=== PATIENT | male | born 1960 | race African-American/Black ===

== ENCOUNTER 2020-11-12 09:13 | Inpatient (IN) | payer OTHER ==
[~2020-11-12] VITALS: Ht 170.2 cm; Wt 93.4 kg
--- NOTE | 2020-11-12 09:20 | NUR ---
ASSUME PATIENT CARE. HERE FOR WORSENING SOB. PT WAS SENT FROM [facility]. ALREADY MISSED 2 DIALYSIS. GOWNED AND PLACED ON MONITOR. PLACED ON SIMPLE MASK W SATURATION LOW 90'S. VERBALLY RESPONSIVE. AWAITING MD WILKS.
--- NOTE | 2020-11-12 09:21 | NUR ---
DR ALEXIS AT BEDSIDE FOR EVAL.
--- NOTE | 2020-11-12 09:37 | NUR ---
IV LINE STARTED BLOOD DRAWN AND SENT TO LAB.
--- NOTE | 2020-11-12 09:40 | NUR ---
RADIO,LOGY AT BEDSIDE FOR CHEST XRAY.
[2020-11-12 10:33] LABS: BASOPHILS % (AUTO) 0.3 % (0.0-2.0); CALCIUM, SERUM 8.5 mg/dL (8.5-10.1); HEMATOCRIT 32 % (39-51); HEMOGLOBIN 10.2 g/dL (13.5-17.5); LYMPHOCYTES % (AUTO) 21.6 % (20.0-44.0); MEAN CORPUSCULAR HGB CONC 33 g/dl (31.0-36.0); MEAN CORPUSCULAR VOLUME 82 fL (80-96); MONOCYTES # (AUTO) 0.3 /CMM (0.1-1.30); MONOCYTES % (AUTO) 6.2 % (2.0-12.0); NEUTROPHILS # (AUTO) 3.3 /CMM (1.8-8.9); NEUTROPHILS % (AUTO) 71.9 % (43.0-81.0); PLATELET COUNT (AUTO) 158 /CMM (150-450); POTASSIUM 4.8 mmol/L (3.5-5.1); RED BLOOD CELL COUNT(AUTO) 3.84 MIL/uL (4.5-6.0); WHITE BLOOD COUNT (AUTO) 4.7 K/uL (4.3-11.0)
[2020-11-12 10:44] LABS: ALBUMIN 3.5 g/dL (3.4-5.0); BILIRUBIN,DIRECT 0.2 mg/dL (0.0-0.2); TOTAL PROTEIN, SERUM 7.5 g/dL (6.4-8.2)
[2020-11-12 10:58] LABS: BILIRUBIN,TOTAL 0.5 mg/dL (0.2-1.0)
[2020-11-12] MEDS ORDERED: DEXAMETHASONE SOD PHOSPHATE 10 MG/ML VIAL IV ONE (11:00)
[2020-11-12] MEDS ORDERED: AZITHROMYCIN 500 MG in IV D5W 250 ML IV SCH (11:00)
[2020-11-12] MEDS ORDERED: CEFTRIAXONE 1 G in IV D5W 50 ML IV SCH (11:00)
[2020-11-12] MEDS ORDERED: DEXAMETHASONE SOD PHOSPHATE 10 MG/ML VIAL ONE (11:06)
[2020-11-12] MEDS ORDERED: CEFTRIAXONE 1GM BAG (ER ONLY) 50 ML IV ONE (11:06)
--- NOTE | 2020-11-12 12:31 | NUR ---
PATIENT PLACED ON O2@6L/MIN VIA NASAL CANULA. TOLERATING WELL. VITALS UPDATED.
--- NOTE | 2020-11-12 15:55 | NUR ---
PT RESTING IN BED. ON MONITOR. DENIES ANY COMPLAIN AT THIS TIME. STILL TOLERATING O2@6L/MIN. VITALAS UPDATED. WILL CONTINUE TO MONITOR.
--- NOTE | 2020-11-12 17:40 | NUR ---
PT REQUESTING TO GO NUMBER 2. WAS PROVIDED W/ BEDSIDE COMMODE FOR SAFETY.
--- NOTE | 2020-11-12 20:05 | NUR ---
ASSUMED CARE. PT AAOX4, NO ACUTE DISTRESS NOTED, RESP EVEN AND UNLABORED. NO PAIN OR DISCOMFORT NOTED AT THIS TIME. PT REMAINS ON CARDIAC MONITORING, CONTINUOUS POX. CALL LIGHT WITHIN REACH. WILL CONTINUE TO MONITOR PT CLOSELY.
[2020-11-12] MEDS ORDERED: ATORVASTATIN 40 MG TABLET ONE (22:39)
[2020-11-12] MEDS: ATORVASTATIN 10 MG TABLET PO SCH (22:43)
--- NOTE | 2020-11-12 23:07 | NUR ---
PT AMBULATORY TO THE BATHROOM WITH SOME ASSISTANCE.
--- NOTE | 2020-11-13 00:27 | NUR ---
PT ASLEEP, NO ACUTE DISTRESS NOTED, RESP EVEN AND UNLABORED. NO PAIN OR DISCOMFORT NOTED AT THIS TIME. CALL LIGHT WITHIN REACH. WILL CONTINUE TO MONITOR PT.
--- NOTE | 2020-11-13 03:50 | NUR ---
PT AMBULATORY TO THE RESTROOM WITH MINIMAL ASSISTANCE.
[2020-11-13 06:40] LABS: BASOPHILS % (AUTO) 0.1 % (0.0-2.0); HEMATOCRIT 28 % (39-51); HEMOGLOBIN 9.3 g/dL (13.5-17.5); LYMPHOCYTES # (AUTO) 0.5 /CMM (0.8-4.8); LYMPHOCYTES % (AUTO) 19.3 % (20.0-44.0); MEAN CORPUSCULAR HGB CONC 33 g/dl (31.0-36.0); MEAN CORPUSCULAR VOLUME 82 fL (80-96); MONOCYTES # (AUTO) 0.2 /CMM (0.1-1.30); MONOCYTES % (AUTO) 9.4 % (2.0-12.0); NEUTROPHILS # (AUTO) 1.7 /CMM (1.8-8.9); NEUTROPHILS % (AUTO) 71.2 % (43.0-81.0); PLATELET COUNT (AUTO) 157 /CMM (150-450); RED BLOOD CELL COUNT(AUTO) 3.45 MIL/uL (4.5-6.0); WHITE BLOOD COUNT (AUTO) 2.3 K/uL (4.3-11.0)
[2020-11-13 06:59] LABS: POTASSIUM 5.8 mmol/L (3.5-5.1)
[2020-11-13 07:16] LABS: CREATININE 15.3 mg/dL (0.6-1.3)
--- NOTE | 2020-11-13 07:16 | NUR ---
LAB CALLED REGARDING CREATININE-15.3, BUN-98. GLUCOSE-483. WILL ENDORSE TO AM SHIFT.
[2020-11-13] MEDS ORDERED: AMLODIPINE BESYLATE 5 MG TABLET ONE (09:45)
[2020-11-13] MEDS ORDERED: ASPIRIN 81 MG TAB.CHEW ONE (09:45)
[2020-11-13] MEDS: AMLODIPINE BESYLATE 2.5 MG TABLET PO SCH (09:50)
[2020-11-13] MEDS: ASPIRIN EC 81 MG TABLET.DR PO SCH (09:50)
--- NOTE | 2020-11-13 09:59 | NUR ---
PT ASSIGNED TO TELE 111-1
--- NOTE | 2020-11-13 10:07 | NUR ---
REPORT GIVEN TO ELISE RN FOR CONTINUITY OF CARE ON TELE FLOOR
--- NOTE | 2020-11-13 10:15 | NUR ---
received a call from the lab regarding covid 19 result "positive".
--- NOTE | 2020-11-13 10:20 | NUR ---
wheeled patient via gurney accompanied by EMT and rn in no distress. RN at bedside to assume care.
--- NOTE | 2020-11-13 10:30 | NUR ---
TELE/RN OPENING NOTE THE PATIENT IS RECEIVED ON A GURNEY FROM ER. THE PATIENT IS TRANSFERRED TO BED. PATIENT IS ALERT AND ORIENTED X3. IS ON OXYGEN AT 5L/MIN VIA SIMPLE MASK. RESPIRATION REGULAR AND UNLABORED. NOTED SOB WITH EXERTION. DENIES PAIN. RAC G20 PATENT AND SALINE LOCKED. LEFT UPPER ARM HD CATH PRESENT AND POSITIVE FOR BRUT AND THRILL. BED LOW AND LOCKED. SIDE RAILS UP X3. CALL LIGHT WITHIN REACH. WILL CONTINUE TO MONITOR.
[2020-11-13] MEDS ORDERED: AZITHROMYCIN 500 MG in IV D5W 250 ML IV SCH (11:00)
[2020-11-13] MEDS ORDERED: CEFTRIAXONE 1 G in IV D5W 50 ML IV SCH (11:00)
--- NOTE | 2020-11-13 13:51 | NUR ---
TELE/RN NOTE STILL WAITING FOR THE PHARMACY TO DELIVER ROCEPHIN 1G IV THAT WAS DUE AT 1100. FOLLOW UP CALLS TO PHARMACY WERE DONE. WILL CONTINUE TO FOLLOW UP UNTIL THE MEDICATION IS DELIVERED.
--- NOTE | 2020-11-13 18:37 | NUR ---
RN NOTE THE PATIENT GETTING DIALYSIS AND TOLERATING IT WELL.
--- NOTE | 2020-11-13 18:38 | NUR ---
TELE/RN CLOSING NOTE THE PATIENT IS ALERT AND ORIENTED X3, GETTING DIALYSIS AT THIS TIME. DENIES PAIN. RECEIVING OXYGEN AT 5L/MIN VIA NASAL CANNULA AND SATURATION IS AT 94%. DENIES SOB. RESPIRATION REGULAR AND UNLABORED. RAC G 18 PATENT AND SALINE LOCKED. LEFT UPPER ARM HS CATH PRESENT. TELE BOX READING IS SINUS RHYTHM 74. BED LOW AND LOCKED. SIDE RAILS UP X3. CALL LIGHT WITHIN REACH. WILL ENDORSE TO WELDER FABRICATOR.
--- NOTE | 2020-11-13 19:20 | NUR ---
TELE/RN OPENING NOTE RECEIVED PATIENT RESTING IN BED, ALERT AND ORIENTED X3 WITH FORGETFULNESS, GETTING DIALYSIS AT THIS TIME. DENIES PAIN. RECEIVING OXYGEN AT 5L/MIN VIA MASK AND SATURATION IS AT 95%. DENIES SOB. RESPIRATION REGULAR AND UNLABORED. RAC G 18 PATENT AND SALINE LOCKED. LEFT UPPER ARM HD CATH PRESENT. ON TELE MONITORING WITH SINUS RHYTHM 76. BED LOW AND LOCKED. SIDE RAILS UP X3. CALL LIGHT WITHIN REACH. WILL CONTINUE TO MONITOR FOR ANY CHANGES.
--- NOTE | 2020-11-13 19:30 | NUR ---
SHADE MAKER NOTE PATIENT IS RESTING IN BED. HEMODIALYSIS IS GOING ON, TOLERATING WELL AT THIS TIME. WILL CONTINUE TO MONITOR FOR ANY CHANGES.
[2020-11-13 20:00] VITALS: BP 134/82
--- NOTE | 2020-11-13 20:25 | NUR ---
INTRAMURAL DIRECTOR NOTE PATIENT IS DONE WITH HEMODIALYSIS, TOLERATED WELL, 3 LITER OUTPUT. STABLE AT THIS TIME. CONTINUING TO MONITOR FOR ANY CHANGES.
[2020-11-13] MEDS: ATORVASTATIN 10 MG TABLET PO SCH (21:28)
--- NOTE | 2020-11-13 22:30 | NUR ---
REHABILITATION ENGINEER NOTE PATIENT STATED THAT HE HAS HIS WALLET WITH HIM, HAS MONEY IN IT & WOULD LIKE TO PUT HIS WALLET IN SAFE. COUNTED PATIENT'S MONEY WITH ANOTHER WITNESS NURSE, PATIENT'S DL, CREDIT CARD & SOCIAL SECURITY CARD PRESENT IN HIS WALLET. ALL BELONGINGS INCLUDING PATIENT'S WALLET SENT TO THE NURSING AUDIO PRODUCTION MANAGER SAFE.
[2020-11-14] VITALS (7 sets, daily range): BP systolic 90–155; BP diastolic 57–91
--- NOTE | 2020-11-14 04:20 | NUR ---
SOCIAL WORK SPECIALIST NOTE PATIENT IS RESTING IN BED WITH MASK ON. NOTED WITH O2 SAT AT 77%, INCREASED O2 TO 10LPM PER CHARGE NURSE INSTRUCTIONS. O2 SAT NOTED TO BE AT 80-82%. CHANGED TO NON REBREATHER MASK AT 15 LPM, O2 SAT IS 88-90%. PATIENT IN HIGH SEMI WEST POSITION. INTERMITTENTLY SLEEPING. VITALS ARE 90/57, 86, 24, 98.8, 90%. NO C/O PAIN VERBALIZED BY THE PATIENT. CONTINUING TO MONITOR.
--- NOTE | 2020-11-14 05:03 | NUR ---
GROUNDING ENGINEER NOTE PATIENT'S VITALS ARE 101/66, 88, 22, 98.7, 91% WITH NON REBREATHER MASK @ 15LPM. NO ACUTE DISTRESS NOTED AT THIS TIME. CONTINUING TO MONITOR.
--- NOTE | 2020-11-14 05:45 | NUR ---
SALES AND LEASING AGENT NOTE PATIENT'S O2 SAT IS 96%. ON NON REBREATHER MASK AT 15 LMP. SLEEPING COMFORTABLY.
[2020-11-14 06:32] LABS: BASOPHILS % (AUTO) 0.1 % (0.0-2.0); HEMATOCRIT 31 % (39-51); HEMOGLOBIN 10.1 g/dL (13.5-17.5); LYMPHOCYTES # (AUTO) 0.6 /CMM (0.8-4.8); LYMPHOCYTES % (AUTO) 9.5 % (20.0-44.0); MEAN CORPUSCULAR HGB CONC 33 g/dl (31.0-36.0); MEAN CORPUSCULAR VOLUME 82 fL (80-96); MONOCYTES # (AUTO) 0.2 /CMM (0.1-1.30); MONOCYTES % (AUTO) 2.8 % (2.0-12.0); NEUTROPHILS # (AUTO) 5.5 /CMM (1.8-8.9); NEUTROPHILS % (AUTO) 87.6 % (43.0-81.0); PLATELET COUNT (AUTO) 205 /CMM (150-450); RED BLOOD CELL COUNT(AUTO) 3.79 MIL/uL (4.5-6.0); WHITE BLOOD COUNT (AUTO) 6.3 K/uL (4.3-11.0)
[2020-11-14 06:43] LABS: CALCIUM, SERUM 7.9 mg/dL (8.5-10.1); POTASSIUM 4.4 mmol/L (3.5-5.1)
[2020-11-14 06:50] LABS: CREATININE 11.7 mg/dL (0.6-1.3)
--- NOTE | 2020-11-14 07:23 | NUR ---
TELE/RN CLOSING NOTE PATIENT IS ALERT AND ORIENTED X3 WITH FORGETFULNESS, DENIES PAIN. RECEIVING OXYGEN AT 15L/MIN VIA NON REBREATHER MASK AND SATURATION IS AT 89-91%. REPORT GIVEN TO AM RN & RT WILL BE NOTIFIED TO ASSESS THE PATIENT. DENIES SOB. RESPIRATION REGULAR AND UNLABORED. RAC G 18 PATENT AND SALINE LOCKED. LEFT UPPER ARM HS CATH PRESENT. TELE BOX READING IS SINUS RHYTHM 77. BED LOW AND LOCKED. SIDE RAILS UP X3. CALL LIGHT WITHIN REACH. ENDORSED TO AM RN FOR CONTINUITY OF CARE.
--- NOTE | 2020-11-14 07:30 | NUR ---
RN OPENING NOTE PATIENT IS ALERT AND ORIENTED X3 WITH FORGETFULNESS, DENIES PAIN. RECEIVING OXYGEN AT 15L/MIN VIA NON REBREATHER MASK AND SATURATION IS AT 89-91%. RESPIRATION REGULAR AND UNLABORED. RAC G 18 PATENT AND SALINE LOCKED. LEFT UPPER ARM HS CATH PRESENT. TELE BOX READING IS SINUS RHYTHM. BED LOW AND LOCKED. SIDE RAILS UP X3. CALL LIGHT WITHIN REACH. WILL CONT TO MONITOR AND PROVIDE TREATMENT
--- NOTE | 2020-11-14 08:40 | NUR ---
PATIENT WAS DESATURATING DOWN TO 85% ON NONREBREATHER. RT CALLED. HIGH FLOW O2 STARTED, TOLERATING WELL.
--- NOTE | 2020-11-14 08:55 | NUR ---
WOUND CARE CONSULT: REVIEWED CHART, NURSING DOCUMENTATION AND PHOTOS WHICH INDICATE THICKENED DISCOLORED TOENAILS AND SKIN TO TOES, PRESENT ON ADMISSION. RECOMMENDATIONS MADE FOR SKIN PROTECTION. DISCUSSED WITH NURSING STAFF. TO DECIDE IF PODIATRY NEEDED AT THIS TIME. WILL SEE PRN. IN AGREEMENT WITH PLAN OF CARE.
[2020-11-14] MEDS: AMLODIPINE BESYLATE 2.5 MG TABLET PO SCH (08:59)
[2020-11-14] MEDS: DEXAMETHASONE SOD PHOSPHATE 10 MG/ML VIAL IV SCH (08:59)
[2020-11-14] MEDS: ASPIRIN EC 81 MG TABLET.DR PO SCH (08:59)
[2020-11-14] MEDS ORDERED: DEXAMETHASONE SOD PHOSPHATE 4 MG/ML VIAL IV SCH (09:00)
[2020-11-14] MEDS ORDERED: Z GUARD REMEDY 2 OZ OINT TP PRN (09:00)
[2020-11-14] MEDS: HEPARIN SODIUM, PORCINE 5000 UNITS/1 ML VIAL SQ SCH ×2 (09:01→21:45)
[2020-11-14] MEDS ORDERED: VALS160T2 PO (10:17)
[2020-11-14] MEDS ORDERED: LINA5TAB PO (10:17)
[2020-11-14] MEDS ORDERED: AMLO-212 PO (10:17)
[2020-11-14] MEDS ORDERED: HYDR100T27 PO (10:17)
[2020-11-14] MEDS ORDERED: LOVA40TA2 PO (10:17)
[2020-11-14] MEDS ORDERED: CALC667C6 PO (10:17)
[2020-11-14] MEDS ORDERED: PROM25TA15 PO (10:17)
[2020-11-14] MEDS ORDERED: CARV25TA PO (10:17)
[2020-11-14] MEDS: ACETAMINOPHEN 325 MG TABLET PO PRN (11:10)
[2020-11-14] MEDS: INSULIN REGULAR, HUMAN 100 UNIT/ML 3 ML VIAL SQ PRN ×3 (12:02→21:45)
[2020-11-14] MEDS: BLOOD SUGAR DIAGNOSTIC 1 EACH STRIP VI SCH ×3 (12:03→21:43)
--- NOTE | 2020-11-14 18:58 | NUR ---
RN CLOSING NOTE PATIENT IS ALERT AND ORIENTED X3 WITH FORGETFULNESS, ABLE TO MAKE NEEDS KNOWN. PATIENT ON HIGH FLOW O2 AT THIS TIME AT 60LPM, FIO2 100% WITH NONREBREATHER MASK 15LPM. OXYGEN SATURATION 98%, TOLERATING O2 SETTINGS WELL. RESPIRATION REGULAR AND UNLABORED. RAC G 18 PATENT AND SALINE LOCKED. LEFT UPPER ARM HS CATH PRESENT. TELE BOX READING IS SINUS RHYTHM. BED LOW AND LOCKED. SIDE RAILS UP X2. CALL LIGHT WITHIN REACH. WILL ENDORSE TO PRINCIPAL ANDROID DEVELOPER NURSE FOR LUNA.
--- NOTE | 2020-11-14 19:56 | NUR ---
RN NOTE PATIENT IS ALERT AND ORIENTED X3 WITH FORGETFULNESS. PATIENT ON HIGH FLOW O2 AT THIS TIME AT 60LPM, FIO2 100% WITH NONREBREATHER MASK 15LPM. O2 SAT WNL. RAC #18 PATENT AND SALINE LOCKED. LEFT UPPER ARM HD SITE PRESENT. TELE BOX READING IS SINUS RHYTHM. NO S/S OF ANY PAIN OR DISCOMFORT. BED LOCKED AND IN LOWEST POSITION. SIDE RAILS UP X2. SAFETY MEASURES IMPLEMENTED. CALL LIGHT WITHIN REACH. WILL CONTINUE TO MONITOR.
--- NOTE | 2020-11-14 22:00 | NUR ---
BLOOD SUGAR 307, 8 UNITS INSULIN GIVEN ORDERED AT THIS TIME.
[2020-11-14] MEDS: ATORVASTATIN 10 MG TABLET PO SCH (22:04)
[2020-11-15] VITALS: BP 118/86
[2020-11-15] MEDS: *INSULIN REGULAR(HUMULIN R)HUM 100 UNIT/ML VIAL SQ PRN (02:01)
[2020-11-15 04:00] VITALS: BP 150/82
[2020-11-15 06:28] LABS: CALCIUM, SERUM 7.4 mg/dL (8.5-10.1); POTASSIUM 4.5 mmol/L (3.5-5.1)
[2020-11-15 06:33] LABS: BASOPHILS % (AUTO) 0.1 % (0.0-2.0); HEMATOCRIT 28 % (39-51); HEMOGLOBIN 9.4 g/dL (13.5-17.5); LYMPHOCYTES # (AUTO) 0.5 /CMM (0.8-4.8); LYMPHOCYTES % (AUTO) 10.9 % (20.0-44.0); MEAN CORPUSCULAR HGB CONC 33 g/dl (31.0-36.0); MEAN CORPUSCULAR VOLUME 81 fL (80-96); MONOCYTES # (AUTO) 0.2 /CMM (0.1-1.30); MONOCYTES % (AUTO) 4.7 % (2.0-12.0); NEUTROPHILS % (AUTO) 84.3 % (43.0-81.0); PLATELET COUNT (AUTO) 186 /CMM (150-450); RED BLOOD CELL COUNT(AUTO) 3.48 MIL/uL (4.5-6.0); WHITE BLOOD COUNT (AUTO) 4.7 K/uL (4.3-11.0)
[2020-11-15 06:37] LABS: CREATININE 13.3 mg/dL (0.6-1.3)
--- NOTE | 2020-11-15 06:50 | NUR ---
RN NOTE PATIENT IS ALERT AND ORIENTED X3 WITH FORGETFULNESS. PATIENT ON HIGH FLOW O2 AT THIS TIME AT 50LPM, FIO2 100%. O2 SAT 100%. RAC #18 PATENT AND SALINE LOCKED. WITH LEFT UPPER ARM AV FISTULA. TELE MONITOR ON, SINUS RHYTHM. NO S/S OF ANY PAIN OR DISCOMFORT. BED LOCKED AND IN LOWEST POSITION. SIDE RAILS UP X2. SAFETY MEASURES IMPLEMENTED. CALL LIGHT WITHIN REACH. WILL ENDORSE TO ONCOMING SHIFT.
[2020-11-15] MEDS: BLOOD SUGAR DIAGNOSTIC 1 EACH STRIP VI SCH ×4 (07:30→21:08)
--- NOTE | 2020-11-15 07:56 | NUR ---
SUPERVISOR PACKING 1 OPENING NOTES Patient is alert and oriented with forgetfulness. Patient is on high flow 15 liters.No s/s of respiratory distress. Patient is breathing even and unlabored. No c/o sob. Patient noted with RAC 18 gauze, no s/s of infection. Bed in lowest and locked position. Will continue to monitor.Call light with in reach.
[2020-11-15 08:00] VITALS: BP 155/85
[2020-11-15] MEDS: ASPIRIN EC 81 MG TABLET.DR PO SCH (08:12)
[2020-11-15] MEDS: AMLODIPINE BESYLATE 2.5 MG TABLET PO SCH (08:14)
[2020-11-15] MEDS: HEPARIN SODIUM, PORCINE 5000 UNITS/1 ML VIAL SQ SCH ×2 (08:15→21:02)
[2020-11-15] MEDS: DEXAMETHASONE SOD PHOSPHATE 10 MG/ML VIAL IV SCH (08:15)
[2020-11-15] MEDS: INSULIN REGULAR, HUMAN 100 UNIT/ML 3 ML VIAL SQ PRN ×4 (10:00→21:27)
[2020-11-15 12:00] VITALS: BP 140/83
[2020-11-15 16:00] VITALS: BP 164/78
--- NOTE | 2020-11-15 19:39 | NUR ---
AVIATION BOATSWAIN'S MATE CLOSING NOTE Patient is alert and oriented. He is breathing even and unlabored. On high flow 50 lpm with fi02 of 100 %. No respiratory distress noted. Patient teaching done regarding use of call light. Bed is in lowest and locked position. Endorsed to next shift for LUNA.
[2020-11-15 20:00] VITALS: BP 97/64
[2020-11-15 20:03] LABS: BILIRUBIN,URINE NEGATIVE (NEGATIVE); COLOR,URINE YELLOW (YELLOW); LEUKOCYTE ESTERASE ,URINE NEGATIVE (NEGATIVE); NITRITE, URINE NEGATIVE (NEGATIVE); PROTEIN,URINE 100 mg/dl (NEGATIVE); UGLUCOSE 500 MG/DL mg/dL (NEGATIVE); UROBILINOGEN,URINE 0.2 EU/dL (0.2)
[2020-11-15 20:18] LABS: BACTERIA,URINE None seen /HPF (None Seen); RBC,URINE 0-2 /HPF (0-2); SQUAMOUS EPITHELIAL CELL,UR Few /HPF (None Seen); WBC,URINE 0-2 /HPF (0-3)
[2020-11-15] MEDS: ATORVASTATIN 10 MG TABLET PO SCH (21:02)
[2020-11-15] MEDS ORDERED: INSULIN GLARGINE, 100 UNIT/ML CARTRIDGE SQ SCH (22:00)
[2020-11-16] VITALS: BP 138/90
[2020-11-16 04:00] VITALS: BP 161/98
[2020-11-16] MEDS: ACETAMINOPHEN 325 MG TABLET PO PRN (05:31)
[2020-11-16 06:35] LABS: CALCIUM, SERUM 7.5 mg/dL (8.5-10.1); POTASSIUM 4.5 mmol/L (3.5-5.1)
[2020-11-16 06:54] LABS: CREATININE 10.5 mg/dL (0.6-1.3)
[2020-11-16 07:17] LABS: C-REACTIVE PROTEIN 5.1 mg/dL (0.0-0.9)
--- NOTE | 2020-11-16 07:30 | NUR ---
RN OPENING NOTE PATIENT RECEIVED IN BED A&OX3 WITH FORGETFULNESS, ABLE TO MAKE NEEDS KNOWN, BREATHING EVENLY, TOLERATING HIGH FLOW O2 (AIRVO2) AT 40 L/MIN WELL, SATTING 99%. DENIES PAIN. TELE MONITOR READS NSR 70S. R AC #18 G INTACT AND PATENT. JAYLYN HD FISTULA INTACT. ISOLATION PRECAUTIONS MAINTAINED. CALL LIGHT WITHIN REACH, BED LOW, SIDE RAILS UP APPROPRIATE, NO S/S OF DISTRESS NOTED, AND NEEDS ATTENDED. CLIENT WILL BE CONTINUED TO BE MONITORED AND CARE PROVIDED THROUGHOUT SHIFT.
[2020-11-16 08:00] VITALS: BP 150/81
[2020-11-16] MEDS: BLOOD SUGAR DIAGNOSTIC 1 EACH STRIP VI SCH ×4 (08:13→22:02)
[2020-11-16] MEDS ORDERED: AMLODIPINE BESYLATE 2.5 MG TABLET PO SCH (09:00)
[2020-11-16] MEDS: DEXAMETHASONE SOD PHOSPHATE 10 MG/ML VIAL IV SCH (09:46)
[2020-11-16] MEDS: ASPIRIN EC 81 MG TABLET.DR PO SCH (09:46)
[2020-11-16] MEDS: HEPARIN SODIUM, PORCINE 5000 UNITS/1 ML VIAL SQ SCH ×2 (09:49→21:26)
[2020-11-16] MEDS: INSULIN REGULAR, HUMAN 100 UNIT/ML 3 ML VIAL SQ PRN ×4 (10:10→21:24)
[2020-11-16 12:00] VITALS: BP 104/56
[2020-11-16 16:00] VITALS: BP 157/79
--- NOTE | 2020-11-16 19:10 | NUR ---
RN CLOSING NOTE PATIENT IN BED A&OX3 WITH FORGETFULNESS, ABLE TO MAKE NEEDS KNOWN, BREATHING EVENLY, TOLERATING HIGH FLOW O2 (AIRVO2) AT 40 L/MIN WELL, SATTING 99%. DENIES PAIN. TELE MONITOR READS NSR 70S. R AC #18 G INTACT AND PATENT. JAYLYN HD FISTULA INTACT. CLIENT HAD ONE EPISODE OF EMESIS AT 1910. NOTIFIED THERAFTER AND OBTAINED ORDERS FOR ZOFRAN. ORDERS CARRIED OUT AND IMPLEMENTED. ISOLATION PRECAUTIONS MAINTAINED. CALL LIGHT WITHIN REACH, BED LOW, SIDE RAILS UP APPROPRIATE, NO S/S OF DISTRESS NOTED, AND NEEDS ATTENDED. CLIENT WILL BE CONTINUED TO BE MONITORED AND CARE PROVIDED THROUGHOUT SHIFT.
[2020-11-16 20:00] VITALS: BP 170/69
[2020-11-16] MEDS: ZOLPIDEM TARTRATE 5 MG TABLET PO PRN (21:09)
[2020-11-16] MEDS: ATORVASTATIN 10 MG TABLET PO SCH (21:09)
[2020-11-16] MEDS: ONDANSETRON HCL/PF 4 MG/2 ML VIAL IV PRN (21:24)
[2020-11-16] MEDS: INSULIN GLARGINE, 100 UNIT/ML CARTRIDGE SQ SCH (21:38)
[2020-11-17] VITALS: BP 160/67
[2020-11-17 04:00] VITALS: BP 160/76
--- NOTE | 2020-11-17 05:15 | NUR ---
RN notes There was a sound heard from the patient's room. Staff went in, saw patient kneeling on the floor at the side of the bed. Apparently, patient just woke up and tried to stand up. Unable to bear his weight, he fell to his knees. Patient is disoriented, but at baseline patient is forgetful. Able to do range of motion. No skin issues. No complaint of pain or discomfort. Vital signs within normal limits. O2sat 99%, on high flow at 60lpm, tolerating well. Breathing even and unlabored. Called MD with order to monitor patient. Kept clean and dry. Continuous monitoring, will endorse to next shift for continuity of care.
--- NOTE | 2020-11-17 07:34 | NUR ---
RN OPENING NOTE PATIENT RECEIVED IN BED A&OX3 WITH FORGETFULNESS, ABLE TO MAKE NEEDS KNOWN, BREATHING EVENLY, TOLERATING HIGH FLOW O2 (AIRVO2) AT 40 L/MIN WELL, SATTING 99%. DENIES PAIN. TELE MONITOR READS NSR 70S. R AC #18 G INTACT AND PATENT. JAYLYN HD FISTULA INTACT. ISOLATION PRECAUTIONS MAINTAINED. CALL LIGHT WITHIN REACH, BED LOW, SIDE RAILS UP APPROPRIATE, NO S/S OF DISTRESS NOTED, AND NEEDS ATTENDED. WILL CONTINUE TO MONITOR AND PROVIDE CARE.
[2020-11-17] MEDS: BLOOD SUGAR DIAGNOSTIC 1 EACH STRIP VI SCH ×4 (07:44→21:30)
[2020-11-17 08:00] VITALS: BP 157/88
[2020-11-17] MEDS: HEPARIN SODIUM, PORCINE 5000 UNITS/1 ML VIAL SQ SCH ×2 (08:44→21:19)
[2020-11-17] MEDS: DEXAMETHASONE SOD PHOSPHATE 10 MG/ML VIAL IV SCH (08:44)
[2020-11-17] MEDS: ONDANSETRON HCL/PF 4 MG/2 ML VIAL IV PRN ×2 (08:44→08:58)
[2020-11-17] MEDS: ASPIRIN EC 81 MG TABLET.DR PO SCH (08:44)
[2020-11-17] MEDS: AMLODIPINE BESYLATE 2.5 MG TABLET PO SCH (08:48)
[2020-11-17 12:00] VITALS: BP 142/90
[2020-11-17] MEDS: ACETAMINOPHEN 325 MG TABLET PO PRN (12:55)
[2020-11-17 16:00] VITALS: BP 156/86
[2020-11-17] MEDS: INSULIN REGULAR, HUMAN 100 UNIT/ML 3 ML VIAL SQ PRN (17:21)
--- NOTE | 2020-11-17 18:50 | NUR ---
RN CLOSING NOTE PATIENT RECEIVED IN BED A&OX3 WITH FORGETFULNESS, ABLE TO MAKE NEEDS KNOWN, BREATHING EVENLY, TOLERATING HIGH FLOW O2 (AIRVO2) AT 40 L/MIN WELL, SATTING 99%. DENIES PAIN. TELE MONITOR READS NSR 70S. R AC #18 G INTACT AND PATENT. JAYLYN HD FISTULA INTACT. PATIENT RECEIVED HEMODIALYSIS TODAY. 2L REMOVED. ISOLATION PRECAUTIONS MAINTAINED. CALL LIGHT WITHIN REACH, BED LOW, SIDE RAILS UP APPROPRIATE, NO S/S OF DISTRESS NOTED, AND NEEDS ATTENDED. WILL ENDORSE TO KITCHEN STEWARD/STEWARDESS NURSE FOR LUNA.
--- NOTE | 2020-11-17 19:30 | NUR ---
TELE/RN OPENING NOTES RECEIVED PATIENT IN BED RESTING. PATIENT IS ALERT AND ORIENTED X 3, FORGETFUL. PATIENT BREATHING IS EVEN AND UNLABORED. NO SIGNS OF SOB OR RESPIRATORY DISTRESS NOTED. PATIENT STATES NO PAIN AT THIS TIME. PATIENT HAS IV ACCESS ON RIGHT AC #18G SL AND JAYLYN FISTULA INTACT. SAFETY MEASURES ARE IN PLACE, BED IS LOCKED AND PLACED IN THE LOWEST POSITION, SIDE RAILS UP X 3, CALL LIGHT IS WITHIN REACH. WILL CONTINUE TO MONITOR THROUGH OUT SHIFT.
[2020-11-17 20:00] VITALS: BP 147/78
[2020-11-17] MEDS: ZOLPIDEM TARTRATE 5 MG TABLET PO PRN (21:18)
[2020-11-17] MEDS: ATORVASTATIN 10 MG TABLET PO SCH (21:18)
--- NOTE | 2020-11-17 21:20 | NUR ---
TELE/RN NOTES PATIENT REQUESTING FOR SLEEPING AID. PATIENT GIVEN AMBIEN 5 MG PO. PATIENT VITAL SIGNS ARE STABLE, PATIENT TOLERATING HIGH FLOW SETTING WELL. WILL CONTINUE TO MONITOR.
[2020-11-17] MEDS: INSULIN GLARGINE, 100 UNIT/ML CARTRIDGE SQ SCH (21:30)
[2020-11-17] MEDS: *INSULIN REGULAR(HUMULIN R)HUM 100 UNIT/ML VIAL SQ PRN (21:31)
[2020-11-17] MEDS ORDERED: ATORVASTATIN 10 MG TABLET PO SCH (22:00)
[2020-11-18] VITALS: BP 151/78
[2020-11-18 04:00] VITALS: BP 171/84
[2020-11-18 06:11] LABS: BASOPHILS % (AUTO) 0.4 % (0.0-2.0); HEMATOCRIT 29 % (39-51); HEMOGLOBIN 9.5 g/dL (13.5-17.5); LYMPHOCYTES # (AUTO) 0.3 /CMM (0.8-4.8); LYMPHOCYTES % (AUTO) 6.4 % (20.0-44.0); MEAN CORPUSCULAR HGB CONC 33 g/dl (31.0-36.0); MEAN CORPUSCULAR VOLUME 81 fL (80-96); MONOCYTES # (AUTO) 0.2 /CMM (0.1-1.30); NEUTROPHILS # (AUTO) 4.1 /CMM (1.8-8.9); NEUTROPHILS % (AUTO) 89.2 % (43.0-81.0); PLATELET COUNT (AUTO) 217 /CMM (150-450); RED BLOOD CELL COUNT(AUTO) 3.59 MIL/uL (4.5-6.0); WHITE BLOOD COUNT (AUTO) 4.6 K/uL (4.3-11.0)
[2020-11-18 06:31] LABS: CALCIUM, SERUM 7.1 mg/dL (8.5-10.1); POTASSIUM 4.8 mmol/L (3.5-5.1)
[2020-11-18 06:43] LABS: CREATININE 10.2 mg/dL (0.6-1.3)
--- NOTE | 2020-11-18 06:45 | NUR ---
TELE/RN CLOSING NOTES PATIENT IN BED RESTING. PATIENT IS ALERT AND ORIENTED X 3, FORGETFUL. PATIENT BREATHING IS EVEN AND UNLABORED. NO SIGNS OF SOB OR RESPIRATORY DISTRESS NOTED. PATIENT STATES NO PAIN AT THIS TIME. PATIENT HAS IV ACCESS ON RIGHT AC #18G SL AND JAYLYN FISTULA INTACT. REORIENTED PATIENT NOT TO REMOVED HIGH FLOW OXYGEN DURING SHIFT. ALL PATIENT NEEDS HAVE BEEN MET. SAFETY MEASURES ARE IN PLACE, BED IS LOCKED AND PLACED IN THE LOWEST POSITION, SIDE RAILS UP X 3, CALL LIGHT IS WITHIN REACH. WILL ENDORSE CARE THE DAY SHIFT NURSE.
[2020-11-18] MEDS: BLOOD SUGAR DIAGNOSTIC 1 EACH STRIP VI SCH ×4 (06:56→21:02)
[2020-11-18] MEDS: INSULIN REGULAR, HUMAN 100 UNIT/ML 3 ML VIAL SQ PRN ×3 (06:57→18:26)
[2020-11-18 08:00] VITALS: BP 154/77
--- NOTE | 2020-11-18 08:00 | NUR ---
TELE/RN OPENING NOTES RECEIVED PATIENT IN BED RESTING. PATIENT IS ALERT AND ORIENTED X 3, FORGETFUL. PATIENT BREATHING IS EVEN AND UNLABORED.ON HIGH FLOW 20 LITERS .O2 SAT 94%NO SIGNS OF SOB OR RESPIRATORY DISTRESS NOTED. PATIENT DENIES PAIN AT THIS TIME. PATIENT HAS IV ACCESS ON RIGHT AC #18G SL AND JAYLYN FISTULA INTACT. SAFETY MEASURES ARE IN PLACE, BED IS LOCKED AND PLACED IN THE LOWEST POSITION, SIDE RAILS UP X 3, CALL LIGHT IS WITHIN REACH. WILL CONTINUE TO MONITOR
[2020-11-18] MEDS: HEPARIN SODIUM, PORCINE 5000 UNITS/1 ML VIAL SQ SCH ×2 (09:04→20:31)
[2020-11-18] MEDS: LINAGLIPTIN 5 MG TABLET PO SCH (09:05)
[2020-11-18] MEDS: ASPIRIN EC 81 MG TABLET.DR PO SCH (09:05)
[2020-11-18] MEDS: CARVEDILOL 12.5 MG TABLET PO SCH ×2 (09:05→18:54)
[2020-11-18] MEDS: ONDANSETRON HCL/PF 4 MG/2 ML VIAL IV PRN (09:05)
[2020-11-18] MEDS: CALCIUM ACETATE 667 MG TABLET PO SCH ×3 (09:05→18:53)
[2020-11-18] MEDS: DEXAMETHASONE SOD PHOSPHATE 10 MG/ML VIAL IV SCH (09:06)
[2020-11-18] MEDS: AMLODIPINE BESYLATE 2.5 MG TABLET PO SCH (09:06)
[2020-11-18 12:00] VITALS: BP 151/81
[2020-11-18] MEDS: CLONIDINE HCL 0.1 MG TABLET PO SCH ×2 (12:44→20:30)
[2020-11-18 16:00] VITALS: BP 152/85
[2020-11-18 20:00] VITALS: BP 152/75
[2020-11-18] MEDS: ATORVASTATIN 10 MG TABLET PO SCH (20:30)
[2020-11-18] MEDS: ZOLPIDEM TARTRATE 5 MG TABLET PO PRN (20:30)
--- NOTE | 2020-11-18 20:59 | NUR ---
PT WANTS ALL HIS MEDS AT BEDTIME TO BE GIVEN EARLY INCLUDING HIS SLEEPING PILL SO HE CAN SLEEP EARLY AND DOESN'T WANT TO BE BOTHERED.
[2020-11-18] MEDS: INSULIN GLARGINE, 100 UNIT/ML CARTRIDGE SQ SCH (21:02)
[2020-11-19] VITALS: BP 150/80
--- NOTE | 2020-11-19 | NUR ---
PT'S HIGH FLOW ADJUSTMENTS DONE WITH O2 40 TO 30 LITER WITH FI02 OF 75 TO 50%.PT DESATURATES TO 84% WHEN ASLEEP AT TIMES BUT DENIES DISTRESS.WILL MONITOR.CALL LIGHT PLACED WITHIN REACH.ENDORSED TO NIGHT NURSE CARE.
--- NOTE | 2020-11-19 00:05 | NUR ---
RN NOTE ASSUMED CARE OF PATIENT FROM KIRT DIMAS. PT ON HI FLOW 30 L FIO2 50%. O2 SATURATION VIA CONTINUOUS PULSE OX 92%, NO SIGNS OF DISTRESS, WILL MONITOR PATIENT.
--- NOTE | 2020-11-19 03:00 | NUR ---
RN NOTE PT SLEEPING IN BED COMFORTABLY WITHOUT SIGNS OF DISTRESS, PAIN OR DISCOMFORT. SAFETY MEASURES IN PLACE, TOLERATING HI FLOW SETTINGS WELL, O2 SATURATION WITHIN NORMAL LIMITS VIA CONTINUOUS PULSE OX MONITORING, WILL CONTINUE TO MONITOR.
[2020-11-19 04:00] VITALS: BP 153/83
[2020-11-19] MEDS: CLONIDINE HCL 0.1 MG TABLET PO SCH ×3 (04:07→20:37)
--- NOTE | 2020-11-19 06:59 | NUR ---
RN NOTE PATIENT RESTING IN BED. ALERT AND ORIENTED X 3 WITH PERIODS OF FORGETFULNESS. PATIENT BREATHING IS EVEN AND UNLABORED. NO SIGNS OF SOB OR RESPIRATORY DISTRESS NOTED. WITH HI FLOW 30L AND 100% FIO2. PATIENT STATES NO PAIN AT THIS TIME. PATIENT HAS IV ACCESS ON RIGHT AC #18G SL AND JAYLYN FISTULA INTACT WITH THRILL AND BRUIT PRESENT. ALL PATIENT NEEDS HAVE BEEN MET. SAFETY MEASURES ARE IN PLACE, BED IS LOCKED AND PLACED IN THE LOWEST POSITION, SIDE RAILS UP X 2, CALL LIGHT IS WITHIN REACH. WILL ENDORSE CARE TO MORNING RN
[2020-11-19 08:00] VITALS: BP 110/58
[2020-11-19] MEDS: ONDANSETRON HCL/PF 4 MG/2 ML VIAL IV PRN (08:00)
[2020-11-19] MEDS: NIFEdipine XL (30MG) 30 MG TAB PO SCH (08:29)
[2020-11-19] MEDS: CALCIUM ACETATE 667 MG TABLET PO SCH ×3 (08:30→16:17)
[2020-11-19] MEDS: HEPARIN SODIUM, PORCINE 5000 UNITS/1 ML VIAL SQ SCH ×2 (08:31→20:38)
[2020-11-19] MEDS: DEXAMETHASONE SOD PHOSPHATE 10 MG/ML VIAL IV SCH (08:31)
[2020-11-19] MEDS: ASPIRIN EC 81 MG TABLET.DR PO SCH (08:32)
[2020-11-19] MEDS: LINAGLIPTIN 5 MG TABLET PO SCH (08:32)
[2020-11-19] MEDS: CARVEDILOL 12.5 MG TABLET PO SCH ×2 (08:32→16:17)
[2020-11-19] MEDS: *INSULIN REGULAR(HUMULIN R)HUM 100 UNIT/ML VIAL SQ PRN ×4 (08:53→21:26)
--- NOTE | 2020-11-19 09:00 | NUR ---
WHEEL PRESS CLERK OTE C\O NAUSEA AND VOMITING ZOFRAN 4 MG IVP GIVEN ORDERED ,WILL MONITOR
[2020-11-19] MEDS: BLOOD SUGAR DIAGNOSTIC 1 EACH STRIP VI SCH ×4 (09:28→21:25)
--- NOTE | 2020-11-19 09:32 | NUR ---
RN OPENING NOTE RECEIVED PATIENT IN BED WHILE ON HIGH FLOW 30L @50% O2. PATIENT IS AOX3 WITH PERIODS OF FORGETFULNESS. JAYLYN AVF HAS THRILL AND BRUIT. RAC #18 IS PATENT AND INTACT WITH NO SIGNS OF INFILTRATION. SKIN IS INTACT. URINAL IS AT BEDSIDE. HOB IS RAISED TO SEMI FOWLERS, 3 SIDE RAILS RAISED, BED IS IN LOWEST POSITION, CALL FITZPATRICK WITHIN REACH, AND ALL HOSPITAL SAFETY PRECAUTIONS ARE BEING FOLLOWED. WILL CONTINUE TO MONITOR THROUGHOUT SHIFT.
--- NOTE | 2020-11-19 10:25 | NUR ---
AERONAUTICS TEACHER NOTE ON HD AT THIS TIME
[2020-11-19] MEDS: ACETAMINOPHEN 325 MG TABLET PO PRN ×2 (10:58→17:27)
[2020-11-19 12:00] VITALS: BP 144/105
--- NOTE | 2020-11-19 12:30 | NUR ---
AUTOMATIC SCREWMAKER NOTE HD COMPLETED 2L IS OUT BP177/81
--- NOTE | 2020-11-19 13:00 | NUR ---
supervisor telephone answering service ote during hd saturation 85%, rt at bedside change [place] to 40l ,85% ,will monitor
--- NOTE | 2020-11-19 15:30 | NUR ---
radiotelegrapher note saturation 92% at this time , keep clean dry , all needs attended ,will cont to monitor
[2020-11-19 16:00] VITALS: BP 144/105
--- NOTE | 2020-11-19 18:22 | NUR ---
RN CLOSING NOTES PATIENT IS IN BED WITH HOB RAISED TO SEMI FOWLERS POSITION. PATIENT IS AOX3. SKIN IS INTACT. JAYLYN FISTULA HAS A BRUIT AND THRILL PRESENT. PATIENT IS ON HIGH FLOW 30L AT 50% FIO2. RAC #18 IS INTACT, PATENT, AND HAS NO SIGNS OF INFILTRATION. BED IS LOCKED IN THE LOWEST POSITION, CALL FITZPATRICK WITHIN REACH, 3 SIDE RAILS RAISED, AND ALL HOSPITAL SAFETY PRECAUTIONS ARE BEING FOLLOWED. WILL ENDORSE TO TIME BROKER NURSE.
--- NOTE | 2020-11-19 19:30 | NUR ---
RN OPENING NOTE RECEIVED PATIENT IN BED RESTING ALERT ORIENTED X3 FORGETFUL ON HIGH FLOW OXYGEN 40L FIO2 85% O2:92% ON HEMODIALYSIS AV SHUNT ON LEFT UPPER ARM WITH THRILL AND BRUIT PRESENT.IV SITE IS ON RIGHT AC INTACT PATIENT,IMPLEMENT SAFETY MEASURE, BED IN LOW POSITION AND LOCKED,CALL LIGHT WITHIN REACH,CONTINUE TO MONITOR.
[2020-11-19 20:00] VITALS: BP 140/74
[2020-11-19] MEDS: ZOLPIDEM TARTRATE 5 MG TABLET PO PRN (21:10)
[2020-11-19] MEDS: ATORVASTATIN 10 MG TABLET PO SCH (21:10)
[2020-11-19] MEDS: INSULIN GLARGINE, 100 UNIT/ML CARTRIDGE SQ SCH (21:23)
[2020-11-20] VITALS: BP 139/73
[2020-11-20] MEDS: ACETAMINOPHEN 325 MG TABLET PO PRN ×2 (01:10→14:45)
--- NOTE | 2020-11-20 01:14 | NUR ---
RN NOTE ACETAMINOPHEN 650MG PO GIVEN FOR TEMP 100.0 CONTINUE TO MONITOR
--- NOTE | 2020-11-20 03:00 | NUR ---
RN NOTE PATIENT TEMPERATURE IS 98.9,CONTINUE TO MONITOR.
[2020-11-20 04:00] VITALS: BP 145/74
[2020-11-20] MEDS: CLONIDINE HCL 0.1 MG TABLET PO SCH ×3 (05:34→22:04)
[2020-11-20 06:33] LABS: EOSINOPHILS % (AUTO) 1.2 % (0.0-6.0); HEMATOCRIT 27 % (39-51); HEMOGLOBIN 8.8 g/dL (13.5-17.5); LYMPHOCYTES # (AUTO) 0.3 /CMM (0.8-4.8); LYMPHOCYTES % (AUTO) 5.8 % (20.0-44.0); MEAN CORPUSCULAR HGB CONC 33 g/dl (31.0-36.0); MEAN CORPUSCULAR VOLUME 82 fL (80-96); MONOCYTES # (AUTO) 0.1 /CMM (0.1-1.30); MONOCYTES % (AUTO) 2.6 % (2.0-12.0); NEUTROPHILS # (AUTO) 4.8 /CMM (1.8-8.9); NEUTROPHILS % (AUTO) 90.4 % (43.0-81.0); PLATELET COUNT (AUTO) 190 /CMM (150-450); RED BLOOD CELL COUNT(AUTO) 3.28 MIL/uL (4.5-6.0); WHITE BLOOD COUNT (AUTO) 5.4 K/uL (4.3-11.0)
--- NOTE | 2020-11-20 07:06 | NUR ---
RN CLOSING NOTE PATIENT REMAINS ON ALERT ORIENTED X3 FORGETFUL ON HIGH FLOW OXYGEN 40L FIO2:85% O2:92% ON HEMADIALYSIS AV SHUNT ON LEFT UPPER ARM WITH THRILL AND BRUIT PRESENT.IV SITE IS ON RIGHT AC INTACT PATIENT,IMPLEMENT SAFETY MEASURE, BED IN LOW POSITION AND LOCKED,KEPT CALL LIGHT WITHIN REACH,ALL DUE MEDS GIVEN MD ORDERED,KEPT CLEAN AND DRY ALL THE TIME,ALL NEEDS MET,ENDORSE NEXT COMING SHIFT FOR CONTINUATION OF CARE.
[2020-11-20 07:16] LABS: CALCIUM, SERUM 6.7 mg/dL (8.5-10.1); POTASSIUM 4.8 mmol/L (3.5-5.1)
[2020-11-20] MEDS: BLOOD SUGAR DIAGNOSTIC 1 EACH STRIP VI SCH ×4 (07:30→22:43)
--- NOTE | 2020-11-20 07:30 | NUR ---
RN TELE1 PATIENT IN BED, NO S/S OF DISTRESS, HIGH FLOW 40L 85% FIO2, O2 SAT 92%. A/O X3, TELE MONITOR IN PLACE SINUS RHYTHM, USES URINAL, FALL RISK BED ALARM ON, RENAL DIETM, JAYLYN AV SHUNT, RAC 18G, BED IN LOWEST LOCKED POSITION, CALL LIGHT WITHIN REACH, WILL CONTINUE TO MONITOR.
[2020-11-20 08:00] VITALS: BP 148/73
[2020-11-20] MEDS: ASPIRIN EC 81 MG TABLET.DR PO SCH (08:15)
[2020-11-20] MEDS: CARVEDILOL 12.5 MG TABLET PO SCH ×2 (08:15→17:16)
[2020-11-20] MEDS: LINAGLIPTIN 5 MG TABLET PO SCH (08:15)
[2020-11-20] MEDS: CALCIUM ACETATE 667 MG TABLET PO SCH ×3 (08:15→17:16)
[2020-11-20] MEDS: NIFEdipine XL (30MG) 30 MG TAB PO SCH (08:15)
[2020-11-20 08:16] LABS: C-REACTIVE PROTEIN 4.6 mg/dL (0.0-0.9)
[2020-11-20] MEDS: DEXAMETHASONE SOD PHOSPHATE 10 MG/ML VIAL IV SCH (08:16)
[2020-11-20] MEDS: HEPARIN SODIUM, PORCINE 5000 UNITS/1 ML VIAL SQ SCH ×2 (08:16→22:29)
[2020-11-20 08:41] LABS: CREATININE 9.7 mg/dL (0.6-1.3)
--- NOTE | 2020-11-20 09:30 | NUR ---
RN TELE1 PATIENT HAD 1 EPISODE OF EMESIS AFTER HOLDING FOOD IN HIS MOUTH, NO NAUSEA PRESENT, NOTIFIED THE MD, SAID IT WAS NORMAL FOR HIM. NO NEW ORDERS
[2020-11-20 12:00] VITALS: BP 141/69
--- NOTE | 2020-11-20 12:00 | NUR ---
RN TELE1 REPLACED THE SPO2 MONITOR AND ENCOURAGED WALKING 3X, PATIENT REFUSED.
--- NOTE | 2020-11-20 15:00 | NUR ---
RN TELE1 PATIENT COMPLAINED OF PAIN, PROVIDED TYLENOL TO HELP, TOLERATED WELL, NO MORE PAIN NOTED.
[2020-11-20 16:00] VITALS: BP 134/68
[2020-11-20] MEDS: *INSULIN REGULAR(HUMULIN R)HUM 100 UNIT/ML VIAL SQ PRN ×2 (17:21→22:47)
--- NOTE | 2020-11-20 19:30 | NUR ---
RN TELE1 PATIENT IN BED, NO S/S OF DISTRESS, HIGH FLOW 40L 85% FIO2, O2 SAT >90%. A/O X3, TELE MONITOR IN PLACE SINUS RHYTHM, USES URINAL, FALL RISK BED ALARM ON, RENAL DIETM, JAYLYN AV SHUNT, RAC 18G, BED IN LOWEST LOCKED POSITION, CALL LIGHT WITHIN REACH, SAFETY MEASURES IN PLACE.
[2020-11-20 20:00] VITALS: BP 132/64
--- NOTE | 2020-11-20 20:00 | NUR ---
RN OPENING NOTES RECEIVED PT IN BED, ALERT AND ORIENTED. PT ON HIGH FLOW 40 L 70 %. SATING AT 95 %. NO RESP DISTRESS NOTED, DENIES ANY SOB. TELE MONITOR SHOWS SR HR 67. PT WITH R AC IV G 18. DRY AND INTACT. PT REFUSED TO HAVE IT FLUSHED EXPLAINED RISKS AND BENEFITS 3X , STILL REFUSED. WITH JAYLYN AV SHUNT. BRUIT AND THRILL PRESENT. ALL SAFETY MEASURES IMPLEMENTED PER PROTOCOL. CALL LIGHT WITHIN REACH. BED LOCKED IN LOWEST POSITION. SIDE RAILS UP X 2.
[2020-11-20] MEDS: ZOLPIDEM TARTRATE 5 MG TABLET PO PRN (20:20)
[2020-11-20] MEDS: ATORVASTATIN 10 MG TABLET PO SCH (22:03)
[2020-11-20] MEDS: INSULIN GLARGINE, 100 UNIT/ML CARTRIDGE SQ SCH (22:44)
[2020-11-21] VITALS: BP 104/53
[2020-11-21 04:00] VITALS: BP 140/74
[2020-11-21] MEDS: CLONIDINE HCL 0.1 MG TABLET PO SCH ×3 (05:01→21:00)
--- NOTE | 2020-11-21 07:30 | NUR ---
RN NOTES PT IN REMAINS IN BED.CONTINUE ON HIGH FLOW 40 L 70 %. SATING AT 97 %. NO RESP DISTRESS NOTED, DENIES ANY SOB. DENIES PAIN. TELE MONITOR SHOWS SR HR 67. WITH JAYLYN AV SHUNT, NO BLEEDING NOTED. ALL SAFETY MEASURES IMPLEMENTED PER PROTOCOL. CALL LIGHT WITHIN REACH. BED LOCKED IN LOWEST POSITION. SIDE RAILS UP X 2. WILL ENDORSE TO NEXT SHIFT NURSE. PT REFUSED TO HAVE IV FLUSHED. ISOLATION PRECAUTION MAINTAINED.
[2020-11-21 08:00] VITALS: BP 152/83
--- NOTE | 2020-11-21 08:00 | NUR ---
RN NOTES PATIENT IN BED ALERT, WITH CONFUSION.CONTINUE ON HIGH FLOW 40 L 70 %. SATING AT 96 %. NO RESP DISTRESS NOTED, DENIES ANY SOB. DENIES PAIN. TELE MONITOR SHOWS SR HR 67. WITH JAYLYN AV SHUNT, NO BLEEDING NOTED. ALL SAFETY MEASURES IMPLEMENT CALL LIGHT WITHIN REACH. BED LOCKED IN LOWEST POSITION. SIDE RAILS UP X 2. WILL ENDORSE TO NEXT SHIFT NURSE. TO HAVE IV IS NOT WORKING ISOLATION PRECAUTION MAINTAINED. WILL MONITOR CLOSELY
[2020-11-21] MEDS: ASPIRIN EC 81 MG TABLET.DR PO SCH (08:43)
[2020-11-21] MEDS: CALCIUM ACETATE 667 MG TABLET PO SCH ×3 (08:43→16:48)
[2020-11-21] MEDS: DEXAMETHASONE SOD PHOSPHATE 10 MG/ML VIAL IV SCH (08:43)
[2020-11-21] MEDS: LINAGLIPTIN 5 MG TABLET PO SCH (08:43)
[2020-11-21] MEDS: CARVEDILOL 12.5 MG TABLET PO SCH ×2 (08:44→16:48)
[2020-11-21] MEDS: NIFEdipine XL (30MG) 30 MG TAB PO SCH (08:44)
[2020-11-21] MEDS: HEPARIN SODIUM, PORCINE 5000 UNITS/1 ML VIAL SQ SCH (08:45)
[2020-11-21] MEDS: INSULIN REGULAR, HUMAN 100 UNIT/ML 3 ML VIAL SQ PRN ×3 (08:50→17:27)
[2020-11-21] MEDS: BLOOD SUGAR DIAGNOSTIC 1 EACH STRIP VI SCH ×4 (09:01→21:13)
--- NOTE | 2020-11-21 11:20 | NUR ---
TELE MARILIN NOTE REPORT GIVEN TO MARCIE MORALEZ
--- NOTE | 2020-11-21 11:22 | NUR ---
RESPIRATORY SCIENTIST NOTES RECEIVED REPORT FROM KEAGAN MORALEZ FOR CONTINUITY OF CARE, PT IS AWAKE, ALERT AND ORIENTED, NOT IN PAIN OR DISTRESS, CALL LIGHT WITHIN REACH, ISOLATION PRECAUTIONS OBSERVED.
[2020-11-21 12:00] VITALS: BP 147/72
[2020-11-21 16:00] VITALS: BP 167/71
[2020-11-21] MEDS: ACETAMINOPHEN 325 MG TABLET PO PRN (16:54)
--- NOTE | 2020-11-21 18:13 | NUR ---
RN CLOSING NOTE PATIENT IS A&O X 3. CURRENTLY AWAKE, ALERT AND WATCHING TV. ABLE TO MAKE NEEDS KNOWN. C/O GENERALIZED PAIN WITH POSITIVE EFFECT FROM TYLENOL. PATIENT IS ON HFNC AT 40L WITH O2 SATS 97%. NO S/S OF SOB OR RESPIRATORY DISTRESS. PATIENT HAD HEMODIALYSIS TODAY WITH 2L TAKEN OFF. PATIENT TOLERATED HD WELL. IV #22G TO RFA PATENT WITH NO S/S OF REDNESS, INFILTRATION OR PHLEBITIS NOTED. JAYLYN AV SHUNT WITH POSITIVE BRUIT AND THRILL. ASPIRATION, FALL AND SAFETY PRECAUTIONS MAINTAINED. CALL LIGHT WITHIN REACH.
--- NOTE | 2020-11-21 19:35 | NUR ---
RN OPENING NOTE RECEIVED PATIENT IN BED RESTING ALERT ORIENTED X3 WITH CONFUSION, ON 40L HIGH FLOW OXYGEN FIO2:70%O2:97% DIALYSIS SHUNT ON LEFT UPPER ARM BRUIT AND THRILL PRESENT IV SITE IS ON RIGHT FOREARM INTACT PATENT CONTINENT TO BOWEL/BLADDER,KEEP CALL LIGHT WITHIN REACH,SAFETY MEASURE IMPALEMENT BED IN LOW POSITON AND LOCKED CONTINUE TO MONITOR
[2020-11-21 20:00] VITALS: BP 151/74
[2020-11-21] MEDS: ZOLPIDEM TARTRATE 5 MG TABLET PO PRN (21:01)
[2020-11-21] MEDS: ATORVASTATIN 10 MG TABLET PO SCH (21:01)
[2020-11-21] MEDS: INSULIN GLARGINE, 100 UNIT/ML CARTRIDGE SQ SCH (21:08)
[2020-11-21] MEDS: *INSULIN REGULAR(HUMULIN R)HUM 100 UNIT/ML VIAL SQ PRN (21:16)
[2020-11-22] VITALS: BP 140/74
[2020-11-22 04:00] VITALS: BP 144/73
[2020-11-22] MEDS: CLONIDINE HCL 0.1 MG TABLET PO SCH ×4 (05:12→21:09)
--- NOTE | 2020-11-22 06:43 | NUR ---
RN CLOSING NOTE PATIENT REMANS ALERT ORIENTED X3 ON HIGH FLOW OXYGEN 40L FIO2:70% O2:96% NO SOB NOT ACUTE DISTRESS NOTED,ALL DUE MEDS GIVEN MD ORDERED,KEPT CALL LIGHT WITHIN REACH,KEPT COMFORTABLE,ALL NEEDS MET,ENDORSE NEXT COMING SHIFT FOR CONTINUATION OF CARE
--- NOTE | 2020-11-22 07:59 | NUR ---
RN Opening note Received patient in bed, AO x 3 able to responds all stimuli, Pt does no appears pain or distress. Skin is warm to touch keep clean/dry intact IV site on right FA and AV shunt on JAYLYN, respiratory even and unlabored with hi flow at 40L and FiO2 70% O2sat 96%. Kept locked bed with elevated HOB for aspiration precaution and ensure airway and lowest bed foe safety. Call light within reach, will continue to monitor.
[2020-11-22 08:00] VITALS: BP 158/80
[2020-11-22] MEDS: CALCIUM ACETATE 667 MG TABLET PO SCH ×3 (09:12→17:22)
[2020-11-22] MEDS: NIFEdipine XL (30MG) 30 MG TAB PO SCH (09:13)
[2020-11-22] MEDS: CARVEDILOL 12.5 MG TABLET PO SCH ×2 (09:13→17:23)
[2020-11-22] MEDS: BLOOD SUGAR DIAGNOSTIC 1 EACH STRIP VI SCH ×4 (09:13→21:18)
[2020-11-22] MEDS: DEXAMETHASONE SOD PHOSPHATE 10 MG/ML VIAL IV SCH (09:13)
[2020-11-22] MEDS: LINAGLIPTIN 5 MG TABLET PO SCH (09:13)
[2020-11-22] MEDS: ASPIRIN EC 81 MG TABLET.DR PO SCH (09:13)
[2020-11-22 12:00] VITALS: BP 112/73
[2020-11-22] MEDS: *INSULIN REGULAR(HUMULIN R)HUM 100 UNIT/ML VIAL SQ PRN ×3 (12:37→21:16)
[2020-11-22] MEDS: ACETAMINOPHEN 325 MG TABLET PO PRN (14:40)
--- NOTE | 2020-11-22 18:46 | NUR ---
RN closing Patient in bed resting, patient denies pain distress. Skin is warm to touch no fever keep clean/dry, intact IV site. Respiratory even and unlabored with high flow oxygen at 40L Fio2 70% O2sat 100%. Kept elevated HOB for ensure air way and aspiration precaution and lowest bed for safety. Call light within reach, will endorse evening or night nurse supervisor
[2020-11-22 20:00] VITALS: BP 120/60
--- NOTE | 2020-11-22 20:16 | NUR ---
PHARMACEUTICAL LABORATORY TECHNICIAN OPENING NOTE Patient awake in bed, A/O x3, on bed rest. Breathing even, diminished, unlabored on high flow O2 at 40 LPM FiO2 70%. Skin is warm, pink, dry, appropriate for ethnicity. Toe scab noted on foot. IV site RFA 20g saline locked, patent and intact. No signs of redness or infiltration. JAYLYN AV shunt noted, no redness. Patient on renal diet, appetite good. Right sided weakness noted. Patient void via BRP. Bed in low position, wheels locked, side rails up x2, call light within reach.
[2020-11-22] MEDS: ATORVASTATIN 10 MG TABLET PO SCH (21:10)
[2020-11-22] MEDS: ZOLPIDEM TARTRATE 5 MG TABLET PO PRN (21:10)
[2020-11-22] MEDS: INSULIN GLARGINE, 100 UNIT/ML CARTRIDGE SQ SCH (21:18)
[2020-11-22 21:55] VITALS: BP 120/60
[2020-11-23] VITALS (8 sets, daily range): BP systolic 109–145; BP diastolic 67–74
[2020-11-23] MEDS: CLONIDINE HCL 0.1 MG TABLET PO SCH ×3 (04:03→21:18)
--- NOTE | 2020-11-23 06:21 | NUR ---
SUPERVISOR HOME ECONOMICS CLOSING NOTE Patient asleep in bed, A/O x3, on bed rest. Afebrile. Patient denies pain. Breathing even, diminished, unlabored on high flow O2 at 35 LPM FiO2 60%. IV site RFA 20g saline locked, patent and intact. No signs of redness or infiltration. JAYLYN AV shunt noted, no redness. Patient on renal diet, appetite good. Right sided weakness noted. Patient void via bedpan. ALl needs met. Scheduled medication administered as ordered. Bed in low position, wheels locked, side rails up x2, call light within reach. Will endorse to oncoming nurse.
[2020-11-23] MEDS: INSULIN REGULAR, HUMAN 100 UNIT/ML 3 ML VIAL SQ PRN ×3 (06:37→16:55)
[2020-11-23] MEDS: BLOOD SUGAR DIAGNOSTIC 1 EACH STRIP VI SCH ×4 (06:38→21:20)
--- NOTE | 2020-11-23 07:30 | NUR ---
SILK SCREEN PRINTER MACHINE OPENING NOTES Patient is alert and oriented X 3. Patient is breathing even and unlabored. No s/s of respiratory distress noted. No c/o pain and discomfort. Iv site to right forearm patent and intact with no s/s of infiltration. On high flow 02 with saturation of 95%. Patient's AV shunt to JAYLYN free of any s/s of complications. Will continue to monitor. Call light with in reach.
[2020-11-23] MEDS: CALCIUM ACETATE 667 MG TABLET PO SCH ×3 (09:00→17:11)
[2020-11-23] MEDS: DEXAMETHASONE SOD PHOSPHATE 10 MG/ML VIAL IV SCH (09:00)
[2020-11-23] MEDS: NIFEdipine XL (30MG) 30 MG TAB PO SCH (09:01)
[2020-11-23] MEDS: CARVEDILOL 12.5 MG TABLET PO SCH ×2 (09:02→17:12)
[2020-11-23] MEDS: LINAGLIPTIN 5 MG TABLET PO SCH (09:02)
[2020-11-23] MEDS: ASPIRIN EC 81 MG TABLET.DR PO SCH (09:02)
[2020-11-23] MEDS: ACETAMINOPHEN 325 MG TABLET PO PRN (12:19)
[2020-11-23 12:54] LABS: BASOPHILS % (AUTO) 0.2 % (0.0-2.0); EOSINOPHILS % (AUTO) 0.2 % (0.0-6.0); HEMATOCRIT 25 % (39-51); HEMOGLOBIN 8.2 g/dL (13.5-17.5); LYMPHOCYTES # (AUTO) 0.3 /CMM (0.8-4.8); LYMPHOCYTES % (AUTO) 4.2 % (20.0-44.0); MEAN CORPUSCULAR HGB CONC 33 g/dl (31.0-36.0); MEAN CORPUSCULAR VOLUME 83 fL (80-96); MONOCYTES # (AUTO) 0.3 /CMM (0.1-1.30); MONOCYTES % (AUTO) 4.7 % (2.0-12.0); NEUTROPHILS # (AUTO) 5.4 /CMM (1.8-8.9); NEUTROPHILS % (AUTO) 90.7 % (43.0-81.0); PLATELET COUNT (AUTO) 191 /CMM (150-450); RED BLOOD CELL COUNT(AUTO) 3.05 MIL/uL (4.5-6.0)
[2020-11-23 14:26] LABS: ALBUMIN 2.1 g/dL (3.4-5.0); BILIRUBIN,TOTAL 0.7 mg/dL (0.2-1.0); CALCIUM, SERUM 7.2 mg/dL (8.5-10.1); CREATININE 7.4 mg/dL (0.6-1.3); PHOSPHORUS 4.5 mg/dL (2.5-4.9); POTASSIUM 4.5 mmol/L (3.5-5.1); TOTAL PROTEIN, SERUM 5.8 g/dL (6.4-8.2)
--- NOTE | 2020-11-23 18:47 | NUR ---
GARMENT TURNER CLOSING NOTES Patient is alert and oriented . No s/s of respiratory distress noted. No c/o pain and discomfort. Iv site to right forearm patent and intact with no s/s of infiltration. On high flow 02 45 liters at 100% fi02 with saturation of 92%. Patient's AV shunt to JAYLYN free of any s/s of complications. No s/s of bleeding noted. Patient had hemodialysis with removal of 2 liters and 100 cc in urinal. Will endorse to next shift for LUNA. Call light with in reach.Bed is in lowest and locked position
--- NOTE | 2020-11-23 20:21 | NUR ---
COOLER SUPERVISOR: CONTINUITY OF CARE Patient in bed, awake. On High flow oxygen 50LPM, tolerating well, denies SOB. Sinus Rhythm in the Tele monitor. Contact/Droplet isolation maintained.
[2020-11-23] MEDS: *INSULIN REGULAR(HUMULIN R)HUM 100 UNIT/ML VIAL SQ PRN (21:15)
[2020-11-23] MEDS: INSULIN GLARGINE, 100 UNIT/ML CARTRIDGE SQ SCH (21:16)
[2020-11-23] MEDS: ATORVASTATIN 10 MG TABLET PO SCH (21:17)
[2020-11-23] MEDS: ZOLPIDEM TARTRATE 5 MG TABLET PO PRN (21:22)
[2020-11-24 00:56] VITALS: BP 153/80
[2020-11-24 04:31] VITALS: BP 157/80
[2020-11-24] MEDS: CLONIDINE HCL 0.1 MG TABLET PO SCH (05:26)
--- NOTE | 2020-11-24 06:16 | NUR ---
DATA ANALYSIS MANAGER: END OF SHIFT Sinus Rhythm in the Tele monitor. On Oxygen support with High flow Oxygen 60LPM, no c/o SOB with exertion. Afebrile, denies pain. Contact/Droplet isolation maintained.
--- NOTE | 2020-11-24 07:08 | NUR ---
SLOT SUPERVISOR OPENING NOTE RECEIVED PT IN BED AWAKE AT THIS TIME. AOX2-3. NO SOB NOTED, NO S/S OF ANY ACUTE DISTRESS NOTED, NO C/O PAIN AT THIS TIME. PT NOTED ON HF OXYGEN @ 60LPM SATURATING @96%. EXTERNAL TELE MONITOR READS SR IN THE 80S.IV ACCESS NOTED IN RFA G#22 INTACT, PATENT AND FLUSHING WELL. JAYLYN AV SHUNT NOTED. ASPIRATIONS AND SAFETY PRECAUTIONS IN PLACE AND MAINTAINED AT ALL TIMES. BED IN LOWEST LOCKED POSITION, SIDE RAILS UP, HOB ELEVATED, TABLE AND CALL LIGHT WITHIN REACH. WILL CONTINUE TO MONITOR.
[2020-11-24 08:00] VITALS: BP 148/80
--- NOTE | 2020-11-24 08:15 | NUR ---
RECEIVED ORDERS FROM DR DALY TO ORDER A 12 LEAD EKG. ORDERS READ BACK AND CARRIED OUT. WILL CONTINUE TO MONITOR
[2020-11-24] MEDS: BLOOD SUGAR DIAGNOSTIC 1 EACH STRIP VI SCH ×4 (08:42→23:40)
[2020-11-24] MEDS: INSULIN REGULAR, HUMAN 100 UNIT/ML 3 ML VIAL SQ PRN ×3 (08:44→17:21)
[2020-11-24] MEDS: ASPIRIN EC 81 MG TABLET.DR PO SCH (08:45)
[2020-11-24] MEDS: LINAGLIPTIN 5 MG TABLET PO SCH (08:45)
[2020-11-24] MEDS: CARVEDILOL 12.5 MG TABLET PO SCH ×2 (08:46→17:07)
[2020-11-24] MEDS: CALCIUM ACETATE 667 MG TABLET PO SCH ×3 (08:46→17:07)
[2020-11-24] MEDS: NIFEdipine XL (30MG) 30 MG TAB PO SCH ×2 (08:46→09:56)
[2020-11-24] MEDS: ACETAMINOPHEN 325 MG TABLET PO PRN ×2 (10:26→22:01)
--- NOTE | 2020-11-24 10:27 | NUR ---
PT C/O OF ACHING BACK PAIN OF 01/17. VS WNL. PER PT REQUEST TYLENOL 650MG PO Q6HR PRN ADMINISTERED AT THIS TIME PER ORDER. WILL CONTINUE TO MONITOR
[2020-11-24 12:00] VITALS: BP 134/67
[2020-11-24 16:00] VITALS: BP 129/63
--- NOTE | 2020-11-24 19:08 | NUR ---
RN CLOSING NOTES PT AWAKE IN BED AT THIS TIME. PT REMAINED STABLE THROUGHOUT SHIFT. ALL CARE, NEED, MEDICATIONS AND TREATMENT ADMINISTERED ANTICIPATED PER ORDER. PT KEPT CLEAN AND DRY. ASPIRATION, RESPIRATORY AND SAFETY PRECAUTION IN PLACE AND MAINTAINED AT ALL TIMES. BED IN LOWEST LOCKED POSITION, HOB ELEVATED, SIDE RAILS UP X 2, CALL LIGHT AND TABLE WITHIN REACH. ENDORSED TO WASH OIL PUMP OPERATOR HELPER NURSE FOR LUNA
--- NOTE | 2020-11-24 19:30 | NUR ---
RN NOTE RECEIVED PATIENT IN BED, AO X 1-2. PATIENT IN NO S/SX OF ACUTE DISTRESS AT THIS TIME. PATIENT'S BREATHING IS EVEN AND UNLABORED, ON HIGH FLOW OXYGEN AT 60LPM. PATIENT IS SR ON THE MONITOR, HR IS 70. NOTED JAYLYN AV SHUNT, AND IV SITE AT RFA 22G, PATENT AND FLUSHING WELL, NO S/S OF INFECTION OR INFILTRATION. R SIDED PARALYSIS NOTED. SAFETY MEASURES IMPLEMENTED PER PROTOCOL. PATIENT BED ALARM IS ON. HEAD OF BED ELEVATED. BED IS LOCKED, IN LOWEST POSITION AND SIDE RAILS UP. CALL LIGHT WITHIN REACH OF THE PATIENT. WILL CONTINUE TO MONITOR AND REASSESS FOR ANY CHANGES.
[2020-11-24 20:00] VITALS: BP 124/61
[2020-11-24] MEDS: INSULIN GLARGINE, 100 UNIT/ML CARTRIDGE SQ SCH (22:00)
[2020-11-24] MEDS: ATORVASTATIN 10 MG TABLET PO SCH (22:01)
[2020-11-24] MEDS: ZOLPIDEM TARTRATE 5 MG TABLET PO PRN (22:21)
[2020-11-24] MEDS: *INSULIN REGULAR(HUMULIN R)HUM 100 UNIT/ML VIAL SQ PRN (23:42)
[2020-11-25] VITALS: BP 118/67
[2020-11-25 04:00] VITALS: BP 125/65
[2020-11-25 07:20] LABS: CALCIUM, SERUM 6.8 mg/dL (8.5-10.1); POTASSIUM 4.9 mmol/L (3.5-5.1)
--- NOTE | 2020-11-25 07:30 | NUR ---
RN OPENING NOTE RECEIVED PATIENT IN BED, AO X 1-2. PATIENT IN NO S/SX OF ACUTE DISTRESS AT THIS TIME. PATIENT'S BREATHING IS EVEN AND UNLABORED, ON HIGH FLOW OXYGEN AT 60LPM. PATIENT IS SR ON THE MONITOR, HR IS 70. NOTED JAYLYN AV SHUNT, AND IV SITE AT RFA 22G, PATENT AND FLUSHING WELL, NO S/S OF INFECTION OR INFILTRATION. R SIDED PARALYSIS NOTED. SAFETY MEASURES IMPLEMENTED PER PROTOCOL. PATIENT BED ALARM IS ON. HEAD OF BED ELEVATED. BED IS LOCKED, IN LOWEST POSITION AND SIDE RAILS UP. CALL LIGHT WITHIN REACH OF THE PATIENT. WILL CONTINUE TO MONITOR AND PROVIDE CARE.
[2020-11-25 07:31] LABS: CREATININE 10.8 mg/dL (0.6-1.3)
[2020-11-25 08:00] VITALS: BP 118/62
[2020-11-25] MEDS: ONDANSETRON HCL/PF 4 MG/2 ML VIAL IV PRN (08:32)
[2020-11-25] MEDS: BLOOD SUGAR DIAGNOSTIC 1 EACH STRIP VI SCH ×3 (08:32→17:17)
[2020-11-25] MEDS: CALCIUM ACETATE 667 MG TABLET PO SCH ×3 (08:33→17:09)
[2020-11-25] MEDS: CARVEDILOL 12.5 MG TABLET PO SCH ×2 (08:33→17:09)
[2020-11-25] MEDS: ASPIRIN EC 81 MG TABLET.DR PO SCH (08:33)
[2020-11-25] MEDS: LINAGLIPTIN 5 MG TABLET PO SCH (08:34)
[2020-11-25] MEDS: NIFEdipine XL (30MG) 30 MG TAB PO SCH (09:00)
[2020-11-25 12:00] VITALS: BP 123/75
[2020-11-25] MEDS: DEXAMETHASONE SOD PHOSPHATE 10 MG/ML VIAL IV SCH (13:27)
[2020-11-25] MEDS: APIXABAN 2.5 MG TABLET PO SCH ×2 (13:28→17:16)
[2020-11-25] MEDS: ACETAMINOPHEN 325 MG TABLET PO PRN ×2 (13:30→21:13)
[2020-11-25 16:00] VITALS: BP 121/81
--- NOTE | 2020-11-25 18:31 | NUR ---
RN CLOSING NOTE PATIENT IN BED, AO X 1-2. PATIENT IN NO S/SX OF ACUTE DISTRESS AT THIS TIME. PATIENT'S BREATHING IS EVEN AND UNLABORED, ON HIGH FLOW OXYGEN AT 60LPM. PATIENT IS SR ON THE MONITOR. NOTED JAYLYN AV SHUNT, AND IV SITE AT RFA 22G, PATENT AND FLUSHING WELL, NO S/S OF INFECTION OR INFILTRATION. R SIDED PARALYSIS NOTED. SAFETY MEASURES IMPLEMENTED PER PROTOCOL. PATIENT BED ALARM IS ON. HEAD OF BED ELEVATED. BED IS LOCKED, IN LOWEST POSITION AND SIDE RAILS UP. CALL LIGHT WITHIN REACH OF THE PATIENT. WILL ENDORSE TO BARMAN NURSE.
[2020-11-25 20:00] VITALS: BP_SYST 112; BP_SYST 75; BP_DIAS 48; BP_DIAS 50
[2020-11-25] MEDS: ATORVASTATIN 10 MG TABLET PO SCH (21:13)
[2020-11-25] MEDS: INSULIN GLARGINE, 100 UNIT/ML CARTRIDGE SQ SCH (22:00)
--- NOTE | 2020-11-25 22:30 | NUR ---
RN NOTE PATIENT IS RESTLESS AND SHOUTING, KEPT ASKING FOR SLEEP MEDICATION AMBIEN, THE RED PILL HE STATED. ASSISTANT RESTAURANT GENERAL MANAGER FOR DR MONTANO, DR CHAKRABORTY WAS NOTIFIED, RECEIVED ORDERS FOR AMBIEN 5 MG PRN QHS. CLINIC ASSISTANT MADE AWARE.
[2020-11-25] MEDS: ZOLPIDEM TARTRATE 5 MG TABLET PO PRN (22:48)
[2020-11-26] VITALS (10 sets, daily range): BP systolic 105–135; BP diastolic 53–75
[2020-11-26] MEDS: *INSULIN REGULAR(HUMULIN R)HUM 100 UNIT/ML VIAL SQ PRN ×2 (00:03→21:46)
[2020-11-26] MEDS: BLOOD SUGAR DIAGNOSTIC 1 EACH STRIP VI SCH ×5 (00:04→21:28)
[2020-11-26 06:31] LABS: ABG BASE EXCESS -4.8 mmol/L; ABG OXYGEN SATURATION 99.5 % (92.0-98.5); ABG PCO2 34.4 mmHg (35.0-45.0); ABG PO2 173.1 mmHg (75.0-100.0); AaDO2 505.5 mmHg; COHb 2.2 % (0.5-1.5); O2Hb 97.3 % (94.0-97.0); SITE, ABG Right Radial
--- NOTE | 2020-11-26 07:30 | NUR ---
CINDER PITMAN OPENING NOTES PATIENT IS ALERT AND ORIENTED X 3. PATIENT IS IN NO S/SX OF RESPIRATORY DISTRESS. PATIENT IS ON HIGH FLOW O2 WITH 02 SATURATION OF 96%. NOTED WITH JAYLYN AV SHUNT, AND IV SITE AT RFA 22G, PATENT AND FLUSHING WELL, NO S/S OF INFECTION OR INFILTRATION.PATIENT EDUCATED TO USE CALL LIGHT FOR ASSISTANCE. NO C/O PAIN OR DISCOMFORT AT THIS TIME. WILL CONTINUE TO MONITOR. CALL LIGHT WITH IN REACH. BED IS IN LOWEST AND LOCKED POSITION.
[2020-11-26 07:33] LABS: CALCIUM, SERUM 6.7 mg/dL (8.5-10.1); MAGNESIUM 2.5 mg/dL (1.8-2.4); PHOSPHORUS 7.8 mg/dL (2.5-4.9)
[2020-11-26 07:46] LABS: LYMPHOCYTES # (AUTO) 0.4 /CMM (0.8-4.8); MONOCYTES # (AUTO) 0.3 /CMM (0.1-1.30); WHITE BLOOD COUNT (AUTO) 6.3 K/uL (4.3-11.0)
[2020-11-26 08:02] LABS: CREATININE 12.4 mg/dL (0.6-1.3)
[2020-11-26] MEDS: INSULIN REGULAR, HUMAN 100 UNIT/ML 3 ML VIAL SQ PRN ×3 (08:04→17:33)
[2020-11-26 08:16] LABS: BASOPHILS % (AUTO) 0.3 % (0.0-2.0); HEMATOCRIT 21 % (39-51); LYMPHOCYTES % (AUTO) 6.9 % (20.0-44.0); MEAN CORPUSCULAR HGB CONC 32 g/dl (31.0-36.0); MEAN CORPUSCULAR VOLUME 84 fL (80-96); NEUTROPHILS # (AUTO) 5.6 /CMM (1.8-8.9); NEUTROPHILS % (AUTO) 88.8 % (43.0-81.0); PLATELET COUNT (AUTO) 191 /CMM (150-450); RED BLOOD CELL COUNT(AUTO) 2.45 MIL/uL (4.5-6.0)
[2020-11-26] MEDS: ASPIRIN EC 81 MG TABLET.DR PO SCH (08:21)
[2020-11-26] MEDS: DEXAMETHASONE SOD PHOSPHATE 10 MG/ML VIAL IV SCH (08:21)
[2020-11-26] MEDS: CARVEDILOL 12.5 MG TABLET PO SCH ×2 (08:21→17:37)
[2020-11-26] MEDS: CALCIUM ACETATE 667 MG TABLET PO SCH ×3 (08:23→17:36)
[2020-11-26] MEDS: APIXABAN 2.5 MG TABLET PO SCH ×2 (08:23→17:00)
[2020-11-26] MEDS: NIFEdipine XL (30MG) 30 MG TAB PO SCH (08:24)
[2020-11-26] MEDS: LINAGLIPTIN 5 MG TABLET PO SCH (08:25)
[2020-11-26] MEDS: ONDANSETRON HCL/PF 4 MG/2 ML VIAL IV PRN (08:28)
[2020-11-26 08:29] LABS: HEMOGLOBIN 6.7 g/dL (13.5-17.5)
--- NOTE | 2020-11-26 08:56 | NUR ---
hgb 6.7/h[facility] [phone] answering service notified waiting for returning call back
--- NOTE | 2020-11-26 09:22 | NUR ---
MD called back and orders obtained will give 1 units of PRBC with HD
[2020-11-26] MEDS: ACETAMINOPHEN 325 MG TABLET PO PRN (12:29)
[2020-11-26 13:54] LABS: LYMPHOCYTES % (MANUAL) 6 % (16-48); MONOCYTES % (MANUAL) 11 % (0-11.0); NEUTROPHILS % (MANUAL) 83 (42-76)
--- NOTE | 2020-11-26 18:50 | NUR ---
INLETTER CLOSING NOTES PATIENT IS ALERT AND ORIENTED X 3. PATIENT IS IN NO S/SX OF RESPIRATORY DISTRESS. PATIENT IS ON O2 VIA NASAL CANULA WITH 02 SATURATION OF 91%. NOTED WITH JAYLYN AV SHUNT, AND IV SITE AT RFA 22G, PATENT AND FLUSHING WELL, NO S/S OF INFECTION OR INFILTRATION.PATIENT HAD 1 LITER OF FLUID DRAINED VIA HEMODIALYSIS. NOTED WITH 100 % MEAL INTAKE FOR BREAKFAST AND LUNCH.PATIENT CURRENTLY WAITING FOR HIS 1 UNIT OF PRBC. WILL ENDORSE TO NEXT SHIFT. BED IS IN LOWEST AND LOCKED POSITION. CALL LIGHT WITH IN REACH.
[2020-11-26] MEDS: ZOLPIDEM TARTRATE 5 MG TABLET PO PRN (21:17)
[2020-11-26] MEDS: ATORVASTATIN 10 MG TABLET PO SCH (21:17)
[2020-11-26] MEDS: INSULIN GLARGINE, 100 UNIT/ML CARTRIDGE SQ SCH (21:42)
[2020-11-27] VITALS (8 sets, daily range): BP systolic 129–155; BP diastolic 62–75
[2020-11-27 06:21] LABS: BASOPHILS % (AUTO) 0.2 % (0.0-2.0); EOSINOPHILS % (AUTO) 0.2 % (0.0-6.0); HEMATOCRIT 22 % (39-51); HEMOGLOBIN 7.2 g/dL (13.5-17.5); LYMPHOCYTES # (AUTO) 0.3 /CMM (0.8-4.8); LYMPHOCYTES % (AUTO) 3.9 % (20.0-44.0); MEAN CORPUSCULAR HGB CONC 33 g/dl (31.0-36.0); MEAN CORPUSCULAR VOLUME 84 fL (80-96); MONOCYTES # (AUTO) 0.7 /CMM (0.1-1.30); MONOCYTES % (AUTO) 7.8 % (2.0-12.0); NEUTROPHILS # (AUTO) 7.6 /CMM (1.8-8.9); NEUTROPHILS % (AUTO) 87.9 % (43.0-81.0); PLATELET COUNT (AUTO) 202 /CMM (150-450); RED BLOOD CELL COUNT(AUTO) 2.58 MIL/uL (4.5-6.0); WHITE BLOOD COUNT (AUTO) 8.7 K/uL (4.3-11.0)
--- NOTE | 2020-11-27 07:20 | NUR ---
GLASS FORMING ENGINEER CLOSING NOTES, PATIENT ORIENTED X 3, WITH EPISODES OF DESATURATION DURING AT THE BEGINNING OF THE SHIFT AND PLACED BACK IN HF BY RT, AFTER THAT NO CHANGE IN CONDITION DURING THE NIGHT, S/P ONE UNIT OF PRBC LAST NIGHT, WILL ENDORSE CONTINUITY OF CARE TO ONCOMING NURSE.
[2020-11-27 07:34] LABS: CALCIUM, SERUM 7.1 mg/dL (8.5-10.1); POTASSIUM 5.7 mmol/L (3.5-5.1)
[2020-11-27 07:41] LABS: CREATININE 11.1 mg/dL (0.6-1.3)
--- NOTE | 2020-11-27 08:07 | NUR ---
TOOL DRESSER NOTE PATIENT IN BED RESTING COMFORTABLY. PATIENT IN NO ACUTE DISTRESS. NO SOB NOTED. PATIENT BREATHING IS EVEN AND UNLABORED. PATIENT ON HIGH FLOW 60L SATURATING >94% SPO2. PATIENT STATES NO PAIN AT THIS TIME. PATIENT BED IS LOCKED AND IN LOWEST POSITION. CALL LIGHT WITHIN REACH. WILL CONTINUE TO MONITOR.
[2020-11-27] MEDS: BLOOD SUGAR DIAGNOSTIC 1 EACH STRIP VI SCH ×4 (08:13→22:15)
[2020-11-27] MEDS: APIXABAN 2.5 MG TABLET PO SCH ×2 (08:24→17:00)
--- NOTE | 2020-11-27 08:24 | NUR ---
RN NOTE HELD ELIQUIS THIS AM DUE TO LOW HGB 7.2.
[2020-11-27] MEDS: ASPIRIN EC 81 MG TABLET.DR PO SCH (08:29)
[2020-11-27] MEDS: CARVEDILOL 12.5 MG TABLET PO SCH ×2 (08:29→17:50)
[2020-11-27] MEDS: LINAGLIPTIN 5 MG TABLET PO SCH (08:30)
[2020-11-27] MEDS: CALCIUM ACETATE 667 MG TABLET PO SCH ×3 (08:30→17:49)
[2020-11-27] MEDS: NIFEdipine XL (30MG) 30 MG TAB PO SCH (08:30)
[2020-11-27] MEDS: DEXAMETHASONE SOD PHOSPHATE 10 MG/ML VIAL IV SCH (08:30)
[2020-11-27] MEDS: INSULIN REGULAR, HUMAN 100 UNIT/ML 3 ML VIAL SQ PRN ×3 (08:35→17:48)
[2020-11-27] MEDS: ONDANSETRON HCL/PF 4 MG/2 ML VIAL IV PRN (09:23)
--- NOTE | 2020-11-27 11:16 | NUR ---
PER RN SOON, PATIENT IS NOT STABLE TO CT, HIGH FLOW OXYGEN, COVID + @1108 11/27/2020. TO ATTEMPT TOMORROW.
--- NOTE | 2020-11-27 12:41 | NUR ---
MATERIAL CREW SUPERVISOR NOTE PER SOON CHARGE NURSE PATIENT WILL HAVE DIALYSIS TOMORROW. INFORMED DR. MONTANO AND CLARIFIED ORDERS WITH 1 UNIT PRBC TO BE GIVEN. PER DR. DUSTY BRYANT ORDER FOR PATIENT TO HAVE 1 UNIT PRBC WITH DIALYSIS TOMORROW. Addendum: 11/27/20 at 1257 by VAZQUEZ MESA RN MATERIAL CREW SUPERVISOR NOTE PER SOON CHARGE NURSE PATIENT WILL HAVE DIALYSIS TOMORROW. INFORMED DR. MONTANO AND CLARIFIED ORDERS WITH 1 UNIT PRBC TO BE GIVEN. PER DR. DUSTY BRYANT ORDER FOR PATIENT TO HAVE 1 UNIT PRBC WITH DIALYSIS TOMORROW. CHARGE NURSE SOON MADE AWARE.
--- NOTE | 2020-11-27 17:14 | NUR ---
ELECTRICAL APPLIANCE PREPARER NOTE SPOKE WITH DR. MONTANO AND INFORMED HIM PATIENT HAD A SMALL BOWEL MOVEMENT WITH DARK TARRY STOOL. PER DR. MONTANO ORDER FOR PHYSICIAN CONSULT WITH GI AND FECAL OCCULT STOOL SAMPLE ORDER. CALLED AND SPOKE TO DR. KAMARA AND INFORMED HIM OF PATIENT FOR CONSULT. PER DR. KAMARA HOLD ALL ANTICOAGULANTS INCLUDING PATIENT SCHEDULED ELIQUIS AND ASPIRIN. MD ORDER FOR PROTONIX 80 MG IV FIRST DOSE AND THEN PROTONIX 40 MG IV BID. CHECK HGB IN 6 HOURS AND THEN Q6H IF UNSTABLE. IF STABLE NO NEED TO CHECK HGB Q6H. PER MD IF PATIENT HGB BELOW 7 TRANSFUSE BLOOD TO KEEP ABOVE 7.0. DR. KAMARA AWARE OF CURRENT HGB 7.2 AND BLOOD TO BE TRANSFUSED WITH DIALYSIS TOMORROW. PER DR. KAMARA THAT IS OKAY. AND MD ORDER TO KEEP PATIENT NPO PAST MIDNIGHT.
[2020-11-27] MEDS ORDERED: PANTOPRAZOLE 40 MG VIAL IV ONE (18:00)
--- NOTE | 2020-11-27 18:45 | NUR ---
BRICKLAYER CLOSING NOTE PATIENT IN BED RESTING COMFORTABLY. PATIENT IN NO ACUTE DISTRESS. NO SOB NOTED. PATIENT BREATHING IS EVEN AND UNLABORED. PATIENT KEPT CLEAN, DRY, AND COMFORTABLE THROUGHOUT SHIFT. NEEDS AND CONCERNS ADDRESSED. PATIENT COMPLAINS OF NO PAIN. PATIENT SAFETY PRECAUTIONS IN PLACE. PATIENT BED IS LOCKED AND IN LOWEST POSITION. CALL LIGHT WITHIN REACH. WILL ENDORSE CARE TO PM SHIFT FOR LUNA.
--- NOTE | 2020-11-27 19:45 | NUR ---
RN OPENING NOTES RECEIVED PT IN BED, RESTING. A/O X 3, PT NEEDS OCCASIONAL REORIENTATION. RESPONSIVE, COOPERATIVE. PT IS ON HIGH FLOW OF 20L FIO2 40% SATURATING AT 92% NO SOB OR RESP DISTRESS NOTED. PT IS ON CARDIAC MONITORING NSR WITH HR OF 86. PT DENIES PAIN AT THIS TIME. IV SITES FLUSHED. RFA INTACT, RIGHT HAND IV SITE OCCLUDED AND REMOVED, CATHETER INTACT, APPLIED PRESSURE WITH 2X2 GAUZE FOR 1 MIN NO S/S OF BLEEDING. SAFETY MEASURES IN PLACE. HOB ELEVATED SIDE RAILS UP X 3, BED IS LOCKED IN LOWEST POSITION WITH BED ALARM ON. CALL LIGHT WITHIN REACH.
[2020-11-27 20:46] LABS: OCCULT BLOOD STOOL NEGATIVE (NEGATIVE)
[2020-11-27] MEDS: INSULIN GLARGINE, 100 UNIT/ML CARTRIDGE SQ SCH (22:00)
[2020-11-27] MEDS: ATORVASTATIN 10 MG TABLET PO SCH (22:26)
[2020-11-27] MEDS: *INSULIN REGULAR(HUMULIN R)HUM 100 UNIT/ML VIAL SQ PRN (22:46)
[2020-11-27 23:33] LABS: HEMOGLOBIN 4.6 g/dL (13.5-17.5)
[2020-11-28] VITALS (19 sets, daily range): BP systolic 133–161; BP diastolic 63–87
--- NOTE | 2020-11-28 03:35 | NUR ---
PT RECEIVED 1UNIT PRBCS, TRANSFUSED WITHIN 4 HOURS SINCE HAND OFF FROM BLOOD BANK. PT VITAL SIGNS S/P BLOOD TRANSFUSION ARE T 98.8 P 77 RR 17 BP 141/66 O2 SAT 96 NO REACTION NOTED. PT TOLERATED TRANSFUSION. WILL FOLLOW UP REGARDING NEW H&H DRAW WITH AM LABS
[2020-11-28 06:09] LABS: BASOPHILS % (AUTO) 0.1 % (0.0-2.0); LYMPHOCYTES # (AUTO) 0.7 /CMM (0.8-4.8); LYMPHOCYTES % (AUTO) 6.8 % (20.0-44.0); MEAN CORPUSCULAR HGB CONC 34 g/dl (31.0-36.0); MEAN CORPUSCULAR VOLUME 86 fL (80-96); MONOCYTES # (AUTO) 0.8 /CMM (0.1-1.30); MONOCYTES % (AUTO) 8.7 % (2.0-12.0); NEUTROPHILS # (AUTO) 8.1 /CMM (1.8-8.9); NEUTROPHILS % (AUTO) 84.4 % (43.0-81.0); PLATELET COUNT (AUTO) 177 /CMM (150-450); WHITE BLOOD COUNT (AUTO) 9.7 K/uL (4.3-11.0)
[2020-11-28 06:15] LABS: RED BLOOD CELL COUNT(AUTO) 1.93 MIL/uL (4.5-6.0)
[2020-11-28 06:17] LABS: HEMATOCRIT 17 % (39-51); HEMOGLOBIN 5.6 g/dL (13.5-17.5)
--- NOTE | 2020-11-28 06:41 | NUR ---
UNABLE TO GET AHOLD OF DR DR KAMARA, NOTIFIED SMOKEHOUSE OPERATOR DR CASANOVA REGARDING PT LOW H&H, ORDER PUT IN TO TRANSFUSE 2 UNITS PRBCS.
--- NOTE | 2020-11-28 06:43 | NUR ---
RN CLOSING NOTES PT IS S/P BLOOD TRANSFUSION FOR LOW H&H. PT RESTED WELL, NO CHANGES TO OXYGEN SETTINGS, PT STILL ON HIGH FLOW 20L OF OXYGEN FIO2 OF 40%. PT TOLERATING WELL NO SOB OR RES DISTRESS NOTED AT THIS TIME. SATURATION IS 94-97%. PT DENIES PAIN AT THIS TIME. NEEDS ATTENDED. SAFETY MEASURES IN PLACE. HEAD OF BED ELEVATED. BED LOCKED IN LOWEST POSITION WITH BED ALARM ON. SIDE RAILS UP X2. CALL LIGHT WITHIN REACH. WILL ENDORSE TO AM NURSE FOR CONTINUATION OF CARE.
[2020-11-28 07:01] LABS: C-REACTIVE PROTEIN 1.7 mg/dL (0.0-0.9)
[2020-11-28 07:39] LABS: CALCIUM, SERUM 6.3 mg/dL (8.5-10.1)
[2020-11-28 08:32] LABS: CREATININE 12.9 mg/dL (0.6-1.3)
[2020-11-28] MEDS: CALCIUM ACETATE 667 MG TABLET PO SCH ×3 (09:20→18:21)
[2020-11-28] MEDS: PANTOPRAZOLE 40 MG VIAL IV SCH ×2 (09:20→18:21)
[2020-11-28] MEDS: NIFEdipine XL (30MG) 30 MG TAB PO SCH (09:21)
[2020-11-28] MEDS: DEXAMETHASONE SOD PHOSPHATE 10 MG/ML VIAL IV SCH (09:22)
[2020-11-28] MEDS: CARVEDILOL 12.5 MG TABLET PO SCH ×2 (09:22→18:22)
[2020-11-28] MEDS: BLOOD SUGAR DIAGNOSTIC 1 EACH STRIP VI SCH ×4 (09:22→21:59)
[2020-11-28] MEDS: LINAGLIPTIN 5 MG TABLET PO SCH (09:23)
[2020-11-28] MEDS: *INSULIN REGULAR(HUMULIN R)HUM 100 UNIT/ML VIAL SQ PRN ×2 (09:24→22:03)
[2020-11-28 10:28] LABS: HEMOGLOBIN 5.5 g/dL (13.5-17.5)
[2020-11-28 10:58] LABS: BAND % (MANUAL) 1 % (0.0-5.0); LYMPHOCYTES % (MANUAL) 12 % (16-48); MONOCYTES % (MANUAL) 2 % (0-11.0); NEUTROPHILS % (MANUAL) 85 (42-76)
[2020-11-28] MEDS: ACETAMINOPHEN 325 MG TABLET PO PRN (11:47)
--- NOTE | 2020-11-28 14:57 | NUR ---
HD RN REPORTS 3L OUTPUT, 2 UNITS PRBC GIVEN VIA HD, MISTAKE ON CHARTING, INFUSION ENDED AT 1400, NOT 1452
[2020-11-28] MEDS: INSULIN REGULAR, HUMAN 100 UNIT/ML 3 ML VIAL SQ PRN (18:19)
--- NOTE | 2020-11-28 19:30 | NUR ---
PT REMAINS IN BED ALERT AND ORIENTED X2/3 WITH SOME CONFUSION. PT NOW ON 7L NASAL CANNULA , NO SOB. PT ON MONITOR SHOWING SR 80s. PT HAD NO BM AND 375 ML URINE THIS SHIFT. PT TO BE NPO AT MIDNIGHT FOR EGD TOMORROW PER MD KAMARA, ENDORSED TO MELINDA. PT STATES HE HAS NO FAMILY FOR CONTACT, PT STATES THAT HE WILL DO PROCEDURE. ENDORSED TO MELINDA TO OBTAIN WRITTEN CONSENT. PT THIS SHIFT HAD 2 U PRBC GIVEN THROUGH DIALYSIS; DIALYSIS TOTAL 3L OUTPUT. ALL SAFETY MEASURES IN PLACE. REPORT GIVEN TO MELINDA FOR LUNA
--- NOTE | 2020-11-28 19:45 | NUR ---
RN OPENING NOTES RECEIVED PT IN BED, RESTING. A/O X 3. PT IS ON 6L OF O2 VIA NASAL CANNULA, SATURATING AT 95% NO SOB OR RESP DISTRESS NOTED. PT IS ON CARDIAC MONITORING NSR WITH HR OF 80. PT DENIES PAIN AT THIS TIME. IV SITES FLUSHED. NPO NOTED FOR PROCEDURE TOMORROW. SAFETY MEASURES IN PLACE. HOB ELEVATED SIDE RAILS UP X3, BED IS LOCKED IN LOWEST POSITION WITH BED ALARM ON. CALL LIGHT WITHIN REACH.
--- NOTE | 2020-11-28 20:00 | NUR ---
CONSENT SIGNED AND PLACED IN CHART.
[2020-11-28] MEDS: MORPHINE SULFATE INJ 2 MG/ML DISP.SYRIN IV PRN (20:45)
[2020-11-28] MEDS: ATORVASTATIN 10 MG TABLET PO SCH (21:00)
--- NOTE | 2020-11-28 21:00 | NUR ---
PT REQUESTED PAIN MEDICATION C/O 10/10 ACHING GENERALIZED LEFT SIDE AND CHEST PAIN. GAVE MORPHINE PRN ORDERED. AT THIS TIME VITAL SIGNS STABLE: P 78 BP 143/67 RR 19 O2 SAT 95%. WILL CONTINUE TO MONITOR.
[2020-11-28] MEDS: INSULIN GLARGINE, 100 UNIT/ML CARTRIDGE SQ SCH (22:00)
[2020-11-28 22:21] LABS: HEMOGLOBIN 7.7 g/dL (13.5-17.5)
[2020-11-28] MEDS: ZOLPIDEM TARTRATE 5 MG TABLET PO PRN (23:14)
--- NOTE | 2020-11-28 23:15 | NUR ---
PT IS AWAKE, ALERT. MORPHINE HELPED WITH PAIN. BUT PT STILL INSISTS AND REQUEST AMBIEN PRN TO HELP SLEEP. RR IS 18 AND O2 SATURATION IS 94% AT THIS TIME, WILL CONT TO MONITOR CLOSELY.
[2020-11-28 23:16] LABS: HEMOGLOBIN 7.6 g/dL (13.5-17.5)
[2020-11-29] VITALS (11 sets, daily range): BP systolic 101–150; BP diastolic 60–79
[2020-11-29] MEDS: MORPHINE SULFATE INJ 2 MG/ML DISP.SYRIN IV PRN (05:50)
--- NOTE | 2020-11-29 05:55 | NUR ---
PER PT, REQUEST MORPHINE PRN C/O OF 10/10 ACHING GENERALIZED LEFT SIDE CHEST PAIN. PT VERBALIZED PREVIOUS ADMINISTRATION OF MORPHINE WAS EFFECTIVE. WILL CONT TO MONITOR. VITAL SIGNS STABLE AT THIS TIME. PULSE 79 BP 121/60 RR 19 O2 SAT OF 97%. WILL CONT TO MONITOR
--- NOTE | 2020-11-29 06:11 | NUR ---
RN CLOSING NOTES NO SIGNIFICANT CHANGES. H/H WNL OF DOCTOR ORDER TO KEEP HGB ABOVE 7.0. NPO FOR POSSIBLE PROCEDURE PER ANH. PT IS STILL ON 6L OF O2 VIA NASAL CANNULA, SATURATING AT 96% NO SOB OR RESP DISTRESS NOTED. STILL PRESENTS WITH NSR HR OF 79. NEEDS ATEESAFETY MEASURES IN PLACE. [facility] ELEVATED SIDE RAILS UP X3, BED IS LOCKED IN LOWEST POSITION WITH BED ALARM ON. CALL LIGHT WITHIN REACH. Addendum: 11/29/20 at 0625 by MELINDA HAWTHORNE RN NEEDS ATTENDED. SAFETY MEASURES IN PLACE. [facility] ELEVATED SIDE RAILS UP X3, BED IS LOCKED IN LOWEST POSITION WITH BED ALARM ON. CALL LIGHT WITHIN REACH. WILL ENDORSE TO AM NURSE FOR CONTINUATION OF CARE.
[2020-11-29 06:12] LABS: BASOPHILS % (AUTO) 0.3 % (0.0-2.0); HEMATOCRIT 22 % (39-51); HEMOGLOBIN 7.4 g/dL (13.5-17.5); LYMPHOCYTES # (AUTO) 0.6 /CMM (0.8-4.8); LYMPHOCYTES % (AUTO) 7.8 % (20.0-44.0); MEAN CORPUSCULAR HGB CONC 34 g/dl (31.0-36.0); MEAN CORPUSCULAR VOLUME 87 fL (80-96); MONOCYTES # (AUTO) 0.9 /CMM (0.1-1.30); MONOCYTES % (AUTO) 10.5 % (2.0-12.0); NEUTROPHILS # (AUTO) 6.4 /CMM (1.8-8.9); NEUTROPHILS % (AUTO) 79.4 % (43.0-81.0); PLATELET COUNT (AUTO) 176 /CMM (150-450); RED BLOOD CELL COUNT(AUTO) 2.51 MIL/uL (4.5-6.0); WHITE BLOOD COUNT (AUTO) 8.1 K/uL (4.3-11.0)
--- NOTE | 2020-11-29 07:20 | NUR ---
RN OPENING NOTE PATIENT RECIEVED LAYING SEMI-FOWLERS POSITION, A&0X2-3, OCCASIONALLY CONFUSED AND COOPERATIVE. PATIENT IS ON O2 THERAPY VIA NC AT 6 LPM. TOLERATING WELL. TELE READING NSR 80'S. PATIENT HAS RIGHT FOREARM IV #22 G INTACT AND PATENT. LEFT UPPER ARM AV SHUNT NOTED. ISOLATIONS PRECAUTIONS MAINTAINED. SAFETY PRECAUTIONS IMPLEMENTED WITH BED LOCKED IN LOWEST POSITION, SIDE RAILS UP X2, AND CALL LIGHT WITHIN REACH. WILL CONTINUE TO MONITOR THROUGHOUT SHIFT AND PROVIDE CARE.
[2020-11-29] MEDS: BLOOD SUGAR DIAGNOSTIC 1 EACH STRIP VI SCH ×4 (07:30→23:00)
[2020-11-29 07:34] LABS: POTASSIUM 5.5 mmol/L (3.5-5.1)
[2020-11-29 07:36] LABS: CREATININE 10.3 mg/dL (0.6-1.3)
[2020-11-29] MEDS: DEXAMETHASONE SOD PHOSPHATE 10 MG/ML VIAL IV SCH (08:48)
[2020-11-29] MEDS: PANTOPRAZOLE 40 MG VIAL IV SCH ×2 (08:49→17:00)
[2020-11-29] MEDS: CALCIUM ACETATE 667 MG TABLET PO SCH ×3 (08:49→17:00)
[2020-11-29] MEDS: CARVEDILOL 12.5 MG TABLET PO SCH ×2 (08:51→17:01)
[2020-11-29] MEDS: NIFEdipine XL (30MG) 30 MG TAB PO SCH (08:51)
[2020-11-29] MEDS: LINAGLIPTIN 5 MG TABLET PO SCH (08:58)
[2020-11-29] MEDS: INSULIN REGULAR, HUMAN 100 UNIT/ML 3 ML VIAL SQ PRN ×2 (12:04→17:17)
[2020-11-29] MEDS: HYDROCODONE/APAP 5/325MG TABLET PO PRN (18:24)
[2020-11-29] MEDS: ONDANSETRON HCL/PF 4 MG/2 ML VIAL IV PRN (18:28)
--- NOTE | 2020-11-29 18:49 | NUR ---
RN OPENING NOTE PATIENT LAYING SEMI-FOWLERS POSITION, A&0X2-3, OCCASIONALLY CONFUSED AND COOPERATIVE. PATIENT IS ON O2 THERAPY VIA NC AT 6 LPM. TOLERATING WELL. TELE READING NSR 70'S. PATIENT HAS RIGHT FOREARM IV #22 G INTACT AND PATENT. LEFT UPPER ARM AV SHUNT NOTED. PATIENT WAS GIVEN 1 PACK OF RBC. TOLERATED WELL. 1 EPISODE OF EMESIS NOTED WITH BROWN / GREEN COLOR. ZOFRAN WAS GIVEN. PATIENT COMPLAINED OF LEFT FLANK PAIN. NORCO ADMINISTERED TO ALLEVIATE PAIN. ISOLATIONS PRECAUTIONS MAINTAINED. SAFETY PRECAUTIONS IMPLEMENTED WITH BED LOCKED IN LOWEST POSITION, SIDE RAILS UP X2, AND CALL LIGHT WITHIN REACH. WILL ENDORSE CARE TO UPCOMING SHIFT. Addendum: 11/29/20 at 1856 by MEHDI GIVENS RN CLARIFICATION OF DOCUMENTATION-CLOSING NOTES
--- NOTE | 2020-11-29 19:35 | NUR ---
RN OPENING NOTES RECEIVED PT IN BED. ON O2 VIA NASAL CANNULA AT 6LPM, SATURATING AT 98% DENIES SOB NO RESP DISTRESS NOTED. PT IS ON TELE MONITORING NSR WITH HR OF 73. PT DENIES PAIN AT THIS TIME. IV ON RFA FLUSHED, PATENT AND INTACT. +BRUIT AND THRILL ON LEFT AV SHUNT, NO BLEEDING NOTED. ALL SAFETY MEASURES IN PLACE. HOB ELEVATED SIDE RAILS UP X3, BED LOCKED IN LOWEST POSITION WITH BED ALARM ON. CALL LIGHT WITHIN REACH. ISOLATION PRECAUTION FOR COVID OBSERVED.
--- NOTE | 2020-11-29 21:00 | NUR ---
RN NOTE PT REQUESTED SLEEPING PILL. PT ON NPO. PER DR. GABRIELA MONTGOMERY TO GIVE AMBIEN WELL LIPITOR WITH SIP OF WATER.
[2020-11-29] MEDS: ATORVASTATIN 10 MG TABLET PO SCH (21:03)
[2020-11-29] MEDS: ZOLPIDEM TARTRATE 5 MG TABLET PO PRN (21:04)
[2020-11-29] MEDS: INSULIN GLARGINE, 100 UNIT/ML CARTRIDGE SQ SCH (23:00)
[2020-11-29] MEDS: *INSULIN REGULAR(HUMULIN R)HUM 100 UNIT/ML VIAL SQ PRN (23:27)
--- NOTE | 2020-11-29 23:30 | NUR ---
RN NOTE PT FSBS AT 152. PER DR OCHOA, HOLD LANTUS AND GIVE REGULAR INSULIN. PT STILL ON NPO. 2 UNITS OF REGULAR INSULIN GIVEN.
[2020-11-30] VITALS (7 sets, daily range): BP systolic 135–155; BP diastolic 69–80
[2020-11-30 06:36] LABS: BASOPHILS % (AUTO) 0.2 % (0.0-2.0); HEMATOCRIT 25 % (39-51); HEMOGLOBIN 8.6 g/dL (13.5-17.5); LYMPHOCYTES # (AUTO) 0.6 /CMM (0.8-4.8); LYMPHOCYTES % (AUTO) 7.8 % (20.0-44.0); MEAN CORPUSCULAR HGB CONC 34 g/dl (31.0-36.0); MEAN CORPUSCULAR VOLUME 88 fL (80-96); MONOCYTES # (AUTO) 0.8 /CMM (0.1-1.30); MONOCYTES % (AUTO) 9.7 % (2.0-12.0); NEUTROPHILS # (AUTO) 6.8 /CMM (1.8-8.9); NEUTROPHILS % (AUTO) 82.3 % (43.0-81.0); PLATELET COUNT (AUTO) 205 /CMM (150-450); RED BLOOD CELL COUNT(AUTO) 2.87 MIL/uL (4.5-6.0); WHITE BLOOD COUNT (AUTO) 8.2 K/uL (4.3-11.0)
[2020-11-30 07:12] LABS: POTASSIUM 5.9 mmol/L (3.5-5.1)
[2020-11-30] MEDS: BLOOD SUGAR DIAGNOSTIC 1 EACH STRIP VI SCH ×4 (07:30→22:14)
--- NOTE | 2020-11-30 07:30 | NUR ---
RN OPENING NOTE PATIENT RECEIVED IN BED RESTING COMFORTABLY. PATIENT IN NO ACUTE DISTRESS. NO SOB NOTED. PATIENT BREATHING EVEN AND UNLABORED. PATIENT IS ON O2 THERAPY VIA NC AT 6 L/MIN, TOLERATING WELL. SATTING AT 98%. RIGHT FOREARM #22 SL INTACT AND PATENT. LEFT UPPER ARM AV SHUNT NOTED. ISOLATION PRECUATIONS MAINTAINED. SAFETY PRECUATIONS IMPLEMENTED. BED LOCKED IN LOWEST POSITION, SIDE RAILS UP X2, AND CALL LIGHT WITHIN REACH. WILL CONTINUE TO MONITOR AND PROVIDE CARE THROUGHOUT SHIFT.
--- NOTE | 2020-11-30 07:36 | NUR ---
RN NOTES PT REMAINS IN BED, CONTINUE ON O2 6L VIA NC. SATING AT 97 %. NO DISTRESS NOTED. PT WITH EPISODE OF CONFUSION, PTS BASELINE. REORIENTED TO REALITY AND PLACE. PT ABLE TO MAKE NEEDS KNOWN. REMAIN NPO. NO SIGNS OF HYPOGLYCEMIA NOTED. PT ON TELE MONITOR. SR HR 72. DENIES ANY PAIN. ISOLATION PRECAUTION MAINTAINED. BED LOCKED IN LOWEST POSITION. SIDE RAILS UP. CALL LIGHT WITHIN REACH. ENDORSED TO NEXT SHIFT NURSE FOR LUNA.
--- NOTE | 2020-11-30 09:00 | NUR ---
ASSISTED LIVING MANAGER NOTE SPOKE WITH JUNIOR NOTIFIED THAT HG 8.6 K 5.9 STATED THAT HD WILL BE DONE ALSO OK TO START CLEAR LIQUID DIET
[2020-11-30] MEDS: CALCIUM ACETATE 667 MG TABLET PO SCH ×3 (09:02→16:40)
[2020-11-30] MEDS: DEXAMETHASONE SOD PHOSPHATE 10 MG/ML VIAL IV SCH (09:02)
[2020-11-30] MEDS: LINAGLIPTIN 5 MG TABLET PO SCH (09:02)
[2020-11-30] MEDS: PANTOPRAZOLE 40 MG VIAL IV SCH ×2 (09:02→16:40)
[2020-11-30] MEDS: NIFEdipine XL (30MG) 30 MG TAB PO SCH (09:04)
[2020-11-30] MEDS: CARVEDILOL 12.5 MG TABLET PO SCH ×2 (09:05→16:41)
[2020-11-30 09:07] LABS: C-REACTIVE PROTEIN 1.2 mg/dL (0.0-0.9)
[2020-11-30] MEDS: INSULIN REGULAR, HUMAN 100 UNIT/ML 3 ML VIAL SQ PRN ×3 (09:11→17:13)
--- NOTE | 2020-11-30 10:09 | NUR ---
PATIENT AT HIGH RISK FOR FALLS, BEING NONCOMPLIANT, AND TRYING TO GET OUT OF BED, AND STARTING TO PULL OUT NASAL CANULA AND IV THERAPY. MD NOTIFIED AND OBTAINED ORDERS TO APPLY RESTRAINTS PER PATIENT SAFETY. ORDERS CARRIED OUT AND IMPLEMENTED. WILL CONTINUE TO MONITOR PATIENT BEHAVIOR AND CIRCULATION, SENSATION, MOVEMENT IN BILATERAL UPPER EXTREMITIES.
[2020-11-30] MEDS: HYDROCODONE/APAP 5/325MG TABLET PO PRN ×2 (11:08→18:55)
--- NOTE | 2020-11-30 11:10 | NUR ---
PROVISIONING SPECIALIST NOTE C\O GENERAL PAIN IN BODY 7-8\10 NORCO PO GIVEN ORDERED ,SATURATION 95% AT THIS TIME BP 155/77, WILL MONITOR
--- NOTE | 2020-11-30 11:17 | NUR ---
ASSEMBLY TECHNICIAN NOTE SPOKE WITH MD POTTS. PATIENT VERY AGITATED, TRYING TO GET OUT OF BED, NONCOMPLIANT WITH CARE. ORDERED XANAX 0.5 MG Q8HR PRN. WILL F/U.
[2020-11-30] MEDS ORDERED: ALPRAZOLAM 0.25 MG TABLET PO PRN (11:30)
--- NOTE | 2020-11-30 13:23 | NUR ---
MANAGER READING NOTE CALLED TO HD NURSE OMID STATED THAT HD WILL BE DONE LATE AFTERNOON
--- NOTE | 2020-11-30 17:30 | NUR ---
FIRST AID NURSE OTE HD NURSE CALLED, STATED THAT WILL BE ABOUT 7 PM
--- NOTE | 2020-11-30 18:34 | NUR ---
RN CLOSING NOTE PATIENT LAYING SEMI-FOWLERS POSITION, A&0X2-3, OCCASIONALLY CONFUSED. PATIENT IS ON O2 THERAPY VIA NC AT 4 LPM. TOLERATING WELL. PATIENT WAS TIRTATED DOWN AND HAS TOLERATED WELL SATTING 96-100%. TELE READING NSR 70'S. PATIENT HAS RIGHT FOREARM IV #22 G INTACT AND PATENT. LEFT UPPER ARM AV SHUNT NOTED. RESTRAINTS ON BILATERAL UPPER EXTREMITIES. POSITIVE CSM NOTED IN BOTH UPPER EXTREMITIES. PATIENT STARTED ON CLEAR LIQUID DIET. ISOLATIONS PRECAUTIONS MAINTAINED. SAFETY PRECAUTIONS IMPLEMENTED WITH BED LOCKED IN LOWEST POSITION, SIDE RAILS UP X2, AND CALL LIGHT WITHIN REACH. WILL ENDORSE CARE TO UPCOMING SHIFT.
--- NOTE | 2020-11-30 18:55 | NUR ---
NORCO ADMINISTERED TO PATIENT. O2 SAT AT 100% VIA NC AT 4 LPM. RESPIRATIONS 18 PRIOR TO ADMINISTRATION. WILL ENDORSE TO UPCOMING SHIFT TO MONITOR PAIN LEVEL. Addendum: 11/30/20 at 1858 by KEAGAN RAPP RN tolerated well clear liquid diet will advance to full liquid diet as tolerated
--- NOTE | 2020-11-30 19:39 | NUR ---
CHEF HEAD OPENING NOTE Patient awake in bed A/O x2 with moments of confusion. Tele monitor reading sinus rhyth, in the 80s. No acute distress or SOB noted. Breathing even, diminished, mild labor on NC 4 LPM satting at 99%. No JVD. Brachial and pedal pulses 2+, symmetrical. Skin is warm, pink, dry, intact. Scabs noted on right toes. IV site RFA 22g saline locked, patent and intact. No signs of redness or infiltration. Patient on bilateral soft wrist restraints. Patient attempting to get out of bed. No signs of skin breakdown. JAYLYN AV shunt noted, no redness at site. Patient is incontinent. Patient kept clean and dry. Patient on clear liquid diet, tolerating well. Bed in low position, wheels locked side rails up x2, bed alarm on, call light within reach.
[2020-11-30] MEDS: ATORVASTATIN 10 MG TABLET PO SCH (21:51)
[2020-11-30] MEDS: ZOLPIDEM TARTRATE 5 MG TABLET PO PRN (21:52)
[2020-11-30] MEDS: INSULIN GLARGINE, 100 UNIT/ML CARTRIDGE SQ SCH (22:00)
[2020-11-30] MEDS: *INSULIN REGULAR(HUMULIN R)HUM 100 UNIT/ML VIAL SQ PRN (22:00)
[2020-12-01] VITALS (8 sets, daily range): BP systolic 132–141; BP diastolic 63–79
--- NOTE | 2020-12-01 02:20 | NUR ---
OFFICE RUNNER NOTE Patient dialyzed at 0000. HD completed at 0220. VSS. HD output 2100 ml. Will continue to monitor.
--- NOTE | 2020-12-01 06:22 | NUR ---
INSPECTOR EYEGLASS CLOSING NOTE Patient awake in bed A/O x2 with moments of confusion. Tele monitor reading sinus rhythm, in the 80s. No acute distress or SOB noted. Breathing even, diminished, mild labor on NC 6 LPM satting at 94%. IV site RFA 22g saline locked, patent and intact. No signs of redness or infiltration. Patient on bilateral soft wrist restraints. Patient attempting to get out of bed. No signs of skin breakdown. Radial pulse 2+ symmetrical. JAYLYN AV shunt noted, no redness at site. Patient kept clean and dry. Patient on full liquid diet, tolerating well. Bed in low position, wheels locked side rails up x2, bed alarm on, call light within reach.
[2020-12-01 06:36] LABS: BASOPHILS % (AUTO) 0.2 % (0.0-2.0); EOSINOPHILS % (AUTO) 0.1 % (0.0-6.0); HEMATOCRIT 23 % (39-51); LYMPHOCYTES # (AUTO) 0.6 /CMM (0.8-4.8); MEAN CORPUSCULAR HGB CONC 34 g/dl (31.0-36.0); MEAN CORPUSCULAR VOLUME 87 fL (80-96); MONOCYTES # (AUTO) 0.9 /CMM (0.1-1.30); MONOCYTES % (AUTO) 10.3 % (2.0-12.0); NEUTROPHILS # (AUTO) 7.2 /CMM (1.8-8.9); NEUTROPHILS % (AUTO) 82.4 % (43.0-81.0); PLATELET COUNT (AUTO) 223 /CMM (150-450); RED BLOOD CELL COUNT(AUTO) 2.68 MIL/uL (4.5-6.0); WHITE BLOOD COUNT (AUTO) 8.7 K/uL (4.3-11.0)
[2020-12-01] MEDS: BLOOD SUGAR DIAGNOSTIC 1 EACH STRIP VI SCH ×4 (07:30→21:37)
--- NOTE | 2020-12-01 07:30 | NUR ---
RN TELE1 PATIENT IN BED, NO S/S OF DISTRESS, A/O X3, ON 6L NC, O2 SAT 95%, TELE MONITOR IN PLACE, NORMAL SINUS RHYTHM, USES URINAL, BED REST, BILATERAL SOFT WRIST RESTRAINTS IN PLACE, FULL LIQUID DIET, R FA 22G, L UA AV SHUNT, BRUIT PRESENT, IV CLEAN DRY INTACT FLUSHES WELL, BED IN LOWEST LOCKED POSITION, CALL LIGHT WITHIN REACH, SAFETY MEASURES IN PLACE, WILL CONTINUE TO MONITOR.
--- NOTE | 2020-12-01 08:48 | NUR ---
RN TELE1 SPOKE TO DR MONTANO, SAID TO DECREASE O2 TO 4L NASAL CANULA. ASKED IF WANTED TO RENEW RESTRAINTS AND SAID TO DISCONTINUE THEM AND MONITOR IF NEEDED. PLAN TO MOVE TOWARD DISCHARGE TO SN. WILL CONTINUE TO MONITOR AND FOLLOW UP ACCORDINGLY.
[2020-12-01] MEDS: CALCIUM ACETATE 667 MG TABLET PO SCH ×3 (09:00→17:00)
[2020-12-01] MEDS: NIFEdipine XL (30MG) 30 MG TAB PO SCH (09:00)
[2020-12-01] MEDS ORDERED: DEXAMETHASONE SOD PHOSPHATE 4 MG/ML VIAL IV SCH (09:00)
[2020-12-01] MEDS: LINAGLIPTIN 5 MG TABLET PO SCH (09:01)
[2020-12-01] MEDS: CARVEDILOL 12.5 MG TABLET PO SCH ×2 (09:01→17:00)
[2020-12-01] MEDS: PANTOPRAZOLE 40 MG VIAL IV SCH ×2 (09:02→17:00)
[2020-12-01] MEDS: *INSULIN REGULAR(HUMULIN R)HUM 100 UNIT/ML VIAL SQ PRN ×4 (09:06→21:40)
[2020-12-01] MEDS: ACETAMINOPHEN 325 MG TABLET PO PRN (11:42)
--- NOTE | 2020-12-01 12:00 | NUR ---
RN TELE1 PATIENT IS TOLERATING NOT HAVING RESTRAINTS ON, IS NOT TRYING TO GET OUT OF BED OR PULL LINES OUT LONG HE IS REORIENTED OFTEN AND DISTRACTED.
[2020-12-01] MEDS: SOD FERRIC GLUC 125 MG in IV NS 0.9% 100 ML IV SCH (14:17)
[2020-12-01] MEDS: HYDROCODONE/APAP 5/325MG TABLET PO PRN (15:48)
--- NOTE | 2020-12-01 18:36 | NUR ---
RN TELE1 PATIENT IN BED, NO S/S OF DISTRESS, A/O X3, ON 5L NC, O2 SAT 94%, TELE MONITOR IN PLACE, NORMAL SINUS RHYTHM, USES URINAL, BED REST, FULL LIQUID DIET, R FA 22G, L UA AV SHUNT, BRUIT PRESENT, IV CLEAN DRY INTACT FLUSHES WELL, PATIENT TALKS ABOUT WANTING PROTEIN SO GIVEN SNACKS IN ACCORDANCE WITH DIET TO HELP WITH HUNGER, BED IN LOWEST LOCKED POSITION, CALL LIGHT WITHIN REACH, SAFETY MEASURES IN PLACE.
--- NOTE | 2020-12-01 19:30 | NUR ---
RN OPENING NOTES: RECEIVED PT A/OX 2-3 IN BED SLEEPING COMFORTABLY. PATIENT IN NO S/SX OF ACUTE DISTRESS AT THIS TIME. NO SOB NOTED. PATIENT'S BREATHING IS EVEN AND UNLABORED. PATIENT IS ON 5L OF OXYGEN VIA NC; TOLERATING WELL. PATIENT ON TELE MONITORING READING SINUS RHYTHM HR IS @70s AT THE TIME OF RECEIVED. APTIENT ON FULL LIQUID DIET; PATIENT TOLERATED WELL. NOTED IV SITE ON R HAND # 22 ; PATENT, INTACT AND FLUSHING WELL; NO S/S OF INFECTION OR INFILTRATION. PATIENT ALSO HAS L UA AV SHUNT SECURED AND INTACT. URINAL AT BEDSIDE. SAFETY MEASURES HAVE BEEN PROVIDED AND IMPLEMENTED. PATIENT BED ALARM IS ON. HEAD OF BED ELEVATED. BED IS LOCKED, IN LOWEST POSITION AND SIDE RAILS UP. CALL LIGHT WITHIN REACH OF THE PATIENT. APPLICABLE ISOLATION PRECAUTIONS IN PLACE. WILL CONTINUE TO MONITOR AND REASSESS FOR ANY CHANGES AND WILL CARRY OUT ANY ONGOING AND ACTIVE MD ORDER.
[2020-12-01] MEDS: ATORVASTATIN 10 MG TABLET PO SCH (21:04)
[2020-12-01] MEDS: INSULIN GLARGINE, 100 UNIT/ML CARTRIDGE SQ SCH (21:39)
--- NOTE | 2020-12-01 23:00 | NUR ---
RN NOTES PATIENT REMAINS IN NO ACUTE RESPIRATORY DISTRESS AT THIS TIME, NO CHANGES TO CONDITION/STATUS. TOY DEPARTMENT MANAGER WELL AWARE. WILL CONTINUE TO MONITOR AND REASSESS FOR ANY CHANGES THROUGHOUT THE SHIFT
[2020-12-02] VITALS (20 sets, daily range): BP systolic 80–150; BP diastolic 42–88
--- NOTE | 2020-12-02 03:30 | NUR ---
RN NOTES NO CHANGE IN PATIENT CONDITION AT THIS TIME PATIENT VITALS STABLE, NO SIGNS OF ACUTE RESPIRATORY DISTRESS. CONTINUITY READER MADE AWARE. WILL CONTINUE TO MONITOR AND REASSESS FOR ANY CHANGES THROUGHOUT THE SHIFT.
[2020-12-02] MEDS: HYDROCODONE/APAP 5/325MG TABLET PO PRN (05:51)
[2020-12-02 06:45] LABS: BASOPHILS % (AUTO) 0.2 % (0.0-2.0); EOSINOPHILS % (AUTO) 0.2 % (0.0-6.0); LYMPHOCYTES # (AUTO) 0.6 /CMM (0.8-4.8); LYMPHOCYTES % (AUTO) 7.1 % (20.0-44.0); MEAN CORPUSCULAR HGB CONC 34 g/dl (31.0-36.0); MEAN CORPUSCULAR VOLUME 89 fL (80-96); MONOCYTES # (AUTO) 0.8 /CMM (0.1-1.30); MONOCYTES % (AUTO) 9.2 % (2.0-12.0); NEUTROPHILS # (AUTO) 7.1 /CMM (1.8-8.9); NEUTROPHILS % (AUTO) 83.3 % (43.0-81.0); PLATELET COUNT (AUTO) 217 /CMM (150-450); RED BLOOD CELL COUNT(AUTO) 2.29 MIL/uL (4.5-6.0); WHITE BLOOD COUNT (AUTO) 8.5 K/uL (4.3-11.0)
--- NOTE | 2020-12-02 06:51 | NUR ---
RN CLOSING NOTE: PATIENT REMAINS IN ROOM IN NO SIGNS OF RESPIRATORY DISTRESS. SAFETY MEASURES IMPLEMENTED, BED IN LOWEST POSITION, LOCKED, SIDE RAILS UP, CALL LIGHT WITHIN REACH. ALL NEEDS AND ORDERS ADDRESSED DURING THE SHIFT. IV ACCESS MAINTAINED INTACT, SECURED AND FLUSHING WELL. ALL DUE MEDS GIVEN ORDERED & SCHEDULED ; PATIENT TOLERATED WELL. PATIENT KEPT CLEAN AND COMFORTABLE WITHIN THE SHIFT. PATIENT ENDORSED TO INCOMING SHIFT RN WITH STABLE VITAL SIGN AND FOR CONTINUITY OF CARE.
[2020-12-02 07:10] LABS: CALCIUM, SERUM 6.8 mg/dL (8.5-10.1); POTASSIUM 5.2 mmol/L (3.5-5.1)
[2020-12-02 07:12] LABS: CREATININE 10.6 mg/dL (0.6-1.3)
--- NOTE | 2020-12-02 07:15 | NUR ---
TELE/RN NOTE Lab called to report critical values of BUN 112 and Creatinine 10.6. Notified Dr. Cantu and Dr. Edward, no new orders at this time. Patient is scheduled for HD today.
[2020-12-02 07:19] LABS: HEMATOCRIT 20 % (39-51)
[2020-12-02 07:22] LABS: HEMOGLOBIN 6.9 g/dL (13.5-17.5)
--- NOTE | 2020-12-02 07:22 | NUR ---
TELE/RN NOTE Lab reporting critical lab value of Hgb: 6.9. Notified Dr. Cantu, ordered to transfuse 2 units of PRBC and to notify GI. Notify Dr. Au of patient's dropping Hgb with no active bleeding noted.
--- NOTE | 2020-12-02 07:30 | NUR ---
TELE/RN OPENING NOTE Patient resting in bed, A&O x 2-3, confused but able to make needs known. Denies any pain/discomfort at this time. Breathing even and non-labored on 5L oxygen via NC, no SOB noted. No respiratory or cardiac distress noted. On tele monitor, reading SR 85. IV access noted on R hand #22g, patent and intact, and flushing well. Left FA AV shunt noted. Bed locked to its lowest position, side rails x 2 up, bed alarm on. Will continue with current medical management.
[2020-12-02] MEDS: PANTOPRAZOLE 40 MG VIAL IV SCH ×2 (08:43→16:40)
[2020-12-02] MEDS: CALCIUM ACETATE 667 MG TABLET PO SCH ×3 (08:43→16:40)
[2020-12-02] MEDS: BLOOD SUGAR DIAGNOSTIC 1 EACH STRIP VI SCH ×4 (08:43→21:13)
[2020-12-02] MEDS: LINAGLIPTIN 5 MG TABLET PO SCH (08:44)
--- NOTE | 2020-12-02 09:00 | NUR ---
TELE/RN NOTE Dr. Cantu at bedside, ordered to do repeat H&H stat. Order carried out.
[2020-12-02] MEDS: CARVEDILOL 12.5 MG TABLET PO SCH ×2 (09:17→16:40)
[2020-12-02] MEDS: NIFEdipine XL (30MG) 30 MG TAB PO SCH (09:17)
[2020-12-02] MEDS: DEXAMETHASONE SOD PHOSPHATE 4 MG/ML VIAL IV SCH (09:18)
[2020-12-02 09:34] LABS: HEMOGLOBIN 5.3 g/dL (13.5-17.5)
--- NOTE | 2020-12-02 09:35 | NUR ---
TELE/RN NOTE Lab reported critical result of Hemoglobin 5.3 and Hematocrit 16. No bleeding noted upon assessment. Notified Dr. Cantu, orders to do a repeat H&H after transfusion.
--- NOTE | 2020-12-02 10:00 | NUR ---
TELE/RN NOTE Dr. Au called, states "patient will need to have EGD on Friday, please monitor for any bleeding or black tarry stools." Orders carried out.
--- NOTE | 2020-12-02 11:30 | NUR ---
TELE/RN NOTE CURRENTLY ON HD. Addendum: 12/02/20 at 1152 by CAMILO CHAU RN PATIENT APPEARS WELL AND COMFORTABLE, NO S/S OF ACUTE DISTRESS NOTED.
--- NOTE | 2020-12-02 11:39 | NUR ---
TELE/RN NOTE TRANSFUSING 1 UNIT OF PRBC VIA HD. NO S/S OF ADVERSE REACTION NOTED. PT APPEARS WELL AND STABLE.
[2020-12-02 11:50] LABS: LYMPHOCYTES % (MANUAL) 8 % (16-48); MONOCYTES % (MANUAL) 10 % (0-11.0); NEUTROPHILS % (MANUAL) 82 (42-76)
--- NOTE | 2020-12-02 12:30 | NUR ---
TELE/RN NOTE INFUSING 2ND UNIT OF PRBC VIA HD. PT TOLERATING INFUSION WELL. NO S/S OF ACUTE DISTRESS OR ADVERSE REACTIONS NOTED.
[2020-12-02] MEDS ORDERED: IV NS 0.9% 250 ML IV ONE (14:30)
[2020-12-02] MEDS: SOD FERRIC GLUC 125 MG in IV NS 0.9% 100 ML IV SCH (14:39)
[2020-12-02 14:52] LABS: HEMOGLOBIN 7.6 g/dL (13.5-17.5)
--- NOTE | 2020-12-02 15:13 | NUR ---
RELAYED SBP 90'S POST BOLUS AND RELAYED H/H POST TRANSFUSION,WITH NEW ORDER TO GIVE ANOTHER ONE UNIT PRBC DUE TO HYPOTENSION.
[2020-12-02] MEDS: INSULIN REGULAR, HUMAN 100 UNIT/ML 3 ML VIAL SQ PRN (16:46)
--- NOTE | 2020-12-02 18:00 | NUR ---
TELE/RN NOTE Patient noted to have 2 episodes of black tarry stools today, notified Dr. Au. Per Dr. Au, "keep patient NPO after midnight, EGD will be scheduled tomorrow morning, get consent done." Notified Dr. Cantu regarding Dr. Au's plan, consents signed by patient and placed on chart.
--- NOTE | 2020-12-02 18:00 | NUR ---
TELE/RN NOTE Patient's BP noted at 110s/60s-70s, clarified with Dr. Cantu on whether he still wants to transfuse [address] Cantu, transfuse 1 unit of PRBC tonight and check H&H q6h. Order carried out by discharge coordinator, will endorse to casino shift manager nurse.
--- NOTE | 2020-12-02 19:04 | NUR ---
TELE/RN CLOSING NOTE Patient awake in bed, watching TV, A&O x 2, able to make needs known. All needs met and attended to. Denies any pain/discomfort throughout shift. Breathing even and non-labored on 3L oxygen via NC, no SOB noted, saturating at 95-98%. No respiratory or cardiac distress noted. On tele monitor, reading SR 85. IV access noted on R hand #22g, patent and intact, and flushing well. JAYLYN AV shunt noted. Fall precautions maintained. Will endorse to power and recovery shift engineer nurse.
--- NOTE | 2020-12-02 19:30 | NUR ---
RN OPENING NOTES: RECEIVED PT A/OX 2-3 IN BED SLEEPING COMFORTABLY. PATIENT IN NO S/SX OF ACUTE DISTRESS AT THIS TIME. NO SOB NOTED. PATIENT'S BREATHING IS EVEN AND UNLABORED. PATIENT IS ON 3L OF OXYGEN VIA NC; TOLERATING WELL. PATIENT ON TELE MONITORING READING SINUS RHYTHM HR IS @70s AT THE TIME OF RECEIVED. PATIENT ON NPO EXCEPT MEDS. NOTED IV SITE ON R HAND # 22 ; PATENT, INTACT AND FLUSHING WELL; NO S/S OF INFECTION OR INFILTRATION. PATIENT ALSO HAS L UA AV SHUNT SECURED AND INTACT. URINAL AT BEDSIDE. SAFETY MEASURES HAVE BEEN PROVIDED AND IMPLEMENTED. PATIENT BED ALARM IS ON. HEAD OF BED ELEVATED. BED IS LOCKED, IN LOWEST POSITION AND SIDE RAILS UP. CALL LIGHT WITHIN REACH OF THE PATIENT. APPLICABLE ISOLATION PRECAUTIONS IN PLACE. WILL CONTINUE TO MONITOR AND REASSESS FOR ANY CHANGES AND WILL CARRY OUT ANY ONGOING AND ACTIVE MD ORDER.
--- NOTE | 2020-12-02 20:10 | NUR ---
RN NOTES TRANSFUSED 1 PRBC ORDERED AND ADMINISTERED PER PROTOCOL. INITIAL VITAL SIGNS TAKEN; WNL. WILL CONTINUE TO MONITOR FOR ANY BLOOD TRANSFUSION REACTION AND ADDRESS NEEDED SAND MOLDER MADE AWARE.
[2020-12-02] MEDS: ATORVASTATIN 10 MG TABLET PO SCH (21:05)
[2020-12-02] MEDS: *INSULIN REGULAR(HUMULIN R)HUM 100 UNIT/ML VIAL SQ PRN (21:26)
[2020-12-02] MEDS ORDERED: INSULIN GLARGINE, 100 UNIT/ML CARTRIDGE SQ SCH (22:00)
--- NOTE | 2020-12-02 23:07 | NUR ---
RN NOTES ENDED INFUSION AT 2306, NO TRANSFUSION REACTION NOTED. VITAL SIGNS WNL. LEGAL SUPPORT ANALYST MADE AWARE. WILL CONTINUE TO MONITOR AND REASSESS FOR ANY TRANSFUSION REACTION POST PROCEDURE.
--- NOTE | 2020-12-02 23:30 | NUR ---
RN NOTES PATIENT REMAINS IN NO ACUTE RESPIRATORY DISTRESS AT THIS TIME, NO CHANGES TO CONDITION/STATUS. HEAD PORTER WELL AWARE. WILL CONTINUE TO MONITOR AND REASSESS FOR ANY CHANGES THROUGHOUT THE SHIFT
--- NOTE | 2020-12-02 23:36 | NUR ---
RN NOTES FACILITATED IV ACCESS INSERTION ON THE R AC # 20; PATENT, SECURE & INTACT AND FLUSHING WELL. MINT MACHINE OPERATOR MADE AWARE.
[2020-12-03] VITALS: BP 142/79
[2020-12-03 02:23] LABS: HEMOGLOBIN 8.2 g/dL (13.5-17.5)
[2020-12-03 02:24] LABS: HEMATOCRIT 24 % (39-51); HEMOGLOBIN 8.1 g/dL (13.5-17.5); MEAN CORPUSCULAR HGB CONC 34 g/dl (31.0-36.0); MEAN CORPUSCULAR VOLUME 88 fL (80-96); PLATELET COUNT (AUTO) 154 /CMM (150-450); RED BLOOD CELL COUNT(AUTO) 2.73 MIL/uL (4.5-6.0); WHITE BLOOD COUNT (AUTO) 10.2 K/uL (4.3-11.0)
--- NOTE | 2020-12-03 03:00 | NUR ---
RN NOTES NO CHANGE IN PATIENT CONDITION AT THIS TIME PATIENT VITALS STABLE, NO SIGNS OF ACUTE RESPIRATORY DISTRESS. CONCERT SINGER MADE AWARE. WILL CONTINUE TO MONITOR AND REASSESS FOR ANY CHANGES THROUGHOUT THE SHIFT.
[2020-12-03 04:00] VITALS: BP_SYST 150; BP_SYST 158; BP_DIAS 70
[2020-12-03 07:07] LABS: BASOPHILS % (AUTO) 0.1 % (0.0-2.0); EOSINOPHILS % (AUTO) 0.7 % (0.0-6.0); HEMATOCRIT 23 % (39-51); HEMOGLOBIN 7.9 g/dL (13.5-17.5); LYMPHOCYTES # (AUTO) 1.3 /CMM (0.8-4.8); LYMPHOCYTES % (AUTO) 11.3 % (20.0-44.0); MEAN CORPUSCULAR HGB CONC 35 g/dl (31.0-36.0); MEAN CORPUSCULAR VOLUME 88 fL (80-96); MONOCYTES # (AUTO) 1.4 /CMM (0.1-1.30); MONOCYTES % (AUTO) 12.2 % (2.0-12.0); NEUTROPHILS # (AUTO) 8.8 /CMM (1.8-8.9); NEUTROPHILS % (AUTO) 75.7 % (43.0-81.0); PLATELET COUNT (AUTO) 153 /CMM (150-450); RED BLOOD CELL COUNT(AUTO) 2.59 MIL/uL (4.5-6.0); WHITE BLOOD COUNT (AUTO) 11.7 K/uL (4.3-11.0)
--- NOTE | 2020-12-03 07:15 | NUR ---
OB NURSE OPENING NOTES PATIENT IS IN BED, AWAKE AND VERBALLY RESPONSIVE. A/O X1-2, ABLE TO MAKE SIMPLE NEEDS KNOWN. ALL NEEDS AND ORDERS ADDRESSED DURING THE SHIFT. IV LINE ON RW INTACT AND PATENT. DRESSING ON LFA AV SHUNT C/D/I. CURRENTLY NPO FOR SCHEDULED PROCEDURE TODAY. SAFETY MEASURES IN PLACE: BED LOCKED AND ON LOWEST POSITION, SIDE RAILS UP X2, CALL LIGHT WITHIN REACH. WILL CONTINUE TO MONITOR.
[2020-12-03 07:20] LABS: C-REACTIVE PROTEIN 0.7 mg/dL (0.0-0.9)
[2020-12-03 07:38] LABS: POTASSIUM 4.9 mmol/L (3.5-5.1)
[2020-12-03] MEDS: BLOOD SUGAR DIAGNOSTIC 1 EACH STRIP VI SCH ×4 (07:47→21:39)
[2020-12-03] MEDS: *INSULIN REGULAR(HUMULIN R)HUM 100 UNIT/ML VIAL SQ PRN (07:49)
--- NOTE | 2020-12-03 07:49 | NUR ---
RN NOTES INSULIN PER SLIDING SCALE HELD AT THIS TIME PATIENT IS NPO.
[2020-12-03 08:00] VITALS: BP 146/72
[2020-12-03 08:16] LABS: CALCIUM, SERUM 5.3 mg/dL (8.5-10.1)
[2020-12-03 08:17] LABS: CREATININE 8.2 mg/dL (0.6-1.3)
[2020-12-03 08:42] LABS: HEMOGLOBIN 7.7 g/dL (13.5-17.5)
[2020-12-03] MEDS: PANTOPRAZOLE 40 MG VIAL IV SCH ×2 (08:42→17:06)
[2020-12-03] MEDS: DEXAMETHASONE SOD PHOSPHATE 4 MG/ML VIAL IV SCH (08:44)
[2020-12-03] MEDS: LINAGLIPTIN 5 MG TABLET PO SCH (08:45)
[2020-12-03] MEDS: CALCIUM ACETATE 667 MG TABLET PO SCH ×3 (08:45→17:06)
[2020-12-03] MEDS: NIFEdipine XL (30MG) 30 MG TAB PO SCH (08:46)
[2020-12-03] MEDS: CARVEDILOL 12.5 MG TABLET PO SCH ×2 (08:46→17:07)
--- NOTE | 2020-12-03 09:40 | NUR ---
RN NOTES DR. MONTANO CALLED W/ ORDER TO INCLUDE PARAMETERS FOR PROCARDIA=HOLD FOR SBP <120 AND FOR COREG=HOLD FOR SBP <100
[2020-12-03] MEDS ORDERED: ANESTHESIA TRAY IN PYXIS 1 EA TRAY MC ONE (09:43)
--- NOTE | 2020-12-03 10:07 | NUR ---
RN NOTES PATIENT PICKED UP BY 2 OR NURSES FOR EGD PROCEDURE VIA PATIENT'S BED.
[2020-12-03] MEDS ORDERED: DEXTROSE 50%-WATER 50 ML DISP.SYRIN ONE (10:36)
[2020-12-03] MEDS ORDERED: hydrALAZINE HCL IV 20 MG VIAL ONE (11:00)
--- NOTE | 2020-12-03 11:30 | NUR ---
RN NOTES PATIENT RETURNED FROM OR EGD PROCEDURE ACCOMPANIED BY [address] KAMARA W/ ORDERS TO RESUME PREVIOUS MEDS AND RESUME PREVIOUS DIET. PATIENT ABLE TO DRINK APPLE JUICE AT THIS TIME W/ NO ASPIRATION NOTED. WILL CONTINUE TO MONITOR.
[2020-12-03 12:00] VITALS: BP 158/89
[2020-12-03] MEDS: INSULIN REGULAR, HUMAN 100 UNIT/ML 3 ML VIAL SQ PRN ×2 (12:05→17:30)
--- NOTE | 2020-12-03 14:13 | NUR ---
RN NOTES DR. MONTANO W/ ORDER FOR STAT COVID-19 TEST. SWAB OBTAINED FROM LAB AND SPECIMEN COLLECTED FROM PATIENT.
[2020-12-03] MEDS: SOD FERRIC GLUC 125 MG in IV NS 0.9% 100 ML IV SCH (14:18)
[2020-12-03 15:16] LABS: HEMOGLOBIN 8.5 g/dL (13.5-17.5)
[2020-12-03 16:00] VITALS: BP 156/90
[2020-12-03] MEDS: ACETAMINOPHEN 325 MG TABLET PO PRN ×2 (18:31→22:18)
--- NOTE | 2020-12-03 18:51 | NUR ---
OCEAN IMPORT REPRESENTATIVE CLOSING NOTES PATIENT IS IN BED RESTING, AWAKE AND VERBALLY RESPONSIVE. A/O X1-2, ABLE TO MAKE SIMPLE NEEDS KNOWN. BREATHING EVEN AND UNLABORED, CONTINUES ON O2 AT 3LPM VIA NC, NO SOB NOR RESPIRATORY DISTRESS. IV LINE ON RW INTACT AND PATENT. DRESSING ON LFA AV SHUNT C/D/I. S/P EGD PROCEDURE TODAY. ABLE TO EAT LUNCH AND DINNER. DUE MEDS GIVEN. SAFETY PRECAUTIONS MAINTAINED: BED LOCKED AND ON LOWEST POSITION, CALL LIGHT WITHIN REACH, SIDE RAILS UP X2. WILL ENDORSE TO NICKEL PLATER RN FOR LUNA.
--- NOTE | 2020-12-03 19:53 | NUR ---
GEOLOGICAL SAMPLE TESTER OPENING NOTES PT RECEIVED AT BEDSIDE. SEMI FOWLERS. ALERT AND ORIENTED X1-2. WITH PERIODS OF CONFUSION. CALM, COOPERATIVE. NO COMPLAINTS, SIGNS OF DISTRESS. SINUS RHYTHM. PT ON 3L NC. TOLERATING WELL. SATURATING AT 97%. NO SOB, EVEN AND UNLABORED BREATHING NOTED. RIGHT HAND #22, RAC #20 INTACT, PATENT, FLUSHING WELL. NO OCCLUSIONS, NO INFILTRATION. ISOLATION PRECAUTION IN PLACE. BED LOCK. BED ALARM ON. WILL CONTINUE TO MONITOR. WILL CONTINUE PLAN OF CARE.
[2020-12-03 20:00] VITALS: BP 131/78
[2020-12-03] MEDS: ATORVASTATIN 10 MG TABLET PO SCH (20:55)
[2020-12-04] VITALS: BP 129/69
[2020-12-04 04:00] VITALS: BP 144/73
--- NOTE | 2020-12-04 06:48 | NUR ---
FITNESS INSTRUCTOR CLOSING NOTES PT LAYING IN BED. ALERT AND ORIENTED X2. PT HAD EPISODES OF CONFUSION BUT ABLE TO REORIENT. PT ON 3L NASAL CANNULA. OXYGEN SATURATION >95%. TOLERATING WELL. NO SOB. RIGHT HAND #22, RAC #20. SALINE LOCKED. PATENT, INTACT, FLUSHING WELL. PT COMPLIANT WITH MEDICATIONS. ISOLATION PRECAUTIONS IN PLACE. BED LOCKED. SEMI FOWLERS. BED ALARM ON. CALL LIGHT WITHIN REACH. WILL ENDORSE TO UPCOMING SHIFT. WILL CONTINUE TO MONITOR OXYGEN SATURATION. WILL CONTINUE PLAN OF CARE.
[2020-12-04] MEDS: BLOOD SUGAR DIAGNOSTIC 1 EACH STRIP VI SCH ×4 (06:56→21:55)
[2020-12-04 07:47] LABS: POTASSIUM 5.7 mmol/L (3.5-5.1)
--- NOTE | 2020-12-04 07:48 | NUR ---
HELICOPTER MECHANIC OPENING NOTES RECEIVED PATIENT IN BED, AWAKE, A/O X2 WITH EPISODES OF CONFUSION. PATIENT ON OXYGEN THERAPY AT 3 LPM VIA NASAL CANULA; BREATHING EVEN AND UNLABORED; NO SOB NOTED AT THIS TIME. TELE MONITOR WITH A READING OF SR. NO COMPLAINS OF PAIN AT THIS MOMENT. R HAND IV ACCESS G #22 AND LFA AV SHUNT PRESENT AND INTACT. SAFETY PRECAUTIONS IN PLACE; BED IN LOW POSITION AND LOCKED, RAILS UP X2, CALL LIGHT WITHIN REACH. WILL CONTINUE TO MONITOR PATIENT.
[2020-12-04 08:00] VITALS: BP 134/63
[2020-12-04 08:19] LABS: CREATININE 9.7 mg/dL (0.6-1.3)
[2020-12-04 08:20] LABS: CALCIUM, SERUM 5.7 mg/dL (8.5-10.1)
[2020-12-04] MEDS: PANTOPRAZOLE 40 MG VIAL IV SCH ×2 (08:35→16:15)
[2020-12-04] MEDS: LINAGLIPTIN 5 MG TABLET PO SCH (08:35)
[2020-12-04] MEDS: CALCIUM ACETATE 667 MG TABLET PO SCH ×3 (08:35→16:15)
[2020-12-04] MEDS: NIFEdipine XL (30MG) 30 MG TAB PO SCH (08:50)
[2020-12-04] MEDS: CARVEDILOL 12.5 MG TABLET PO SCH ×2 (08:50→16:15)
--- NOTE | 2020-12-04 09:03 | NUR ---
MACHINE WIPER NOTES BP MEDS HELD; PATIENT STARTED HEMODIALYSIS.
[2020-12-04] MEDS ORDERED: NIFE-35 PO (09:16)
[2020-12-04] MEDS ORDERED: FERR325T23 PO (09:16)
[2020-12-04] MEDS ORDERED: PANT40TA2 PO (09:16)
--- NOTE | 2020-12-04 11:07 | NUR ---
PIG MACHINE OPERATOR NOTES MD ON THE FLOOR. NOTIFIED MD ABOUT CRITICAL LAB VALUES FROM LAB; BUN 132, CR 9.7 CA 5.7 NO NEW ORDERS GIVEN
[2020-12-04] MEDS: HYDROCODONE/APAP 5/325MG TABLET PO PRN (11:58)
[2020-12-04 12:00] VITALS: BP 133/62
--- NOTE | 2020-12-04 12:01 | NUR ---
INSPECTOR PENETRANT NOTES PATIENT COMPLAINING OF BACK PAIN AND REQUESTING PAIN MEDICATION. PRN NORCO ADMINISTERED PER MD ORDER.
--- NOTE | 2020-12-04 13:47 | NUR ---
PARADI OPERATOR NOTES DURING DIALYSIS PATIENT DESATURATED TO 85%. PER PATIENT HE FEEDS OK. RT WAS CALLED AND DECIDED TO PUT PATIENT ON NON-REBREATHER FOR 1 HR FOR MONITORING. AFTER ONE HOUR PATIENT STILL DESATURATED WITHOUT NON-REBREATHER MASK.
[2020-12-04] MEDS: SOD FERRIC GLUC 125 MG in IV NS 0.9% 100 ML IV SCH (14:55)
[2020-12-04 16:07] VITALS: BP 151/80
--- NOTE | 2020-12-04 18:52 | NUR ---
FISHER DIP NET CLOSING NOTES PATIENT REMAINS IN BED, AWAKE, A/O X2 WITH EPISODES OF CONFUSION DURING THE DAY. PATIENT ON NON-REBREATHER 15 L SATURATING AT 93% AT THIS TIME; BREATHING EVEN AND UNLABORED. TELE MONITOR WITH A READING OF SR 88 . PAIN TREATED WITH PRN PAIN MEDICATION. R HAND IV ACCESS G #22 AND LFA AV SHUNT PRESENT AND INTACT. HD DONE TODAY WITH ZERO OUTPUT. ALL NEEDS ATTENDED THROUGHOUT THE DAY. SAFETY PRECAUTIONS IN PLACE; BED IN LOW POSITION AND LOCKED, RAILS UP X2, CALL LIGHT WITHIN REACH. WILL ENDORSE TO PHYSICIAN NURSE.
[2020-12-04 20:00] VITALS: BP 136/86
--- NOTE | 2020-12-04 20:00 | NUR ---
RN NOTE RECEIVED PT IN BED A/A/O X 2, PT IS ON 15 L OXYGEN VIA NON REBREATHER SATING 94%, TELE MONITOR SHOWING SR IN 80s. SAFETY MEASURES IN PLACE.
[2020-12-04] MEDS: ATORVASTATIN 10 MG TABLET PO SCH (22:17)
[2020-12-05] VITALS (7 sets, daily range): BP systolic 113–166; BP diastolic 62–81
[2020-12-05] MEDS: CLONIDINE HCL 0.1 MG TABLET PO PRN (00:39)
--- NOTE | 2020-12-05 07:20 | NUR ---
RN NOTE NO ACUTE CHANGES DURING MY SHIFT, REPORT GIVEN TO INCOMING SHIFT FOR LUNA.
--- NOTE | 2020-12-05 07:30 | NUR ---
REGIONAL PRODUCTION MANAGER OPENING NOTES Patient was received in bed.Patient is alert and oriented, breathing even and unlabored. No c/o sob, no s/sx of respiratory distress. Patient is on 15 liters NRB with 02 of 99%.Patient noted right right hand 22 gauze IV line, site patent and free of s/s of infection and flushes well. Left upper arm AV shunt free of s/s of bleeding. HOB kept elevated. Bed is in lowest and locked position. Call light with in reach. Will continue to monitor.
[2020-12-05] MEDS: BLOOD SUGAR DIAGNOSTIC 1 EACH STRIP VI SCH ×4 (08:04→22:16)
[2020-12-05] MEDS: INSULIN REGULAR, HUMAN 100 UNIT/ML 3 ML VIAL SQ PRN ×3 (08:05→17:03)
--- NOTE | 2020-12-05 09:00 | NUR ---
RN NOTES MD Cantu ordered to change patient's NRB to nasal cannula. Patient's o2 delivery method switched to nasal cannula at 6 lpm with 02 saturation of 96%. No c/o sob, no respiratory distress noted.
[2020-12-05] MEDS: CALCIUM ACETATE 667 MG TABLET PO SCH ×3 (09:43→17:14)
[2020-12-05] MEDS: PANTOPRAZOLE 40 MG VIAL IV SCH ×2 (09:43→17:11)
[2020-12-05] MEDS: LINAGLIPTIN 5 MG TABLET PO SCH (09:43)
[2020-12-05] MEDS: NIFEdipine XL (30MG) 30 MG TAB PO SCH (09:44)
[2020-12-05] MEDS: SOD FERRIC GLUC 125 MG in IV NS 0.9% 100 ML IV SCH (14:49)
[2020-12-05] MEDS: CARVEDILOL 12.5 MG TABLET PO SCH (17:14)
--- NOTE | 2020-12-05 17:37 | NUR ---
RN NOTES Patient tolerating nasal cannula 6lpm with 02 saturations of 96- 100%, no respiratory distress. No c/o sob.
--- NOTE | 2020-12-05 18:45 | NUR ---
FRIT COATER NOTES While patient was receiving dialysis, dialysis nurse observed patient seizing. Patient assessed noted with generalized seizure lasting 10-15 seconds. Seizure precaution observed. Informed MD Cantu and received orders for CT of head without contrast stat and keppra 500 mg IV q12h. Pharmacy made aware and confirmed with Renato. Radiology aware.Patient monitored closely. Vitals 132.70,92,99% 02 at 6lpm via n/c, rr 20. No furthers seizure episode noted. Dialysis stopped.
[2020-12-05] MEDS ORDERED: LORAZEPAM INJ 2 MG/ML VIAL IV PRN (19:00)
--- NOTE | 2020-12-05 19:05 | NUR ---
KNITTER OPERATOR CLOSING NOTES Patient is alert and oriented, breathing even and unlabored. No c/o sob, no s/sx of respiratory distress. Patient is on 6LPM via N/C with 02 saturation is 99%.Patient noted right right hand 22 gauze IV line, site patent and free of s/s of infection and flushes well. HOB kept elevated. Bed is in lowest and locked position. Call light with in reach. Will endorse to next shift to follow up with CT of head and to give first dose of Keppra once available.
--- NOTE | 2020-12-05 19:40 | NUR ---
RN NOTES RECEIVED PT IN BED WITH O2 AT 6L SATING AT 97 %. PT SLEEPING BUT EASILY AROUSABLE BY VERBAL STIMULI, PT ANSWERS YES OR NO ONLY. TELE MONITOR SHOWS SR WITH HR 93. PER PREVIOUS NURSE, PT WAS UNABLE TO FINISH DIALYSIS DUE TO SEIZURE. AV SHUNT COVERED WITH DRESSING, DRY AND INTACT. NO SEIZURE NOTED AT THIS TIME. WILL CONTINUE TO MONITOR. WAITING FOR CT OF THE HEAD. ALL SAFETY MEASURES IMPLEMENTED PER PROTOCOL, CALL LIGHT WITHIN REACH. BED LOCKED IN LOWEST POSITION. SIDE RAILS UP X 2.
--- NOTE | 2020-12-05 20:20 | NUR ---
RN NOTE ACCOMPANIED PT TO RADIOLOGY FOR CT SCAN. VS STABLE. NO SEIZURE NOTED.
--- NOTE | 2020-12-05 20:35 | NUR ---
RN NOTES NOTED PT W/ SEIZURE WHILE CLEANING PT, LASTING 10-15 SECONDS. NO INJURY NOTED. NO DISTRESS NOTED. WILL CONTINUE TO MONITOR.
[2020-12-05] MEDS: LEVETIRACETAM (500MG) 500 MG in IV NS 0.9% 100 ML IV SCH (20:39)
[2020-12-05] MEDS: ATORVASTATIN 10 MG TABLET PO SCH ×2 (22:00→22:17)
[2020-12-05] MEDS: *INSULIN REGULAR(HUMULIN R)HUM 100 UNIT/ML VIAL SQ PRN (22:21)
--- NOTE | 2020-12-05 22:30 | NUR ---
RN NOTE PT REFUSED TO TAKE LIPITOR DESPITE EXPLAINING RISKS AND BENEFITS.
[2020-12-06] VITALS (11 sets, daily range): BP systolic 111–150; BP diastolic 60–83
--- NOTE | 2020-12-06 05:50 | NUR ---
RN NOTES PT NOTED WITH BLACK TARRY STOOL. VS STABLE. PT DENIES ANY PAIN.
[2020-12-06 06:49] LABS: LYMPHOCYTES # (AUTO) 0.8 /CMM (0.8-4.8); MONOCYTES # (AUTO) 1.1 /CMM (0.1-1.30)
--- NOTE | 2020-12-06 07:04 | NUR ---
RN NOTES PT CONTINUE ON O2 THERAPY OF 6LPM VIA NC. NO RESP DISTRESS NOTED. TELE MONITOR SHOW SR WITH HR OF 80. DENIES ANY PAIN DURING SHIFT. ON FREQUENT VISUAL CHECK. SEIZURE PRECAUTION OBSERVED. IV LINE REMAIN PATENT AND INTACT. LEFT AV SHUNT +BRUIT AND THRILL. NO BLEEDING NOTED. WILL ENDORSE TO NEXT SHIFT NURSE FOR LUNA. BED REMAIN LOCKED IN LOWEST POSITION. CALL LIGHT WITHIN REACH AT ALL TIMES.
[2020-12-06 07:10] LABS: C-REACTIVE PROTEIN 4.3 mg/dL (0.0-0.9)
--- NOTE | 2020-12-06 07:30 | NUR ---
DERRICK BUILDER OPENING NOTES Patient was received in bed.Patient is alert and responsive to verbal and physical stimuli, breathing even and unlabored. No c/o sob, no s/sx of respiratory distress. Patient is on 6 liters nasal canula with 02 sat 97%.Patient noted right right hand 22 gauze IV line, site patent and free of s/s of infection and flushes well. Left upper arm AV shunt free of s/s of bleeding. HOB kept elevated. Bed is in lowest and locked position. Call light with in reach. Will continue to monitor. Patient continues to be on monitoring for seizure activity.
[2020-12-06 07:37] LABS: POTASSIUM 5.8 mmol/L (3.5-5.1)
[2020-12-06 07:48] LABS: CREATININE 8.6 mg/dL (0.6-1.3)
[2020-12-06] MEDS: INSULIN REGULAR, HUMAN 100 UNIT/ML 3 ML VIAL SQ PRN ×3 (07:59→16:53)
[2020-12-06] MEDS: BLOOD SUGAR DIAGNOSTIC 1 EACH STRIP VI SCH ×4 (07:59→23:00)
[2020-12-06] MEDS: LEVETIRACETAM (500MG) 500 MG in IV NS 0.9% 100 ML IV SCH ×2 (08:26→20:24)
[2020-12-06] MEDS: CARVEDILOL 12.5 MG TABLET PO SCH ×2 (08:27→17:17)
[2020-12-06] MEDS: PANTOPRAZOLE 40 MG VIAL IV SCH ×2 (08:27→17:07)
[2020-12-06] MEDS: CALCIUM ACETATE 667 MG TABLET PO SCH ×3 (08:27→17:07)
[2020-12-06] MEDS: LINAGLIPTIN 5 MG TABLET PO SCH (08:28)
[2020-12-06] MEDS: NIFEdipine XL (30MG) 30 MG TAB PO SCH (08:28)
--- NOTE | 2020-12-06 08:30 | NUR ---
SENIOR TELECOMMUNICATIONS ENGINEER NOTES Received call from lab that patient's Calcium level on 12/06/[address] Cantu and informed him with no new orders. Patient assessed by MD Cantu in person. Per MD to lower 02 6 liters to 4 liters due to patient saturating 98-100%. 02 lowered to 4 liters and patient saturating in 95%+. Will continue to monitor. Call light with in reach.
[2020-12-06 10:56] LABS: BASOPHILS # (AUTO) 0.1 /CMM (0.0-0.2); BASOPHILS % (AUTO) 0.7 % (0.0-2.0); LYMPHOCYTES % (AUTO) 9.6 % (20.0-44.0); MEAN CORPUSCULAR HGB CONC 34 g/dl (31.0-36.0); MEAN CORPUSCULAR VOLUME 93 fL (80-96); MONOCYTES % (AUTO) 14.2 % (2.0-12.0); NEUTROPHILS # (AUTO) 5.8 /CMM (1.8-8.9); NEUTROPHILS % (AUTO) 74.5 % (43.0-81.0); PLATELET COUNT (AUTO) 114 /CMM (150-450); WHITE BLOOD COUNT (AUTO) 7.8 K/uL (4.3-11.0)
[2020-12-06 11:04] LABS: HEMATOCRIT 9 % (39-51); HEMOGLOBIN 3.1 g/dL (13.5-17.5)
--- NOTE | 2020-12-06 11:14 | NUR ---
OBTAINED ORDERS FOR 4 UNITS PRBC TO BE GIVEN .
--- NOTE | 2020-12-06 12:00 | NUR ---
COMPUTER INFORMATION SYSTEMS INSTRUCTOR NOTES Received call from Lab regard critical lab values of HGB, HCT AND RBC. Orthophoto Tech/Draftsman informed Dr Cantu and received Orders for PRBC 4 units. Midline to right upper arm inserted. Vitals checked prior to administration of blood products and 15 minutes later. Patient Vitals WNL and documented. Will continue to monitor. Call light with in reach.
[2020-12-06 13:27] LABS: LYMPHOCYTES % (MANUAL) 11 % (16-48); MONOCYTES % (MANUAL) 13 % (0-11.0); NEUTROPHILS % (MANUAL) 76 (42-76)
--- NOTE | 2020-12-06 16:17 | NUR ---
addendum second unit prbc accidentally click completed,started and initial bp 150/70,temp 98,hr 92,no acute distress.Temp 98.5. 02 sat 98% on 4 lipm via n/c
--- NOTE | 2020-12-06 16:33 | NUR ---
Patient's vital rechecked and noted with BP of 150/70,SC 51, RR 19, 98% 02 VIA N/C, Temp 98.1 No s/s of respiratory distress. No redness or skin concerns noted.
[2020-12-06] MEDS: CLONIDINE HCL 0.1 MG TABLET PO PRN (17:19)
[2020-12-06 17:44] LABS: HEMATOCRIT 43 % (39-51); HEMOGLOBIN 13.6 g/dL (13.5-17.5); MEAN CORPUSCULAR HGB CONC 32 g/dl (31.0-36.0); MEAN CORPUSCULAR VOLUME 97 fL (80-96); RED BLOOD CELL COUNT(AUTO) 4.39 MIL/uL (4.5-6.0); WHITE BLOOD COUNT (AUTO) 2.4 K/uL (4.3-11.0)
--- NOTE | 2020-12-06 17:50 | NUR ---
TAX MANAGER CPA NOTES PATIENT NOTED WITH BP OF 180/70, PULSE 91,RR20, TEMP 98.7,02 98% ON 4 LPM VIA N/C. Patient given his po coreg and prn clonidine. . Dr Cantu made aware. Patient's transfusion rate decreased. Patient's BP rechecked and noted to be 111/82. Infusion increased back to 100 ml/hour. Patient is being monitored closely throughout his tranfusion.
[2020-12-06 18:06] LABS: PLATELET COUNT (AUTO) 37 /CMM (150-450)
--- NOTE | 2020-12-06 18:37 | NUR ---
PATIENT COMPLETED SECOND UNIT PRBC ,MORE AWAKE AND ALERT ,NO DISTRESS,WILL ENDORSED TO NIGHT RN.FOR REDRAW H/H AT 9PM AND WILL ENDORSED TO HOLD 3RD AND 4TH UNIT PRBC PENDING RESULT OF 9PM.
--- NOTE | 2020-12-06 18:55 | NUR ---
PAINTLESS DENT REPAIR TECHNICIAN CLOSING NOTES Patient is alert and oriented at this time. Patient is breathing even and unlabored. No c/o sob, no s/sx of respiratory distress. Patient is on 4 liters nasal canula with 02 sat 97%.Patient noted right right hand 22 gauze IV line and right AC midline that is flushing well and patent and free of s/s of bleeding.Left upper arm AV shunt free of s/s of bleeding.Patient finished his 2nd bag of PRBC and stefanie well. Vitals assessed 110/70,89,RR 21, temp 98.1,0/10. Patient in good condition and talking to staff. Patient is able to eat independently at the end of the shift. Endorsed to next shift to follow up regarding lab work and PRBC. No BM during shift. HOB kept elevated. Bed is in lowest and locked position. Call light with in reach.
--- NOTE | 2020-12-06 20:00 | NUR ---
RN NOTES RECEIVED PT IN BED, BREATHING EVEN AND UNLABORED. ON O2 AT 4LPM. DENIES SOB. NO DISTRESS NOTED. TELE MONITORING SHOWS SR WITH HR 87. DENIES PAIN AT THIS TIME. WITH REMI MIDLINE AND RH IV. BOTH PATENT AND INTACT, FLUSHED NO SIGNS OF INFILTRATION. WILL CONTINUE TO MONITOR. BED LOCKED IN LOWEST POSITION. SIDE RAILS UP X 2. CALL LIGHT WITHIN REACH.
[2020-12-06] MEDS: ATORVASTATIN 10 MG TABLET PO SCH (22:57)
[2020-12-06 23:26] LABS: MEAN CORPUSCULAR HGB CONC 35 g/dl (31.0-36.0); MEAN CORPUSCULAR VOLUME 88 fL (80-96); PLATELET COUNT (AUTO) 131 /CMM (150-450); WHITE BLOOD COUNT (AUTO) 7.3 K/uL (4.3-11.0)
[2020-12-06 23:32] LABS: RED BLOOD CELL COUNT(AUTO) 1.62 MIL/uL (4.5-6.0)
[2020-12-06 23:35] LABS: HEMATOCRIT 14 % (39-51)
--- NOTE | 2020-12-06 23:50 | NUR ---
RN NOTES PT HGB 5.0 HCT [address] MONTANO[address] PER MD GIVE REMAINING 2 UNITS OF RBC. CHARGE NURSE MADE AWARE.
[2020-12-06] MEDS: *INSULIN REGULAR(HUMULIN R)HUM 100 UNIT/ML VIAL SQ PRN (23:52)
[2020-12-07] VITALS (22 sets, daily range): BP systolic 119–172; BP diastolic 47–88
--- NOTE | 2020-12-07 01:25 | NUR ---
RN NOTES PT CURRENTLY RECEIVING PRBC TRANSFUSION RUNNING AT 80ML/HR. NO REACTION NOTED AT THIS TIME. NO DISTRESS NOTED. BP 136/59 RR 20 P 85 T 98.4. PT DENIES PAIN. WILL CONTINUE TO MONITOR.
[2020-12-07] MEDS: CLONIDINE HCL 0.1 MG TABLET PO PRN (01:58)
--- NOTE | 2020-12-07 02:05 | NUR ---
RN NOTES PT BP AT 172/72. TRANSFUSION STILL ONGOING. CLONIDINE 0.1MG GIVEN ORDERED. WILL CONTINUE TO MONITOR. CHARGE NURSE MADE AWARE.
--- NOTE | 2020-12-07 04:45 | NUR ---
RN NOTES 3RD BAG OF PRBC TRANSFUSION DONE. NO SIGNS OF REACTIONS NOTED. PT DENIES ANY PAIN. NO DISTRESS NOTED. BP 159/83 HR 73 T 97.5 RR 20
--- NOTE | 2020-12-07 04:55 | NUR ---
RN NOTES CHARGE NURSE WENT TO GET BLOOD FROM LAB, PER LAB, BLOOD NOT READY. LAB WILL JUST CALL LATER.
[2020-12-07 06:42] LABS: BASOPHILS % (AUTO) 0.5 % (0.0-2.0); EOSINOPHILS % (AUTO) 1.6 % (0.0-6.0); LYMPHOCYTES # (AUTO) 0.9 /CMM (0.8-4.8); LYMPHOCYTES % (AUTO) 10.2 % (20.0-44.0); MEAN CORPUSCULAR HGB CONC 35 g/dl (31.0-36.0); MEAN CORPUSCULAR VOLUME 89 fL (80-96); MONOCYTES # (AUTO) 1.2 /CMM (0.1-1.30); MONOCYTES % (AUTO) 14.2 % (2.0-12.0); NEUTROPHILS # (AUTO) 6.2 /CMM (1.8-8.9); NEUTROPHILS % (AUTO) 73.5 % (43.0-81.0); PLATELET COUNT (AUTO) 127 /CMM (150-450); WHITE BLOOD COUNT (AUTO) 8.4 K/uL (4.3-11.0)
[2020-12-07 06:46] LABS: RED BLOOD CELL COUNT(AUTO) 1.86 MIL/uL (4.5-6.0)
[2020-12-07 06:55] LABS: HEMATOCRIT 17 % (39-51); HEMOGLOBIN 5.7 g/dL (13.5-17.5)
--- NOTE | 2020-12-07 07:00 | NUR ---
RN CLOSING NOTES PT REMAINS IN BED. ALERT.CONTINUE ON O2 AT 4LPM SATING AT 98%. NO DISTRESS NOTED, DENIES SOB. TELE READING SHOWS SR WITH HR OF 78. NO TRANSFUSION REACTION NOTED. REMI MIDLINE AND RH IV REMAIN PATENT AND INTACT. ON FREQUENT VISUAL CHECK. ATTENDED TO NEEDS. CALL LIGHT WITHIN REACH AT ALL TIMES. BED LOCKED IN LOWEST POSITION. SIDE RAILS UP X 3.
--- NOTE | 2020-12-07 07:10 | NUR ---
RN NOTES RECEIVED CALL FROM LAB. PT HGB 5.7 HCT 17. ENDORSED TO NEXT SHIFT NURSE.
[2020-12-07 07:26] LABS: C-REACTIVE PROTEIN 3.6 mg/dL (0.0-0.9)
[2020-12-07 07:36] LABS: CALCIUM, SERUM 6.3 mg/dL (8.5-10.1)
[2020-12-07 07:43] LABS: CREATININE 10.2 mg/dL (0.6-1.3)
[2020-12-07] MEDS: BLOOD SUGAR DIAGNOSTIC 1 EACH STRIP VI SCH ×4 (07:52→22:39)
[2020-12-07] MEDS: LEVETIRACETAM (500MG) 500 MG in IV NS 0.9% 100 ML IV SCH (07:52)
[2020-12-07] MEDS: INSULIN REGULAR, HUMAN 100 UNIT/ML 3 ML VIAL SQ PRN ×3 (07:55→18:40)
--- NOTE | 2020-12-07 08:00 | NUR ---
RN CLOSING NOTES PT REMAINS IN BED. ALERT.CONTINUE ON O2 AT 4LPM SATING AT 98%. NO DISTRESS NOTED, DENIES SOB. TELE READING SHOWS SR WITH HR OF 81. REMI MIDLINE AND RH IV REMAIN PATENT AND INTACT. ON FREQUENT VISUAL CHECK. ATTENDED TO NEEDS. CALL LIGHT WITHIN REACH AT ALL TIMES. BED LOCKED IN LOWEST POSITION. SIDE RAILS UP X 3. , RT UPPER ARM MID LINE IN PLACE AND FLUSHED WELL RT HAND HL IS DISLODGED WILL REMOVE, LFA AV SHUNT WITH BRUIT SOUND , PER DR DUSTY MONTGOMERY TO TRANSFUSE ONE MORE BLOOD TRANSFUSION
[2020-12-07] MEDS: LINAGLIPTIN 5 MG TABLET PO SCH (08:02)
[2020-12-07] MEDS: CALCIUM ACETATE 667 MG TABLET PO SCH ×3 (08:02→16:30)
[2020-12-07] MEDS: PANTOPRAZOLE 40 MG VIAL IV SCH ×2 (08:02→16:30)
[2020-12-07] MEDS: NIFEdipine XL (30MG) 30 MG TAB PO SCH (08:03)
[2020-12-07] MEDS: CARVEDILOL 12.5 MG TABLET PO SCH ×2 (08:04→16:30)
[2020-12-07 10:43] LABS: D-DIMER 5.64 mg/L(FEU (0.17-0.50)
--- NOTE | 2020-12-07 10:50 | NUR ---
EPIC WILLOW SPECIALIST NOTE ON BLOOD TRANSFUSION ORDERED NO ADVERSE REACTION AT THIS TIME
--- NOTE | 2020-12-07 13:20 | NUR ---
NURSE NOTE BLOOD TRANSFUSION COMPETED, NO ADVERSE REACTION NOTED WILL MONITOR
--- NOTE | 2020-12-07 13:59 | NUR ---
telesales agent note 2 nd unit prbc started as ordered
--- NOTE | 2020-12-07 15:00 | NUR ---
TELERN NOTE ALL NBEEDS ATTENDED WILL MONITOR
--- NOTE | 2020-12-07 16:00 | NUR ---
COUNTER FORMER NOTE ON HD AT THIS TIME
--- NOTE | 2020-12-07 17:30 | NUR ---
CUSTOMS APPRAISER NOTE 2ND UNIT PRBC COMPLETED NO ADVERSE REACTION
--- NOTE | 2020-12-07 18:41 | NUR ---
ENVIRONMENTAL HEALTH SAFETY ENGINEER NOTE HD COMPLETED 1,6 L IS OUT BP 124/69 HR 89
--- NOTE | 2020-12-07 19:25 | NUR ---
RN OPENING NOTES: RECEIVED PT A/OX 1-2 IN BED SLEEPING COMFORTABLY. PATIENT IN NO S/SX OF ACUTE DISTRESS AT THIS TIME. NO SOB NOTED. PATIENT'S BREATHING IS EVEN AND UNLABORED. PATIENT IS ON 4L OF OXYGEN VIA NC; TOLERATING WELL. PATIENT ON TELE MONITORING READING SINUS RHYTHM HR IS @90s AT THE TIME OF RECEIVED. PATIENT ON RENAL SPECIFIC DIET. NOTED IV SITE ON R HAND # 22, R AC MIDLINE ; BOTH PATENT, INTACT AND FLUSHING WELL; NO S/S OF INFECTION OR INFILTRATION. PATIENT ALSO HAS L UA AV SHUNT SECURED AND INTACT. URINAL AT BEDSIDE. SAFETY MEASURES HAVE BEEN PROVIDED AND IMPLEMENTED. PATIENT BED ALARM IS ON. HEAD OF BED ELEVATED. BED IS LOCKED, IN LOWEST POSITION AND SIDE RAILS UP. CALL LIGHT WITHIN REACH OF THE PATIENT. APPLICABLE ISOLATION PRECAUTIONS IN PLACE. WILL CONTINUE TO MONITOR AND REASSESS FOR ANY CHANGES AND WILL CARRY OUT ANY ONGOING AND ACTIVE MD ORDER.
[2020-12-07 19:50] LABS: BASOPHILS # (AUTO) 0.1 /CMM (0.0-0.2); BASOPHILS % (AUTO) 0.6 % (0.0-2.0); EOSINOPHILS % (AUTO) 0.7 % (0.0-6.0); HEMATOCRIT 23 % (39-51); HEMOGLOBIN 7.7 g/dL (13.5-17.5); LYMPHOCYTES # (AUTO) 0.6 /CMM (0.8-4.8); LYMPHOCYTES % (AUTO) 5.6 % (20.0-44.0); MEAN CORPUSCULAR HGB CONC 34 g/dl (31.0-36.0); MEAN CORPUSCULAR VOLUME 89 fL (80-96); MONOCYTES # (AUTO) 1.3 /CMM (0.1-1.30); MONOCYTES % (AUTO) 11.7 % (2.0-12.0); NEUTROPHILS # (AUTO) 9.4 /CMM (1.8-8.9); NEUTROPHILS % (AUTO) 81.4 % (43.0-81.0); PLATELET COUNT (AUTO) 117 /CMM (150-450); RED BLOOD CELL COUNT(AUTO) 2.53 MIL/uL (4.5-6.0); WHITE BLOOD COUNT (AUTO) 11.5 K/uL (4.3-11.0)
[2020-12-07 20:41] LABS: LYMPHOCYTES % (MANUAL) 4 % (16-48); MONOCYTES % (MANUAL) 10 % (0-11.0); NEUTROPHILS % (MANUAL) 86 (42-76)
[2020-12-07] MEDS: ATORVASTATIN 10 MG TABLET PO SCH (21:25)
[2020-12-07] MEDS: LEVETIRACETAM (250 MG) 250 MG TABLET PO SCH (21:25)
--- NOTE | 2020-12-07 22:35 | NUR ---
[id number] DR. MONTANO MADE AWARE OF PATIENT'S AGITATION TRYING TO GET OUT OF BED WITH ORDER FOR ZYPREXA 2.5MG IM EVERY 12 HOURS NEEDED. ORDER NOTED.
[2020-12-07] MEDS: *INSULIN REGULAR(HUMULIN R)HUM 100 UNIT/ML VIAL SQ PRN (22:40)
--- NOTE | 2020-12-07 23:00 | NUR ---
RN NOTES PATIENT REMAINS IN NO ACUTE RESPIRATORY DISTRESS AT THIS TIME, NO CHANGES TO CONDITION/STATUS. SALESPERSON FURS WELL AWARE. WILL CONTINUE TO MONITOR AND REASSESS FOR ANY CHANGES THROUGHOUT THE SHIFT
[2020-12-07] MEDS ORDERED: OLANZAPINE 10 MG VIAL IM ONE (23:43)
[2020-12-07] MEDS: OLANZAPINE 10 MG VIAL IM PRN (23:51)
[2020-12-08] VITALS (10 sets, daily range): BP systolic 104–155; BP diastolic 43–86
--- NOTE | 2020-12-08 03:00 | NUR ---
RN NOTES NO CHANGE IN PATIENT CONDITION AT THIS TIME PATIENT VITALS STABLE, NO SIGNS OF ACUTE RESPIRATORY DISTRESS. DOUGH PUNCHER MADE AWARE. WILL CONTINUE TO MONITOR AND REASSESS FOR ANY CHANGES THROUGHOUT THE SHIFT.
[2020-12-08 07:12] LABS: BASOPHILS # (AUTO) 0.1 /CMM (0.0-0.2); BASOPHILS % (AUTO) 0.9 % (0.0-2.0); EOSINOPHILS % (AUTO) 1.2 % (0.0-6.0); HEMATOCRIT 21 % (39-51); HEMOGLOBIN 7.4 g/dL (13.5-17.5); LYMPHOCYTES # (AUTO) 0.9 /CMM (0.8-4.8); LYMPHOCYTES % (AUTO) 8.7 % (20.0-44.0); MEAN CORPUSCULAR HGB CONC 35 g/dl (31.0-36.0); MEAN CORPUSCULAR VOLUME 90 fL (80-96); MONOCYTES # (AUTO) 1.8 /CMM (0.1-1.30); MONOCYTES % (AUTO) 17.4 % (2.0-12.0); NEUTROPHILS # (AUTO) 7.4 /CMM (1.8-8.9); NEUTROPHILS % (AUTO) 71.8 % (43.0-81.0); PLATELET COUNT (AUTO) 139 /CMM (150-450); RED BLOOD CELL COUNT(AUTO) 2.37 MIL/uL (4.5-6.0); WHITE BLOOD COUNT (AUTO) 10.3 K/uL (4.3-11.0)
--- NOTE | 2020-12-08 07:30 | NUR ---
RN OPENING NOTES: RECEIVED PT A/OX 1-2 IN BED SLEEPING COMFORTABLY. PATIENT IN NO S/SX OF ACUTE DISTRESS AT THIS TIME. NO SOB NOTED. PATIENT'S BREATHING IS EVEN AND UNLABORED. PATIENT IS ON 4L OF OXYGEN VIA NC; TOLERATING WELL. PATIENT ON TELE MONITORING READING SINUS RHYTHM HR IS @90s AT THE TIME OF RECEIVED. PATIENT ON RENAL SPECIFIC DIET. NOTED IV SITE ON R HAND # 22, R AC MIDLINE ; BOTH PATENT, INTACT AND FLUSHING WELL; NO S/S OF INFECTION OR INFILTRATION. PATIENT ALSO HAS L UA AV SHUNT SECURED AND INTACT. URINAL AT BEDSIDE. SAFETY MEASURES HAVE BEEN PROVIDED AND IMPLEMENTED. PATIENT BED ALARM IS ON. HEAD OF BED ELEVATED. BED IS LOCKED, IN LOWEST POSITION AND SIDE RAILS UP. CALL LIGHT WITHIN REACH OF THE PATIENT. APPLICABLE ISOLATION PRECAUTIONS IN PLACE. WILL CONTINUE TO MONITOR AND PROVIDE TREATMENT
[2020-12-08 07:49] LABS: C-REACTIVE PROTEIN 3.1 mg/dL (0.0-0.9)
[2020-12-08 08:16] LABS: CALCIUM, SERUM 6.1 mg/dL (8.5-10.1); POTASSIUM 4.9 mmol/L (3.5-5.1)
[2020-12-08 09:14] LABS: EOSINOPHILS % (MANUAL) 1 % (0-4); LYMPHOCYTES % (MANUAL) 14 % (16-48); MONOCYTES % (MANUAL) 7 % (0-11.0); NEUTROPHILS % (MANUAL) 78 (42-76)
[2020-12-08] MEDS: PANTOPRAZOLE 40 MG VIAL IV SCH ×2 (09:35→17:57)
[2020-12-08] MEDS: BLOOD SUGAR DIAGNOSTIC 1 EACH STRIP VI SCH ×4 (09:35→21:41)
[2020-12-08] MEDS: LINAGLIPTIN 5 MG TABLET PO SCH (09:36)
[2020-12-08] MEDS: LEVETIRACETAM (250 MG) 250 MG TABLET PO SCH ×2 (09:36→21:29)
[2020-12-08] MEDS: NIFEdipine XL (30MG) 30 MG TAB PO SCH (09:36)
[2020-12-08] MEDS: CALCIUM ACETATE 667 MG TABLET PO SCH ×3 (09:36→17:57)
[2020-12-08] MEDS: CARVEDILOL 12.5 MG TABLET PO SCH ×2 (09:36→17:00)
[2020-12-08] MEDS: *INSULIN REGULAR(HUMULIN R)HUM 100 UNIT/ML VIAL SQ PRN ×2 (12:01→21:45)
--- NOTE | 2020-12-08 12:45 | NUR ---
STARTED BLOOD TRANSFUSION; ONE UNIT OF LRBC
[2020-12-08] MEDS: MORPHINE SULFATE INJ 2 MG/ML DISP.SYRIN IV PRN (15:52)
--- NOTE | 2020-12-08 16:00 | NUR ---
TRANSFUSION COMPLETED; NO S/S OF TRANSFUSION REACTION NOTED. PATIENT TOLERATED TRANSFUSION WELL. WILL CONT TO MONITOR
[2020-12-08] MEDS: INSULIN REGULAR, HUMAN 100 UNIT/ML 3 ML VIAL SQ PRN (17:57)
--- NOTE | 2020-12-08 18:44 | NUR ---
RN CLOSING NOTES: PT A/OX 1-2 IN BED SLEEPING COMFORTABLY. PATIENT IN NO S/SX OF ACUTE DISTRESS AT THIS TIME. NO SOB NOTED. PATIENT'S BREATHING IS EVEN AND UNLABORED. PATIENT IS ON 4L OF OXYGEN VIA NC; TOLERATING WELL. PATIENT ON TELE MONITORING READING SINUS RHYTHM HR IS @90s. PATIENT ON RENAL SPECIFIC DIET. NOTED IV SITE ON R HAND # 22, R AC MIDLINE ; BOTH PATENT, INTACT AND FLUSHING WELL; NO S/S OF INFECTION OR INFILTRATION. PATIENT ALSO HAS L UA AV SHUNT SECURED AND INTACT. URINAL AT BEDSIDE. SAFETY MEASURES HAVE BEEN PROVIDED AND IMPLEMENTED. PATIENT BED ALARM IS ON. HEAD OF BED ELEVATED. BED IS LOCKED, IN LOWEST POSITION AND SIDE RAILS UP. CALL LIGHT WITHIN REACH OF THE PATIENT. APPLICABLE ISOLATION PRECAUTIONS IN PLACE. WILL ENDORSE TO CONSTRUCTION CRAFT LABORER NURSE FOR LUNA.
--- NOTE | 2020-12-08 19:35 | NUR ---
RN OPENING NOTES RECEIVED PT IN BED, A0 X 1. VERBALLY RESPONSIVE. ON O2 AT 4LPM. DENIES SOB. NO DISTRESS NOTED. ON TELE MONITORING SHOWS SR WITH HR 77. DENIES PAIN AT THIS TIME. WITH REMI MIDLINE PATENT AND INTACT, FLUSHED NO SIGNS OF INFILTRATION. AV SHUNT ON LA + BRUIT AND THRILL. WILL CONTINUE TO MONITOR. BED LOCKED IN LOWEST POSITION. SIDE RAILS UP X 2. CALL LIGHT WITHIN REACH. BED ALARM ON.
--- NOTE | 2020-12-08 21:00 | NUR ---
RN NOTES PT VERBALIZES HE'S NOT BREATHING FREELY. ON O2 AT 4LPM. O2 SAT AT 88 %. HOB ELEVATED. BREATHING TECHNIQUES GIVEN. PUT O2 ON 6L NC. WILL CONTINUE TO MONITOR.
--- NOTE | 2020-12-08 21:10 | NUR ---
RN NOTES PT O2 WENT UP TO 93% ON 6L. DENIES SOB. NO RESP DISTRESS NOTED. KEPT HOB ELEVATED.
[2020-12-08] MEDS: ATORVASTATIN 10 MG TABLET PO SCH (21:29)
[2020-12-08] MEDS: INSULIN GLARGINE, 100 UNIT/ML CARTRIDGE SQ SCH (21:43)
[2020-12-08] MEDS: ZOLPIDEM TARTRATE 5 MG TABLET PO PRN (21:45)
--- NOTE | 2020-12-08 21:45 | NUR ---
RN NOTES PT ASKING FOR SLEEPING PILL, VERBALIZES HE JUST WANT TO SLEEP. DENIES ANY SOB. O2 SAT AT 94% NOW. NO RESP DISTRESS NOTED. AMBIEM GIVEN ORDERED.
--- NOTE | 2020-12-08 23:31 | NUR ---
RN NOTES PT SLEEPING COMFORTABLY. BREATHING EVEN AND UNLABORED. O2 SAT AT 97 % ON 6L NC.
[2020-12-09] VITALS (11 sets, daily range): BP systolic 107–166; BP diastolic 25–106
[2020-12-09 06:52] LABS: BASOPHILS # (AUTO) 0.1 /CMM (0.0-0.2); BASOPHILS % (AUTO) 0.8 % (0.0-2.0); LYMPHOCYTES # (AUTO) 0.9 /CMM (0.8-4.8); LYMPHOCYTES % (AUTO) 11.1 % (20.0-44.0); MEAN CORPUSCULAR HGB CONC 35 g/dl (31.0-36.0); MEAN CORPUSCULAR VOLUME 91 fL (80-96); MONOCYTES # (AUTO) 1.5 /CMM (0.1-1.30); MONOCYTES % (AUTO) 19.5 % (2.0-12.0); NEUTROPHILS # (AUTO) 5.2 /CMM (1.8-8.9); NEUTROPHILS % (AUTO) 66.6 % (43.0-81.0); PLATELET COUNT (AUTO) 126 /CMM (150-450); RED BLOOD CELL COUNT(AUTO) 2.14 MIL/uL (4.5-6.0); WHITE BLOOD COUNT (AUTO) 7.8 K/uL (4.3-11.0)
[2020-12-09 07:01] LABS: HEMOGLOBIN 6.8 g/dL (13.5-17.5)
[2020-12-09 07:02] LABS: HEMATOCRIT 19 % (39-51)
--- NOTE | 2020-12-09 07:15 | NUR ---
RN NOTES RECEIVED CALL FROM LAB FOR PT HGB 6.[address] MONTANO. ORDERED 1 UNIT OF PRBC AND TO CHECK H&H RETICULYTE COUNT AND LFT AFTER TRANSFUSION AND CONSULT W/DR DIXON. ORDER NOTED AND CARRIED OUT. FOR LABS, WILL ENDORSE TO NEXT SHIFT NURSE IT NEEDS TO BE DONE AFTER TRANSFUSION.
[2020-12-09 07:16] LABS: CALCIUM, SERUM 5.9 mg/dL (8.5-10.1)
--- NOTE | 2020-12-09 07:30 | NUR ---
RN Opening note Received patient in bed, awaken able to responds all stimuli, Pt does no c/o pain or distress. Skin is warm to touch keep clean/dry intact IV site, respiratory even and unlabored with oxygen at 6L via NC O2sat 94%. Kept locked bed with elevated HOB for aspiration precaution and ensure airway and lowest bed foe safety. Call light within reach, will continue to monitor.
--- NOTE | 2020-12-09 07:30 | NUR ---
RN CLOSING NOTES PT REMAINS IN BED. CONTINUE ON 6L NC SATING AT 93-97%. NO RESP DISTRESS NOTED. ON FREQUENT VISUAL CHECK. PT TELE MONITORING SHOWS SR WITH HR OF 81. DENIES ANY PAIN AT THIS TIME. NO S/SX OF GI BLEEDING NOTED. ALL NEEDS ATTENDED. MIDLINE ON REMI REMAIN INTACT AND PATENT. NO BLEEDING NOTED FROM JAYLYN AV SHUNT, NO S/SX OF INFECTION. SIDE RAILS UP. CALL LIGHT WITHIN REACH AT ALL TIMES. WILL ENDORSE TO NEXT SHIFT NURSE FOR LUNA.
[2020-12-09] MEDS: BLOOD SUGAR DIAGNOSTIC 1 EACH STRIP VI SCH ×4 (08:40→21:20)
[2020-12-09] MEDS: LEVETIRACETAM (250 MG) 250 MG TABLET PO SCH ×2 (08:47→21:01)
[2020-12-09] MEDS: PANTOPRAZOLE 40 MG VIAL IV SCH ×2 (08:47→17:39)
[2020-12-09] MEDS: LINAGLIPTIN 5 MG TABLET PO SCH (08:47)
[2020-12-09] MEDS: CALCIUM ACETATE 667 MG TABLET PO SCH ×3 (08:47→17:39)
[2020-12-09] MEDS: CARVEDILOL 12.5 MG TABLET PO SCH ×2 (08:49→17:00)
[2020-12-09] MEDS: NIFEdipine XL (30MG) 30 MG TAB PO SCH (08:50)
[2020-12-09 09:28] LABS: EOSINOPHILS % (MANUAL) 2 % (0-4); LYMPHOCYTES % (MANUAL) 8 % (16-48); MONOCYTES % (MANUAL) 16 % (0-11.0); NEUTROPHILS % (MANUAL) 74 (42-76)
--- NOTE | 2020-12-09 18:49 | NUR ---
RN closing Patient in bed resting, just finished HD, does no appears distress or discomfort. Skin is warm to touch, keep clean/dry, intact IV site. Respiratory even and unlabored with oxygen at 6L via NC O2sat 94%. Kept elevated HOB for ensure air way and aspiration precaution and lowest bed for safety. Call light within reach, will endorse hydraulic hammer operator
--- NOTE | 2020-12-09 19:15 | NUR ---
RN NOTE RECEIVED PATIENT IN BED, AO X 2-3. PATIENT IN NO S/SX OF ACUTE DISTRESS AT THIS TIME. PATIENT'S BREATHING IS EVEN AND UNLABORED, ON 6L OXYGEN VIA NC, SATURATION >95%, SR ON THE MONITOR, HR IS 99. NOTED JAYLYN AV SHUNT, AND REMI MIDLINE, PATENT AND FLUSHING WELL, NO S/S OF INFECTION. R SIDED PARALYSIS NOTED. NO ACTIVE BLEEDING NOTED AT THIS TIME. SAFETY MEASURES IMPLEMENTED PER PROTOCOL. PATIENT BED ALARM IS ON. HEAD OF BED ELEVATED. BED IS LOCKED, IN LOWEST POSITION AND SIDE RAILS UP. CALL LIGHT WITHIN REACH OF THE PATIENT. WILL CONTINUE TO MONITOR AND REASSESS FOR ANY CHANGES.
--- NOTE | 2020-12-09 20:44 | NUR ---
RN NOTE TELEPHONE CALL TO DR MONTANO, ADVISED THAT PATIENT KEPT ASKING FOR AMBIEN 5 MG HE IS PREVIOUSLY TAKING. DR MONTANO STATED OK TO PUT ORDER BACK. SPRING BENDER MADE AWARE.
[2020-12-09] MEDS: ATORVASTATIN 10 MG TABLET PO SCH (21:01)
[2020-12-09] MEDS: ZOLPIDEM TARTRATE 5 MG TABLET PO PRN (21:02)
[2020-12-09 21:31] LABS: BASOPHILS % (AUTO) 0.5 % (0.0-2.0); EOSINOPHILS % (AUTO) 1.7 % (0.0-6.0); LYMPHOCYTES # (AUTO) 0.8 /CMM (0.8-4.8); LYMPHOCYTES % (AUTO) 13.2 % (20.0-44.0); MEAN CORPUSCULAR HGB CONC 34 g/dl (31.0-36.0); MEAN CORPUSCULAR VOLUME 88 fL (80-96); MONOCYTES # (AUTO) 1.3 /CMM (0.1-1.30); NEUTROPHILS # (AUTO) 3.9 /CMM (1.8-8.9); NEUTROPHILS % (AUTO) 63.6 % (43.0-81.0); PLATELET COUNT (AUTO) 123 /CMM (150-450); WHITE BLOOD COUNT (AUTO) 6.1 K/uL (4.3-11.0)
[2020-12-09] MEDS: INSULIN GLARGINE, 100 UNIT/ML CARTRIDGE SQ SCH (21:31)
[2020-12-09 21:35] LABS: HEMATOCRIT 18 % (39-51)
[2020-12-09 21:44] LABS: BAND % (MANUAL) 1 % (0.0-5.0); LYMPHOCYTES % (MANUAL) 14 % (16-48); MONOCYTES % (MANUAL) 24 % (0-11.0); NEUTROPHILS % (MANUAL) 59 (42-76)
[2020-12-09 21:45] LABS: EOSINOPHILS % (MANUAL) 2 % (0-4)
--- NOTE | 2020-12-09 22:30 | NUR ---
RN NOTE NOTED BURGUNDY COLORED TARRY STOOLS. MECHANICAL SHOVEL OPERATOR MADE AWARE. WILL CONTINUE TO MONITOR.
[2020-12-09] MEDS: ACETAMINOPHEN 325 MG TABLET PO PRN (23:55)
[2020-12-10] VITALS (16 sets, daily range): BP systolic 100–164; BP diastolic 41–82
[2020-12-10 07:41] LABS: BASOPHILS % (AUTO) 0.7 % (0.0-2.0); EOSINOPHILS % (AUTO) 1.8 % (0.0-6.0); LYMPHOCYTES # (AUTO) 1.1 /CMM (0.8-4.8); LYMPHOCYTES % (AUTO) 18.9 % (20.0-44.0); MEAN CORPUSCULAR HGB CONC 34 g/dl (31.0-36.0); MEAN CORPUSCULAR VOLUME 90 fL (80-96); MONOCYTES # (AUTO) 1.3 /CMM (0.1-1.30); MONOCYTES % (AUTO) 21.5 % (2.0-12.0); NEUTROPHILS # (AUTO) 3.4 /CMM (1.8-8.9); NEUTROPHILS % (AUTO) 57.1 % (43.0-81.0); PLATELET COUNT (AUTO) 108 /CMM (150-450)
--- NOTE | 2020-12-10 07:47 | NUR ---
RN OPENING NOTE PATIENT IS IN BED WITH HOB AT SEMI FOWLERS POSITION. PATIENT IS AOX2. PATIENT IS ON 6L VIA NC. SKIN IS INTACT. REMI MIDLINE IS PATENT, INTACT, AND HAS NO SIGNS OF INFILTRATION. LFA AV SHUNT HAS BRUIT PRESENT. SEIZURE PRECAUTIONS ARE IN PLACE WITH SUCTION EQUIPMENT AT THE BEDSIDE. BED IS LOCKED IN THE LOWEST POSITION, CALL FITZPATRICK WITHIN REACH, 3 GUARD RAILS RAISED, AND ALL HOSPITAL SAFETY PRECAUTIONS ARE BEING FOLLOWED. WILL CONTINUE TO MONITOR THROUGHOUT SHIFT.
[2020-12-10] MEDS: BLOOD SUGAR DIAGNOSTIC 1 EACH STRIP VI SCH ×4 (07:55→21:24)
[2020-12-10 08:11] LABS: HEMATOCRIT 17 % (39-51); HEMOGLOBIN 5.9 g/dL (13.5-17.5)
--- NOTE | 2020-12-10 08:15 | NUR ---
lab called in and stated that hgb 5.9 and hct 17 notified to and as well waiting for respond
--- NOTE | 2020-12-10 08:19 | NUR ---
2 more units PRBC ordered will call GI
[2020-12-10 08:42] LABS: THYROID STIMULATING HORMONE 2.993 uIU/mL (0.358-3.74)
[2020-12-10 09:00] LABS: BILIRUBIN,DIRECT 0.1 mg/dL (0.0-0.2); BILIRUBIN,TOTAL 0.4 mg/dL (0.2-1.0); TOTAL PROTEIN, SERUM 3.5 g/dL (6.4-8.2)
[2020-12-10] MEDS: CALCIUM ACETATE 667 MG TABLET PO SCH ×3 (09:03→16:40)
[2020-12-10] MEDS: PANTOPRAZOLE 40 MG VIAL IV SCH ×2 (09:04→16:41)
[2020-12-10 09:05] LABS: ALBUMIN 1.4 g/dL (3.4-5.0)
[2020-12-10] MEDS: NIFEdipine XL (30MG) 30 MG TAB PO SCH (09:05)
[2020-12-10] MEDS: LEVETIRACETAM (250 MG) 250 MG TABLET PO SCH ×2 (09:05→20:51)
[2020-12-10] MEDS: CARVEDILOL 12.5 MG TABLET PO SCH ×2 (09:08→16:41)
[2020-12-10] MEDS: LINAGLIPTIN 5 MG TABLET PO SCH (09:15)
[2020-12-10] MEDS: *INSULIN REGULAR(HUMULIN R)HUM 100 UNIT/ML VIAL SQ PRN ×2 (11:34→21:25)
[2020-12-10 12:25] LABS: LYMPHOCYTES % (MANUAL) 14 % (16-48); MONOCYTES % (MANUAL) 19 % (0-11.0); NEUTROPHILS % (MANUAL) 67 (42-76)
--- NOTE | 2020-12-10 13:59 | NUR ---
NM: GI BLEEDING WAS COMPLETED. TECH:RB.
[2020-12-10] MEDS: ACETAMINOPHEN 325 MG TABLET PO PRN (16:40)
--- NOTE | 2020-12-10 19:05 | NUR ---
RN CLOSING NOTE PATIENT IS IN BED WITH HOB AT SEMI FOWLERS POSITION. PATIENT IS AOX2. 6L NC ARE APPLIED. SKIN IS INTACT. REMI MIDLINE IS PATENT, INTACT, AND HAS NO SIGNS OF INFILTRATION. SEIZURE PRECAUTIONS ARE IN PLACE. LVA AV SHUNT HAS AUDIBLE BRUIT. BED IS LOCKED IN THE LOWEST POSITION, 3 GUARD RAILS RAISED, CALL FITZPATRICK WITHIN REACH, AND ALL HOSPITAL SAFETY PRECAUTIONS ARE BEING FOLLOWED. WILL ENDORSE TO CLEANER TOUCH UP WORKER NURSE.
--- NOTE | 2020-12-10 19:40 | NUR ---
RN OPENING NOTE RECEIVED PT IN BED. A/O X 2, PT IS ON 6L OF O2 VIA NC, PT SATURATION IS 96% AT THIS TIME. NO SOB OR RESP DISTRESS AT THIS TIME, ON TELE MONITOR PT PRESENTS WITH NSR HR OF 81 AT THIS TIME. IV SITE PATENT, INTACT AND FLUSHED. LEFT AV SHUNT NOTED, SIGN POSTED NO BP OR BLOOD DRAW ON LEFT ARM. SAFETY MEASURES IN PLACE, ISOLATION PRECAUTIONS IMPLEMENTED, HOB ELEVATED, SIDE RAILS UP X3, BED LOCKED IN LOWEST POSITION WITH BED ALARM ON. CALL LIGHT WITHIN REACH. WILL CONT TO MONITOR.
[2020-12-10] MEDS: ATORVASTATIN 10 MG TABLET PO SCH (20:51)
[2020-12-10] MEDS: INSULIN GLARGINE, 100 UNIT/ML CARTRIDGE SQ SCH (21:26)
[2020-12-10] MEDS: ZOLPIDEM TARTRATE 5 MG TABLET PO PRN (23:26)
[2020-12-11] VITALS (16 sets, daily range): BP systolic 100–158; BP diastolic 39–86
[2020-12-11] MEDS: ACETAMINOPHEN 325 MG TABLET PO PRN ×2 (00:35→14:30)
[2020-12-11] MEDS: OLANZAPINE 10 MG VIAL IM PRN (04:58)
--- NOTE | 2020-12-11 05:00 | NUR ---
PT BECOMING AGGRESSIVE, YELLING, AGITATED. ADMINISTERED PRN ZYPREXA ORDERED. CHARGE NURSE AWARE. WILL CONT TO CLOSELY MONITOR.
--- NOTE | 2020-12-11 06:44 | NUR ---
RN CLOSING NOTES PT RECEIVED 2 UNITS PRBCS ON MY SHIFT, TOLERATED WELL. PT BECAME HOSTILE TOWARDS END OF SHIFT, DID NOT SLEEP. ADMINISTERED PRN MEDICATION ORDERED. AT THIS TIME PT IS ASLEEP/RESTING. STILL ON 6L, NO RESP DISTRESS NO SOB NOTED. BREATHING EVEN AND UNLABORED. SAFETY MEASURES IN PLACE, HOB ELEVATED. SIDE RAILS X2. BED LOCKED IN LOWEST POSITION. CALL LIGHT WITHIN REACH. AFEBRILE, PT DENIES PAIN. ALL NEEDS ATTENDED. WILL ENDORSE TO AM NURSE FOR CONTINUATION OF CARE.
--- NOTE | 2020-12-11 07:47 | NUR ---
RN OPENING NOTE PATIENT IS IN BED WITH HOB AT SEMI FOWLERS POSITION. 6L OF NASAL CANULA ARE APPLIED. BREATHING EVEN UNLABORED. PATIENT IS AOX2. NSR VIA MONITOR. SKIN IS INTACT. SEIZURE PRECAUTIONS IN PLACE WITH SUCTION AT BEDSIDE. REMI MIDLINE IS PATENT, INTACT, AND HAS NO SIGNS OF INFILTRATION. LFA AV SHUNT HAS BRUIT AND THRILL PRESENT. BED IS LOCKED IN THE LOWEST POSITION, 3 GUARD RAILS RAISED, CALL FITZPATRICK WITHIN REACH, AND ALL HOSPITAL SAFETY PRECAUTIONS ARE IN PLACE. WILL CONTINUE TO MONITOR THROUGHOUT SHIFT.
[2020-12-11] MEDS: BLOOD SUGAR DIAGNOSTIC 1 EACH STRIP VI SCH ×4 (07:54→23:46)
[2020-12-11] MEDS: *INSULIN REGULAR(HUMULIN R)HUM 100 UNIT/ML VIAL SQ PRN ×3 (07:55→16:41)
[2020-12-11 08:06] LABS: IMMUNOGLOBULIN A, SERUM 174 mg/dL (90-386); IMMUNOGLOBULIN G, SERUM 391 mg/dL (603-1613); IMMUNOGLOBULIN M, SERUM 34 mg/dL (20-172)
[2020-12-11] MEDS: PANTOPRAZOLE 40 MG VIAL IV SCH ×2 (08:24→16:35)
[2020-12-11] MEDS: CALCIUM ACETATE 667 MG TABLET PO SCH ×3 (08:25→16:36)
[2020-12-11] MEDS: LINAGLIPTIN 5 MG TABLET PO SCH (08:25)
[2020-12-11] MEDS: LEVETIRACETAM (250 MG) 250 MG TABLET PO SCH ×2 (08:25→23:45)
[2020-12-11] MEDS: CARVEDILOL 12.5 MG TABLET PO SCH ×2 (08:25→16:36)
[2020-12-11] MEDS: NIFEdipine XL (30MG) 30 MG TAB PO SCH (08:26)
[2020-12-11 08:42] LABS: BASOPHILS # (AUTO) 0.1 /CMM (0.0-0.2); BASOPHILS % (AUTO) 0.9 % (0.0-2.0); HEMATOCRIT 22 % (39-51); HEMOGLOBIN 7.2 g/dL (13.5-17.5); LYMPHOCYTES # (AUTO) 0.8 /CMM (0.8-4.8); LYMPHOCYTES % (AUTO) 10.3 % (20.0-44.0); MEAN CORPUSCULAR HGB CONC 34 g/dl (31.0-36.0); MEAN CORPUSCULAR VOLUME 90 fL (80-96); MONOCYTES # (AUTO) 1.4 /CMM (0.1-1.30); MONOCYTES % (AUTO) 17.4 % (2.0-12.0); NEUTROPHILS # (AUTO) 5.7 /CMM (1.8-8.9); NEUTROPHILS % (AUTO) 69.4 % (43.0-81.0); PLATELET COUNT (AUTO) 131 /CMM (150-450); RED BLOOD CELL COUNT(AUTO) 2.39 MIL/uL (4.5-6.0); WHITE BLOOD COUNT (AUTO) 8.2 K/uL (4.3-11.0)
[2020-12-11 08:59] LABS: POTASSIUM 5.7 mmol/L (3.5-5.1)
[2020-12-11 09:03] LABS: ALBUMIN 1.6 g/dL (3.4-5.0); BILIRUBIN,DIRECT 0.1 mg/dL (0.0-0.2); BILIRUBIN,TOTAL 0.3 mg/dL (0.2-1.0); TOTAL PROTEIN, SERUM 4.2 g/dL (6.4-8.2)
[2020-12-11 09:37] LABS: CREATININE 9.2 mg/dL (0.6-1.3)
[2020-12-11 13:02] LABS: BAND % (MANUAL) 2 % (0.0-5.0); LYMPHOCYTES % (MANUAL) 17 % (16-48); MONOCYTES % (MANUAL) 12 % (0-11.0); NEUTROPHILS % (MANUAL) 69 (42-76)
[2020-12-11 13:07] LABS: *SPE A/G RATIO 1.1 (0.7-1.7); *SPE ALBUMIN 1.7 g/dL (2.9-4.4); *SPE ALPHA-1-GLOBULIN 0.2 g/dL (0.0-0.4); *SPE ALPHA-2-GLOBULIN 0.3 g/dL (0.4-1.0); *SPE BETA GLOBULIN 0.5 g/dL (0.7-1.3); *SPE GLOBULIN, TOTAL 1.5 g/dL (2.2-3.9); *SPE M-SPIKE Not Observed g/dL (Not Observed); *SPEGAMMA GLOBULIN 0.4 g/dL (0.4-1.8)
--- NOTE | 2020-12-11 18:32 | NUR ---
RN CLOSING NOTE PATIENT IS IN BED WITH HOB AT SEMI FOWLERS POSITION. PATIENT IS AOX1 AND AGITATED/RESTLESS. 4L NC APPLIED. NSR NOTED ON MONITOR. SKIN IN INTACT. SEIZURE PRECAUTIONS IN PLACE WITH PADDED SIDE RAILS AND SUCTION EQUIPMENT AT BEDSIDE. REMI MIDLINE IS PATENT, INTACT, AND HAS NO SIGNS OF INFILTRATION. LFA AV SHUNT HAS BRUIT AND THRILL PRESENT. BED IS LOCKED IN THE LOWEST POSITION, GUARD RAILS ARE PADDED, CALL FITZPATRICK WITHIN REACH, AND ALL HOSPITAL SAFETY PRECAUTIONS ARE BEING FOLLOWED. WILL ENDORSE TO SUPERVISOR URANIUM PROCESSING NURSE.
--- NOTE | 2020-12-11 19:30 | NUR ---
RN NOTE PATIENT TRANSFERRED TO ROOM 323 BED 1 GAVE TO TUAN RN REPORT FOR CONTINUATION OF CARE
--- NOTE | 2020-12-11 20:08 | NUR ---
MS/TELE/RN RECEIVED PATIENT FROM [facility] BY BED AT AROUND 1940, PATIENT WAS AWAKE, ALERT, COMFORTABLE, NO C/O PAIN, NO DISTRESS NOTED, MADE COMFORTABLE IN BED, TELE BOX APPLIED, O2 AT 2LPM WAS APPLIED, FALL PRECAUTIONS PER PROTOCOL IMPLEMENTED, BED ALARM TURNED ON, WILL MONITOR.
--- NOTE | 2020-12-11 21:19 | NUR ---
MS/TELE HD IN PROGRESS AT THIS TIME.
[2020-12-11] MEDS: ATORVASTATIN 10 MG TABLET PO SCH (23:46)
[2020-12-11] MEDS: INSULIN GLARGINE, 100 UNIT/ML CARTRIDGE SQ SCH (23:47)
[2020-12-12] VITALS: BP 115/97
--- NOTE | 2020-12-12 01:16 | NUR ---
MS/TELE/RN HD WAS FINISHED AT 23:26 WITH 2.1L OUTPUT, VITAL SIGNS STABLE, ACCU CHECK WAS DONE, SNACK WAS GIVEN AFTER THE LANTUS INSULIN, DUE MEDS WERE GIVEN. PRESENTLY, PATIENT IS SLEEPING, APPEAR COMFORTABLE, NO SIGNS OF DISTRESS NOTED, CALL LIGHT IN REACH. WILL CONTINUE TO MONITOR.
[2020-12-12] MEDS: BLOOD SUGAR DIAGNOSTIC 1 EACH STRIP VI SCH ×4 (07:36→21:15)
[2020-12-12 08:00] VITALS: BP 132/90
[2020-12-12] MEDS: PANTOPRAZOLE 40 MG VIAL IV SCH ×2 (09:13→17:35)
[2020-12-12] MEDS: NIFEdipine XL (30MG) 30 MG TAB PO SCH (09:13)
[2020-12-12] MEDS: CARVEDILOL 12.5 MG TABLET PO SCH ×2 (09:14→17:35)
[2020-12-12] MEDS: LEVETIRACETAM (250 MG) 250 MG TABLET PO SCH ×2 (09:14→21:15)
[2020-12-12] MEDS: CALCIUM ACETATE 667 MG TABLET PO SCH ×3 (09:14→17:35)
[2020-12-12] MEDS: LINAGLIPTIN 5 MG TABLET PO SCH (09:15)
[2020-12-12 09:56] LABS: *ANA ANTI-CENTROMERE B AB <0.2 AI (0.0-0.9); *ANA ANTI-DNA(DS) AB, QN <1 IU/mL (0-9); *ANA ANTI-JO-1 <0.2 AI (0.0-0.9); *ANA ANTICHROMATIN ANTIBODY <0.2 AI (0.0-0.9); *ANA RNP ANTIBODIES <0.2 AI (0.0-0.9); *ANA SJOGREN'S ANTI-SS-A <0.2 AI (0.0-0.9); *ANA SJOGREN'S ANTI-SS-B <0.2 AI (0.0-0.9); *ANAANTI-SCLERODERMA-70 AB <0.2 AI (0.0-0.9); *ANASMITH AB <0.2 AI (0.0-0.9)
[2020-12-12] MEDS: INSULIN REGULAR, HUMAN 100 UNIT/ML 3 ML VIAL SQ PRN ×2 (12:17→18:33)
[2020-12-12 16:00] VITALS: BP 135/100
--- NOTE | 2020-12-12 19:00 | NUR ---
RN MS NOTES PT IN BED, RESTING, DENIES PAIN, NOT IN DISTRESS, TOLERATES ROOM AIR, PT ABLE TO AMBULATE EARLIER WITH A WALKER WITH STANDBY ASSISTANCE, NOTED WITH GOOD APPETITE, PM CARE PROVIDED, PM MEDS GIVEN, NEEDS ATTENDED.
[2020-12-12] MEDS: INSULIN GLARGINE, 100 UNIT/ML CARTRIDGE SQ SCH (21:13)
[2020-12-12] MEDS: *INSULIN REGULAR(HUMULIN R)HUM 100 UNIT/ML VIAL SQ PRN (21:14)
[2020-12-12] MEDS: ATORVASTATIN 10 MG TABLET PO SCH (21:15)
[2020-12-13] MEDS: INSULIN REGULAR, HUMAN 100 UNIT/ML 3 ML VIAL SQ PRN ×2 (06:33→17:49)
[2020-12-13] MEDS: BLOOD SUGAR DIAGNOSTIC 1 EACH STRIP VI SCH ×4 (06:35→22:04)
--- NOTE | 2020-12-13 07:30 | NUR ---
RN MS NOTES PT IN BED, ASLEEP, EASY TO AROUSE, ALERT AND ABLE TO MAKE NEEDS KNOWN, NO COMPLAINT OF PAIN, NOT IN DISTRESS, CALL LIGHT WITHIN REACH, BED ALARM ON, KEPT WARM AND COMFORTABLE IN BED, NEEDS ATTENDED.
[2020-12-13 08:00] VITALS: BP 134/60
[2020-12-13 08:05] LABS: BASOPHILS % (AUTO) 0.5 % (0.0-2.0); EOSINOPHILS % (AUTO) 1.9 % (0.0-6.0); HEMATOCRIT 22 % (39-51); HEMOGLOBIN 7.4 g/dL (13.5-17.5); LYMPHOCYTES # (AUTO) 0.9 /CMM (0.8-4.8); LYMPHOCYTES % (AUTO) 13.9 % (20.0-44.0); MEAN CORPUSCULAR HGB CONC 34 g/dl (31.0-36.0); MEAN CORPUSCULAR VOLUME 89 fL (80-96); MONOCYTES # (AUTO) 1.2 /CMM (0.1-1.30); MONOCYTES % (AUTO) 18.8 % (2.0-12.0); NEUTROPHILS # (AUTO) 4.1 /CMM (1.8-8.9); NEUTROPHILS % (AUTO) 64.9 % (43.0-81.0); PLATELET COUNT (AUTO) 150 /CMM (150-450); RED BLOOD CELL COUNT(AUTO) 2.47 MIL/uL (4.5-6.0); WHITE BLOOD COUNT (AUTO) 6.4 K/uL (4.3-11.0)
[2020-12-13 08:28] LABS: CALCIUM, SERUM 6.6 mg/dL (8.5-10.1); POTASSIUM 4.5 mmol/L (3.5-5.1)
[2020-12-13 08:56] LABS: PROSTATE SPECIFIC ANTIGEN SCR 0.76 ng/mL (0.00-4.00)
[2020-12-13] MEDS: CALCIUM ACETATE 667 MG TABLET PO SCH ×3 (09:34→17:44)
[2020-12-13] MEDS: LEVETIRACETAM (250 MG) 250 MG TABLET PO SCH ×2 (09:34→22:04)
[2020-12-13] MEDS: NIFEdipine XL (30MG) 30 MG TAB PO SCH (09:35)
[2020-12-13] MEDS: CARVEDILOL 12.5 MG TABLET PO SCH ×2 (09:35→17:45)
[2020-12-13] MEDS: LINAGLIPTIN 5 MG TABLET PO SCH (09:35)
[2020-12-13] MEDS: PANTOPRAZOLE 40 MG VIAL IV SCH ×2 (09:41→17:44)
[2020-12-13 11:16] LABS: EOSINOPHILS % (MANUAL) 1 % (0-4); LYMPHOCYTES % (MANUAL) 8 % (16-48); MONOCYTES % (MANUAL) 11 % (0-11.0); MYELOCYTES % 1 % (0-0); NEUTROPHILS % (MANUAL) 79 (42-76)
[2020-12-13 12:28] LABS: HEMOGLOBIN 7.1 g/dL (13.5-17.5)
[2020-12-13] MEDS: SOD FERRIC GLUC 125 MG in IV NS 0.9% 100 ML IV SCH (15:33)
[2020-12-13 16:00] VITALS: BP 138/68
--- NOTE | 2020-12-13 19:00 | NUR ---
RN MS NOTES PT IN BED, RESTING, ALERT AND ABLE TO MAKE NEEDS KNOWN, NO COMPLAINT AT THIS TIME, NO SOB NOTED, NOTED WITH GOOD APPETITE, PT HAD DIALYSIS TODAY, 2000ML OUTPUT, PT SEEN BY DR. MONTANO TODAY, PT FOR EGD TOMORROW BY DR. LANGLEY, PT INFORMED AND SIGNED CONSENTS, PM MEDS GIVEN, ALL NEEDS ATTENDED.
--- NOTE | 2020-12-13 19:30 | NUR ---
ms koko initial notes received report and checked the patient in his room,awake and alert ,he's on bed lying on his side with O2 at 2 liters via Nasal canula sometimes on room air. no signs of any acute distress noted. noticed swollen /edema on both lower legs and skin warm and dry to touch. kept him warm and comfortable at all times. place call light at reach. will continue monitoring.
[2020-12-13 20:00] VITALS: BP 144/66
[2020-12-13] MEDS: ATORVASTATIN 10 MG TABLET PO SCH (22:04)
[2020-12-13] MEDS: ZOLPIDEM TARTRATE 5 MG TABLET PO PRN (22:11)
[2020-12-13] MEDS: INSULIN GLARGINE, 100 UNIT/ML CARTRIDGE SQ SCH (22:12)
[2020-12-13] MEDS: *INSULIN REGULAR(HUMULIN R)HUM 100 UNIT/ML VIAL SQ PRN (22:15)
[2020-12-14] VITALS (8 sets, daily range): BP systolic 92–167; BP diastolic 56–90
--- NOTE | 2020-12-14 | NUR ---
ms surgical scheduler notes pt resting sleeping at this time , breathing even and unlabored not in any acute distress noted. kept him warm and comfortable at all times. will continue monitoring. place call light at reach.
[2020-12-14] MEDS: BLOOD SUGAR DIAGNOSTIC 1 EACH STRIP VI SCH ×4 (06:44→22:03)
[2020-12-14] MEDS: DEXTROSE 50%-WATER 50 ML DISP.SYRIN IV PRN ×3 (06:54→17:21)
--- NOTE | 2020-12-14 07:05 | NUR ---
ms label stamper closing notes patient resting comfortably in bed without any distress noted, denies any pain or any discomfort. blood sugar 32, no signs of hypo glycemia noted, D50 IVP administered by another nurse as ordered. all due meds given and all needs met. noticed only throughout the night patient have some confusion and forgetful that he's in the hospital. kept him warm and comfortable at all times. will endorse to am nurse for continuity of care. place call light at reach.
[2020-12-14 07:17] LABS: MEAN CORPUSCULAR VOLUME 89 fL (80-96)
[2020-12-14 08:02] LABS: CREATININE 7.2 mg/dL (0.6-1.3); POTASSIUM 4.4 mmol/L (3.5-5.1)
--- NOTE | 2020-12-14 08:30 | NUR ---
RN NOTE Notified Dr. Cantu that patient's Hgb this AM is 6.6. Hct 19, and platelet 30. Per laborer pole crew, blood clotted and they will do a repeat CBC. Per MD to transfuse 2 units PRBC when second draw Hgb comes back below 7. Orders repeated back and will carry out.
[2020-12-14] MEDS: LEVETIRACETAM (250 MG) 250 MG TABLET PO SCH ×2 (09:00→21:33)
[2020-12-14] MEDS: CARVEDILOL 12.5 MG TABLET PO SCH ×2 (09:00→17:00)
[2020-12-14] MEDS: CALCIUM ACETATE 667 MG TABLET PO SCH ×3 (09:00→17:00)
[2020-12-14] MEDS: LINAGLIPTIN 5 MG TABLET PO SCH (09:00)
[2020-12-14] MEDS: NIFEdipine XL (30MG) 30 MG TAB PO SCH (09:00)
[2020-12-14] MEDS ORDERED: ANESTHESIA TRAY IN PYXIS 1 EA TRAY MC ONE ×2 (09:35→19:27)
[2020-12-14] MEDS: PANTOPRAZOLE 40 MG VIAL IV SCH ×2 (09:37→17:21)
[2020-12-14 10:28] LABS: RED BLOOD CELL COUNT(AUTO) 2.45 MIL/uL (4.5-6.0)
[2020-12-14 10:29] LABS: HEMOGLOBIN 7.3 g/dL (13.5-17.5)
[2020-12-14 10:34] LABS: HEMATOCRIT 22 % (39-51); MEAN CORPUSCULAR HGB CONC 33 g/dl (31.0-36.0)
[2020-12-14 10:36] LABS: PLATELET COUNT (AUTO) 146 /CMM (150-450)
[2020-12-14 10:38] LABS: NEUTROPHILS % (AUTO) 65.4 % (43.0-81.0)
[2020-12-14 10:40] LABS: EOSINOPHILS % (AUTO) 1.4 % (0.0-6.0); LYMPHOCYTES % (AUTO) 13.1 % (20.0-44.0); MONOCYTES % (AUTO) 19.5 % (2.0-12.0)
[2020-12-14 10:41] LABS: BASOPHILS % (AUTO) 0.6 % (0.0-2.0)
[2020-12-14 10:42] LABS: LYMPHOCYTES # (AUTO) 0.9 /CMM (0.8-4.8); NEUTROPHILS # (AUTO) 4.6 /CMM (1.8-8.9)
[2020-12-14 10:43] LABS: MONOCYTES # (AUTO) 1.4 /CMM (0.1-1.30)
--- NOTE | 2020-12-14 11:27 | NUR ---
RN NOTE Notified MD that the CBC redraw came out to Hgb 7.3, Hct 22, Plt 146. Per Dr. Cantu to still infuse 1 unit PRBC. Orders repeated back and will carry out.
--- NOTE | 2020-12-14 11:50 | NUR ---
RN NOTE Patient BS 47. IV Dextrose given as ordered. aware.
[2020-12-14] MEDS: SOD FERRIC GLUC 125 MG in IV NS 0.9% 100 ML IV SCH (14:15)
--- NOTE | 2020-12-14 14:58 | NUR ---
RN NOTE Ok per MD to start patient on D5 1/2 NS @50mls/hr IV. Orders repeated back and will carry out.
[2020-12-14] MEDS ORDERED: IV D5/0.45 NACL 1,000 ML IV PRN (15:00)
[2020-12-14] MEDS: OLANZAPINE 10 MG VIAL IM PRN (15:46)
--- NOTE | 2020-12-14 18:45 | NUR ---
RN TRANSFUSION NOTE Started blood transfusion, vital signs stable, no signs and symptoms of transfusion reaction. Patient remains a/ox2, showing no signs of acute distress. Will continue to monitor.
--- NOTE | 2020-12-14 19:15 | NUR ---
PATIENT LEFT FOR EGD
--- NOTE | 2020-12-14 19:30 | NUR ---
RN CLOSING NOTE All patient needs met, all due medications given, patient is currently in EGD procedure with Dr. Barriga. OR nurse will complete blood transfusion. Will endorse to shift commander for LUNA.
--- NOTE | 2020-12-14 19:31 | NUR ---
ms molecular biologist initial notes seen OR nurses flower picker the patient for EGD as ordered.Pt still on blood transfusion infusing at this time. no signs of any distress noted. Got report from am nurse for continuation of care.
[2020-12-14] MEDS: ATORVASTATIN 10 MG TABLET PO SCH (21:33)
[2020-12-14] MEDS: INSULIN GLARGINE, 100 UNIT/ML CARTRIDGE SQ SCH (22:00)
--- NOTE | 2020-12-14 22:02 | NUR ---
research and development director notes blood transfusion done no adverse reaction noted. pt denies any pain or any discomfort. will continue monitoring.
[2020-12-14] MEDS: *INSULIN REGULAR(HUMULIN R)HUM 100 UNIT/ML VIAL SQ PRN (22:06)
[2020-12-15] VITALS (7 sets, daily range): BP systolic 140–177; BP diastolic 71–85
[2020-12-15] MEDS: ZOLPIDEM TARTRATE 5 MG TABLET PO PRN (00:10)
--- NOTE | 2020-12-15 00:19 | NUR ---
ms koko notes Ambien given per pt requested. educate the side effect and bed alarm set for pt safety. will continue monitoring.
[2020-12-15] MEDS: BLOOD SUGAR DIAGNOSTIC 1 EACH STRIP VI SCH ×3 (06:18→17:05)
[2020-12-15] MEDS: INSULIN REGULAR, HUMAN 100 UNIT/ML 3 ML VIAL SQ PRN ×3 (06:29→17:24)
--- NOTE | 2020-12-15 07:21 | NUR ---
ms manager chinese closing notes pt just woke up and sitting in his bed. blood sugar 188, 3 units of insulin given karley SQ as ordered. Stable throughout the night. no signs of any discomfort noted. slept well after taking ambien last night. kept him warm and comfortable at all times. will endorse to am nurse for continuity of care. place call light at reach.
--- NOTE | 2020-12-15 07:30 | NUR ---
RN NOTES PATIENT IS IN BED, AWAKE AND VERBALLY RESPONSIVE. A/O X2, ABLE TO MAKE NEEDS KNOWN. BREATHING EVEN AND UNLABORED, ON O2 AT 3LPM, NO SOB. REMI MIDLINE INTACT AND PATENT. PATIENT CURRENTLY EATING BREAKFAST. JAYLYN AV SHUNT INTACT. SAFETY PRECS IN PLACE: BED LOCKED AND ON LOWEST POSITION, SR UP X2, CALL LIGHT W/IN REACH. WILL CONTINUE TO MONITOR.
[2020-12-15 07:59] LABS: BASOPHILS % (AUTO) 0.6 % (0.0-2.0); EOSINOPHILS % (AUTO) 1.5 % (0.0-6.0); HEMATOCRIT 26 % (39-51); HEMOGLOBIN 8.8 g/dL (13.5-17.5); LYMPHOCYTES # (AUTO) 0.9 /CMM (0.8-4.8); LYMPHOCYTES % (AUTO) 15.5 % (20.0-44.0); MEAN CORPUSCULAR HGB CONC 34 g/dl (31.0-36.0); MEAN CORPUSCULAR VOLUME 88 fL (80-96); MONOCYTES # (AUTO) 1.1 /CMM (0.1-1.30); MONOCYTES % (AUTO) 18.3 % (2.0-12.0); NEUTROPHILS # (AUTO) 3.9 /CMM (1.8-8.9); NEUTROPHILS % (AUTO) 64.1 % (43.0-81.0); PLATELET COUNT (AUTO) 153 /CMM (150-450); RED BLOOD CELL COUNT(AUTO) 2.96 MIL/uL (4.5-6.0); WHITE BLOOD COUNT (AUTO) 6.1 K/uL (4.3-11.0)
[2020-12-15] MEDS: PANTOPRAZOLE 40 MG VIAL IV SCH ×2 (08:16→16:55)
[2020-12-15] MEDS: LINAGLIPTIN 5 MG TABLET PO SCH (08:18)
[2020-12-15] MEDS: CARVEDILOL 12.5 MG TABLET PO SCH ×2 (08:18→16:56)
[2020-12-15] MEDS: CALCIUM ACETATE 667 MG TABLET PO SCH ×3 (08:18→16:56)
[2020-12-15] MEDS: LEVETIRACETAM (250 MG) 250 MG TABLET PO SCH (08:18)
[2020-12-15] MEDS: NIFEdipine XL (30MG) 30 MG TAB PO SCH (08:19)
[2020-12-15 08:47] LABS: CALCIUM, SERUM 7.5 mg/dL (8.5-10.1); CREATININE 8.2 mg/dL (0.6-1.3); POTASSIUM 4.8 mmol/L (3.5-5.1)
[2020-12-15] MEDS ORDERED: LEVE500T9 PO (09:05)
--- NOTE | 2020-12-15 12:21 | NUR ---
RN NOTES DIALYSIS NURSE INFORMED RN THAT PATIENT'S BP IS 180/85; PATIENT W/ STANDING ORDER OF CLONIDINE PRN.
[2020-12-15] MEDS: CLONIDINE HCL 0.1 MG TABLET PO PRN (12:24)
[2020-12-15 12:51] LABS: HEMOGLOBIN 8.2 g/dL (13.5-17.5)
--- NOTE | 2020-12-15 13:27 | NUR ---
RN NOTES SPOKE W/ DR. MONTANO AND INFORMED OF PATIENT'S HGB/HCT W/ ORDER TO GIVE 1 UNIT PRBC AND THEN DISCHARGE PATIENT. CHARGE NURSE AND SHAREPOINT SOLUTIONS DEVELOPER AWARE.
[2020-12-15 14:21] LABS: EOSINOPHILS % (MANUAL) 1 % (0-4); LYMPHOCYTES % (MANUAL) 23 % (16-48); MONOCYTES % (MANUAL) 21 % (0-11.0); NEUTROPHILS % (MANUAL) 55 (42-76)
--- NOTE | 2020-12-15 15:03 | NUR ---
RN NOTES 1 UNIT PRBC PICKED UP FROM LAB; PRE-TRANSFUSION VS TAKEN AND DOCUMENTED. BLOOD PRODUCT VERIFIED BY ANOTHER RN EDUARDO. BT INITIATED.
--- NOTE | 2020-12-15 15:20 | NUR ---
RN NOTES NO TRANSFUSION REACTION NOTED. PATIENT CURRENTLY RESTING IN BED. NO COMPLAINT OF PAIN. WILL CONTINUE TO MONITOR.
--- NOTE | 2020-12-15 17:13 | NUR ---
RN NOTES GARY FROM [facility] CALLED AND CONFIRMED SCREW DOWN TIME FOR PATIENT AT 1999, WILL GO TO [facility]. PER GARY, TRANSPORTATION HAS BEEN SET UP FOR FACILITY X1 WEEK.
--- NOTE | 2020-12-15 19:20 | NUR ---
RN NOTES PATIENT SEEN BY DR. DUSTY Newton/ ORDER FOR DISCHARGE TO SNF AFTER TRANSFUSION OF 1 UNIT PRBC TODAY. TRANSFUSION DONE. EXITCARE INSTRUCTIONS AND EDUCATION DONE, ENDORSED TO VEGETABLE TRIMMER RN TO INFORM RECEIVING FACILITY FOR REPORT. IV LINE REMOVED, NO BLEEDING NOTED. PATIENT CURRENTLY IN BED RESTING, NOT IN ACUTE DISTRESS.
--- NOTE | 2020-12-15 19:35 | NUR ---
RN OPENING NOTES RECEIVED PT IN BED, A/O X 2-3. FULL CODE NOTED. PT IS ON ROOM AIR, DOES NOT APPEAR TO BE IN RESP DISTRESS NO SOB NOTED AT THIS TIME. PT IS ON M/S MONITORING. PT HAD REMI IV SITE REMOVED PREVIOUSLY, NO S/S OF BLEEDING NOTED. GAUZE INTACT W/TAPE. PT HAS ALL BELONGINGS AT BED SIDE. OR ON HIM. LEFT AV SHUNT NOTED. SAFETY MEASURES IN PLACE HOB ELEVATED, BED IS LOCKED IN LOWEST POSITION WITH BED ALARM ON. SIDE RAILS UP X2. CALL LIGHT WITHIN REACH. WILL CONT TO MONITOR.
--- NOTE | 2020-12-15 20:05 | NUR ---
PT PLACED BACK ON NASAL CANNULA, DUE TO O2 SAT OF 86% PT HAS HX OF TAKING OFF NC. UNDERSTANDS NEED FOR IT. AT THIS TIME O2 SATURATION 93% NO S/S OF RESP DISTRESS OR SOB. WILL CONT TO MONITOR.
--- NOTE | 2020-12-15 20:10 | NUR ---
LAST VITAL SIGNS T 97.7 P 79 BP 147/71 RR 22 O2 SAT 93% ON 3L OF O2 VIA NC
--- NOTE | 2020-12-15 20:32 | NUR ---
GAVE REPORT TO CRYSTAL FROM [facility] WHERE PT IS TO BE DISCHARGED.
--- NOTE | 2020-12-15 20:33 | NUR ---
PT PICKED UP BY Malaika BROWN FROM [facility], TO BE TRANSFERRED TO [facility] PREVIOUSLY ARRANGED. PT IN STABLE CONDITION. ALL BELONGINGS WITH PT. CHARGE NURSE AWARE OF DISCHARGE. Addendum: 12/15/20 at 2037 by MELINDA HAWTHORNE RN DISCHARGE EDUCATION PROVIDED. MED RECON DONE PLACED IN DC PAPERWORK SENT WITH ALL [facility] AND PT.
== END 2020-12-15 20:25 | DRG 177 ==
LOC: ER 09:18 → TRANSITION 11:54 → TELE1 11-13 10:15 → TELE 12-11 19:27 → MED 12-12 11:06
PROVIDERS: ADMIT Internal Medicine; ATTEND Internal Medicine
PROC: 5A1D70Z Performance of Urinary Filtration, Intermittent, Less than 6 Hours Per Day (ICD-10-PCS; 2020-11-13)
PROC: 30233N1 Transfusion of Nonautologous Red Blood Cells into Peripheral Vein, Percutaneous Approach (ICD-10-PCS; principal; 2020-11-26)
PROC: 0DJ08ZZ Inspection of Upper Intestinal Tract, Via Natural or Artificial Opening Endoscopic (ICD-10-PCS; 2020-12-03)
PROC: 0DJ08ZZ Inspection of Upper Intestinal Tract, Via Natural or Artificial Opening Endoscopic (ICD-10-PCS; 2020-12-14)
DX: U07.1 COVID-19 (principal); J96.01 Acute respiratory failure with hypoxia; N18.6 End stage renal disease; J12.82 Pneumonia due to coronavirus disease 2019; K29.71 Gastritis, unspecified, with bleeding; I12.0 Hypertensive chronic kidney disease with stage 5 chronic kidney disease or end stage renal disease; I69.351 Hemiplegia and hemiparesis following cerebral infarction affecting right dominant side; D61.818 Other pancytopenia; D62 Acute posthemorrhagic anemia; Z99.2 Dependence on renal dialysis; E11.22 Type 2 diabetes mellitus with diabetic chronic kidney disease; E87.5 Hyperkalemia; E88.09 Other disorders of plasma-protein metabolism, not elsewhere classified; E87.70 Fluid overload, unspecified; D63.1 Anemia in chronic kidney disease; N25.0 Renal osteodystrophy; K52.9 Noninfective gastroenteritis and colitis, unspecified; R56.9 Unspecified convulsions; K25.9 Gastric ulcer, unspecified as acute or chronic, without hemorrhage or perforation; Z79.4 Long term (current) use of insulin
CPT/HCPCS: 36415; 36600; 70450-TC; 71045-TC; 80048-TC; 80053-TC; 80061-TC; 80076-TC; 81001; 82272-TC; 82728-TC; 82784; 82803-TC; 82962-TC; 83010; 83540-TC; 83605-TC; 83735-TC; 83880; 84100-TC; 84153-TC; 84154-TC; 84155; 84165; 84443-TC; 84484-TC; 85025-TC; 85027-TC; 85045-TC; 85378-TC; 85396; 85730-TC; 86140-TC; 86225; 86235; 86334; 86431-TC; 86706; 86803; 86850-TC; 87040-TC; 87081-TC; 87340; 87806; 90935-TC; 94760-TC; 94761-TC; 94762-TC; 94799-TC; 97110-TC; 97112-TC; 97116-TC; 97530-TC; A4217; A6403; A9512; A9560; C9113; G0378; J0360; J0456; J0696; J1100; J1644; J1815; J1953; J2270; J2405; J2704; J2916; J3490; J7030; J7040; J7050; J7060; P9016-BL; U0003

== ENCOUNTER 2021-02-04 22:20 | Emergency (ER) | payer OTHER ==
[~2021-02-04] VITALS: Ht 170.2 cm; Wt 93.4 kg
[2021-02-04 22:20] VITALS: BP 172/85
[~2021-02-04 22:20] MED LIST: CALC667C6 PO; CARV25TA PO; FERR325T23 PO; LEVE500T9 PO; LINA5TAB PO; LOVA40TA2 PO; NIFE-35 PO; PANT40TA2 PO; PROM25TA15 PO
--- NOTE | 2021-02-04 22:31 | NUR ---
SPOKE WITH OUTER DIAMETER GRINDER TOOL TUCKER FROM [facility]. PER TUCKER, PT LEFT FACILITY APPROX 1.5 HR AGO
--- NOTE | 2021-02-04 22:54 | NUR ---
XRAY AT BEDSIDE
--- NOTE | 2021-02-05 00:08 | NUR ---
CALLED [facility] ETA 1-2HOURS
--- NOTE | 2021-02-05 00:09 | NUR ---
SPOKE WITH DALTON FROM [facility] AND INFORMED PT WILL BE TRANSFERRED BACK TO FACILITY. DALTON VERBALIZED UNDERSTANDING. PT'S ROOM ASSIGNMENT: 310
--- NOTE | 2021-02-05 00:11 | NUR ---
[facility] ETA 0100
--- NOTE | 2021-02-05 01:27 | NUR ---
Patient discharged to home in stable condition. Written and verbal after care instructions given. Patient verbalizes understanding of instruction.
== END 2021-02-05 01:28 | disposition home or self-care (01) ==
LOC: ER 22:21
DX: R06.00 Dyspnea, unspecified (principal); I12.0 Hypertensive chronic kidney disease with stage 5 chronic kidney disease or end stage renal disease; E11.22 Type 2 diabetes mellitus with diabetic chronic kidney disease; N18.6 End stage renal disease; Z99.2 Dependence on renal dialysis; Z60.2 Problems related to living alone; Z79.899 Other long term (current) drug therapy
CPT/HCPCS: 71045-TC

== ENCOUNTER 2021-08-21 15:39 | Inpatient (IN) | payer MEDICARE, OTHER ==
[~2021-08-21] VITALS: Ht 182.9 cm; Wt 70.1 kg
--- NOTE | 2021-08-21 15:45 | NUR ---
cheryl, from [facility], possible allergic reaction from vancomycin,noticed blister all over his body. On 2lpm via NC. Connected to the monitor and pulse ox. Kept comfortable, will continue to monitor accordingly. Addendum: 08/21/21 at 1920 by JESSICA ROOM [facility]-
[2021-08-21 16:44] LABS: BASOPHILS % (AUTO) 0.2 % (0.0-2.0); EOSINOPHILS % (AUTO) 3.4 % (0.0-6.0); HEMATOCRIT 25 % (39-51); LYMPHOCYTES # (AUTO) 0.5 K/uL (0.8-4.8); LYMPHOCYTES % (AUTO) 7.7 % (20.0-44.0); MEAN CORPUSCULAR HGB CONC 32 g/dl (31.0-36.0); MEAN CORPUSCULAR VOLUME 82 fL (80-96); MONOCYTES # (AUTO) 0.8 K/uL (0.1-1.30); MONOCYTES % (AUTO) 12.1 % (2.0-12.0); NEUTROPHILS # (AUTO) 5.1 K/uL (1.8-8.9); NEUTROPHILS % (AUTO) 76.6 % (43.0-81.0); PLATELET COUNT (AUTO) 180 K/uL (150-450); RED BLOOD CELL COUNT(AUTO) 3.06 MIL/uL (4.5-6.0); WHITE BLOOD COUNT (AUTO) 6.6 K/uL (4.3-11.0)
[2021-08-21] MEDS ORDERED: methylPREDNISolone SOD SUCC 125 MG/2ML VIAL ONE (16:56)
[2021-08-21 16:57] LABS: CALCIUM, SERUM 8.6 mg/dL (8.5-10.1); CREATININE 4.3 mg/dL (0.6-1.3); POTASSIUM 3.8 mmol/L (3.5-5.1)
[2021-08-21] MEDS ORDERED: methylPREDNISolone SOD SUCC 125 MG/2ML VIAL IV ONE (17:00)
[2021-08-21] MEDS ORDERED: IV NS 0.9% 1,000 ML BAG IV ONE (17:00)
[2021-08-21 17:04] LABS: BILIRUBIN,DIRECT 0.2 mg/dL (0.0-0.2); BILIRUBIN,TOTAL 0.5 mg/dL (0.2-1.0)
[2021-08-21 17:05] LABS: ALBUMIN 2.7 g/dL (3.4-5.0); TOTAL PROTEIN, SERUM 7.8 g/dL (6.4-8.2)
[2021-08-21] MEDS ORDERED: hydrALAZINE HCL IV 20 MG VIAL ONE ×2 (17:24→19:47)
[2021-08-21] MEDS ORDERED: MAGNESIUM HYDROXIDE 30 ML UDC PO PRN (17:30)
[2021-08-21] MEDS ORDERED: Z GUARD REMEDY 2 OZ OINT TP PRN (17:30)
[2021-08-21] MEDS ORDERED: FAMOTIDINE/PF INJ 20 MG/2 ML VIAL IV SCH (17:30)
[2021-08-21] MEDS ORDERED: ACETAMINOPHEN 325 MG TABLET PO PRN (17:30)
[2021-08-21] MEDS ORDERED: MORPHINE SULFATE INJ 2 MG/ML DISP.SYRIN IV PRN (17:30)
[2021-08-21] MEDS ORDERED: ONDANSETRON HCL/PF 4 MG/2 ML VIAL IVP PRN (17:30)
[2021-08-21] MEDS ORDERED: hydrALAZINE HCL IV 20 MG VIAL IV ONE ×2 (17:30)
[2021-08-21] MEDS ORDERED: DEXTROSE 50%-WATER 50 ML DISP.SYRIN IV PRN (18:00)
--- NOTE | 2021-08-21 19:00 | NUR ---
received patient in bed alertand orientated X3 IV infusing w/o problems rt AC no c/o bed alarm activated urinal emptied 300ml
--- NOTE | 2021-08-21 19:37 | NUR ---
RECIEVED BED 102
[2021-08-21] MEDS: hydrALAZINE HCL IV 20 MG VIAL IV PRN (19:50)
--- NOTE | 2021-08-21 21:01 | NUR ---
REPORT GIVEN TO SHER
--- NOTE | 2021-08-21 21:30 | NUR ---
received from the ER alert and orientated X3 answering questions noted blisters of different sizes on his fingers ans ankle left and marcus groin and the penis and the scotum he is able to ralk clealry and swallow w/o problems ASP precaution iniated bed alarm on
--- NOTE | 2021-08-21 21:32 | NUR ---
PT TRANSPORTED TO [facility] ON MONITOR PER ACLS PROTOCOL WITHOUT INCIDENT
[2021-08-21] MEDS: BLOOD SUGAR DIAGNOSTIC 1 EACH STRIP IN SCH (22:37)
[2021-08-21] MEDS: INSULIN REGULAR, HUMAN 100 UNIT/ML 3 ML VIAL SQ PRN (22:42)
[2021-08-21] MEDS: TEMAZEPAM 15 MG CAPSULE PO PRN (23:22)
[2021-08-22] VITALS: BP 181/107
[2021-08-22] MEDS ORDERED: FUROSEMIDE 40 MG/4 ML VIAL IV ONE (01:00)
[2021-08-22] MEDS: hydrALAZINE HCL IV 20 MG VIAL IV PRN ×2 (01:29→05:16)
[2021-08-22 04:00] VITALS: BP 172/86
--- NOTE | 2021-08-22 05:29 | NUR ---
ENDING NOTES: ADMITTED L;AST NIGHT @ 2130 FROM THE ER ALERT AND ORIENTATED X3 FROM [facility] WHERE HE IS BEING TREATED FOR OSTEOMYLITIS RIGHT FOOT RIGHT GREAT TOE AND 2ND TOE WITH VANCO. THE NURSE NOTED BLISTERS ON HIS PENIS/SCROTUM/HANDS/LEFT ANKLE AND SENT HIM TO ER ALSO RASH ON THE LEFT SIDE OF ABD. 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 HE IS A DIAB AND ADMITTING BLOOD SUGR 207 COVERED WITH 4 UNITS INSULIN ORDERED. bLOOD PRESSURE WHEN HE WAS ADMITTED TO ROOM 102 WAS 202/98 THEN AT MIDNIGHT HIS B/p WAS 181/107 CALLED THE MD ALCAZAR AND SHE ORDERED APRESOLINE IV FOR B/P > 160 Q4HRS. LAST DOSE GIVEN 0530 FOR B/P172/86 HR 79
[2021-08-22 06:21] LABS: BASOPHILS % (AUTO) 0.1 % (0.0-2.0); HEMATOCRIT 24 % (39-51); HEMOGLOBIN 7.8 g/dL (13.5-17.5); LYMPHOCYTES # (AUTO) 0.6 K/uL (0.8-4.8); LYMPHOCYTES % (AUTO) 13.7 % (20.0-44.0); MEAN CORPUSCULAR HGB CONC 33 g/dl (31.0-36.0); MEAN CORPUSCULAR VOLUME 81 fL (80-96); MONOCYTES # (AUTO) 0.2 K/uL (0.1-1.30); MONOCYTES % (AUTO) 3.4 % (2.0-12.0); NEUTROPHILS # (AUTO) 3.9 K/uL (1.8-8.9); NEUTROPHILS % (AUTO) 82.8 % (43.0-81.0); PLATELET COUNT (AUTO) 167 K/uL (150-450); RED BLOOD CELL COUNT(AUTO) 2.94 MIL/uL (4.5-6.0); WHITE BLOOD COUNT (AUTO) 4.7 K/uL (4.3-11.0)
[2021-08-22 07:01] LABS: CALCIUM, SERUM 8.6 mg/dL (8.5-10.1); MAGNESIUM 2.2 mg/dL (1.8-2.4); POTASSIUM 4.3 mmol/L (3.5-5.1)
[2021-08-22 07:16] LABS: THYROID STIMULATING HORMONE 1.943 uIU/mL (0.358-3.74)
[2021-08-22] MEDS: PANTOPRAZOLE 40 MG TABLET.DR PO SCH (07:31)
[2021-08-22] MEDS: BLOOD SUGAR DIAGNOSTIC 1 EACH STRIP IN SCH ×4 (07:31→21:56)
--- NOTE | 2021-08-22 07:34 | NUR ---
WOUND CARE CONSULT: REVIEWED CHART, NURSING DOCUMENTATION AND PHOTOS WHICH INDICATE PROBLEM WITH RT FOOT/TOES, MULTIPLE AREAS OF BLISTERS ON UPPER EXTREMITIES, SCROTUM AND PENIS, PRESENT ON ADMISSION. RECOMMEND SURGICAL AND DPM CONSULTS. DR PLATA AND DR FRANCOIS TO BE CONSULTED THIS AM. PT IS UNCOOPERATIVE AT TIMES. MD IN AGREEMENT WITH PLAN OF CARE.
[2021-08-22] MEDS: HYDROCODONE/APAP 5/325MG TABLET PO PRN (07:41)
[2021-08-22] MEDS: INSULIN REGULAR, HUMAN 100 UNIT/ML 3 ML VIAL SQ PRN ×3 (07:51→22:29)
[2021-08-22 08:00] VITALS: BP_SYST 154; BP_SYST 164; BP_DIAS 68; BP_DIAS 80
[2021-08-22] MEDS: FLUOCINONIDE 0.05% CREAM 60 GM TUBE TP SCH ×3 (09:00→17:04)
--- NOTE | 2021-08-22 09:00 | NUR ---
RN NOTES MORPHINE 4MG PULLED FROM PYXIS. NOT GIVEN DUE TO IV ACCESS BEING DISLODGED. WASTED AND WITNESSED BY CHARGE NURSE.
[2021-08-22] MEDS ORDERED: ASCO-352 PO ×2 (09:14→09:15)
[2021-08-22] MEDS ORDERED: CRAN425C6 PO (09:14)
[2021-08-22] MEDS ORDERED: CLON0.1T PO (09:14)
[2021-08-22] MEDS ORDERED: LEVE500T9 PO (09:14)
[2021-08-22] MEDS ORDERED: LORA-259 PO (09:14)
[2021-08-22] MEDS ORDERED: LEVO250T59 PO (09:14)
[2021-08-22] MEDS ORDERED: LACT1CAP7 PO (09:14)
[2021-08-22] MEDS ORDERED: HYDR-4303 PO (09:14)
[2021-08-22] MEDS ORDERED: ASPI-1169 PO (09:14)
[2021-08-22] MEDS ORDERED: DEXT38GE12 PO (09:14)
[2021-08-22] MEDS ORDERED: MAGN400O6 PO (09:14)
[2021-08-22] MEDS ORDERED: QUET25TA PO (09:15)
[2021-08-22] MEDS ORDERED: SENN-261 PO (09:15)
[2021-08-22] MEDS ORDERED: CRAN3875 PO (09:15)
[2021-08-22] MEDS ORDERED: INSU100V11 SQ (09:15)
[2021-08-22] MEDS ORDERED: VANC1VIA4 IV (09:15)
[2021-08-22] MEDS ORDERED: ACET-2605 PO (09:15)
[2021-08-22] MEDS ORDERED: ACET-868 PO (09:15)
[2021-08-22] MEDS ORDERED: PANT40TA2 PO (09:15)
[2021-08-22] MEDS ORDERED: HALOPERIDOL LACTATE INJ 5 MG/ML VIAL IM ONE ×2 (10:00→23:00)
[2021-08-22] MEDS ORDERED: QUETIAPINE FUMARATE 25 MG TABLET PO SCH (10:00)
--- NOTE | 2021-08-22 10:00 | NUR ---
patient combative hitting the staff and using F WORDS,trying to get out of his wheelchair unsteady gait.Philippe Sylvester seen and examined pt. and im haldol shot given per md.awaits psyche consult
[2021-08-22] MEDS: FAMOTIDINE (20 MG) 20 MG TABLET PO SCH (10:09)
--- NOTE | 2021-08-22 10:12 | NUR ---
PATIENT IV OUT ,UNABLE TO RESTART IV PT. HARD STICK ,AWAITS MIDLINE PER MD.
[2021-08-22] MEDS: LEVETIRACETAM (250 MG) 250 MG TABLET PO SCH ×2 (10:16→21:56)
[2021-08-22] MEDS: ASPIRIN 81 MG TAB.CHEW PO SCH (10:16)
[2021-08-22] MEDS: ASCORBIC ACID 500 MG TABLET PO SCH (10:16)
[2021-08-22] MEDS: QUETIAPINE FUMARATE 25 MG TABLET PO SCH ×3 (12:28→21:56)
[2021-08-22 16:00] VITALS: BP 175/72
[2021-08-22] MEDS: LORAZEPAM 1 MG TABLET PO SCH (16:23)
[2021-08-22] MEDS: CARVEDILOL 12.5 MG TABLET PO SCH (16:29)
[2021-08-22] MEDS: methylPREDNISolone SOD SUCC 1,000 MG in IV NS 0.9% 250 ML IV SCH (16:35)
--- NOTE | 2021-08-22 17:48 | NUR ---
RN NOTES REMOVED SOFT WRIST RESTRAINTS BILATERALLY. PT IS CALM AND COOPERATIVE. SITTER IS ASSISTING WITH MEALS. SAFETY MEASURES IN PLACE WITH BED IN LOWEST, LOCKED POSITION AND BED ALARM ON.
--- NOTE | 2021-08-22 19:30 | NUR ---
RN NOTE RECEIVED PATIENT IN BED, AWAKE, ALERT AND RESPONSIVE. AOX2, ABLE TO MAKE NEEDS KNOWN. BREATHING EVEN AND UNLABORED. NO SOB NOTED. CURRENTLY ON ROOM AIR, WITH SATURATION OF 96 PERCENT. SKIN WARM AND DRY TO TOUCH. NOTED WITH BLISTERS ON BILATERAL UPPER EXTREMITIES. DENIES PAIN AT THIS TIME. ADBOMEN SOFT AND NON-TENDER. DENIES CONSTIPATION AT THIS TIME. PATIENT NOTED WITH SITTER AT BEDSIDE. NOTED WITH RIGHT UPPER ARM MIDLINE, PATENT, NO BLEEDING NOTED. ALL NEEDS ATTENDED. KEPT CLEAN AND DRY. PROVIDED FLUIDS. CALL LIGHT WITHIN REACH.
[2021-08-22 20:00] VITALS: BP 158/59
--- NOTE | 2021-08-22 21:51 | NUR ---
RN NOTE PATIENT PURPOSELY TEARING OPEN BLISTERS ON ARMS AND WRIST. PATIENT ATTEMPTING TO GET OUT OF BED, AND IS VERY STRONG. UNCOOPERATIVE TO PARTICIPATE IN NURSING CARE AT THIS TIME. PATIENT CURRENTLY HAS A SITTER WITH HIM AT BEDSIDE. CONTACTED AND DISCUSSED WITH OTTONIEL HARMON NP, NEW ORDER OF BILATERAL SOFT WRIST RESTRAINTS. NEW ORDER NOTED AND CARRIED OUT. WILL CONTINUE TO MONITOR PATIENT. KEPT CLEAN AND DRY AT ALL TIMES.
[2021-08-22 21:52] LABS: IRON, SERUM 29 ug/dl (50-175); TOTAL IRON BINDING CAPACITY 198 ug/dl (250-450)
[2021-08-22] MEDS: SENNOSIDES 8.6 MG TABLET PO SCH (21:56)
--- NOTE | 2021-08-22 22:45 | NUR ---
RN NOTE PATIENT VERY RESTLESS AT THIS TIME. SPITTING OUT MEDICATIONS. NON-COOPERATIVE. RELAYED TO DR. OTTONIEL HARMON. PATIENT TO RECEIVE HALDOL 5MG IM AND KEPPRA 250 MG IV NOW. NEW ORDERS NOTED AND CARRIED OUT.
[2021-08-22] MEDS ORDERED: LEVETIRACETAM (500MG) 500 MG/5 ML VIAL IV ONE (23:11)
[2021-08-22] MEDS: LEVETIRACETAM (500MG) 250 MG in IV NS 0.9% 100 ML IV SCH (23:16)
--- NOTE | 2021-08-23 | NUR ---
RN NOTE PATIENT APPEARS CALM AT THIS TIME. WATCHING TELEVISION. SITTER AT BED SIDE. PATIENT STILL ON IV LEVETIRACETAM, NO INFILTRATION NOTED. DENIES PAIN AT THIS TIME. NO ADVERSE REACTION NOTED. ON BILATERAL SOFT WRIST RESTRAINT. RADIAL PULSE PRESENT ON BILATERAL UPPER EXTREMITY. NO REDNESS NOTED ON WRIST. OFFERED FLUIDS FOR ADEQUATE HYDRATION. KEPT CLEAN AND DRY. ALL NEEDS ATTENDED. CALL LIGHT WITHIN REACH OF HAND. Addendum: 08/23/21 at 0107 by RITO WILLIAM RN HELD HALDOL AT THIS TIME. PATIENT APPEARS CALM. WILL CONTINUE TO MONITOR.
[2021-08-23 04:00] VITALS: BP 170/65
[2021-08-23] MEDS: hydrALAZINE HCL IV 20 MG VIAL IV PRN ×2 (04:53→18:41)
--- NOTE | 2021-08-23 06:27 | NUR ---
RN NOTE HALDOL IM NOT ADMINISTERED. PATIENT NOTED TO CALM DOWN.
--- NOTE | 2021-08-23 06:44 | NUR ---
RN NOTE NO SIGNIFICANT CHANGES DURING SHIFT. PATIENT AOX2. BREATHING EVEN AND UNLABORED. ON LOW FLOW OXYGEN. PATIENT CURRENTLY ON BILATERAL SOFT WRIST RESTRAINTS WITH SITTER AT BED SIDE. BILATERAL RADIAL PULSE PALPABLE. NO COMPLAINTS OF NUMBNESS IN THE BILATERAL UPPER EXTREMITY. SKIN WARM AND DRY TO TOUCH. KEPT CLEAN AND DRY AT ALL TIMES. OFFERED FLUIDS FOR ADEQUATE HYDRATION. CALL LIGHT WITHIN HANDS REACH.
[2021-08-23 06:59] LABS: CALCIUM, SERUM 7.8 mg/dL (8.5-10.1); CREATININE 5.8 mg/dL (0.6-1.3); POTASSIUM 4.3 mmol/L (3.5-5.1)
[2021-08-23] MEDS: BLOOD SUGAR DIAGNOSTIC 1 EACH STRIP IN SCH ×4 (07:33→21:25)
--- NOTE | 2021-08-23 07:35 | NUR ---
RN NOTE PATIENT IS IN BED WITH HOB AT SEMI FOWLERS POSITION. PATIENT IS ON 2L NC WITH NO SIGNS OF LABORED BREATHING. PATIENT IS AOX2 AND RESTLESS. REMI MIDLINE IS PATENT AND INTACT. BED IS LOCKED IN THE LOWEST POSITION, 3 GUARD RAILS RAISED, CALL FITZPATRICK WITHIN REACH, AND ALL HOSPITAL SAFETY PRECAUTIONS ARE BEING FOLLOWED. WILL CONTINUE TO MONITOR THROUGHOUT SHIFT.
[2021-08-23] MEDS: CARVEDILOL 12.5 MG TABLET PO SCH ×2 (08:03→16:35)
[2021-08-23] MEDS: ATORVASTATIN 10 MG TABLET PO SCH (08:03)
[2021-08-23] MEDS: PANTOPRAZOLE 40 MG TABLET.DR PO SCH (08:04)
[2021-08-23] MEDS: LORAZEPAM 1 MG TABLET PO SCH ×2 (08:04→16:34)
[2021-08-23] MEDS: QUETIAPINE FUMARATE 25 MG TABLET PO SCH ×4 (08:04→20:39)
[2021-08-23] MEDS: ASPIRIN 81 MG TAB.CHEW PO SCH (08:04)
[2021-08-23] MEDS: ASCORBIC ACID 500 MG TABLET PO SCH (08:04)
[2021-08-23] MEDS: FAMOTIDINE (20 MG) 20 MG TABLET PO SCH (08:04)
[2021-08-23] MEDS: FLUOCINONIDE 0.05% CREAM 60 GM TUBE TP SCH ×3 (08:13→16:35)
[2021-08-23] MEDS: INSULIN REGULAR, HUMAN 100 UNIT/ML 3 ML VIAL SQ PRN ×4 (09:04→21:24)
[2021-08-23] MEDS: LEVETIRACETAM (500MG) 250 MG in IV NS 0.9% 100 ML IV SCH ×2 (09:05→21:03)
[2021-08-23] MEDS: methylPREDNISolone SOD SUCC 1,000 MG in IV NS 0.9% 250 ML IV SCH (09:05)
[2021-08-23] MEDS ORDERED: EPOETIN ALFA (10,000 UNIT) 10,000 UNIT/ML VIAL IV ONE (11:00)
[2021-08-23] MEDS: SILVER SULFADIAZINE CREAM 25 GM TUBE TP SCH (12:26)
[2021-08-23] MEDS ORDERED: EPOETIN ALFA-EPBX 10,000 UNIT/ML VIAL IV ONE (15:00)
[2021-08-23 16:00] VITALS: BP 190/75
[2021-08-23] MEDS: DAPTOMYCIN 500 MG in IV NS 0.9% 50 ML IV SCH (18:16)
--- NOTE | 2021-08-23 18:45 | NUR ---
RN NOTE PATIENT IS IN BED WITH HOB AT SEMI FOWLERS POSITION. PATIENT IS ON 2L NC WITH NO SIGNS OF LABORED BREATHING. PATIENT IS AOX2 AND RESTLESS. REMI MIDLINE IS PATENT AND INTACT. BED IS LOCKED IN THE LOWEST POSITION, 3 GUARD RAILS RAISED, CALL FITZPATRICK WITHIN REACH, AND ALL HOSPITAL SAFETY PRECAUTIONS ARE BEING FOLLOWED. ALL DUE MEDICATIONS GIVEN. WILL ENDORSE TO BRANCH OFFICE MANAGER RN.
[2021-08-23 20:00] VITALS: BP 180/91
--- NOTE | 2021-08-23 20:00 | NUR ---
MS RN NOTE RECEIVED PATIENT IN BED, AWAKE, ALERT AND RESPONSIVE. AOX2, ABLE TO MAKE NEEDS KNOWN. NO SOB NO DISTRESS BREATHING EVEN AND UNLABORED.ON 2 LITERS VIA NC WITH SATURATION OF 97 %. SKIN WARM AND DRY TO TOUCH. NOTED WITH BLISTERS ON BILATERAL UPPER EXTREMITIES. DENIES PAIN AT THIS TIME. ABDOMEN SOFT AND NON-TENDER. WITH SITTER AT BEDSIDE. NOTED WITH RIGHT UPPER ARM MIDLINE, PATENT, NO BLEEDING NOTED. DUE MEDS GIVEN ORDERED . ALL NEEDS ATTENDED.TOO. KEPT CLEAN AND DRY. PROVIDED FLUIDS. CALL LIGHT WITHIN REACH. WILL CONTINUE TO MONITOR.
[2021-08-23] MEDS: CLONIDINE HCL 0.1 MG TABLET PO PRN (20:39)
[2021-08-23] MEDS: SENNOSIDES 8.6 MG TABLET PO SCH (21:03)
[2021-08-23] MEDS: TEMAZEPAM 15 MG CAPSULE PO PRN (21:13)
--- NOTE | 2021-08-23 21:27 | NUR ---
MS RN NOTES Blood sugar for 10pm is 171 mg/di 3 units of regular insulin given per sliding scale
[2021-08-24 04:00] VITALS: BP 188/83
[2021-08-24] MEDS: hydrALAZINE HCL IV 20 MG VIAL IV PRN ×3 (04:39→21:54)
--- NOTE | 2021-08-24 06:27 | NUR ---
MS RN NOTE REMAINS IN BED AWAKE, ALERT AND RESPONSIVE. AOX2, NO SOB NO DISTRESS BREATHING EVEN AND UNLABORED.ON 2 LITERS VIA NC WITH SATURATION OF 96 %. DENIES PAIN AT THIS TIME. WITH SITTER AT BEDSIDE. ALL NEEDS ATTENDED.TOO. KEPT CLEAN AND DRY. CALL LIGHT WITHIN REACH. WILL ENDORSE TO RN DAY SHIFT FOR CONTINUITY OF CARE.
[2021-08-24] MEDS: BLOOD SUGAR DIAGNOSTIC 1 EACH STRIP IN SCH ×4 (07:24→21:21)
[2021-08-24] MEDS: PANTOPRAZOLE 40 MG TABLET.DR PO SCH (07:30)
[2021-08-24] MEDS: INSULIN REGULAR, HUMAN 100 UNIT/ML 3 ML VIAL SQ PRN ×4 (07:34→21:40)
[2021-08-24 07:57] VITALS: BP 158/65
[2021-08-24] MEDS: FAMOTIDINE (20 MG) 20 MG TABLET PO SCH (08:11)
[2021-08-24] MEDS: ATORVASTATIN 10 MG TABLET PO SCH (08:11)
[2021-08-24] MEDS: CARVEDILOL 12.5 MG TABLET PO SCH ×2 (08:11→16:33)
[2021-08-24] MEDS: LORAZEPAM 1 MG TABLET PO SCH ×2 (08:12→16:33)
[2021-08-24] MEDS: QUETIAPINE FUMARATE 25 MG TABLET PO SCH ×4 (08:12→20:07)
[2021-08-24] MEDS: ASPIRIN 81 MG TAB.CHEW PO SCH (08:12)
[2021-08-24] MEDS: ASCORBIC ACID 500 MG TABLET PO SCH (08:12)
[2021-08-24 08:26] LABS: HEMOGLOBIN 7.6 g/dL (13.5-17.5)
[2021-08-24] MEDS ORDERED: EPOETIN ALFA (10,000 UNIT) 10,000 UNIT/ML VIAL IV ONE (09:00)
[2021-08-24] MEDS: LEVETIRACETAM (500MG) 250 MG in IV NS 0.9% 100 ML IV SCH (09:22)
[2021-08-24] MEDS: VITAMINS A AND D 56.7 GM TUBE TP SCH (09:23)
[2021-08-24] MEDS: FLUOCINONIDE 0.05% CREAM 60 GM TUBE TP SCH ×3 (09:23→16:38)
[2021-08-24] MEDS: SILVER SULFADIAZINE CREAM 25 GM TUBE TP SCH (09:24)
[2021-08-24] MEDS: methylPREDNISolone SOD SUCC 1,000 MG in IV NS 0.9% 250 ML IV SCH (09:56)
[2021-08-24 12:00] VITALS: BP 165/82
[2021-08-24] MEDS: CLONIDINE HCL 0.1 MG TABLET PO PRN ×2 (13:30→20:09)
[2021-08-24] MEDS: SOD FERRIC GLUC 125 MG in IV NS 0.9% 100 ML IV SCH (14:22)
[2021-08-24 16:00] VITALS: BP 192/95
--- NOTE | 2021-08-24 19:34 | NUR ---
GENERATING PLANT SUPERINTENDENT NOTE PATIENT IN BED, CALM AND ASLEEP. EASILY AWAKENED. PATIENT IS CONFUSED AT THIS TIME. WILL HAVE 1:1 SITTER UPON TRANSFER, S/P ENDY SOFT WRIST RESTRAINTS. NO COMPLAINS OF PAIN AT THIS TIME. PATIENT HAS A REMI MIDLINE PATENT AND INTACT. SAFETY MEASURES IMPLEMENTED. PATIENT TO BE TRANSFERRED TO MED SURG RM 313. ENDORSED TO KIRT WILDE.
[2021-08-24 20:00] VITALS: BP 180/85
[2021-08-24] MEDS: LEVETIRACETAM (250 MG) 250 MG TABLET PO SCH (20:07)
[2021-08-24] MEDS: HYDROCODONE/APAP 5/325MG TABLET PO PRN (20:09)
--- NOTE | 2021-08-24 20:17 | NUR ---
Patient arrived to unit at 2039, A&Ox1, no signs of distress. B/P 180/85, HR 68, temp 98.1, RR 17, O2 sat 99% on 2L NC. PRN clonidine given for elevated BP. Patient has clinical indicators of pain- facial grimacing, withdrawal from touch, moaning, when repositioned/when arms touched d/t blisters. Medicated with PRN [place]. Noted to have blisters to marcus. hands, marcus. wrists, groin, dry skin to legs, L heel DTI -currently treating all skin issues. No s/s of infection at this time. REMI midline flushed and patent. R chest permacath present and intact. No s/s og hypo or hyperglycemic reactions. Sitter at bedside. Oriented patient to new room, call light, staff, and unit protocols. Safety measures in place. Addendum: 08/24/21 at 2026 by ANDRY WALDEN RN Patient arrived at 1939 not 2039
[2021-08-24] MEDS: SENNOSIDES 8.6 MG TABLET PO SCH (21:21)
[2021-08-24] MEDS: TEMAZEPAM 15 MG CAPSULE PO PRN (21:25)
--- NOTE | 2021-08-24 21:52 | NUR ---
rechecked BP still 171/98, 73 HR
--- NOTE | 2021-08-24 21:55 | NUR ---
prn hydralazine given
[2021-08-25] VITALS: BP 150/64
--- NOTE | 2021-08-25 02:58 | NUR ---
Patient is anxious, agitated, confused. trying to get oob, yelling to open door even though it is already open, breathing faster despite O2 sat being at 100%. Notified LAUNDROMAT WORKER educational psychology professor new order to change ativan 0.5mg PO from BID to TID making doses 8 hours apart. and to notify psych in AM to adjust meds.
[2021-08-25] MEDS: LORAZEPAM 1 MG TABLET PO SCH ×3 (03:08→18:59)
--- NOTE | 2021-08-25 06:18 | NUR ---
Patient has been A&Ox1, confused, able to speak slowly with garbled speech. Slept intermittently throughout night had one episode where anxiety/agitation was not able to be redirected by staff -ativan given per order and effective. 1:1 Sitter at bedside to prevent patient injury. multiple times patient attempted to get out of bed -not oriented to own ability. All safety measures in place. Wound care done -patient tolerated well. No s/s of hypo or hyperglycemic reactions noted. Currently resting in bed though easy to wake.
[2021-08-25] MEDS: INSULIN REGULAR, HUMAN 100 UNIT/ML 3 ML VIAL SQ PRN ×4 (06:59→23:11)
[2021-08-25] MEDS: BLOOD SUGAR DIAGNOSTIC 1 EACH STRIP IN SCH ×4 (07:03→22:00)
--- NOTE | 2021-08-25 07:30 | NUR ---
MS RN OPENING NOTE RECEIVED PATIENT, AWAKE ON BED AND A/OX1 WITH SITTER. ON O2 AT 2LPM VIA NASAL CANNULA TOLERATING WELL. NO SOB NOTED. NOT IN DISTRESS. WITH IV ACCESS AT RIGHT UPPER ARM MIDLINE, SALINE LOCKED, PATENT AND INTACT. WITH RIGHT CHEST PERMACATH FOR HD. SAFETY MEASURES IN PLACE: BED IN LOWEST LOCKED POSITION; SIDE RAILS UPX2, CALL LIGHT WITHIN EASY REACH. WILL CONTINUE TO MONITOR.
[2021-08-25 08:00] VITALS: BP 185/97
[2021-08-25] MEDS: ASPIRIN 81 MG TAB.CHEW PO SCH (08:38)
[2021-08-25] MEDS: PANTOPRAZOLE 40 MG TABLET.DR PO SCH (08:43)
[2021-08-25] MEDS: ATORVASTATIN 10 MG TABLET PO SCH (08:43)
[2021-08-25] MEDS: QUETIAPINE FUMARATE 25 MG TABLET PO SCH ×4 (08:43→22:20)
[2021-08-25] MEDS: ASCORBIC ACID 500 MG TABLET PO SCH (08:44)
[2021-08-25] MEDS: LEVETIRACETAM (250 MG) 250 MG TABLET PO SCH ×2 (08:44→22:20)
[2021-08-25] MEDS: FAMOTIDINE (20 MG) 20 MG TABLET PO SCH (08:44)
[2021-08-25] MEDS: FLUOCINONIDE 0.05% CREAM 60 GM TUBE TP SCH ×3 (08:45→17:05)
[2021-08-25] MEDS: VITAMINS A AND D 56.7 GM TUBE TP SCH (08:46)
[2021-08-25] MEDS: SILVER SULFADIAZINE CREAM 25 GM TUBE TP SCH (08:46)
[2021-08-25] MEDS: CARVEDILOL 12.5 MG TABLET PO SCH ×2 (08:47→17:00)
[2021-08-25] MEDS ORDERED: predniSONE 20 MG TABLET PO ONE (09:30)
[2021-08-25] MEDS ORDERED: methylPREDNISolone (4MG) 4 MG TABLET (DAY #1 ) PO ONE (10:00)
[2021-08-25] MEDS ORDERED: methylPREDNISolone (4MG) 4 MG TABLET (DAY #1, PC LUNCH) PO ONE (12:30)
[2021-08-25] MEDS: SOD FERRIC GLUC 125 MG in IV NS 0.9% 100 ML IV SCH (14:47)
[2021-08-25] MEDS ORDERED: methylPREDNISolone (4MG) 4 MG TABLET (DAY #1 PC DINNER) PO ONE (17:30)
--- NOTE | 2021-08-25 18:00 | NUR ---
MS RN NOTES BP MEDICATION HELD FOR PATIENT IS ON ONGOING HEMODIALYSIS.
--- NOTE | 2021-08-25 18:45 | NUR ---
MS NOTES HEMODIALYSIS DONE. HEMODIALYSIS NURSE REPORTED TO HAVE HEMODIALYSIS OUTPUT OF 2L.
--- NOTE | 2021-08-25 19:46 | NUR ---
MS RN NOTES: RECEIVED PATIENT AWAKE IN BED, BED IN LOW POSITION, CALL LIGHTS WITHIN REACH, NO COMPLAIN OF PAIN AND DISCOMFORT AT THIS TIME, WITH 1:1 SITTER, ON NC AT 2LPM NO SOB OR ANY RESPIRATORY DISTRESS OBSERVED, WITH IV LINE AT REMI MIDLINE SL AND RCHEST WALL PERMACATH HD DONE TODAY WITH 2L OF FLUID TAKEN OUT,, PATIENT ON BED REST, INCONTINENT, PATIENT KEPT CLEAN AND DRY, ALL NEEDS MET, WILL CONTINUE TO MONITOR.
--- NOTE | 2021-08-25 19:48 | NUR ---
MS RN CLOSING NOTE PATIENT, AWAKE ON BED AND A/OX1 WITH SITTER. ON O2 AT 2LPM VIA NASAL CANNULA TOLERATING WELL. NO SOB NOTED. NOT IN DISTRESS. WITH IV ACCESS AT RIGHT UPPER ARM MIDLINE, SALINE LOCKED, PATENT AND INTACT. WITH RIGHT CHEST PERMACATH FOR HD. SAFETY MEASURES IN PLACE: BED IN LOWEST LOCKED POSITION; SIDE RAILS UPX2, CALL LIGHT WITHIN EASY REACH. WILL ENDORSE TO NEXT SHIFT FOR LUNA.
[2021-08-25 20:00] VITALS: BP 185/97
[2021-08-25] MEDS ORDERED: methylPREDNISolone (4MG) 4 MG TABLET (DAY1,HS) PO ONE (22:00)
[2021-08-25] MEDS: DAPTOMYCIN 500 MG in IV NS 0.9% 50 ML IV SCH (22:20)
[2021-08-25] MEDS: SENNOSIDES 8.6 MG TABLET PO SCH (22:21)
[2021-08-25] MEDS: CLONIDINE HCL 0.1 MG TABLET PO PRN (23:55)
[2021-08-26 00:52] VITALS: BP 191/86
[2021-08-26] MEDS: LORAZEPAM 1 MG TABLET PO SCH ×2 (03:22→10:55)
[2021-08-26] MEDS: INSULIN REGULAR, HUMAN 100 UNIT/ML 3 ML VIAL SQ PRN ×2 (06:30→12:24)
--- NOTE | 2021-08-26 07:21 | NUR ---
RN CLOSING NOTES: PATIENT WAS PLACED IN BED COMFORTABLY, NO COMPLAIN OF PAIN AND DISCOMFORT AT THIS TIME, BED IN LOW POSITION, CALL LIGHTS WITHIN REACH, WITH 1:1 SITTER WITH REMI MIDLINE AND RT CHEST WALL PERMACATH , PATIENT IS A/OX1 ABLE TO CONVERSE ON BLOOD SUGAR MONITORING, PATIENT KEPT CLEAN AND DRY, WOUND DRESSING REMAIN INTACT AND CLEAN, ALL NEEDS MET, ENDORSE TO INCOMING SHIFT.
[2021-08-26] MEDS ORDERED: methylPREDNISolone (4MG) 4 MG TABLET (DAY#2 ACB) PO ONE (07:30)
--- NOTE | 2021-08-26 07:30 | NUR ---
MS RN OPENING NOTE RECEIVED PATIENT, AWAKE ON BED AND A/OX2 WITH SITTER. ON O2 AT 2LPM VIA NASAL CANNULA TOLERATING WELL. NO SOB NOTED. NOT IN DISTRESS. WITH IV ACCESS AT RIGHT UPPER ARM MIDLINE, SALINE LOCKED, PATENT AND INTACT. WITH RIGHT CHEST PERMACATH FOR HD. SAFETY MEASURES IN PLACE: BED IN LOWEST LOCKED POSITION; SIDE RAILS UPX2, CALL LIGHT WITHIN EASY REACH. WILL CONTINUE TO MONITOR.
[2021-08-26 08:00] VITALS: BP 174/73
[2021-08-26] MEDS: ASCORBIC ACID 500 MG TABLET PO SCH (08:23)
[2021-08-26] MEDS: ASPIRIN 81 MG TAB.CHEW PO SCH (08:23)
[2021-08-26] MEDS: QUETIAPINE FUMARATE 25 MG TABLET PO SCH ×2 (08:23→12:25)
[2021-08-26] MEDS: PANTOPRAZOLE 40 MG TABLET.DR PO SCH (08:24)
[2021-08-26] MEDS: LEVETIRACETAM (250 MG) 250 MG TABLET PO SCH (08:24)
[2021-08-26] MEDS: FAMOTIDINE (20 MG) 20 MG TABLET PO SCH (08:24)
[2021-08-26] MEDS: ATORVASTATIN 10 MG TABLET PO SCH (08:24)
[2021-08-26] MEDS: BLOOD SUGAR DIAGNOSTIC 1 EACH STRIP IN SCH ×2 (08:24→12:02)
[2021-08-26] MEDS: CARVEDILOL 12.5 MG TABLET PO SCH (08:26)
[2021-08-26] MEDS: FLUOCINONIDE 0.05% CREAM 60 GM TUBE TP SCH ×2 (09:20→12:25)
[2021-08-26] MEDS: VITAMINS A AND D 56.7 GM TUBE TP SCH (09:20)
[2021-08-26] MEDS: SILVER SULFADIAZINE CREAM 25 GM TUBE TP SCH (09:20)
[2021-08-26 11:20] VITALS: BP 175/78
[2021-08-26] MEDS: hydrALAZINE HCL IV 20 MG VIAL IV PRN (11:28)
--- NOTE | 2021-08-26 11:48 | NUR ---
[facility] TO GIVE A REPORT FOR PATIENT'S DISCHARGE TO FACILITY BUT NO ANSWER. WILL CALL AGAIN.
--- NOTE | 2021-08-26 12:22 | NUR ---
RN NOTES CALLED AGAIN [facility] BUT STILL NO ANSWER.
[2021-08-26] MEDS ORDERED: methylPREDNISolone (4MG) 4 MG TABLET (DAY#2,PC LUNCH) PO ONE (12:30)
--- NOTE | 2021-08-26 12:37 | NUR ---
RN NOTES CALL[facility] AT [phone] BUT STILL NO ANSWER.
--- NOTE | 2021-08-26 13:40 | NUR ---
RN NOTES SPOKE TO SHELBY AT [facility] VIA PHONE AND BEEN ABLE TO GIVE REPORT REGARDING THE PATIENT FOR DISCHARGE GOING TO THEIR FACILITY.
[2021-08-26 13:52] VITALS: BP 192/108
[2021-08-26] MEDS: CLONIDINE HCL 0.1 MG TABLET PO PRN (13:52)
--- NOTE | 2021-08-26 14:18 | NUR ---
MS BIKE DESIGNER NOTES FOR DISCHARGE PER DOCTOR VERONICA ORDER. FOR DISCHARGE TO SNF AT [facility]. PATIENT IS AWAKE AND A/O X1. PRESCRIPTION AND DISCHARGE INSTRUCTION ENDORSED TO NURSE RYAN AND COPIES GIVEN TO AMBULANCE PERSONNEL. ALL BELONGINGS CHECKED. THE SNF IS INFORMED THAT PATIENT IS COMING BACK. PATIENT WAS PICKED UP BY AMBULANCE PERSONNEL AND LEFT VIA GURNEY IN STABLE CONDITION. INSTRUCTED TO FOLLOW-UP PCP 1 WEEK AFTER DISCHARGE. CHARGE NURSE AND MD ARE AWARE OF THE DISCHARGE.
--- NOTE | 2021-08-26 14:18 | NUR ---
RN NOTES IV LINE AND NAME WRIST BAND ARE REMOVED.
[2021-08-26] MEDS ORDERED: methylPREDNISolone (4MG) 4 MG TABLET (DAY#2, PC DINNER) PO ONE (17:30)
[2021-08-26] MEDS ORDERED: methylPREDNISolone (4MG) 4 MG TABLET (DAY#2, HS) PO ONE (21:00)
[2021-08-27] MEDS ORDERED: methylPREDNISolone (4MG) 4 MG TABLET (DAY#3,ACB) PO ONE (07:30)
[2021-08-27] MEDS ORDERED: methylPREDNISolone (4MG) 4 MG TABLET (DAY#3,PC LUNCH) PO ONE (12:30)
[2021-08-27] MEDS ORDERED: methylPREDNISolone (4MG) 4 MG TABLET (DAY#3,PC DINNER) PO ONE (17:30)
[2021-08-27] MEDS ORDERED: methylPREDNISolone (4MG) 4 MG TABLET (DAY#3, HS) PO ONE (22:00)
[2021-08-28] MEDS ORDERED: methylPREDNISolone (4MG) 4 MG TABLET (DAY #4, ACB) PO ONE (07:30)
[2021-08-28] MEDS ORDERED: methylPREDNISolone (4MG) 4 MG TABLET (DAY #4, PC LUNCH) PO ONE (12:30)
[2021-08-28] MEDS ORDERED: methylPREDNISolone (4MG) 4 MG TABLET (DAY#4 HS) PO ONE (22:00)
[2021-08-29] MEDS ORDERED: methylPREDNISolone (4MG) 4 MG TABLET (DAY#5, ACB) PO ONE (07:30)
[2021-08-29] MEDS ORDERED: methylPREDNISolone (4MG) 4 MG TABLET (DAY#5,HS) PO ONE (22:00)
[2021-08-30] MEDS ORDERED: methylPREDNISolone (4MG) 4 MG TABLET (DAY#6,ACB) PO ONE (07:30)
== END 2021-08-26 15:00 | DRG 595 ==
LOC: ER 15:45 → TELE 19:21 → TELE1 19:42 → MEDSG1 20:02 → MED 08-24 19:51
PROVIDERS: ADMIT Nurse Practitioner Acute Care; ATTEND Nurse Practitioner Acute Care
PROC: 05H933Z Insertion of Infusion Device into Right Brachial Vein, Percutaneous Approach (ICD-10-PCS; 2021-08-22)
PROC: 5A1D70Z Performance of Urinary Filtration, Intermittent, Less than 6 Hours Per Day (ICD-10-PCS; principal; 2021-08-23)
DX: L51.1 Stevens-Johnson syndrome (principal); N18.6 End stage renal disease; I13.2 Hypertensive heart and chronic kidney disease with heart failure and with stage 5 chronic kidney disease, or end stage renal disease; E44.0 Moderate protein-calorie malnutrition; M86.171 Other acute osteomyelitis, right ankle and foot; I69.351 Hemiplegia and hemiparesis following cerebral infarction affecting right dominant side; E11.22 Type 2 diabetes mellitus with diabetic chronic kidney disease; E11.69 Type 2 diabetes mellitus with other specified complication; Z86.16 Personal history of COVID-19; G40.909 Epilepsy, unspecified, not intractable, without status epilepticus; Z99.2 Dependence on renal dialysis; Z87.01 Personal history of pneumonia (recurrent); Z20.822 Contact with and (suspected) exposure to COVID-19; I50.9 Heart failure, unspecified; Z79.899 Other long term (current) drug therapy; Z79.84 Long term (current) use of oral hypoglycemic drugs; L89.626 Pressure-induced deep tissue damage of left heel; L85.3 Xerosis cutis; Z87.19 Personal history of other diseases of the digestive system; E78.5 Hyperlipidemia, unspecified; F32.9 Major depressive disorder, single episode, unspecified; D63.8 Anemia in other chronic diseases classified elsewhere; S60.529A Blister (nonthermal) of unspecified hand, initial encounter; S00.82XA Blister (nonthermal) of other part of head, initial encounter; S30.822A Blister (nonthermal) of penis, initial encounter; X58.XXXA Exposure to other specified factors, initial encounter; Y92.9 Unspecified place or not applicable; Z82.49 Family history of ischemic heart disease and other diseases of the circulatory system; Z83.3 Family history of diabetes mellitus; T36.8X5A Adverse effect of other systemic antibiotics, initial encounter; Z79.4 Long term (current) use of insulin; Z79.82 Long term (current) use of aspirin; F29 Unspecified psychosis not due to a substance or known physiological condition; F25.0 Schizoaffective disorder, bipolar type; F06.8 Other specified mental disorders due to known physiological condition
CPT/HCPCS: 36415; 71045-TC; 73630-TC; 80048-TC; 80061-TC; 80076-TC; 82962-TC; 83540-TC; 83605-TC; 83735-TC; 84100-TC; 84443-TC; 84484-TC; 85025-TC; 85027-TC; 85652-TC; 85730-TC; 86140-TC; 86706; 87040-TC; 87340; 90935-TC; G0378; J0360; J0878; J0885; J1630; J1815; J1940; J1953; J2270; J2916; J2930; J3490; J7030; J7040; J7050; J7509; U0003

== ENCOUNTER 2021-10-03 00:13 | Inpatient (IN) | payer MEDICARE, OTHER ==
[~2021-10-03] VITALS: Ht 167.6 cm; Wt 64.9 kg
[~2021-10-03 00:13] MED LIST changes: +ACET-2605 PO; +ACET-868 PO; +ASCO-352 PO; +ASPI-1169 PO; -CALC667C6 PO; +CLON0.1T PO; +CRAN3875 PO; +CRAN425C6 PO; +DEXT38GE12 PO; -FERR325T23 PO; +HYDR-4303 PO; +INSU100V11 SQ; +LACT1CAP7 PO; -LINA5TAB PO; +MAGN400O6 PO; -NIFE-35 PO; -PROM25TA15 PO; +QUET25TA PO; +SENN-261 PO
--- NOTE | 2021-10-03 00:20 | NUR ---
BIBRA 40 FROM SNF FOR C/O LATERED MENTAL STATUS S/P COFFE GROUND EMESIS. PATIENT ALERT AND ORIENTED X0. NON AMBULATORY ON 4L NON REBREATHER SATTING AT 100%.
--- NOTE | 2021-10-03 00:25 | NUR ---
BLOOD COLLECTED AND SENT TO LAB
[2021-10-03] MEDS ORDERED: ONDANSETRON HCL/PF 4 MG/2 ML VIAL IVP ONE (00:30)
--- NOTE | 2021-10-03 00:30 | NUR ---
URINE COLLECTED AND SENT TO LAB
--- NOTE | 2021-10-03 00:35 | NUR ---
EMT @ BEDSIDE FOR EKG
[2021-10-03] MEDS ORDERED: ONDANSETRON HCL/PF 4 MG/2 ML VIAL ONE (00:38)
[2021-10-03 01:18] LABS: BASOPHILS # (AUTO) 0.1 K/uL (0.0-0.2); BASOPHILS % (AUTO) 0.5 % (0.0-2.0); HEMATOCRIT 45 % (39-51); HEMOGLOBIN 13.7 g/dL (13.5-17.5); LYMPHOCYTES # (AUTO) 1.3 K/uL (0.8-4.8); LYMPHOCYTES % (AUTO) 11.4 % (20.0-44.0); MEAN CORPUSCULAR HGB CONC 31 g/dl (31.0-36.0); MEAN CORPUSCULAR VOLUME 81 fL (80-96); MONOCYTES # (AUTO) 1.6 K/uL (0.1-1.30); MONOCYTES % (AUTO) 14.1 % (2.0-12.0); NEUTROPHILS # (AUTO) 8.5 K/uL (1.8-8.9); PLATELET COUNT (AUTO) 296 K/uL (150-450); RED BLOOD CELL COUNT(AUTO) 5.46 MIL/uL (4.5-6.0); WHITE BLOOD COUNT (AUTO) 11.5 K/uL (4.3-11.0)
[2021-10-03 01:19] LABS: BILIRUBIN,URINE NEGATIVE (NEGATIVE); COLOR,URINE DARK YELLOW (YELLOW); LEUKOCYTE ESTERASE ,URINE NEGATIVE (NEGATIVE); NITRITE, URINE NEGATIVE (NEGATIVE); PROTEIN,URINE 100 mg/dl (NEGATIVE); UGLUCOSE 250 MG/DL mg/dL (NEGATIVE); UROBILINOGEN,URINE 0.2 EU/dL (0.2)
[2021-10-03 01:20] LABS: CALCIUM, SERUM 9.5 mg/dL (8.5-10.1); POTASSIUM 5.1 mmol/L (3.5-5.1)
--- NOTE | 2021-10-03 01:20 | NUR ---
CALLED CODE STROKE PER 'S ORDER
[2021-10-03 01:22] LABS: CREATININE 8.7 mg/dL (0.6-1.3)
[2021-10-03 01:26] LABS: ALBUMIN 2.5 g/dL (3.4-5.0); BILIRUBIN,DIRECT 0.1 mg/dL (0.0-0.2); BILIRUBIN,TOTAL 0.4 mg/dL (0.2-1.0); TOTAL PROTEIN, SERUM 8.6 g/dL (6.4-8.2)
--- NOTE | 2021-10-03 01:27 | NUR ---
TELE ASSESSMENT BY NEUROLOGIST IN PROCESS
--- NOTE | 2021-10-03 01:33 | NUR ---
DR MORTON ON THE PHONE WITH THE NEUROLOGIST
[2021-10-03] MEDS ORDERED: IOHEXOL-350 100 ML VIAL IV ONE (01:49)
[2021-10-03] MEDS ORDERED: IV NS 0.9% 250 ML IV ONE (01:49)
[2021-10-03 01:51] LABS: BACTERIA,URINE Few /HPF (None Seen); RBC,URINE 0-2 /HPF (0-2); SQUAMOUS EPITHELIAL CELL,UR None Seen /HPF (None Seen); WBC,URINE 51-80 /HPF (0-3)
[2021-10-03 01:55] LABS: ALCOHOL, BLOOD < 3 mg/dL (0-0)
[2021-10-03 02:03] LABS: ACETAMINOPHEN 0 ug/ml (10-30)
[2021-10-03 02:04] LABS: SERUM AMMONIA < 10 umol/L (11-32)
[2021-10-03] MEDS ORDERED: CEFTRIAXONE 1 G in IV D5W 50 ML IV ONE (03:00)
[2021-10-03] MEDS ORDERED: CEFTRIAXONE 1GM BAG (ER ONLY) 50 ML IV ONE (03:13)
[2021-10-03 03:25] LABS: OCCULT BLOOD STOOL NEGATIVE (NEGATIVE)
[2021-10-03] MEDS ORDERED: DEXTROSE 50%-WATER 50 ML DISP.SYRIN IV PRN (04:30)
[2021-10-03] MEDS ORDERED: ONDANSETRON HCL/PF 4 MG/2 ML VIAL IVP PRN (04:30)
[2021-10-03] MEDS ORDERED: ACETAMINOPHEN 650 MG/SUPP.RECT RC PRN (04:30)
[2021-10-03] MEDS ORDERED: IV NS 0.9% 1,000 ML IV PRN (04:30)
[2021-10-03] MEDS ORDERED: Z GUARD REMEDY 2 OZ OINT TP PRN (04:30)
--- NOTE | 2021-10-03 05:14 | NUR ---
PATIENT BEING TRANSFERRED TO [facility] VIA ACLS
--- NOTE | 2021-10-03 05:14 | NUR ---
REPORT GIVEN TO KIRT LEDESMA
[2021-10-03 05:40] VITALS: BP 112/74
--- NOTE | 2021-10-03 05:40 | NUR ---
CHICKEN STUFFER NOTES, 61 YEAR OLD MALE ADMITTED FROM ER DEPARTMENT VIA STRETCHER ACCOMPANIED BY 2 NURSES, UNDER MEDICAL SERVICES OF DR GEE WITH ADMITTING DX AMS WITH POSSIBLE ASPIRATION, CODE STROKE IN ER, CT OF HEAD NEGATIVE FOR INTRACRANIAL HEMORRHAGE OR EXTRA FLUID COLLECTION, PATIENT WITH HX OF ESRD ON HD, CVA/TIA WITH RIGHT WEAKNESS, IV SITES IN RIGHT HAND, RIGHT FA, AND REMI ALL PATENT AND INTACT, UPON ADMISSION PATIENT HD SMALL COFFEE GROUND EMESIS ABOUT 30ML, ON STRICT ASPIRATION/SEIZURE PRECAUTIONS, BILATERAL S/R OF BED PADDED FOR SEIZURE PRECAUTIONS, WILL CONTINUE TO MONITOR CLOSELY, AND ENDORSE TO ONCOMING NURSE FOR CONTINUATION OF CARE.
[2021-10-03] MEDS ORDERED: METRONIDAZOLE 500MG/ NS 100ML 500 MG in PREMIX 1 EA IV SCH ×2 (06:00→08:00)
[2021-10-03] MEDS ORDERED: METRONIDAZOLE 500MG/ NS 100ML 100 ML IV ONE (06:12)
[2021-10-03] MEDS: BLOOD SUGAR DIAGNOSTIC 1 EACH STRIP IN SCH ×3 (06:17→17:53)
[2021-10-03] MEDS: INSULIN REGULAR, HUMAN 100 UNIT/ML 3 ML VIAL SQ PRN ×3 (06:21→17:15)
[2021-10-03] MEDS ORDERED: FOLI0.8T23 PO (07:31)
[2021-10-03] MEDS ORDERED: ONDA4TAB5 PO (07:31)
[2021-10-03] MEDS ORDERED: HYDR100T27 PO (07:31)
[2021-10-03] MEDS ORDERED: INSU100V7 SQ (07:31)
[2021-10-03] MEDS ORDERED: MIRT-90 PO (07:31)
[2021-10-03] MEDS ORDERED: TEMA15CA PO (07:31)
[2021-10-03] MEDS ORDERED: NUT.237L67 PO (07:31)
[2021-10-03] MEDS ORDERED: FAMO20TA8 PO (07:31)
[2021-10-03] MEDS ORDERED: ATOR10TA PO (07:31)
[2021-10-03] MEDS ORDERED: DOCU-141 PO (07:31)
[2021-10-03] MEDS ORDERED: ACET-2605 PO (07:31)
[2021-10-03] MEDS ORDERED: ZINC50TA69 PO (07:31)
[2021-10-03] MEDS ORDERED: LORA-258 PO (07:31)
[2021-10-03] MEDS ORDERED: AMIN30LI2 PO (07:31)
[2021-10-03] MEDS ORDERED: AMLO-213 PO (07:31)
--- NOTE | 2021-10-03 08:18 | NUR ---
WOUND CARE CONSULT: PT PRESENTS WITH SACRAL DEEP TISSUE INJURY WITH SCARRING AND DRY WOUNDS/DISCOLORATIONS TO BILATERAL FEET, PRESENT ON ADMISSION. SURGICAL AND DPM CONSULTS CALLED TO DR PLATA AND DR FRANCOIS. RECOMMENDATIONS MADE FOR SKIN PROTECTION. DISCUSSED WITH NURSING STAFF. [place] ISOFLEX LOW AIRLOSS BED TO BE PLACED. IN AGREEMENT WITH PLAN OF CARE. Addendum: 10/03/21 at 0819 by CHRISTIAN AMAYA WNDNU Amended: Links added.
[2021-10-03] MEDS: PANTOPRAZOLE 40 MG VIAL IV SCH (08:45)
[2021-10-03] MEDS: PIPERACILLIN /TAZOBACTAM 2.25 G in IV D5W 50 ML IV SCH ×2 (11:44→20:44)
--- NOTE | 2021-10-03 13:00 | NUR ---
PER LAB @1300 LACTIC ACID 2.4. COLLEGE OF EDUCATION DEAN GUADALUPE AWARE.
[2021-10-03 16:00] VITALS: BP 123/77
[2021-10-03] MEDS ORDERED: CLONIDINE HCL 0.1 MG TABLET PO PRN (17:30)
[2021-10-03] MEDS ORDERED: LORAZEPAM 0.5 MG TABLET PO PRN (17:30)
[2021-10-03] MEDS ORDERED: ONDANSETRON 4 MG TAB.RAPDIS SL PRN (17:30)
[2021-10-03] MEDS: MIRTAZAPINE 15 MG TABLET PO SCH (17:57)
--- NOTE | 2021-10-03 18:11 | NUR ---
RN CLOSING NOTE PT A/O X0 NONVERBAL HX OF STROKE. PT ON 4L NS SAT >95%. ON TELE NSR. PT NPO WILL AWAIT SWALLOW EVAL WILL ENDORE FOR POSSIBLE NGT FOR NUTRITIONAL SUPPLEMENTATION. SKIN INTACT AND BEDBOUND WITH HELLS FLOATING. PT WILL GET HD 10/04 @0700 Addendum: 10/03/21 at 1814 by LOGAN CARSON RN IV GAUGE 20 R HAND. NO IV FLUIDS. PER LAB @1300 LACTIC ACID 2.4. PHARMACOGNOSY TEACHER GUADALUPE VILA.
--- NOTE | 2021-10-03 19:00 | NUR ---
RN NOTE RECEIVED PATIENT IN BED, NON VERBAL BUT OPENS EYES, IN NO S/SX OF ACUTE DISTRESS AT THIS TIME. SATURATION AT 99% ON 4LPM VIA NC, SR ON THE MONITOR, HR IS 89. NOTED IV SITE AT R HAND 20G, RFA 18G, AND REMI 20G, HUBS ARE PATENT AND FLUSHING WELL, NO S/S OF INFECTION OR INFILTRATION, HD CATH IN PLACE AT R CHEST WALL NO SIGN OF INFECTION NOTED. HEAD OF BED ELEVATED. BED IS LOCKED, IN LOWEST POSITION AND SIDE RAILS UP. CALL LIGHT WITHIN REACH OF THE PATIENT. WILL CONTINUE TO MONITOR AND REASSESS FOR ANY CHANGES.
[2021-10-03 20:00] VITALS: BP 138/77
[2021-10-03] MEDS: hydrALAZINE HCL 50 MG TABLET PO SCH (20:44)
[2021-10-03] MEDS: QUETIAPINE FUMARATE 25 MG TABLET PO SCH (20:45)
[2021-10-03] MEDS: LEVETIRACETAM (250 MG) 250 MG TABLET PO SCH (20:45)
[2021-10-03] MEDS: ATORVASTATIN 10 MG TABLET PO SCH (21:08)
[2021-10-04] VITALS: BP 112/72
[2021-10-04] MEDS: BLOOD SUGAR DIAGNOSTIC 1 EACH STRIP IN SCH ×4 (00:25→17:21)
[2021-10-04 04:00] VITALS: BP 124/80
[2021-10-04] MEDS: hydrALAZINE HCL 50 MG TABLET PO SCH ×3 (05:55→21:42)
[2021-10-04] MEDS: PIPERACILLIN /TAZOBACTAM 2.25 G in IV D5W 50 ML IV SCH ×3 (05:55→21:41)
[2021-10-04] MEDS ORDERED: CEFTRIAXONE 1 G in IV D5W 50 ML IV SCH (06:00)
[2021-10-04] MEDS: INSULIN REGULAR, HUMAN 100 UNIT/ML 3 ML VIAL SQ PRN ×2 (06:09→12:11)
--- NOTE | 2021-10-04 07:30 | NUR ---
GLASS BLOWER HELPER AM NOTE RECEIVED PATIENT IN BED, NON VERBAL BUT OPENS EYES, LETHARGIC, ON 4L O2 NASAL CANULA, NOT DISTRESS, RESPIRATION UNLABORED. SR ON MONITOR HR 60STO 70s. NO SIGNS OF PAIN, NO GRIMACINGS. IV SITE AT R HAND 20G, RFA 18G, AND REMI 20G, HUBS ARE PATENT AND FLUSHING WELL, NO S/S OF INFECTION OR INFILTRATION, HD CATH TO RT CHEST WALL, CDI DRESSINGS. HEAD OF BED ELEVATED. BED IS LOCKED, IN LOWEST POSITION AND SIDE RAILS UP. CALL LIGHT WITHIN REACH OF THE PATIENT. WILL CONTINUE TO MONITOR AND REASSESS FOR ANY CHANGES.
[2021-10-04 08:00] VITALS: BP 165/85
[2021-10-04 08:11] LABS: CALCIUM, SERUM 9.1 mg/dL (8.5-10.1); MAGNESIUM 2.7 mg/dL (1.8-2.4); POTASSIUM 5.9 mmol/L (3.5-5.1)
[2021-10-04 08:16] LABS: BASOPHILS % (AUTO) 0.2 % (0.0-2.0); EOSINOPHILS % (AUTO) 0.9 % (0.0-6.0); HEMATOCRIT 40 % (39-51); HEMOGLOBIN 12.2 g/dL (13.5-17.5); LYMPHOCYTES # (AUTO) 1.6 K/uL (0.8-4.8); MEAN CORPUSCULAR HGB CONC 30 g/dl (31.0-36.0); MEAN CORPUSCULAR VOLUME 82 fL (80-96); MONOCYTES # (AUTO) 1.3 K/uL (0.1-1.30); MONOCYTES % (AUTO) 6.7 % (2.0-12.0); NEUTROPHILS # (AUTO) 16.5 K/uL (1.8-8.9); NEUTROPHILS % (AUTO) 84.2 % (43.0-81.0); PLATELET COUNT (AUTO) 299 K/uL (150-450); WHITE BLOOD COUNT (AUTO) 19.6 K/uL (4.3-11.0)
[2021-10-04 08:17] LABS: CREATININE 10.5 mg/dL (0.6-1.3); PHOSPHORUS 11.7 mg/dL (2.5-4.9)
[2021-10-04] MEDS: PANTOPRAZOLE 40 MG VIAL IV SCH (08:48)
[2021-10-04] MEDS: CARVEDILOL 12.5 MG TABLET PO SCH ×2 (08:49→17:21)
[2021-10-04] MEDS: LEVETIRACETAM (250 MG) 250 MG TABLET PO SCH ×2 (08:49→21:43)
[2021-10-04] MEDS: AMLODIPINE BESYLATE 10 MG TABLET PO SCH (08:49)
[2021-10-04] MEDS: FAMOTIDINE (20 MG) 20 MG TABLET PO SCH (08:50)
[2021-10-04] MEDS: PROSOURCE / PROSTAT (PYXIS) 30 ML UDC PO SCH (08:50)
[2021-10-04] MEDS: QUETIAPINE FUMARATE 25 MG TABLET PO SCH ×4 (08:50→21:43)
[2021-10-04] MEDS: NEPRO VAN 237 ML CAN PO SCH (08:53)
--- NOTE | 2021-10-04 09:30 | NUR ---
RN NOTES DUE MEDS GIVEN
[2021-10-04 12:00] VITALS: BP 99/67
[2021-10-04] MEDS ORDERED: ALBUMIN 25% 25 GM in PREMIX 1 EA IV ONE (13:30)
--- NOTE | 2021-10-04 13:36 | NUR ---
RN NOTES PT'S BP 95/56, ONGOING HD. ALBUMIN GIVEN, PER DR. JENNIFER BUTCHER, OK TO HOLD SEROQUEL X 1 DOSE
--- NOTE | 2021-10-04 13:37 | NUR ---
was notified of patient's chest x ray results, stated that i will take a look
--- NOTE | 2021-10-04 15:00 | NUR ---
RN NOTES HD COMPLETED. 220 ML OUT PUT
[2021-10-04 16:00] VITALS: BP 117/71
[2021-10-04] MEDS: MIRTAZAPINE 15 MG TABLET PO SCH (17:21)
--- NOTE | 2021-10-04 18:41 | NUR ---
BROOM STITCHER CLOSING NOTES PATIENT IN BED, NON VERBAL BUT OPENS EYES, LETHARGIC, ON 4L O2 NASAL CANULA, NOT DISTRESS, RESPIRATION UNLABORED. SR ON MONITOR HR 60s TO 70s. NO SIGNS OF PAIN, NO GRIMACINGS. IV SITE AT R HAND 20G, RFA 18G, AND REMI 20G, HUBS ARE PATENT AND FLUSHING WELL, NO S/S OF INFECTION OR INFILTRATION, HD CATH TO RT CHEST WALL, CDI DRESSINGS. REMAINS NPO PER SPEECH THERAPIST, EXCEPT MEDS. HEAD OF BED ELEVATED. BED IS LOCKED, IN LOWEST POSITION AND SIDE RAILS UP. CALL LIGHT WITHIN REACH OF THE PATIENT. PM CARE AND PRESCRIBED WOUND TREATMENT PERFORMED. TURNED AND REPOSITION Q 2 HOURS. ALL NEEDS MET AT THIS TIME. NO OTHER SIGNIFICANT CHANGE IN CONDITION. WILL ENDORSE TO NEXT SHIFT FOR LUNA.
--- NOTE | 2021-10-04 19:00 | NUR ---
RN NOTE RECEIVED PATIENT IN BED, NON VERBAL BUT OPENS EYES, IN NO S/SX OF ACUTE DISTRESS AT THIS TIME. SATURATION AT 96% ON 4LPM VIA NC, SR ON THE MONITOR, HR IS 98. NOTED IV SITE AT R HAND 20G, RFA 18G, AND REMI 20G, HUBS ARE PATENT AND FLUSHING WELL, NO S/S OF INFECTION OR INFILTRATION, HD CATH IN PLACE AT R CHEST WALL NO SIGN OF INFECTION NOTED. HEAD OF BED ELEVATED. BED IS LOCKED, IN LOWEST POSITION AND SIDE RAILS UP. CALL LIGHT WITHIN REACH OF THE PATIENT. WILL CONTINUE TO MONITOR AND REASSESS FOR ANY CHANGES.
[2021-10-04 20:00] VITALS: BP 112/71
[2021-10-04] MEDS: ATORVASTATIN 10 MG TABLET PO SCH (21:43)
[2021-10-05] VITALS: BP 100/83
[2021-10-05] MEDS: BLOOD SUGAR DIAGNOSTIC 1 EACH STRIP IN SCH ×4 (00:07→17:17)
[2021-10-05 04:00] VITALS: BP 111/56
[2021-10-05] MEDS: PIPERACILLIN /TAZOBACTAM 2.25 G in IV D5W 50 ML IV SCH ×3 (05:33→21:10)
[2021-10-05] MEDS: hydrALAZINE HCL 50 MG TABLET PO SCH ×3 (05:34→21:12)
[2021-10-05] MEDS: INSULIN REGULAR, HUMAN 100 UNIT/ML 3 ML VIAL SQ PRN ×3 (05:45→17:30)
--- NOTE | 2021-10-05 07:30 | NUR ---
POCKET SETTER AM NOTE RECEIVED PATIENT IN BED, NON VERBAL BUT OPENS EYES, LETHARGIC, ON 2L O2 NASAL CANULA, NOT DISTRESS, RESPIRATION UNLABORED. SR ON MONITOR HR 60S TO 70s. NO SIGNS OF PAIN, NO GRIMACINGS. IV SITE AT R HAND 20G, RFA 18G, AND REMI 20G, HUBS ARE PATENT AND FLUSHING WELL, NO S/S OF INFECTION OR INFILTRATION, HD CATH TO RT CHEST WALL, CDI DRESSINGS. HEAD OF BED ELEVATED. BED IS LOCKED, IN LOWEST POSITION AND SIDE RAILS UP. CALL LIGHT WITHIN REACH OF THE PATIENT. WILL CONTINUE TO MONITOR AND REASSESS FOR ANY CHANGES.
[2021-10-05 08:00] VITALS: BP 134/77
[2021-10-05] MEDS: SEVELAMER CARBONATE 800 MG POWD.PACK PO SCH ×3 (08:43→17:16)
[2021-10-05] MEDS: FAMOTIDINE (20 MG) 20 MG TABLET PO SCH (08:43)
[2021-10-05] MEDS: PANTOPRAZOLE 40 MG VIAL IV SCH (08:43)
[2021-10-05] MEDS: AMLODIPINE BESYLATE 10 MG TABLET PO SCH (08:44)
[2021-10-05] MEDS: CARVEDILOL 12.5 MG TABLET PO SCH ×2 (08:45→17:15)
[2021-10-05] MEDS: QUETIAPINE FUMARATE 25 MG TABLET PO SCH ×4 (08:45→21:11)
[2021-10-05] MEDS: LEVETIRACETAM (250 MG) 250 MG TABLET PO SCH ×2 (08:45→21:11)
[2021-10-05] MEDS: NEPRO VAN 237 ML CAN PO SCH (08:48)
[2021-10-05] MEDS: PROSOURCE / PROSTAT (PYXIS) 30 ML UDC PO SCH (08:48)
[2021-10-05 12:00] VITALS: BP 134/72
[2021-10-05] MEDS: NEPRO 1,000 ML BOTTLE GT PRN (13:13)
[2021-10-05 16:00] VITALS: BP 142/74
[2021-10-05] MEDS: MIRTAZAPINE 15 MG TABLET PO SCH (17:16)
--- NOTE | 2021-10-05 18:31 | NUR ---
MS RN CLOSING NOTES PATIENT IN BED, NON VERBAL BUT OPENS EYES, ON 4L O2 NASAL CANULA, NOT DISTRESS, RESPIRATION UNLABORED. NO SIGNS OF PAIN, NO GRIMACINGS. IV SITE AT R HAND 20G, RFA 18G, AND REMI 20G, HUBS ARE PATENT AND FLUSHING WELL, NO S/S OF INFECTION OR INFILTRATION, HD CATH TO RT CHEST WALL, CDI DRESSINGS. NGT IN PLACE. CHECKED FOR PLACEMENT. O RESIDUAL, ONGOING NEPRO TUBE FEEDING. REMAINS NPO PER SPEECH THERAPIST, HEAD OF BED ELEVATED. BED IS LOCKED, IN LOWEST POSITION AND SIDE RAILS UP. CALL LIGHT WITHIN REACH OF THE PATIENT. PM CARE AND PRESCRIBED WOUND TREATMENT PERFORMED. TURNED AND REPOSITION Q 2 HOURS. ALL NEEDS MET AT THIS TIME. NO OTHER SIGNIFICANT CHANGE IN CONDITION. WILL ENDORSE TO NEXT SHIFT FOR LUNA.
--- NOTE | 2021-10-05 19:00 | NUR ---
RN NOTES RECEIVED REPORT FROM MORNING NURSE. PATIENT IN BED NON VERBAL BUT OPENS EYES. NO SOB NO DISTRESS. WITH IV ACCESS AT REMI G 20, RFA #18, R CHEST WALL PERMACATH INTACT NO REDNESS.WITH OXYGEN INHALATION AT 2LPM VIA NC TOLERATED WELL SATING 95%.WITYH NG TUBE AT R NARE PATENT NO RESIDUAL NOTED CONNECTED TO CONTINOUS FEEDING AT NEPRO 30CC/HR TOLERATED WELL. WITH R SOFT RESTRAINTS IN PLACE. SAFETY MEASURES IN PLACE AT ALL TIMES, HOB ELEVATED, BED ON LOWEST POSITION AND LOCKED. CALL LIGHT WITHIN REACH. WILL CONTINUE TO MONITOR
[2021-10-05 20:00] VITALS: BP 155/54
[2021-10-05] MEDS: ATORVASTATIN 10 MG TABLET PO SCH (21:11)
[2021-10-06] VITALS: BP 138/55
[2021-10-06] MEDS: BLOOD SUGAR DIAGNOSTIC 1 EACH STRIP IN SCH ×4 (00:37→18:27)
[2021-10-06] MEDS: INSULIN REGULAR, HUMAN 100 UNIT/ML 3 ML VIAL SQ PRN ×3 (00:46→14:08)
[2021-10-06 04:00] VITALS: BP 129/83
[2021-10-06] MEDS ORDERED: DEXTROSE 50%-WATER 50 ML DISP.SYRIN IV PRN (04:00)
[2021-10-06] MEDS: PIPERACILLIN /TAZOBACTAM 2.25 G in IV D5W 50 ML IV SCH ×3 (05:21→21:42)
[2021-10-06] MEDS: hydrALAZINE HCL 50 MG TABLET PO SCH ×3 (05:22→21:41)
--- NOTE | 2021-10-06 06:40 | NUR ---
RN NOTES PATIENT REMAINED STABLE THE WHOLE SHIFT NO SOB NO DISTRESS, FEEDING TOLERATING WELL. ALL DUE MEDS GIVEN ORDERED. KEPT CLEAN AND DRY AT ALL TIMES, REPOSITION PATIENT Q2H. ALL NEEDS ATTENDED. ALL SAFETY MEASURES IN PLACE AT ALL TIMES, HOB ELEVATED, BED ON LOWEST POSITION AND LOCKED. CALL LIGHT WITHIN REACH.ENDORSED.
[2021-10-06 07:08] LABS: BASOPHILS % (AUTO) 0.3 % (0.0-2.0); EOSINOPHILS % (AUTO) 1.6 % (0.0-6.0); HEMATOCRIT 34 % (39-51); HEMOGLOBIN 10.5 g/dL (13.5-17.5); LYMPHOCYTES % (AUTO) 7.4 % (20.0-44.0); MEAN CORPUSCULAR HGB CONC 31 g/dl (31.0-36.0); MEAN CORPUSCULAR VOLUME 82 fL (80-96); MONOCYTES # (AUTO) 1.1 K/uL (0.1-1.30); MONOCYTES % (AUTO) 7.8 % (2.0-12.0); NEUTROPHILS # (AUTO) 11.6 K/uL (1.8-8.9); NEUTROPHILS % (AUTO) 82.9 % (43.0-81.0); PLATELET COUNT (AUTO) 345 K/uL (150-450); RED BLOOD CELL COUNT(AUTO) 4.16 MIL/uL (4.5-6.0)
[2021-10-06 07:36] LABS: CALCIUM, SERUM 8.5 mg/dL (8.5-10.1); MAGNESIUM 2.7 mg/dL (1.8-2.4); POTASSIUM 5.5 mmol/L (3.5-5.1)
--- NOTE | 2021-10-06 07:47 | NUR ---
RN OPENING NOTE RECEIVED PATIENT IN BED, NON VERBAL BUT OPENS EYES, LETHARGIC, ON 2L O2 NASAL CANULA, NO DISTRESS NOTED AT THIS TIME. RESPIRATION UNLABORED. NO SIGNS OF PAIN OR GRIMACING NOTED AT THIS TIME. IV SITE AT R HAND 20G, RFA 18G, AND REMI 20G, HUBS ARE PATENT AND FLUSHING WELL, NO S/S OF INFECTION OR INFILTRATION. NGT PATENT. HEAD OF BED ELEVATED. ALL SAFETY MEASURES IN PLACE WITH BED LOCKED IN LOWEST POSITION AND SIDE RAILS UP. CALL LIGHT WITHIN REACH OF THE PATIENT. WILL CONTINUE TO MONITOR AND REASSESS FOR ANY CHANGES.
[2021-10-06 07:52] LABS: PHOSPHORUS 9.7 mg/dL (2.5-4.9)
[2021-10-06 08:00] VITALS: BP 145/74
[2021-10-06] MEDS: QUETIAPINE FUMARATE 25 MG TABLET PO SCH ×4 (08:54→21:32)
[2021-10-06] MEDS: FAMOTIDINE (20 MG) 20 MG TABLET PO SCH (08:55)
[2021-10-06] MEDS: AMLODIPINE BESYLATE 10 MG TABLET PO SCH (08:55)
[2021-10-06] MEDS: CARVEDILOL 12.5 MG TABLET PO SCH ×2 (08:55→17:12)
[2021-10-06] MEDS: LEVETIRACETAM (250 MG) 250 MG TABLET PO SCH ×2 (08:55→21:32)
[2021-10-06] MEDS: NEPRO VAN 237 ML CAN PO SCH (08:56)
[2021-10-06] MEDS: PROSOURCE / PROSTAT (PYXIS) 30 ML UDC PO SCH (08:56)
--- NOTE | 2021-10-06 09:09 | NUR ---
NOTES DIALYSIS NURSE RECEIVED PT AT 0900. HOLDING MEDS UNTIL AFTER DIALYSIS DUE TO POTENTIAL LOWERING OF BP DURING TREATMENT.
[2021-10-06] MEDS: PANTOPRAZOLE 40 MG TABLET.DR PO SCH (09:17)
[2021-10-06] MEDS: SEVELAMER CARBONATE 800 MG POWD.PACK PO SCH ×3 (09:25→18:17)
--- NOTE | 2021-10-06 11:09 | NUR ---
patient released off restraints ,will contiune to follow up.
[2021-10-06 12:00] VITALS: BP 118/75
--- NOTE | 2021-10-06 13:34 | NUR ---
per [facility] pt covid negative pcr.
--- NOTE | 2021-10-06 15:41 | NUR ---
AT 1335 DISCONTINUED RFA 18 AND R HAND 20 DUE TO LINES NOT BEING PATENT. REMI 20 INTACT AND PATENT.
[2021-10-06 16:00] VITALS: BP 123/73
--- NOTE | 2021-10-06 17:22 | NUR ---
RN NOTES PT HAS NO FAMILY, ORDER FOR MRI ACKNOWLEDGED. DR. JENNIFER BUTCHER MADE AWARE.
[2021-10-06] MEDS: CALCIUM ACETATE 667 MG CAP/TAB PO SCH (18:15)
[2021-10-06] MEDS: MIRTAZAPINE 15 MG TABLET PO SCH (18:15)
--- NOTE | 2021-10-06 18:39 | NUR ---
RN NOTES PT'S GLUCOSE WAS 275. HELD INSULIN DUE TO STAT MRI ORDER. PT SAFELY TAKEN TO GET MRI AT 1835.
--- NOTE | 2021-10-06 18:40 | NUR ---
MS RN CLOSING NOTES PATIENT IN BED, NON VERBAL BUT OPENS EYES, ON 2L O2 NASAL CANULA, NO DISTRESS NOTED, RESPIRATION UNLABORED. NO SIGNS OF PAIN, NO GRIMACING. DISCONTINUED IV SITE AT R HAND 20G AND RFA 18G. REMI 20G INTACT AND PATENT. NGT IN PLACE. CHECKED FOR PLACEMENT. ALL SAFETY MEASURES IN PLACE. BED IN LOWEST LOCKED POSITION AT 35 DEGREES. CALL LIGHT WITHIN REACH.
--- NOTE | 2021-10-06 19:15 | NUR ---
RN NOTES RECEIVED REPORT FROM MORNING NURSE. PATIENT IN BED JUST CAME BACK FROM MRI. PATIENT STABLE VITALS SIGNS TAKEN AND RECORDED. PATIENT OPENS EYES TO NAME. WITH IV ACCESS ON REMI G#20 PATENT FLUSHES WELL. WITH NGT @ R NARE PATENT NO RESIDUAL NOTED CONNECTED TO CONTINUOS FEEDING NEPRO @30CC/HR TOLERATING WELL. WITH OXYGEN INHALATION AY 2LMP VIA NASAL CANULA SATING 96%. ALL SAFETY MEASURES IN PLACE AT ALL TIMES BED ON LOWEST POSITION AND LOCKED, CALL LIGHT WITHIN REACH HOB ELEVATED. WILL CONTINUE TO MONITOR
[2021-10-06 20:00] VITALS: BP 137/71
[2021-10-06] MEDS: ATORVASTATIN 10 MG TABLET PO SCH (21:32)
--- NOTE | 2021-10-06 23:40 | NUR ---
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 RELAYED TO DR MORENO WITH NEW ORDER FOR NEURO CHECK Q2HR.
[2021-10-07] VITALS: BP 129/76
[2021-10-07] MEDS: INSULIN REGULAR, HUMAN 100 UNIT/ML 3 ML VIAL SQ PRN ×5 (00:47→23:52)
[2021-10-07] MEDS: BLOOD SUGAR DIAGNOSTIC 1 EACH STRIP IN SCH ×4 (00:52→17:15)
[2021-10-07 04:00] VITALS: BP 120/69
[2021-10-07] MEDS: PIPERACILLIN /TAZOBACTAM 2.25 G in IV D5W 50 ML IV SCH ×3 (05:16→21:50)
[2021-10-07] MEDS: hydrALAZINE HCL 50 MG TABLET PO SCH ×3 (05:16→21:50)
--- NOTE | 2021-10-07 06:45 | NUR ---
RN NOTES PATIENT REMAINS STABLE THE WHOLE SHIFT NO DISTRESS NO SOB. NO EPISODE OF SEIZURE. ALL DUE MEDS GIVEN ORDERED. STILL ON NEURO CHECK Q2HRS. ALL SAFETY MEASURES IN PLACE.HOB ELEVATED AT ALL TIMES, CALL LIGHT WITHIN REACH. ENDORSED
[2021-10-07 06:52] LABS: BASOPHILS % (AUTO) 0.4 % (0.0-2.0); EOSINOPHILS % (AUTO) 1.8 % (0.0-6.0); HEMATOCRIT 34 % (39-51); HEMOGLOBIN 10.5 g/dL (13.5-17.5); LYMPHOCYTES # (AUTO) 1.3 K/uL (0.8-4.8); LYMPHOCYTES % (AUTO) 11.2 % (20.0-44.0); MEAN CORPUSCULAR HGB CONC 31 g/dl (31.0-36.0); MEAN CORPUSCULAR VOLUME 82 fL (80-96); MONOCYTES # (AUTO) 1.1 K/uL (0.1-1.30); MONOCYTES % (AUTO) 9.9 % (2.0-12.0); NEUTROPHILS # (AUTO) 8.8 K/uL (1.8-8.9); NEUTROPHILS % (AUTO) 76.7 % (43.0-81.0); PLATELET COUNT (AUTO) 304 K/uL (150-450); WHITE BLOOD COUNT (AUTO) 11.4 K/uL (4.3-11.0)
[2021-10-07 07:17] LABS: CALCIUM, SERUM 9.2 mg/dL (8.5-10.1); CREATININE 6.1 mg/dL (0.6-1.3); MAGNESIUM 2.4 mg/dL (1.8-2.4); PHOSPHORUS 5.7 mg/dL (2.5-4.9); POTASSIUM 5.3 mmol/L (3.5-5.1)
--- NOTE | 2021-10-07 07:33 | NUR ---
RN OPENING NOTES RECEIVING PT SLEEPING IN BED IN SEMI-FOWLERS POSITION ON 2L NC WITH NO S/SX OF RESPIRATORY DISTRESS. PT ABLE TO BE AROUSED WITH VERBAL STIMULI AND LIGHT TOUCH. PT HAS AN NGT IN THE RIGHT NARE RUNNING NEPHRO @30ML/HR. PT HAS A REMI IV, FLUSHED PATENT AND INTACT, AND 4 CHESTWALL PERMACATH. SAFETY MEASURES IN PLACE WITH BED IN LOWEST LOCKED POSITION, SIDE RAILS UP X3, BED ALARM ON AND CALL LIGHT WITHIN REACH.
[2021-10-07 08:00] VITALS: BP 142/79
[2021-10-07] MEDS: LEVETIRACETAM (250 MG) 250 MG TABLET PO SCH ×2 (08:55→21:51)
[2021-10-07] MEDS: CALCIUM ACETATE 667 MG CAP/TAB PO SCH ×3 (08:55→17:06)
[2021-10-07] MEDS: AMLODIPINE BESYLATE 10 MG TABLET PO SCH (08:55)
[2021-10-07] MEDS: SEVELAMER CARBONATE 800 MG POWD.PACK PO SCH ×3 (08:55→17:05)
[2021-10-07] MEDS: NEPRO VAN 237 ML CAN PO SCH (08:56)
[2021-10-07] MEDS: QUETIAPINE FUMARATE 25 MG TABLET PO SCH ×4 (08:56→21:51)
[2021-10-07] MEDS: PROSOURCE / PROSTAT (PYXIS) 30 ML UDC PO SCH (08:56)
[2021-10-07] MEDS: CARVEDILOL 12.5 MG TABLET PO SCH ×2 (08:56→17:06)
[2021-10-07] MEDS: FAMOTIDINE (20 MG) 20 MG TABLET PO SCH (08:56)
[2021-10-07] MEDS: PANTOPRAZOLE 40 MG TABLET.DR PO SCH (08:56)
[2021-10-07] MEDS: ASPIRIN EC 81 MG TABLET.DR PO SCH (12:22)
[2021-10-07] MEDS: NEPRO 1,000 ML BOTTLE GT PRN (13:39)
[2021-10-07 16:00] VITALS: BP_SYST 136; BP_SYST 94; BP_DIAS 52; BP_DIAS 76
[2021-10-07] MEDS: MIRTAZAPINE 15 MG TABLET PO SCH (17:05)
--- NOTE | 2021-10-07 18:42 | NUR ---
MS RN CLOSING NOTE PT RESTING WITH HOB ELEVATED ON 2L NC WITH NO S/SX OF ACUTE RESPIRATORY DISTRESS. PT HAS A REMI 20G SL AND R CHESTWALL PERMACATH. NO MEANINGFUL CHANGES THROUGHOUT SHIFT. PT KEPT CLEAN AND DRY, LINEN CHANGED. PT KEPT CLEAN AND DRY THROUGHOUT SHIFT. SAFETY MEASURES IN PLACE WITH BED IN LOW LOCKED POSITION, SIDE RAILS UP X3, BED ALARM ON AND CALL LIGHT WITHIN REACH.
--- NOTE | 2021-10-07 20:16 | NUR ---
RN NOTE PATIENT IN BED WITH HEAD OF BED ELEVATED. LETHARGIC, RESPONDS TO VERBAL AND TACTILE STIMULI. ON O2 2L VIA NASAL CANNULA, NO SIGNS OF RESPIRATORY DISTRESS. NOTED WITH NGT ON RIGHT NARE RUNNING NEPRO @ 30CC/HR. NO RESIDUAL NOTED. IV ACCESS ON REMI #20 PATENT. RIGHT CHEST WALL DRESSING INTACT AND PATENT. BED LOCKED AND IN LOWEST POSITION. CALL LIGHT WITHIN REACH. ALL NEEDS ANTICIPATED.
[2021-10-07] MEDS: ATORVASTATIN 10 MG TABLET PO SCH (21:51)
[2021-10-07] MEDS: HEPARIN SODIUM, PORCINE 5000 UNITS/1 ML VIAL SQ SCH (21:53)
[2021-10-08 04:00] VITALS: BP 144/97
[2021-10-08] MEDS: hydrALAZINE HCL 50 MG TABLET PO SCH ×3 (05:05→21:29)
[2021-10-08] MEDS: BLOOD SUGAR DIAGNOSTIC 1 EACH STRIP IN SCH ×5 (05:05→23:38)
[2021-10-08] MEDS: PIPERACILLIN /TAZOBACTAM 2.25 G in IV D5W 50 ML IV SCH ×3 (05:05→21:28)
[2021-10-08] MEDS: INSULIN REGULAR, HUMAN 100 UNIT/ML 3 ML VIAL SQ PRN ×4 (05:06→23:41)
--- NOTE | 2021-10-08 07:30 | NUR ---
MS RN OPENING NOTES RECEIVED PT IN BED IN SEMI-FOWLERS POSITION ON 2L NC WITH NO S/SX OF RESPIRATORY DISTRESS. EASILY AWAKEN BY WITH VERBAL STIMULI AND LIGHT TOUCH. PT HAS AN NGT IN THE RIGHT NARE RUNNING NEPHRO @30ML/HR, PATENT, NO RESIDUAL NOTED. PT HAS A REMI IV, FLUSHED PATENT AND INTACT, AND 4 CHEST WALL PERMA CATH. SAFETY MEASURES IN PLACE WITH BED IN LOWEST LOCKED POSITION, SIDE RAILS UP X3, BED ALARM ON AND CALL LIGHT WITHIN REACH. WILL CONTINUE TO MONITOR ACCORDINGLY.
--- NOTE | 2021-10-08 07:31 | NUR ---
RN NOTE PATIENT IN BED WITH HEAD OF BED ELEVATED. LETHARGIC, RESPONDS TO VERBAL AND TACTILE STIMULI. ON O2 2L VIA NASAL CANNULA, O2 SAT 98%. NOTED WITH NGT ON RIGHT NARE RUNNING NEPRO @ 30CC/HR. NO RESIDUAL NOTED. IV ACCESS ON REMI #20 PATENT. RIGHT CHEST WALL DRESSING INTACT AND PATENT. ALL DUE MEDS GIVEN ORDERED. TURNED AND REPOSITIONED. BED LOCKED AND IN LOWEST POSITION. CALL LIGHT WITHIN REACH. ENDORSED TO AM SHIFT.
[2021-10-08 07:47] LABS: BASOPHILS # (AUTO) 0.1 K/uL (0.0-0.2); BASOPHILS % (AUTO) 0.5 % (0.0-2.0); EOSINOPHILS % (AUTO) 2.2 % (0.0-6.0); HEMATOCRIT 36 % (39-51); HEMOGLOBIN 11.3 g/dL (13.5-17.5); LYMPHOCYTES # (AUTO) 1.4 K/uL (0.8-4.8); LYMPHOCYTES % (AUTO) 12.4 % (20.0-44.0); MEAN CORPUSCULAR HGB CONC 31 g/dl (31.0-36.0); MEAN CORPUSCULAR VOLUME 82 fL (80-96); MONOCYTES # (AUTO) 1.5 K/uL (0.1-1.30); NEUTROPHILS # (AUTO) 8.2 K/uL (1.8-8.9); NEUTROPHILS % (AUTO) 71.9 % (43.0-81.0); PLATELET COUNT (AUTO) 290 K/uL (150-450); RED BLOOD CELL COUNT(AUTO) 4.43 MIL/uL (4.5-6.0); WHITE BLOOD COUNT (AUTO) 11.4 K/uL (4.3-11.0)
[2021-10-08 08:00] VITALS: BP 131/86
[2021-10-08] MEDS: SEVELAMER CARBONATE 800 MG POWD.PACK PO SCH ×3 (08:02→17:12)
[2021-10-08] MEDS: CALCIUM ACETATE 667 MG CAP/TAB PO SCH ×3 (08:02→17:12)
[2021-10-08] MEDS: PANTOPRAZOLE 40 MG TABLET.DR PO SCH (08:02)
[2021-10-08 08:51] LABS: CALCIUM, SERUM 9.2 mg/dL (8.5-10.1); PHOSPHORUS 6.3 mg/dL (2.5-4.9); POTASSIUM 5.4 mmol/L (3.5-5.1)
[2021-10-08] MEDS: NEPRO VAN 237 ML CAN PO SCH (09:00)
[2021-10-08 09:08] LABS: CREATININE 7.7 mg/dL (0.6-1.3)
[2021-10-08] MEDS: LEVETIRACETAM (250 MG) 250 MG TABLET PO SCH ×2 (09:12→21:29)
[2021-10-08] MEDS: FAMOTIDINE (20 MG) 20 MG TABLET PO SCH (09:12)
[2021-10-08] MEDS: QUETIAPINE FUMARATE 25 MG TABLET PO SCH ×4 (09:12→21:28)
[2021-10-08] MEDS: AMLODIPINE BESYLATE 10 MG TABLET PO SCH (09:12)
[2021-10-08] MEDS: ASPIRIN EC 81 MG TABLET.DR PO SCH (09:12)
[2021-10-08] MEDS: HEPARIN SODIUM, PORCINE 5000 UNITS/1 ML VIAL SQ SCH ×2 (09:13→21:30)
[2021-10-08] MEDS: PROSOURCE / PROSTAT (PYXIS) 30 ML UDC PO SCH (09:14)
[2021-10-08] MEDS: CARVEDILOL 12.5 MG TABLET PO SCH ×2 (09:14→17:13)
[2021-10-08 12:00] VITALS: BP 131/86
--- NOTE | 2021-10-08 12:00 | NUR ---
RN NOTES BLOOD SUAGR CHECKED, 273 MG/DL, INSULIN COVERAGE GIVEN ORDERED.
--- NOTE | 2021-10-08 14:17 | NUR ---
RN NOTES POTASSIUM RESULT OF 5.4, RELAYED TO JENNIFER BUTCHER AND DR. ESCALANTE. NO NW ORDERS MADE.
[2021-10-08 16:00] VITALS: BP 111/76
[2021-10-08] MEDS: MIRTAZAPINE 15 MG TABLET PO SCH (17:12)
--- NOTE | 2021-10-08 17:30 | NUR ---
RN NOTES BLOOD SUGAR CHECKED, 273 MG/DL, INSULIN COVERAGE GIVEN ORDERED.
--- NOTE | 2021-10-08 18:28 | NUR ---
MS RN CLOSING NOTES PATIENT IN BED IN SEMI-FOWLERS POSITION ON 2L NC WITH NO S/SX OF RESPIRATORY DISTRESS. OPENS EYES TO NAME AND LIGHT TOUCH. PT HAS AN NGT IN THE RIGHT NARE RUNNING NEPHRO @30ML/HR, PATENT, NO RESIDUAL NOTED. PT HAS A REMI IV, FLUSHED PATENT AND INTACT, AND CHEST WALL PERMA CATH FOR HD NOTED. SAFETY MEASURES IN PLACE WITH BED IN LOWEST LOCKED POSITION, SIDE RAILS UP X3, BED ALARM ON AND CALL LIGHT WITHIN REACH. ALL NEEDS ATTENDED AND MET, DUE MEDS GIVEN ORDERED. WILL ENDORSE TO ONCOMING SHIFT FOR LUNA.
--- NOTE | 2021-10-08 19:53 | NUR ---
RN NOTE PATIENT IN BED WITH HEAD OF BED ELEVATED. LETHARGIC, RESPONDS TO VERBAL AND TACTILE STIMULI. ON O2 2L VIA NASAL CANNULA, NO SHORTNESS OF BREATH. NOTED WITH NGT ON RIGHT NARE RUNNING NEPRO @ 30CC/HR. NO RESIDUAL NOTED. IV ACCESS ON REMI #20 PATENT. RIGHT CHEST WALL DRESSING INTACT AND PATENT. TURNED AND REPOSITIONED. BED LOCKED AND IN LOWEST POSITION. CALL LIGHT WITHIN REACH. ALL NEEDS ANTICIPATED.
[2021-10-08 20:00] VITALS: BP 160/91
[2021-10-08] MEDS: ATORVASTATIN 10 MG TABLET PO SCH (21:29)
[2021-10-09 04:00] VITALS: BP 107/50
[2021-10-09] MEDS: BLOOD SUGAR DIAGNOSTIC 1 EACH STRIP IN SCH ×4 (05:15→23:55)
[2021-10-09] MEDS: PIPERACILLIN /TAZOBACTAM 2.25 G in IV D5W 50 ML IV SCH ×3 (05:15→22:16)
[2021-10-09] MEDS: hydrALAZINE HCL 50 MG TABLET PO SCH ×3 (05:15→22:17)
[2021-10-09] MEDS: INSULIN REGULAR, HUMAN 100 UNIT/ML 3 ML VIAL SQ PRN ×3 (05:19→23:57)
[2021-10-09] MEDS: NEPRO 1,000 ML BOTTLE GT PRN (05:29)
--- NOTE | 2021-10-09 07:12 | NUR ---
RN NOTE PATIENT IN BED RESTING. LETHARGIC, RESPONDS TO VERBAL AND TACTILE STIMULI. ON O2 2L VIA NASAL CANNULA, O2 SAT 98%. NOTED WITH NGT ON RIGHT NARE RUNNING NEPRO @ 30CC/HR. NO RESIDUAL NOTED. IV ACCESS ON REMI #20 PATENT. RIGHT CHEST WALL DRESSING INTACT AND PATENT. TURNED AND REPOSITIONED. WITH BILATERAL SOFT WRIST RESTRAINTS DUE TO PATIENT ATTEMPTING TO PULL ON NGT X2. BED LOCKED AND IN LOWEST POSITION. CALL LIGHT WITHIN REACH. WILL ENDORSE TO AM SHIFT.
[2021-10-09] MEDS: PANTOPRAZOLE 40 MG TABLET.DR PO SCH (08:02)
[2021-10-09 08:07] LABS: BASOPHILS % (AUTO) 0.4 % (0.0-2.0); EOSINOPHILS % (AUTO) 2.4 % (0.0-6.0); HEMATOCRIT 38 % (39-51); HEMOGLOBIN 11.6 g/dL (13.5-17.5); LYMPHOCYTES # (AUTO) 1.6 K/uL (0.8-4.8); LYMPHOCYTES % (AUTO) 14.3 % (20.0-44.0); MEAN CORPUSCULAR HGB CONC 31 g/dl (31.0-36.0); MEAN CORPUSCULAR VOLUME 82 fL (80-96); MONOCYTES # (AUTO) 1.6 K/uL (0.1-1.30); MONOCYTES % (AUTO) 14.2 % (2.0-12.0); NEUTROPHILS # (AUTO) 7.8 K/uL (1.8-8.9); NEUTROPHILS % (AUTO) 68.7 % (43.0-81.0); PLATELET COUNT (AUTO) 252 K/uL (150-450); RED BLOOD CELL COUNT(AUTO) 4.59 MIL/uL (4.5-6.0); WHITE BLOOD COUNT (AUTO) 11.4 K/uL (4.3-11.0)
[2021-10-09] MEDS: SEVELAMER CARBONATE 800 MG POWD.PACK PO SCH ×3 (08:07→18:11)
[2021-10-09] MEDS: CALCIUM ACETATE 667 MG CAP/TAB PO SCH ×3 (08:07→18:10)
[2021-10-09] MEDS: QUETIAPINE FUMARATE 25 MG TABLET PO SCH ×4 (08:44→22:17)
[2021-10-09] MEDS: FAMOTIDINE (20 MG) 20 MG TABLET PO SCH (08:44)
[2021-10-09] MEDS: ASPIRIN EC 81 MG TABLET.DR PO SCH (08:44)
[2021-10-09] MEDS: AMLODIPINE BESYLATE 10 MG TABLET PO SCH (08:45)
[2021-10-09] MEDS: LEVETIRACETAM (250 MG) 250 MG TABLET PO SCH ×2 (08:46→22:17)
[2021-10-09] MEDS: CARVEDILOL 12.5 MG TABLET PO SCH ×2 (08:46→17:29)
[2021-10-09 08:47] LABS: CALCIUM, SERUM 8.6 mg/dL (8.5-10.1); MAGNESIUM 3.1 mg/dL (1.8-2.4); PHOSPHORUS 6.5 mg/dL (2.5-4.9); POTASSIUM 5.8 mmol/L (3.5-5.1)
[2021-10-09] MEDS: HEPARIN SODIUM, PORCINE 5000 UNITS/1 ML VIAL SQ SCH ×2 (08:47→22:19)
[2021-10-09] MEDS: NEPRO VAN 237 ML CAN PO SCH (09:09)
[2021-10-09] MEDS: PROSOURCE / PROSTAT (PYXIS) 30 ML UDC PO SCH (09:13)
[2021-10-09 09:34] LABS: CREATININE 8.8 mg/dL (0.6-1.3)
--- NOTE | 2021-10-09 10:22 | NUR ---
PT. RELEASED OFF WRIST REASTRAINT WILL CONTINUE TO MONITOR.
--- NOTE | 2021-10-09 10:22 | NUR ---
RN OPENING NOTES RECEIVED PT SLEEPING IN BED IN SEMI-FOWLERS POSITION ON 2L NC WITH NO S/SX OF RESPIRATORY DISTRESS. PT ABLE TO BE AROUSED WITH VERBAL STIMULI AND LIGHT TOUCH. PT HAS AN NGT IN THE RIGHT NARE RUNNING NEPHRO @30ML/HR. PT HAS A REMI IV, FLUSHED PATENT AND INTACT, AND 4 CHESTWALL PERMACATH. SAFETY MEASURES IN PLACE WITH BED IN LOWEST LOCKED POSITION, SIDE RAILS UP X3, BED ALARM ON AND CALL LIGHT WITHIN REACH.
[2021-10-09 14:21] VITALS: BP 114/71
[2021-10-09] MEDS: MIRTAZAPINE 15 MG TABLET PO SCH (18:10)
--- NOTE | 2021-10-09 19:06 | NUR ---
patient tried to pull ngt with right hand,unable to comprehend, soft wrist restraint applied R HAND per md.
--- NOTE | 2021-10-09 19:25 | NUR ---
RN NOTE PATIENT LETHARGIC, RESPONDS TO VERBAL AND TACTILE STIMULI. ON O2 2L VIA NASAL CANNULA, NO SHORTNESS OF BREATH. HEAD OF BED ELEVATED, NOTED WITH NGT ON RIGHT NARE RUNNING NEPRO @ 30CC/HR. NO RESIDUAL NOTED. IV ACCESS ON REMI #20 PATENT. RIGHT CHEST WALL DRESSING INTACT AND PATENT. BED LOCKED AND IN LOWEST POSITION. CALL LIGHT WITHIN REACH. ALL NEEDS ANTICIPATED.
--- NOTE | 2021-10-09 19:35 | NUR ---
MS RN CLOSING NOTES PATIENT IN BED IN SEMI-FOWLERS POSITION ON 2L NC WITH NO S/SX OF RESPIRATORY DISTRESS. OPENS EYES TO NAME AND LIGHT TOUCH. PT HAS AN NGT IN THE RIGHT NARE RUNNING NEPRO @30ML/HR, PATENT, NO RESIDUAL NOTED. PT HAS A REMI IV, FLUSHED PATENT AND INTACT, AND CHEST WALL PERMA CATH FOR HD NOTED. SAFETY MEASURES IN PLACE WITH BED IN LOWEST LOCKED POSITION, SIDE RAILS UP X3, BED ALARM ON AND CALL LIGHT WITHIN REACH. ALL NEEDS ATTENDED AND MET, WILL ENDORSE TO ELECTRONICS MAINTENANCE TECHNICIAN RN.
[2021-10-09 20:00] VITALS: BP 129/80
[2021-10-09] MEDS: ATORVASTATIN 10 MG TABLET PO SCH (22:30)
[2021-10-10 04:00] VITALS: BP 123/72
[2021-10-10] MEDS: hydrALAZINE HCL 50 MG TABLET PO SCH ×3 (05:47→20:24)
[2021-10-10] MEDS: BLOOD SUGAR DIAGNOSTIC 1 EACH STRIP IN SCH ×3 (05:47→18:03)
[2021-10-10] MEDS: PIPERACILLIN /TAZOBACTAM 2.25 G in IV D5W 50 ML IV SCH ×3 (05:47→21:45)
[2021-10-10] MEDS: INSULIN REGULAR, HUMAN 100 UNIT/ML 3 ML VIAL SQ PRN ×2 (05:52→12:56)
--- NOTE | 2021-10-10 06:36 | NUR ---
RN NOTE PATIENT RESTING IN BED. NON VERBAL. ON O2 2L VIA NASAL CANNULA, NO SHORTNESS OF BREATH. HEAD OF BED ELEVATED, NOTED WITH NGT ON RIGHT NARE RUNNING NEPRO @ 30CC/HR. NO RESIDUAL NOTED. IV ACCESS ON REMI #20 PATENT. RIGHT CHEST WALL DRESSING INTACT AND PATENT. TURNED AND REPOSITIONED. KEPT CLEAN AND DRY. ALL DUE MEDS GIVEN ORDERED. BED LOCKED AND IN LOWEST POSITION. CALL LIGHT WITHIN REACH. WILL ENDORSE TO AM SHIFT.
[2021-10-10 08:14] LABS: BASOPHILS % (AUTO) 0.3 % (0.0-2.0); EOSINOPHILS % (AUTO) 1.1 % (0.0-6.0); HEMATOCRIT 33 % (39-51); HEMOGLOBIN 10.1 g/dL (13.5-17.5); LYMPHOCYTES # (AUTO) 1.1 K/uL (0.8-4.8); LYMPHOCYTES % (AUTO) 7.4 % (20.0-44.0); MEAN CORPUSCULAR HGB CONC 31 g/dl (31.0-36.0); MEAN CORPUSCULAR VOLUME 81 fL (80-96); MONOCYTES # (AUTO) 1.7 K/uL (0.1-1.30); MONOCYTES % (AUTO) 11.8 % (2.0-12.0); NEUTROPHILS # (AUTO) 11.4 K/uL (1.8-8.9); NEUTROPHILS % (AUTO) 79.4 % (43.0-81.0); PLATELET COUNT (AUTO) 244 K/uL (150-450); RED BLOOD CELL COUNT(AUTO) 4.01 MIL/uL (4.5-6.0); WHITE BLOOD COUNT (AUTO) 14.4 K/uL (4.3-11.0)
[2021-10-10 08:23] LABS: CALCIUM, SERUM 8.3 mg/dL (8.5-10.1); CREATININE 6.9 mg/dL (0.6-1.3); MAGNESIUM 3.1 mg/dL (1.8-2.4); PHOSPHORUS 4.3 mg/dL (2.5-4.9); POTASSIUM 4.9 mmol/L (3.5-5.1)
[2021-10-10] MEDS: FAMOTIDINE (20 MG) 20 MG TABLET PO SCH (08:36)
[2021-10-10] MEDS: LEVETIRACETAM (250 MG) 250 MG TABLET PO SCH ×2 (08:36→20:24)
[2021-10-10] MEDS: SEVELAMER CARBONATE 800 MG POWD.PACK PO SCH ×3 (08:36→18:00)
[2021-10-10] MEDS: CARVEDILOL 12.5 MG TABLET PO SCH ×2 (08:37→17:00)
[2021-10-10] MEDS: ASPIRIN EC 81 MG TABLET.DR PO SCH (08:38)
[2021-10-10] MEDS: QUETIAPINE FUMARATE 25 MG TABLET PO SCH ×4 (08:38→20:24)
[2021-10-10] MEDS: PANTOPRAZOLE 40 MG TABLET.DR PO SCH (08:38)
[2021-10-10] MEDS: CALCIUM ACETATE 667 MG CAP/TAB PO SCH ×3 (08:38→18:00)
[2021-10-10] MEDS: AMLODIPINE BESYLATE 10 MG TABLET PO SCH (08:38)
[2021-10-10] MEDS: PROSOURCE / PROSTAT (PYXIS) 30 ML UDC PO SCH (08:40)
[2021-10-10] MEDS: HEPARIN SODIUM, PORCINE 5000 UNITS/1 ML VIAL SQ SCH ×2 (08:44→20:26)
[2021-10-10] MEDS: NEPRO VAN 237 ML CAN PO SCH (09:00)
[2021-10-10 12:00] VITALS: BP 114/75
[2021-10-10] MEDS ORDERED: LIDOCAINE 1%-EPI 1:100,000 20 ML VIAL TP ONE (12:00)
[2021-10-10] MEDS: SILVER NITRATE APPLICATOR 1 EA BOX TP SCH (12:00)
[2021-10-10] MEDS: MIRTAZAPINE 15 MG TABLET PO SCH (18:00)
--- NOTE | 2021-10-10 19:27 | NUR ---
RN NOTE PT CAME BACK FROM SURGERY FOR PEG PLACEMENT. PT SLEEPING AROUSES EASILY. RESPONDS TO STIMULI, NON VERBAL. NOT IN ANY DISTRESS, ON O2 VIA NC AT 2L. PEG TUBE IN PLACE, WITH BLACKISH DRAINAGE WITH ORDER TO DRAIN BY GRAVITY, TO START FEEDING IN AM AND NPO EXCEPT MEDS TONIGHT, ALL ORDERS NOTED AND CARRIED OUT. WILL CONTINUE TO MONITOR.
[2021-10-10 20:00] VITALS: BP 154/53
--- NOTE | 2021-10-10 20:09 | NUR ---
RN NOTE RECEIVED PT FROM POST PEG TUBE PLACEMENT, PATIENT RESPONSIVE TO VERBAL AND TACTILE STIMULI, V/S STABLE. NOT IN RESPIRATORY DISTRESS. PEG TUBE IN PLACE. WITH ORDERS TO LEAVE PEG DRAINING VIA GRAVITY UNTIL AM. NPO EXEPT MEDS AND RESUME FEEDING IN AM. ENDORSED TO NIGHT RN.
[2021-10-10] MEDS: ATORVASTATIN 10 MG TABLET PO SCH (21:45)
[2021-10-11] MEDS: BLOOD SUGAR DIAGNOSTIC 1 EACH STRIP IN SCH ×4 (00:24→18:04)
[2021-10-11] MEDS: INSULIN REGULAR, HUMAN 100 UNIT/ML 3 ML VIAL SQ PRN ×4 (00:27→18:06)
[2021-10-11 04:00] VITALS: BP 121/58
[2021-10-11] MEDS: hydrALAZINE HCL 50 MG TABLET PO SCH ×3 (04:55→22:21)
[2021-10-11] MEDS: PIPERACILLIN /TAZOBACTAM 2.25 G in IV D5W 50 ML IV SCH ×3 (04:56→22:18)
--- NOTE | 2021-10-11 06:28 | NUR ---
RN CLOSING NOTES: PATIENT ON BED SLEEPING, BUT EASILY AROUSABLE, ALERT AND RESPONSIVE TO PAINFUL STIMULI. O2 SAT 100% WITH 2L/MIN VIA N/C. NO SOB, NO CHEST CONGESTION, BREATHING EVEN AND UNLABORED. MONITORING FOR S/P GTUBE REPLACEMENT. GTUBE SITE INTACT AND PATENT AND COVERED WITH DRY DRESSING. NOTED MINIMAL AMOUNT OF BLEEDING. FEEDING WILL START IN THE MORNING. CONTINUE ON DRAINING BY GRAVITY. MEDICATION GIVEN VIA GTUBE AND TOLERATED WELL. BLOOD SUGAR IN THE MORNING 219, 4 UNITS OF REGULAR INSULIN GIVEN. NO S/S OF HYPER/HYPOGLYCEMIA NOTED. WILL ENDORSE TO MORNING SHIFT NURSE.
[2021-10-11] MEDS ORDERED: HYDROGEL DRESSING 90 GM TUBE TP PRN (08:00)
[2021-10-11 08:13] LABS: BASOPHILS # (AUTO) 0.1 K/uL (0.0-0.2); BASOPHILS % (AUTO) 0.3 % (0.0-2.0); EOSINOPHILS % (AUTO) 0.1 % (0.0-6.0); HEMATOCRIT 30 % (39-51); HEMOGLOBIN 9.2 g/dL (13.5-17.5); LYMPHOCYTES # (AUTO) 1.2 K/uL (0.8-4.8); LYMPHOCYTES % (AUTO) 4.8 % (20.0-44.0); MEAN CORPUSCULAR HGB CONC 31 g/dl (31.0-36.0); MEAN CORPUSCULAR VOLUME 81 fL (80-96); MONOCYTES # (AUTO) 2.2 K/uL (0.1-1.30); MONOCYTES % (AUTO) 9.1 % (2.0-12.0); NEUTROPHILS # (AUTO) 20.4 K/uL (1.8-8.9); NEUTROPHILS % (AUTO) 85.7 % (43.0-81.0); PLATELET COUNT (AUTO) 249 K/uL (150-450); RED BLOOD CELL COUNT(AUTO) 3.67 MIL/uL (4.5-6.0); WHITE BLOOD COUNT (AUTO) 23.9 K/uL (4.3-11.0)
--- NOTE | 2021-10-11 08:15 | NUR ---
RN OPENING NOTE Patient in bed, asleep. A/O x 1, opens eyes but non-verbal. On O2 at 2LPM, breathing evenly and unlabored. No SOB or s/s of distress noted. IV access on REMI #20, intact and patent. Right chest wall permacath noted. G-tube in place, intact and patent. Safety precautions in place: bed in low, locked position; siderails up x 2; call light within reach. Will continue to monitor.
[2021-10-11 08:17] LABS: CALCIUM, SERUM 8.9 mg/dL (8.5-10.1); MAGNESIUM 3.2 mg/dL (1.8-2.4); PHOSPHORUS 5.2 mg/dL (2.5-4.9); POTASSIUM 5.2 mmol/L (3.5-5.1)
[2021-10-11 08:20] LABS: CREATININE 8.2 mg/dL (0.6-1.3)
[2021-10-11] MEDS: SILVER NITRATE APPLICATOR 1 EA BOX TP SCH (09:00)
[2021-10-11] MEDS: NEPRO VAN 237 ML CAN PO SCH (09:00)
[2021-10-11] MEDS: HYDROGEL DRESSING 90 GM TUBE TP SCH (09:00)
[2021-10-11] MEDS: CALCIUM ACETATE 667 MG CAP/TAB PO SCH ×3 (09:33→17:30)
[2021-10-11] MEDS: AMLODIPINE BESYLATE 10 MG TABLET PO SCH (09:33)
[2021-10-11] MEDS: FAMOTIDINE (20 MG) 20 MG TABLET PO SCH (09:33)
[2021-10-11] MEDS: LEVETIRACETAM (250 MG) 250 MG TABLET PO SCH ×2 (09:33→22:18)
[2021-10-11] MEDS: QUETIAPINE FUMARATE 25 MG TABLET PO SCH ×4 (09:33→22:18)
[2021-10-11] MEDS: ASPIRIN EC 81 MG TABLET.DR PO SCH (09:33)
[2021-10-11] MEDS: CARVEDILOL 12.5 MG TABLET PO SCH ×2 (09:34→17:31)
[2021-10-11] MEDS: SEVELAMER CARBONATE 800 MG POWD.PACK PO SCH ×3 (09:34→17:31)
[2021-10-11] MEDS: HEPARIN SODIUM, PORCINE 5000 UNITS/1 ML VIAL SQ SCH ×2 (09:36→22:23)
[2021-10-11] MEDS: PANTOPRAZOLE 40 MG TABLET.DR PO SCH (09:38)
[2021-10-11] MEDS: PROSOURCE / PROSTAT (PYXIS) 30 ML UDC PO SCH (10:00)
[2021-10-11] MEDS: NEPRO 1,000 ML BOTTLE GT PRN (10:00)
--- NOTE | 2021-10-11 10:00 | NUR ---
RN NOTE Silver Nitrate application for wound WIRE BORDER ASSEMBLER application.
[2021-10-11 12:00] VITALS: BP 108/57
--- NOTE | 2021-10-11 12:30 | NUR ---
RN NOTE Patient was having HD when he passed out and BP dropped to 88/56. Rapid response called. Rechecked BP went up to 108/57, SPO2 100% with O2 t 2L via NC, blood glucose is 157. Dr. Chakraborty notified. HD stopped. Patient is stable.
[2021-10-11 15:25] VITALS: BP 108/57
[2021-10-11] MEDS: MIRTAZAPINE 15 MG TABLET PO SCH (17:30)
--- NOTE | 2021-10-11 18:53 | NUR ---
RN CLOSING NOTE Patient in bed, asleep. A/O x 1, opens eyes but non-verbal. Stable on O2 at 2LPM. No SOB or s/s of distress noted. IV access on REMI #20, intact and patent. Right chest wall permacath noted. G-tube in place, running Nepro @ 30 ml/hr. Due meds given. Safety precautions maintained: bed in low, locked position; siderails up x 2; call light within reach. Will endorse to overnight caregiver nurse for LUNA.
--- NOTE | 2021-10-11 19:38 | NUR ---
RN NOTE RECEIVED PATIENT IN BED, NON-VERBAL, EYES OPEN. BREATHING EVEN AND UNLABORED TOLERATING OXYGEN VIA NASAL CANNULA AT 4L/MIN WITH HUMIDIFIER. NO SOB NOTED. NO COUGH/CONGESTION NOTED. NOTED WITH REMI ARM PERIPHERAL IV 20G, PATEN, ABLE TO FLUSH WELL WITH NO INFILTRATION. NOTED WITH LEFT UPPER AARM AV-FISTULA, NO BLEEDING NOTED. BRUIT AND THRILL PRESENT. NO BP ON LEFT ARM SIGN PLACED. NOTED WITH RIGHT UPPER CHEST PERMACATH, NO BLEEDING NOTED. G-TUBE IN PLACE, RUNNING NEPRO AT 30 CC/HR. ZERO RESIDUAL. NO BLEEDING. HOB ELEVATED 40 DEGREES. NOTED WITH RIGHT WRIST SOFT RESTRAINTS ONLY. CAPILLARY REFILL WNL. BED LOW, IN LOCKED POSITION, CALL LIGHT WITHIN REACH.
[2021-10-11 20:00] VITALS: BP 139/65
[2021-10-11] MEDS: ATORVASTATIN 10 MG TABLET PO SCH (22:18)
[2021-10-12] MEDS: BLOOD SUGAR DIAGNOSTIC 1 EACH STRIP IN SCH ×4 (00:14→17:45)
[2021-10-12] MEDS: INSULIN REGULAR, HUMAN 100 UNIT/ML 3 ML VIAL SQ PRN ×4 (00:16→17:48)
[2021-10-12 04:00] VITALS: BP 141/70
[2021-10-12] MEDS: PIPERACILLIN /TAZOBACTAM 2.25 G in IV D5W 50 ML IV SCH ×3 (05:17→21:39)
[2021-10-12] MEDS: hydrALAZINE HCL 50 MG TABLET PO SCH ×3 (05:18→21:45)
--- NOTE | 2021-10-12 07:44 | NUR ---
RN OPEN NOTE PT RECEIVED IN BED, NON-VERBAL, EYES OPEN. BREATHING EVEN AND UNLABORED TOLERATING OXYGEN VIA NASAL CANNULA AT 4L/MIN WITH HUMIDIFIER. NO SOB NOTED. WITH REMI ARM PERIPHERAL IV 20G, PATEN, ABLE TO FLUSH WELL WITH NO INFILTRATION. PT OBSERVED WITH RIGHT UPPER CHEST PERMACATH, NO BLEEDING NOTED. PT HAS A LEFT UPPER ARM AV-FISTULA, NO BLEEDING NOTED. BRUIT AND THRILL PRESENT. NO BP ON THE LEFT ARM SIGN IN PLACED. G-TUBE IN PLACE, RUNNING NEPRO AT 30 CC/HR. ZERO RESIDUAL. NO BLEEDING. HOB ELEVATED 40 DEGREES. PT OBSERVED WITH RIGHT WRIST SOFT RESTRAINTS ONLY. CAPILLARY REFILL WNL. SAFETY MEASURES IN PLACE, BED IN LOWEST POSITION AND LOCKED CALL LIGHT WITHIN REACH WILL CONTINUE TO MONITOR
[2021-10-12 07:49] LABS: BASOPHILS # (AUTO) 0.1 K/uL (0.0-0.2); BASOPHILS % (AUTO) 0.3 % (0.0-2.0); EOSINOPHILS % (AUTO) 0.2 % (0.0-6.0); HEMATOCRIT 28 % (39-51); HEMOGLOBIN 8.8 g/dL (13.5-17.5); LYMPHOCYTES # (AUTO) 0.8 K/uL (0.8-4.8); LYMPHOCYTES % (AUTO) 4.1 % (20.0-44.0); MEAN CORPUSCULAR HGB CONC 31 g/dl (31.0-36.0); MEAN CORPUSCULAR VOLUME 81 fL (80-96); MONOCYTES # (AUTO) 1.5 K/uL (0.1-1.30); MONOCYTES % (AUTO) 7.5 % (2.0-12.0); NEUTROPHILS % (AUTO) 87.9 % (43.0-81.0); PLATELET COUNT (AUTO) 257 K/uL (150-450); RED BLOOD CELL COUNT(AUTO) 3.45 MIL/uL (4.5-6.0); WHITE BLOOD COUNT (AUTO) 20.5 K/uL (4.3-11.0)
[2021-10-12 08:00] VITALS: BP 121/68
[2021-10-12] MEDS: LEVETIRACETAM (250 MG) 250 MG TABLET PO SCH ×2 (08:33→21:39)
[2021-10-12] MEDS: SEVELAMER CARBONATE 800 MG POWD.PACK PO SCH ×3 (08:33→17:24)
[2021-10-12] MEDS: FAMOTIDINE (20 MG) 20 MG TABLET PO SCH (08:35)
[2021-10-12] MEDS: AMLODIPINE BESYLATE 10 MG TABLET PO SCH (08:35)
[2021-10-12] MEDS: CARVEDILOL 12.5 MG TABLET PO SCH ×2 (08:36→17:24)
[2021-10-12] MEDS: ASPIRIN EC 81 MG TABLET.DR PO SCH (08:36)
[2021-10-12] MEDS: PANTOPRAZOLE 40 MG TABLET.DR PO SCH (08:36)
[2021-10-12] MEDS: CALCIUM ACETATE 667 MG CAP/TAB PO SCH ×3 (08:36→17:24)
[2021-10-12] MEDS: QUETIAPINE FUMARATE 25 MG TABLET PO SCH ×4 (08:36→21:39)
[2021-10-12] MEDS: HEPARIN SODIUM, PORCINE 5000 UNITS/1 ML VIAL SQ SCH ×2 (08:39→21:40)
[2021-10-12] MEDS: HYDROGEL DRESSING 90 GM TUBE TP SCH (08:42)
[2021-10-12] MEDS: SILVER NITRATE APPLICATOR 1 EA BOX TP SCH (08:42)
[2021-10-12] MEDS: PROSOURCE / PROSTAT (PYXIS) 30 ML UDC PO SCH (09:03)
[2021-10-12] MEDS: NEPRO 1,000 ML BOTTLE GT PRN ×2 (09:04→09:05)
[2021-10-12] MEDS: NEPRO VAN 237 ML CAN PO SCH (09:12)
[2021-10-12 09:46] LABS: CALCIUM, SERUM 8.9 mg/dL (8.5-10.1); CREATININE 6.6 mg/dL (0.6-1.3); POTASSIUM 4.3 mmol/L (3.5-5.1)
[2021-10-12 16:00] VITALS: BP 140/67
[2021-10-12] MEDS: MIRTAZAPINE 15 MG TABLET PO SCH (17:24)
--- NOTE | 2021-10-12 18:35 | NUR ---
RN CLOSING NOTE PT REMAINS IN BED, NON-VERBAL, EYES OPEN. BREATHING EVEN AND UNLABORED TOLERATING OXYGEN VIA NASAL CANNULA AT 4L/MIN WITH HUMIDIFIER. NO SOB NOTED. WITH REMI ARM PERIPHERAL IV 20G, PATEN, ABLE TO FLUSH WELL WITH NO INFILTRATION. PT OBSERVED WITH RIGHT UPPER CHEST PERMACATH, NO BLEEDING NOTED. PT HAS A LEFT UPPER ARM AV-FISTULA, NO BLEEDING NOTED. BRUIT AND THRILL PRESENT. NO BP ON THE LEFT ARM SIGN IN PLACED. G-TUBE IN PLACE, RUNNING NEPRO AT 40 CC/HR. ZERO RESIDUAL. NO BLEEDING. ALL NEEDS MET NO SIGNIFICANT CHANGE IN HEALTH CONDITION, PT OBSERVED WITH RIGHT WRIST RESTRAINED, HOB ELEVATED 40 DEGREES., SAFETY MEASURES IN PLACE BED LOCKED AND IN LOWEST POSITION CALL LIGHT WITHIN REACH WILL ENDORSE TO FULL STACK PYTHON DEVELOPERSEISMIC PROSPECTING OBSERVER HELPER
--- NOTE | 2021-10-12 19:38 | NUR ---
RN NOTE RECEIVED PATIENT IN BED, EYES OPEN, ABLE TO NOD. BREATHING EVEN AND UNLABORED. NO SOB, NO COUGH, NO DISTRESS. NOTED TO BE ON OXYGEN VIA NASAL CANNULA AT 4L/MIN, TOLERATING WELL. HOB ELEVATED 35 DEGREES. SKIN WARM AND DRY. NOTED WITH REMI PERIPHERAL IV ACCESS 20G. PATENT, ABLE TO FLUSH WITH NO INFILTRATION. NOTED WITH RIGHT UPPER CHEST PERMACATH. NO BLEEDING NOTED. NOTED WITH G-TUBE, RUNNING NEPRO AT 40 CC/HR. MINIMAL RESIDUAL NOTED. NOTED WITH JAYLYN AV FISTULA, NO BLEEDING NOTED. NOTED WITH RIGHT WRIST SOFT RESTRAINTS. CAPILLARY REFILL WNL. BED LOW, IN LOCKED POSITION. CALL LIGHT WITHIN REACH.
[2021-10-12] MEDS: ATORVASTATIN 10 MG TABLET PO SCH (21:39)
[2021-10-13] MEDS: BLOOD SUGAR DIAGNOSTIC 1 EACH STRIP IN SCH ×4 (00:25→20:11)
[2021-10-13] MEDS: INSULIN REGULAR, HUMAN 100 UNIT/ML 3 ML VIAL SQ PRN ×4 (00:28→20:56)
[2021-10-13 04:00] VITALS: BP 134/68
[2021-10-13] MEDS: PIPERACILLIN /TAZOBACTAM 2.25 G in IV D5W 50 ML IV SCH ×3 (05:02→20:07)
[2021-10-13] MEDS: hydrALAZINE HCL 50 MG TABLET PO SCH ×3 (05:02→22:27)
[2021-10-13 07:16] LABS: BASOPHILS % (AUTO) 0.3 % (0.0-2.0); EOSINOPHILS % (AUTO) 0.5 % (0.0-6.0); HEMATOCRIT 27 % (39-51); HEMOGLOBIN 8.4 g/dL (13.5-17.5); LYMPHOCYTES # (AUTO) 0.9 K/uL (0.8-4.8); LYMPHOCYTES % (AUTO) 5.5 % (20.0-44.0); MEAN CORPUSCULAR HGB CONC 32 g/dl (31.0-36.0); MEAN CORPUSCULAR VOLUME 80 fL (80-96); MONOCYTES # (AUTO) 1.4 K/uL (0.1-1.30); MONOCYTES % (AUTO) 8.3 % (2.0-12.0); NEUTROPHILS # (AUTO) 14.1 K/uL (1.8-8.9); NEUTROPHILS % (AUTO) 85.4 % (43.0-81.0); PLATELET COUNT (AUTO) 273 K/uL (150-450); RED BLOOD CELL COUNT(AUTO) 3.32 MIL/uL (4.5-6.0); WHITE BLOOD COUNT (AUTO) 16.5 K/uL (4.3-11.0)
[2021-10-13 07:22] LABS: CALCIUM, SERUM 9.1 mg/dL (8.5-10.1); POTASSIUM 4.7 mmol/L (3.5-5.1)
[2021-10-13 07:23] LABS: CREATININE 7.7 mg/dL (0.6-1.3)
[2021-10-13 08:00] VITALS: BP 112/44
[2021-10-13] MEDS: PANTOPRAZOLE 40 MG TABLET.DR PO SCH (08:19)
[2021-10-13] MEDS: CALCIUM ACETATE 667 MG CAP/TAB PO SCH ×3 (08:19→20:09)
[2021-10-13] MEDS: ASPIRIN EC 81 MG TABLET.DR PO SCH (08:20)
[2021-10-13] MEDS: LEVETIRACETAM (250 MG) 250 MG TABLET PO SCH ×2 (08:20→20:09)
[2021-10-13] MEDS: QUETIAPINE FUMARATE 25 MG TABLET PO SCH ×4 (08:20→20:09)
[2021-10-13] MEDS: SEVELAMER CARBONATE 800 MG POWD.PACK PO SCH ×3 (08:20→20:09)
[2021-10-13] MEDS: AMLODIPINE BESYLATE 10 MG TABLET PO SCH (08:21)
[2021-10-13] MEDS: CARVEDILOL 12.5 MG TABLET PO SCH ×2 (08:21→16:41)
[2021-10-13] MEDS: FAMOTIDINE (20 MG) 20 MG TABLET PO SCH (08:23)
[2021-10-13] MEDS: HYDROGEL DRESSING 90 GM TUBE TP SCH (08:23)
[2021-10-13] MEDS: SILVER NITRATE APPLICATOR 1 EA BOX TP SCH (08:24)
[2021-10-13] MEDS: HEPARIN SODIUM, PORCINE 5000 UNITS/1 ML VIAL SQ SCH ×2 (08:41→20:13)
[2021-10-13] MEDS: PROSOURCE / PROSTAT (PYXIS) 30 ML UDC PO SCH (08:44)
[2021-10-13 16:00] VITALS: BP 142/77
[2021-10-13] MEDS: NEPRO 1,000 ML BOTTLE GT SCH (19:56)
[2021-10-13] MEDS: MIRTAZAPINE 15 MG TABLET PO SCH (20:10)
[2021-10-13] MEDS: ATORVASTATIN 10 MG TABLET PO SCH (22:27)
[2021-10-14] VITALS: BP 140/71
[2021-10-14] MEDS: BLOOD SUGAR DIAGNOSTIC 1 EACH STRIP IN SCH ×4 (02:08→18:20)
[2021-10-14] MEDS: INSULIN REGULAR, HUMAN 100 UNIT/ML 3 ML VIAL SQ PRN ×4 (02:11→18:31)
[2021-10-14] MEDS: PIPERACILLIN /TAZOBACTAM 2.25 G in IV D5W 50 ML IV SCH ×3 (05:30→22:35)
[2021-10-14] MEDS: hydrALAZINE HCL 50 MG TABLET PO SCH ×3 (05:39→22:36)
--- NOTE | 2021-10-14 07:30 | NUR ---
MS RN AM NOTE RECEIVED PATIENT IN BED, EYES OPEN, ABLE TO NOD. BREATHING EVEN AND UNLABORED. ON 4L O2 NASAL CANULA, NOT DISTRESS, RESPIRATION UNLABORED. HOB ELEVATED 35 DEGREES. SKIN WARM AND DRY. NOTED WITH REMI MIDLINE 20G, FLUSHES WELL SITE CLEAR. RCW HD CATH CDI, JAYLYN AV FISTULA, THIRLL PRESENT. NOTED WITH RIGHT WRIST SOFT RESTRAINTS.RELEASED AND CHECKED FOR CIRCULATION THEN EVERY 2 HOURS. GTF ONGOING NEPRO 40 ML/HR 0 RESIDUAL. HEAD OF BED ELEVATED. BED IS LOCKED, IN LOWEST POSITION AND SIDE RAILS UP. CALL LIGHT WITHIN REACH OF THE PATIENT. WILL CONTINUE TO MONITOR AND REASSESS FOR ANY CHANGES.
[2021-10-14 08:00] VITALS: BP 134/68
[2021-10-14 08:30] LABS: BASOPHILS % (AUTO) 0.2 % (0.0-2.0); EOSINOPHILS % (AUTO) 0.7 % (0.0-6.0); HEMATOCRIT 29 % (39-51); LYMPHOCYTES # (AUTO) 0.9 K/uL (0.8-4.8); MEAN CORPUSCULAR HGB CONC 31 g/dl (31.0-36.0); MEAN CORPUSCULAR VOLUME 81 fL (80-96); MONOCYTES # (AUTO) 2.1 K/uL (0.1-1.30); MONOCYTES % (AUTO) 15.5 % (2.0-12.0); NEUTROPHILS # (AUTO) 10.4 K/uL (1.8-8.9); NEUTROPHILS % (AUTO) 76.6 % (43.0-81.0); PLATELET COUNT (AUTO) 291 K/uL (150-450); RED BLOOD CELL COUNT(AUTO) 3.58 MIL/uL (4.5-6.0); WHITE BLOOD COUNT (AUTO) 13.6 K/uL (4.3-11.0)
[2021-10-14] MEDS: SEVELAMER CARBONATE 800 MG POWD.PACK PO SCH ×3 (08:36→18:28)
[2021-10-14] MEDS: CALCIUM ACETATE 667 MG CAP/TAB PO SCH ×3 (08:36→18:27)
[2021-10-14] MEDS: LEVETIRACETAM (250 MG) 250 MG TABLET PO SCH ×2 (08:36→22:36)
[2021-10-14] MEDS: CARVEDILOL 12.5 MG TABLET PO SCH ×2 (08:37→18:27)
[2021-10-14] MEDS: FAMOTIDINE (20 MG) 20 MG TABLET PO SCH (08:38)
[2021-10-14] MEDS: QUETIAPINE FUMARATE 25 MG TABLET PO SCH ×4 (08:38→22:37)
[2021-10-14] MEDS: AMLODIPINE BESYLATE 10 MG TABLET PO SCH (08:38)
[2021-10-14] MEDS: ASPIRIN EC 81 MG TABLET.DR PO SCH (08:38)
[2021-10-14] MEDS: HEPARIN SODIUM, PORCINE 5000 UNITS/1 ML VIAL SQ SCH (08:40)
[2021-10-14 08:46] LABS: CALCIUM, SERUM 9.2 mg/dL (8.5-10.1); CREATININE 5.8 mg/dL (0.6-1.3); POTASSIUM 4.9 mmol/L (3.5-5.1)
[2021-10-14] MEDS: PANTOPRAZOLE 40 MG TABLET.DR PO SCH (08:51)
[2021-10-14] MEDS: PROSOURCE / PROSTAT (PYXIS) 30 ML UDC PO SCH (09:15)
[2021-10-14] MEDS: SILVER NITRATE APPLICATOR 1 EA BOX TP SCH (09:16)
[2021-10-14] MEDS: HYDROGEL DRESSING 90 GM TUBE TP SCH (09:16)
--- NOTE | 2021-10-14 09:30 | NUR ---
RN NOTES DUE MEDS GIVEN
[2021-10-14 10:51] LABS: EOSINOPHILS % (MANUAL) 1 % (0-4); LYMPHOCYTES % (MANUAL) 9 % (16-48); MONOCYTES % (MANUAL) 15 % (0-11.0); NEUTROPHILS % (MANUAL) 75 (42-76)
[2021-10-14 16:00] VITALS: BP 146/69
[2021-10-14] MEDS: MIRTAZAPINE 15 MG TABLET PO SCH (18:28)
--- NOTE | 2021-10-14 18:54 | NUR ---
MS RN CLOSING NOTES PT REMAINS IN BED, NON-VERBAL, EYES OPEN. BREATHING EVEN AND UNLABORED TOLERATING OXYGEN VIA NASAL CANNULA AT 4L/MIN WITH HUMIDIFIER. NO SOB NOTED. WITH REMI ARM PERIPHERAL IV 20G, PATEN, ABLE TO FLUSH WELL WITH NO INFILTRATION. PT OBSERVED WITH RIGHT UPPER CHEST PERMACATH, NO BLEEDING NOTED. PT HAS A LEFT UPPER ARM AV-FISTULA, NO BLEEDING NOTED. BRUIT AND THRILL PRESENT. NO BP ON THE LEFT ARM SIGN IN PLACED. G-TUBE IN PLACE, RUNNING NEPRO AT 40 CC/HR. ZERO RESIDUAL. NO BLEEDING. ALL SAFETY MEASURES IN PLACE, BED IN LOWEST LOCKED POSITION, CALL LIGHT WITHIN REACH. WILL ENDORSE TO FITNESS TRAINER RN.
--- NOTE | 2021-10-14 19:40 | NUR ---
RN OPENING NOTES: RECEIVED PATIENT IN BED BUT EASILY AROUSABLE, ALERT AND RESPONSIVE TO PAINFUL STIMULI. ON 4L/MIN O2 INHALATION VIA N/C. NO SOB NOTED. BREATHING EVEN AND UNLABORED. HOB INCREASE TO 30 DEGREES TO PREVENT ASPIRATION. IV ACCESS ON REMI MIDLINE W/ 20G. LT UPPER ARM W/ AV FISTULA, BRUITS AND THRILL ARE PRESENT. SOFT RESTRAINT ONLY ON RT WRIST, RELEASED Q 2HOURS TO CHECK THE CIRCULATION. GTUBE FEEDING WELL TOLERATED W/ NEPHRO 40ML/HR AND PATIENT TOLERATED WELL. NO S/S OF HYPER/HYPOGLYCEMIA. SKIN WARM AND DRY TO TOUCH. BED IN LOW POSITION AND LOCKED. SIDE RAILS UP. PLACE CALL LIGHT WITH IN REACH. WILL CONTINUE TO MONITOR Addendum: 10/14/21 at 2047 by EDGARD LEDESMA RN WRONG ENTRY
--- NOTE | 2021-10-14 19:40 | NUR ---
RN OPENING NOTES: RECEIVED PATIENT IN BED BUT EASILY AROUSABLE, ALERT AND RESPONSIVE TO PAINFUL STIMULI. ON 4L/MIN O2 INHALATION VIA N/C. NO SOB NOTED. BREATHING EVEN AND UNLABORED. HOB INCREASE TO 30 DEGREES TO PREVENT ASPIRATION. IV ACCESS ON ERMI MIDLINE W/ 20G. RT CHEST WALL DIALYSIS CATHETER INTACT AND PATENT. NO BLEEDING NOTED. SOFT RESTRAINT ONLY ON RT WRIST, RELEASED Q 2HOURS TO CHECK THE CIRCULATION. GTUBE FEEDING WELL TOLERATED W/ NEPHRO 40ML/HR AND PATIENT TOLERATED WELL. NO S/S OF HYPER/HYPOGLYCEMIA. SKIN WARM AND DRY TO TOUCH. BED IN LOW POSITION AND LOCKED. SIDE RAILS UP. PLACE CALL LIGHT WITH IN REACH. WILL CONTINUE TO MONITOR
[2021-10-14 20:00] VITALS: BP 149/72
[2021-10-14] MEDS: ATORVASTATIN 10 MG TABLET PO SCH (22:37)
[2021-10-15] MEDS: NEPRO 1,000 ML BOTTLE GT SCH (00:07)
[2021-10-15] MEDS: BLOOD SUGAR DIAGNOSTIC 1 EACH STRIP IN SCH ×2 (00:20→06:06)
[2021-10-15] MEDS: INSULIN REGULAR, HUMAN 100 UNIT/ML 3 ML VIAL SQ PRN ×2 (00:24→06:15)
--- NOTE | 2021-10-15 00:30 | NUR ---
RN NOTES: PATIENT'S BLOOD SUGAR 373. 10 UNITS OF REGULAR INSULIN GIVEN PER SLIDING SCALE. NO S/S OF HYPER/HYPOGLYCEMIA
[2021-10-15 04:00] VITALS: BP 138/99
[2021-10-15] MEDS: PIPERACILLIN /TAZOBACTAM 2.25 G in IV D5W 50 ML IV SCH (05:24)
[2021-10-15] MEDS: hydrALAZINE HCL 50 MG TABLET PO SCH (06:02)
--- NOTE | 2021-10-15 06:27 | NUR ---
RN CLOSING NOTES: PATIENT ASLEEP IN BED BUT ALERT AND RESPONSIVE TO PAINFUL STIMULI. NO SOB NOTED. BREATHING EVEN AND UNLABORED. HOB INCREASE TO 30 DEGREES TO PREVENT ASPIRATION. IV ACCESS ON REMI MIDLINE W/ 20G. RT CHEST WALL DIALYSIS CATHETER INTACT AND PATENT. NO BLEEDING NOTED. SOFT RESTRAINT ONLY ON RT WRIST, GTUBE FEEDING WELL TOLERATED W/ NEPHRO 40ML/HR. DUE MEDS GIVEN ORDER. BLOOD SUGAR 327, 8 UNITS GIVEN. NO S/S OF HYPER/HYPOGLYCEMIA. SKIN WARM AND DRY TO TOUCH. BED IN LOW POSITION AND LOCKED. SIDE RAILS UP. PLACE CALL LIGHT WITH IN REACH. WILL ENDORSE TO MORNING SHIFT NURSE.
[2021-10-15 07:38] LABS: BASOPHILS % (AUTO) 0.3 % (0.0-2.0); EOSINOPHILS % (AUTO) 2.4 % (0.0-6.0); HEMATOCRIT 27 % (39-51); HEMOGLOBIN 8.4 g/dL (13.5-17.5); LYMPHOCYTES # (AUTO) 0.9 K/uL (0.8-4.8); LYMPHOCYTES % (AUTO) 7.1 % (20.0-44.0); MEAN CORPUSCULAR HGB CONC 31 g/dl (31.0-36.0); MEAN CORPUSCULAR VOLUME 81 fL (80-96); MONOCYTES # (AUTO) 1.6 K/uL (0.1-1.30); MONOCYTES % (AUTO) 13.2 % (2.0-12.0); NEUTROPHILS # (AUTO) 9.3 K/uL (1.8-8.9); PLATELET COUNT (AUTO) 298 K/uL (150-450); RED BLOOD CELL COUNT(AUTO) 3.35 MIL/uL (4.5-6.0); WHITE BLOOD COUNT (AUTO) 12.1 K/uL (4.3-11.0)
[2021-10-15 08:09] LABS: CALCIUM, SERUM 8.8 mg/dL (8.5-10.1); CREATININE 6.6 mg/dL (0.6-1.3)
[2021-10-15] MEDS ORDERED: Aspirin Ec PO (09:00)
[2021-10-15] MEDS ORDERED: CALC667C6 PO (09:00)
[2021-10-15] MEDS ORDERED: SEVE0.8P PO (09:00)
[2021-10-15] MEDS ORDERED: Nepro GT (09:00)
[2021-10-15] MEDS: CARVEDILOL 12.5 MG TABLET PO SCH (09:50)
[2021-10-15] MEDS: LEVETIRACETAM (250 MG) 250 MG TABLET PO SCH (09:51)
[2021-10-15] MEDS: ASPIRIN EC 81 MG TABLET.DR PO SCH (09:51)
[2021-10-15] MEDS: FAMOTIDINE (20 MG) 20 MG TABLET PO SCH (09:51)
[2021-10-15] MEDS: QUETIAPINE FUMARATE 25 MG TABLET PO SCH (09:51)
[2021-10-15] MEDS: AMLODIPINE BESYLATE 10 MG TABLET PO SCH (09:52)
[2021-10-15 10:00] VITALS: BP 170/79
[2021-10-15] MEDS: PANTOPRAZOLE 40 MG TABLET.DR PO SCH (10:00)
[2021-10-15] MEDS: CALCIUM ACETATE 667 MG CAP/TAB PO SCH (10:00)
[2021-10-15] MEDS: PROSOURCE / PROSTAT (PYXIS) 30 ML UDC PO SCH (10:02)
[2021-10-15] MEDS: SEVELAMER CARBONATE 800 MG POWD.PACK PO SCH (12:09)
--- NOTE | 2021-10-15 17:12 | NUR ---
[facility] , ALL VS WERE STABLE DURING TRANSFER AND D/C OF IV'S THE HR AND B/P RAISED TO 170/82 AND A PULSE OF 84 , G-TUBE INTACT, WOUND AREAS CLEANSED AND TREATED, PATIENT DRY AND CLEAN, SAFE TRANSFER FROM [facility] TO [facility] TO AMBULANCE FOR TRANSFER, 2 CRUSHING FOREMAN LIFT AND TRANSFERRED OUT, SAFE TRANSFER INTO AMBULANCE, FACILITY AWARE OF PATIENT TO TRANSFER, ALL DOCUMENTATION, MED ORDERS, AND INFORMATION SENT IN FILE WITH TWO CRUSHING FOREMAN TO BE GIVEN TO SUPERVISING CHARGE NURSE AT FACILITY. NO SIGNIFICANT CHANGES DURING AM SHIFT, NO SOB , AND NO DISTRESS NOTED.
== END 2021-10-15 14:28 | DRG 871 ==
LOC: ER 00:15 → TELE1 04:49 → MEDSG1 10-05 07:26
PROVIDERS: ADMIT Nurse Practitioner Acute Care; ATTEND Family Medicine
PROC: 5A1D70Z Performance of Urinary Filtration, Intermittent, Less than 6 Hours Per Day (ICD-10-PCS; 2021-10-04)
PROC: 0DH63UZ Insertion of Feeding Device into Stomach, Percutaneous Approach (ICD-10-PCS; principal; 2021-10-10)
PROC: 05H533Z Insertion of Infusion Device into Right Subclavian Vein, Percutaneous Approach (ICD-10-PCS; 2021-10-13)
PROC: B546ZZA Ultrasonography of Right Subclavian Vein, Guidance (ICD-10-PCS; 2021-10-13)
DX: A41.9 Sepsis, unspecified organism (principal); N18.6 End stage renal disease; I63.9 Cerebral infarction, unspecified; G93.41 Metabolic encephalopathy; I21.A1 Myocardial infarction type 2; J69.0 Pneumonitis due to inhalation of food and vomit; E87.2 Acidosis; N39.0 Urinary tract infection, site not specified; E44.0 Moderate protein-calorie malnutrition; I69.351 Hemiplegia and hemiparesis following cerebral infarction affecting right dominant side; I12.0 Hypertensive chronic kidney disease with stage 5 chronic kidney disease or end stage renal disease; M86.9 Osteomyelitis, unspecified; E11.22 Type 2 diabetes mellitus with diabetic chronic kidney disease; G40.909 Epilepsy, unspecified, not intractable, without status epilepticus; Z79.4 Long term (current) use of insulin; Z99.2 Dependence on renal dialysis; E78.5 Hyperlipidemia, unspecified; E83.39 Other disorders of phosphorus metabolism; F20.9 Schizophrenia, unspecified; E87.5 Hyperkalemia; R13.10 Dysphagia, unspecified; Z86.16 Personal history of COVID-19; Z87.01 Personal history of pneumonia (recurrent); K21.9 Gastro-esophageal reflux disease without esophagitis; L89.626 Pressure-induced deep tissue damage of left heel; L89.616 Pressure-induced deep tissue damage of right heel; L89.896 Pressure-induced deep tissue damage of other site; Z20.822 Contact with and (suspected) exposure to COVID-19; Z79.82 Long term (current) use of aspirin; Z68.23 Body mass index [BMI] 23.0-23.9, adult; E88.09 Other disorders of plasma-protein metabolism, not elsewhere classified; M62.50 Muscle wasting and atrophy, not elsewhere classified, unspecified site; L89.156 Pressure-induced deep tissue damage of sacral region; E11.69 Type 2 diabetes mellitus with other specified complication; G47.00 Insomnia, unspecified; K29.70 Gastritis, unspecified, without bleeding
CPT/HCPCS: 36415; 43246; 70450-TC; 70496-TC; 70498-TC; 70551-TC; 71045-TC; 71250-TC; 80048-TC; 80076-TC; 81001; 82140-TC; 82272-TC; 82962-TC; 83605-TC; 83735-TC; 84100-TC; 84484-TC; 85025-TC; 85730-TC; 86706; 86850-TC; 87040-TC; 87081-TC; 87086-TC; 87340; 90935-TC; 92526; 92611-TC; 93307-TC; 95819-TC; A4216; A4217; A6248; A6253; C9113; C9803; G0378; G0480; J0690; J0696; J1644; J1815; J2405; J2543; J2704; J3490; J7030; J7050; J7060; P9047; Q9967; U0003

== ENCOUNTER 2021-10-18 10:45 | Inpatient (IN) | payer MEDICARE, OTHER ==
[2021-10-18] VITALS (32 sets, daily range): BP systolic 47–172; BP diastolic 22–72
[~2021-10-18] VITALS: Ht 167.6 cm; Wt 68.0 kg
[~2021-10-18 10:45] MED LIST changes: +AMIN30LI2 PO; +AMLO-213 PO; -ASPI-1169 PO; +ATOR10TA PO; +Aspirin Ec PO; +CALC667C6 PO; +DOCU-141 PO; +FAMO20TA8 PO; +FOLI0.8T23 PO; +HYDR100T27 PO; +INSU100V7 SQ; -LACT1CAP7 PO; +LORA-258 PO; -LOVA40TA2 PO; -MAGN400O6 PO; +MIRT-90 PO; +NUT.237L67 PO; +Nepro GT; +ONDA4TAB5 PO; -SENN-261 PO; +SEVE0.8P PO; +TEMA15CA PO; +ZINC50TA69 PO
--- NOTE | 2021-10-18 10:56 | NUR ---
PT HELEN TOWNSEND HERE [facility] FOR MISSED DIALYSIS FRIDAY AND TODAY. AWAKE AND ALERT, NOT ORIENTED TO PERSON, PLACE, TIME SITUATION. ON 3L NC. ASSISTED TO ER BED 4. BLANKETS GIVEN. COMFORT MEASURES IN PLACE. CONNECTED TO MONITOR. VS STABLE.
--- NOTE | 2021-10-18 11:07 | NUR ---
LAB AT BEDSIDE
[2021-10-18 11:14] LABS: BASOPHILS # (AUTO) 0.1 K/uL (0.0-0.2); BASOPHILS % (AUTO) 1.1 % (0.0-2.0); EOSINOPHILS % (AUTO) 2.6 % (0.0-6.0); HEMATOCRIT 29 % (39-51); LYMPHOCYTES # (AUTO) 1.2 K/uL (0.8-4.8); LYMPHOCYTES % (AUTO) 11.4 % (20.0-44.0); MEAN CORPUSCULAR HGB CONC 32 g/dl (31.0-36.0); MEAN CORPUSCULAR VOLUME 79 fL (80-96); MONOCYTES # (AUTO) 1.1 K/uL (0.1-1.30); MONOCYTES % (AUTO) 10.2 % (2.0-12.0); NEUTROPHILS # (AUTO) 7.8 K/uL (1.8-8.9); NEUTROPHILS % (AUTO) 74.7 % (43.0-81.0); PLATELET COUNT (AUTO) 343 K/uL (150-450); RED BLOOD CELL COUNT(AUTO) 3.63 MIL/uL (4.5-6.0); WHITE BLOOD COUNT (AUTO) 10.5 K/uL (4.3-11.0)
[2021-10-18 11:21] LABS: CALCIUM, SERUM 9.2 mg/dL (8.5-10.1); POTASSIUM 5.7 mmol/L (3.5-5.1)
[2021-10-18 11:33] LABS: CREATININE 10.2 mg/dL (0.6-1.3)
--- NOTE | 2021-10-18 11:42 | NUR ---
WEBBING SEAMER POUND NET AT PT'S BEDSIDE
--- NOTE | 2021-10-18 12:16 | NUR ---
CALLED NURSING SUP REGARDING PT BED
--- NOTE | 2021-10-18 12:42 | NUR ---
ROOM 111-1
[2021-10-18] MEDS ORDERED: ONDANSETRON HCL/PF 4 MG/2 ML VIAL IVP PRN (13:00)
[2021-10-18] MEDS ORDERED: ACETAMINOPHEN 325 MG TABLET PO PRN (13:00)
[2021-10-18] MEDS ORDERED: TEMAZEPAM 15 MG CAPSULE PO PRN (13:00)
[2021-10-18] MEDS ORDERED: LORAZEPAM 0.5 MG TABLET PO PRN (13:00)
[2021-10-18] MEDS ORDERED: HYDROCODONE/APAP 5/325MG TABLET PO PRN (13:00)
[2021-10-18] MEDS ORDERED: CLONIDINE HCL 0.1 MG TABLET PO PRN (13:00)
[2021-10-18] MEDS ORDERED: Z GUARD REMEDY 2 OZ OINT TP PRN (13:00)
[2021-10-18] MEDS ORDERED: NEPRO 1,000 ML BOTTLE GT PRN (13:00)
--- NOTE | 2021-10-18 13:03 | NUR ---
Britt sharif in [facility] - 10/18/21 at 1305 by GAYLE COVID ANTIGEN SWAB COLLECTED AND SENT TO LAB
--- NOTE | 2021-10-18 13:05 | NUR ---
COVID PCR SWAB COLLECTED AND SENT TO LAB
--- NOTE | 2021-10-18 14:04 | NUR ---
UNABLE TO GIVE REPORT. NURSE UNAVAILABLE. WILL CALL AGAIN
--- NOTE | 2021-10-18 14:29 | NUR ---
REPORT GIVEN TO STAR. PT AWAITING TRANSFER TO FLOOR.
--- NOTE | 2021-10-18 14:40 | NUR ---
[facility]-T VIA ACLS PROTOCOL. VSS
--- NOTE | 2021-10-18 14:44 | NUR ---
RN NOTE PT RECEIVED PT RECEIVED FROM ED. VS: T 96.8 AXILLARY, BP 109/55 R ARM, HR 81, O2 95% 2L O2 VIA NC. PT SCHEDULED FOR HD TODAY DUE TO MISSING HD ON AND FRI. PT IS A/OX1, NON VERBAL. PT PT HAS R UA MIDLINE ACCESS PATENT AND FLUSHING WELL, R CHEST PERM CATH. PT DID NOT RECEIVE MEDS IN ER. PT IS STABLE AT THIS MOMENT. WILL CONTINUE TO MONITOR THIS SHIFT.
[2021-10-18] MEDS: QUETIAPINE FUMARATE 25 MG TABLET PO SCH ×3 (15:48→20:33)
[2021-10-18] MEDS: SEVELAMER CARBONATE 800 MG POWD.PACK PO SCH ×2 (15:48→18:00)
[2021-10-18] MEDS: CALCIUM ACETATE 667 MG CAP/TAB PO SCH ×2 (15:49→18:00)
[2021-10-18] MEDS: LEVETIRACETAM (250 MG) 250 MG TABLET PO SCH ×2 (15:49→21:13)
[2021-10-18] MEDS: CARVEDILOL 6.25 MG TABLET PO SCH ×2 (15:50→17:00)
[2021-10-18] MEDS: hydrALAZINE HCL 25 MG TABLET PO SCH ×2 (15:51→20:32)
--- NOTE | 2021-10-18 17:44 | NUR ---
RN NOTES HEMODIALYSIS BARELY STARTED AND PER HD NURSE, NOTICED THAT PATIENT IS BLEEDING FROM THE MOUTH AND A BIT ON THE NOSE. CODE BLUE ACTIVATED.
[2021-10-18] MEDS: MIRTAZAPINE 15 MG TABLET PO SCH (18:00)
--- NOTE | 2021-10-18 18:00 | NUR ---
RN NOTES PATIENT TRANSFERRED TO ICU RM 259. CODE ENDED
--- NOTE | 2021-10-18 18:05 | NUR ---
TRANSFERRED FROM ROOM 111-S/P CR ARREST/ CODE BLUE TO ICU RM. 259 ON ACLS PROTOCOL. ETT INPLACED -CONNECTED TO VENT BY RT. REMAINS SR 80'S ON MONITOR POST ROSC. SBP 60'S. NOTED LARGE AMOUNT OF COFFEE GROUND EMESIS UPON TRANSFER ON BED SHEET. STAT LABS ORDERED PER MD. LEVOPHED DRIP PER PROTOCOL INITIATED PER MD ORDERS.
--- NOTE | 2021-10-18 18:20 | NUR ---
RN NOTES PATIENT TRANSFERRED FROM [facility] AFTER CODE BLUE OF CARDIAC/ PULMONARY ARREST. PATIENT GET INTUBATED AT [facility] ETT SETTING 7.5, AC-16, FIO2-100%, PEEP-5. PATIENT WAS VOMITED BLOOD, DURING CODE. SUCTION, NEEDS ATTENDED AND ANTICIPATED. KEEP HOB ELEVATED FOR ASPIRATION PRECAUTION, BP WAS 50/30, P-70 GET STAT BLOUSE OF [id number], AND LEVOPHED O.1 MCG/KG/HR. IV ACCESS ON RIGHT UA MIDLINE INTACT. APPLIED SOFT RESTRAIN BILATERAL WRIST, GT INTACT AND CLAMPED. PATIENT HAS SACRAL WOUND, VERY DRY SKIN, WOUND CONSULT TRIGGERED. PATIENT FULL CODE. HD CATH ON RIGHT UPPER CHEST INTACT. ADMISSION PAPERWORK WILL FINISH VIA [facility] NURSE STAR, PICTURE TAKE WELL. STAT PICC LINE ORDERED. ENDORSED ONCOMING NURSE FOLLOW JOI OF CARE.
--- NOTE | 2021-10-18 18:20 | NUR ---
1800 [facility] MED HELD DUE TO PATIENT BEING TRANSFERRED TO UNIT AND INTUBATED
[2021-10-18] MEDS ORDERED: CALCIUM CHLORIDE 1,000 MG/10 ML DISP.SYRIN IV ONE (18:24)
[2021-10-18] MEDS ORDERED: EPINEPHRINE (1:10,000) SYRINGE 1 MG/10 ML DISP.SYRIN IVP ONE (18:24)
[2021-10-18] MEDS ORDERED: SODIUM BICARBONATE SYR 50 MEQ/50 ML DISP.SYRIN IV ONE (18:24)
[2021-10-18 18:25] LABS: ABG BASE EXCESS -11.8 mmol/L; ABG OXYGEN SATURATION 97.8 % (92.0-98.5); ABG PCO2 51.6 mmHg (35.0-45.0); ABG PH 7.123 (7.350-7.450); ABG PO2 145.4 mmHg (75.0-100.0); COHb 0.4 % (0.5-1.5); MetHb 0.1 % (0.0-1.5); O2Hb 97.3 % (94.0-97.0); PEEP,BG 5 cm H2O; SITE, ABG Left Femoral; VT, ABG 500 mL
--- NOTE | 2021-10-18 18:30 | NUR ---
RT NOTE: LATE ENTRY- PATIENT ORALLY INTUBATED BY WITH 7.5 ETT AND SECURED AT 25CM MID LIP LINE WITH POSITIVE COLOR CHANGE ON CAPNOMETER. BILATERAL CHEST RISE AND B/S NOTED. PATIENT MANUALLY VENTILATED DURING CODE BLUE. PATIENT WAS TRANSPORTED TO ICU ONCE STABLE PER PROTOCOL. PATIENT WAS PLACED ON MECHANICAL VENT PER MD ORDERS. ALARMS VERIFIED AND AUDIBLE. SUCTIONED LARGE AMOUNT OF BROWN THIN SECRETION. AMBU BAG AT [facility]. EKG AND ABG RESULTS REPORTED TO CHARGE NURSE (SYLVIA). ENDORSED TO INCOMING NOC RT.
[2021-10-18] MEDS: NOREPINEPHRINE 32 MG in IV NS 0.9% 218 ML IV PRN ×2 (18:40→18:42)
[2021-10-18] MEDS ORDERED: IV NS 0.9% 1,000 ML IV ONE (19:00)
[2021-10-18 19:19] LABS: BILIRUBIN,TOTAL 0.2 mg/dL (0.2-1.0); CALCIUM, SERUM 9.3 mg/dL (8.5-10.1); TOTAL PROTEIN, SERUM 5.2 g/dL (6.4-8.2)
[2021-10-18 19:20] LABS: ALBUMIN 1.4 g/dL (3.4-5.0); CREATININE 9.6 mg/dL (0.6-1.3)
[2021-10-18 19:22] LABS: BASOPHILS # (AUTO) 0.1 K/uL (0.0-0.2); BASOPHILS % (AUTO) 0.5 % (0.0-2.0); LYMPHOCYTES # (AUTO) 4.3 K/uL (0.8-4.8); LYMPHOCYTES % (AUTO) 29.1 % (20.0-44.0); MEAN CORPUSCULAR HGB CONC 30 g/dl (31.0-36.0); MEAN CORPUSCULAR VOLUME 83 fL (80-96); MONOCYTES # (AUTO) 0.9 K/uL (0.1-1.30); NEUTROPHILS # (AUTO) 9.4 K/uL (1.8-8.9); NEUTROPHILS % (AUTO) 63.4 % (43.0-81.0); PLATELET COUNT (AUTO) 362 K/uL (150-450); RED BLOOD CELL COUNT(AUTO) 2.33 MIL/uL (4.5-6.0); WHITE BLOOD COUNT (AUTO) 14.9 K/uL (4.3-11.0)
[2021-10-18 19:23] LABS: POTASSIUM 6.8 mmol/L (3.5-5.1)
[2021-10-18] MEDS ORDERED: PROPOFOL 100 ML IV PRN (19:30)
--- NOTE | 2021-10-18 19:30 | NUR ---
SPOKE TO DR. NELSON BRYANT UPDATED WITH PATIENT CONDITION. K-6.8. CREATININE 9.6. PER MD-REPEAT BMP AT 1999, RELAY RESULTS TO DR. KATHLEEN ESCALANTE. NOC RN AWARE.
[2021-10-18 19:47] LABS: HEMOGLOBIN 5.8 g/dL (13.5-17.5)
[2021-10-18 19:48] LABS: HEMATOCRIT 19 % (39-51)
--- NOTE | 2021-10-18 19:59 | NUR ---
ICU/RN: MP MÁRQUEZ ACNP NOTIFIED OF PT HGB 5.8 AND HCT 19 NEW ORDERS RECEIVED AND CARRIED OUT. WILL CONTINUE TO MONITOR.
--- NOTE | 2021-10-18 20:05 | NUR ---
MED NOTE: 1700 SEROQUEL NON-ADMINISTERED NEXT DOSE IS 2100.
[2021-10-18 20:38] LABS: CALCIUM, SERUM 9.2 mg/dL (8.5-10.1)
[2021-10-18 20:59] LABS: CREATININE 9.7 mg/dL (0.6-1.3)
[2021-10-18 21:01] LABS: ABG BASE EXCESS -6.1 mmol/L; ABG OXYGEN SATURATION 98.5 % (92.0-98.5); ABG PCO2 32.3 mmHg (35.0-45.0); ABG PH 7.376 (7.350-7.450); ABG PO2 145.4 mmHg (75.0-100.0); AaDO2 535.3 mmHg; COHb 0.3 % (0.5-1.5); MetHb 0.3 % (0.0-1.5); O2Hb 97.9 % (94.0-97.0); PEEP,BG 5 cm H2O; SITE, ABG Left Radial; VENT MODE, BG AC 16 500 100% +5; VT, ABG 500 mL
[2021-10-18 21:02] LABS: POTASSIUM 6.7 mmol/L (3.5-5.1)
--- NOTE | 2021-10-18 21:07 | NUR ---
ABG DONE. RN NOTIFIED. FIO2 TITRATED TO 60%
[2021-10-18] MEDS: DOCUSATE SODIUM 100 MG CAPSULE PO SCH (21:10)
[2021-10-18] MEDS: ATORVASTATIN 10 MG TABLET PO SCH (21:13)
[2021-10-18] MEDS: PANTOPRAZOLE 40 MG VIAL IV SCH (21:13)
--- NOTE | 2021-10-18 21:20 | NUR ---
ICU/RN: DR. MORENO AT BEDSIDE TO EFE PT. NEW ORDERS RECEIVED AND CARRIED OUT.
[2021-10-18] MEDS ORDERED: Calcium Gluconate 0.465 MEQ/ML VIAL IV STA (21:28)
[2021-10-18] MEDS ORDERED: SODIUM BICARBONATE SYR 50 MEQ/50 ML DISP.SYRIN IV STA (21:28)
[2021-10-18] MEDS ORDERED: INSULIN REGULAR, HUMAN 100 UNIT/ML 3 ML VIAL IV STA (21:28)
[2021-10-18] MEDS ORDERED: IV D5/ 0.9% NACL 1,000 ML IV PRN (21:30)
[2021-10-18] MEDS ORDERED: SODIUM POLYSTYRENE SULFONATE 15 G/60 ML BOTTLE GT ONE (21:30)
[2021-10-18] MEDS: INSULIN GLARGINE, 100 UNIT/ML CARTRIDGE SQ SCH (21:37)
[2021-10-18 21:43] LABS: BASOPHILS # (AUTO) 0.1 K/uL (0.0-0.2); BASOPHILS % (AUTO) 0.6 % (0.0-2.0); EOSINOPHILS % (AUTO) 0.2 % (0.0-6.0); HEMATOCRIT 24 % (39-51); HEMOGLOBIN 7.3 g/dL (13.5-17.5); LYMPHOCYTES # (AUTO) 0.8 K/uL (0.8-4.8); LYMPHOCYTES % (AUTO) 6.1 % (20.0-44.0); MEAN CORPUSCULAR HGB CONC 30 g/dl (31.0-36.0); MEAN CORPUSCULAR VOLUME 84 fL (80-96); MONOCYTES # (AUTO) 0.5 K/uL (0.1-1.30); MONOCYTES % (AUTO) 3.9 % (2.0-12.0); NEUTROPHILS # (AUTO) 11.4 K/uL (1.8-8.9); NEUTROPHILS % (AUTO) 89.2 % (43.0-81.0); PLATELET COUNT (AUTO) 423 K/uL (150-450); RED BLOOD CELL COUNT(AUTO) 2.86 MIL/uL (4.5-6.0); WHITE BLOOD COUNT (AUTO) 12.8 K/uL (4.3-11.0)
[2021-10-18 21:45] LABS: BAND % (MANUAL) 5 % (0.0-5.0); EOSINOPHILS % (MANUAL) 1 % (0-4); LYMPHOCYTES % (MANUAL) 29 % (16-48); MONOCYTES % (MANUAL) 7 % (0-11.0); NEUTROPHILS % (MANUAL) 58 (42-76)
[2021-10-18] MEDS ORDERED: SODIUM POLYSTYRENE SULFONATE 15 G/60 ML BOTTLE ONE (22:01)
--- NOTE | 2021-10-18 22:05 | NUR ---
ICU/RN: EPISODE OF EMESIS. ABOUT 100ML COFFEE GROUND. ZOFRAN ADMINISTERED ORDERED.
[2021-10-18] MEDS ORDERED: OCTREOTIDE 500 MCG in IV NS 0.9% 99 ML IV PRN ×2 (22:30→23:30)
[2021-10-18] MEDS ORDERED: OCTREOTIDE 50 MCG in IV NS 0.9% 50 ML IJ ONE (22:30)
[2021-10-18] MEDS ORDERED: DESMOPRESSIN 20 MCG in IV NS 0.9% 50 ML IV ONE (23:00)
[2021-10-18 23:19] LABS: CALCIUM, SERUM 9.1 mg/dL (8.5-10.1); CARBON DIOXIDE 23 mmol/L (21-32); CHLORIDE 89 mmol/L (98-107); GLUCOSE 311 mg/dL (74-106); POTASSIUM 5.6 mmol/L (3.5-5.1); SODIUM SERUM 126 mmol/L (136-145)
--- NOTE | 2021-10-18 23:27 | NUR ---
ICU/RN: PT NOTED ASYSTOLE. CODE BLUE INITIATED. REFER TO CODE BLUE SHEET.
[2021-10-18] MEDS ORDERED: OCTREOTIDE 1,250 MCG in IV NS 0.9% 247.5 ML IV PRN (23:30)
--- NOTE | 2021-10-18 23:37 | NUR ---
ICU/RN: PT NOTED ASYSTOLE. CODE BLUE INITIATED. REFER TO CODE BLUE SHEET.
[2021-10-18] MEDS ORDERED: EPINEPHRINE (1:1000) 1 MG/ML AMPUL ONE (23:47)
[2021-10-18 23:49] LABS: CREATININE 9.6 mg/dL (0.6-1.3); UREA NITROGEN, BLOOD > 150 mg/dL (7-18)
[2021-10-18] MEDS ORDERED: OCTREOTIDE 500 MCG/ML VIAL ONE (23:59)
[2021-10-19] VITALS (67 sets, daily range): BP systolic 0–262; BP diastolic 25–139
[2021-10-19] MEDS ORDERED: EPINEPHRINE (1:1000) 5 MG in IV NS 0.9% 245 ML IV PRN
--- NOTE | 2021-10-19 | NUR ---
ICU/RN: PER BLOOD BANK FFP NOT AVAILABLE AT THIS TIME AWAITING RED CROSS.
[2021-10-19] MEDS ORDERED: OCTREOTIDE 100 MCG/ML VIAL ONE ×2 (00:01→00:10)
[2021-10-19] MEDS ORDERED: DESMOPRESSIN 4 MCG/ML AMPUL ONE (00:13)
[2021-10-19] MEDS: OCTREOTIDE 1,250 MCG in IV NS 0.9% 247.5 ML IV PRN ×2 (00:37→13:18)
[2021-10-19] MEDS ORDERED: PIPERACILLIN /TAZOBACTAM 2.25 G VIAL IV ONE ×2 (00:46→05:21)
[2021-10-19] MEDS: PIPERACILLIN /TAZOBACTAM 2.25 G in IV D5W 50 ML IV SCH ×5 (00:47→23:36)
--- NOTE | 2021-10-19 00:54 | NUR ---
MED NOTE: ALL MEDS ADMINISTERED UNDER VERIFIED ORDERS.
[2021-10-19 04:28] LABS: BASOPHILS % (AUTO) 0.1 % (0.0-2.0); HEMATOCRIT 26 % (39-51); HEMOGLOBIN 8.3 g/dL (13.5-17.5); LYMPHOCYTES # (AUTO) 0.7 K/uL (0.8-4.8); LYMPHOCYTES % (AUTO) 4.1 % (20.0-44.0); MEAN CORPUSCULAR HGB CONC 32 g/dl (31.0-36.0); MEAN CORPUSCULAR VOLUME 85 fL (80-96); MONOCYTES # (AUTO) 0.3 K/uL (0.1-1.30); MONOCYTES % (AUTO) 1.9 % (2.0-12.0); NEUTROPHILS # (AUTO) 16.5 K/uL (1.8-8.9); NEUTROPHILS % (AUTO) 93.9 % (43.0-81.0); PLATELET COUNT (AUTO) 247 K/uL (150-450); RED BLOOD CELL COUNT(AUTO) 3.02 MIL/uL (4.5-6.0); WHITE BLOOD COUNT (AUTO) 17.5 K/uL (4.3-11.0)
[2021-10-19 04:46] LABS: CALCIUM, SERUM 9.8 mg/dL (8.5-10.1); MAGNESIUM 3.4 mg/dL (1.8-2.4); PHOSPHORUS 5.2 mg/dL (2.5-4.9)
[2021-10-19] MEDS: hydrALAZINE HCL 25 MG TABLET PO SCH ×3 (05:00→20:33)
[2021-10-19 05:18] LABS: CREATININE 9.1 mg/dL (0.6-1.3); POTASSIUM 6.2 mmol/L (3.5-5.1)
[2021-10-19] MEDS ORDERED: PANTOPRAZOLE 40 MG TABLET.DR PO SCH (07:30)
--- NOTE | 2021-10-19 07:40 | NUR ---
RT PATIENT RECEIVED ORALLY INTUBATED WITH 7.5 ETT SECURED @ 25 CM LIP LINE. PATIENT ON [facility] VENT WITH SETTINGS PER MD ORDER. VENT SETTINGS: AC 16, VT 500, FiO2 60%, PEEP +5. DIGITAL CONTENT COORDINATOR DONE. VENT PLUGGED INTO RED OUTLET. ETT SECURED BY ANCHOR FAST. BVM AT HEAD OF BED. NO SIGNS OF DISTRESS NOTED AT THIS TIME. WILL CONTINUE TO MONITOR THE PATIENT. Addendum: 10/19/21 at 1020 by TIANA DE LA CRUZ RT Amended: Links added.
--- NOTE | 2021-10-19 07:40 | NUR ---
ICU/RN PT IS INTUBATED ON THE VENT AC MODE,FIO2-60%,SAT O2-100%.COMATOSE. S/P CODE BLUE LAST NIGHT .V/S STABLE ,AFEBRILE.NO PAIN REPORTED AT THIS TIME.ON SANDOSTATIN DRIP .HAS G-TUBE DRAINING WITH COFFEE GROUND GASTRIC SECRETION.RIGHT UPPER ARM PICC LINE RIGHT CHEST HD CATH.BILATERAL LOWER LEGS WOUNDS, SACRAL WOUND COVERED WITH DRESSING.SUCTION PROVIDED.AM CARE PROVIDED.PT HAS BIG HOLT STOOL,ANURIC..LABS REVIEW. NOTIFIED.WAITING FOR HD.
[2021-10-19] MEDS: CALCIUM ACETATE 667 MG CAP/TAB PO SCH ×3 (08:00→17:43)
[2021-10-19] MEDS: SEVELAMER CARBONATE 800 MG POWD.PACK PO SCH ×3 (08:00→17:44)
--- NOTE | 2021-10-19 08:05 | NUR ---
WOUND CARE CONSULT: REVIEWED CHART, NURSING DOCUMENTATION AND PHOTOS WHICH INDICATE MULTIPLE WOUNDS PRESENT ON ADMISSION. DR PLATA AND DR FRANCOIS NOTIFIED OF SURGICAL AND DPM CONSULT REQUESTS. RECOMMENDATIONS MADE FOR SKIN PROTECTION INCLUDING FIRST STEP LOW AIRLOSS MATTRESS. DISCUSSED WITH NURSING STAFF. MD IN AGREEMENT WITH PLAN OF CARE.
[2021-10-19] MEDS: PANTOPRAZOLE 40 MG VIAL IV SCH ×2 (08:27→21:02)
[2021-10-19] MEDS: AMLODIPINE BESYLATE 10 MG TABLET PO SCH (08:28)
[2021-10-19] MEDS: NEPRO VAN 237 ML CAN PO SCH (08:28)
[2021-10-19] MEDS: CARVEDILOL 6.25 MG TABLET PO SCH ×2 (08:28→17:00)
[2021-10-19] MEDS: ASPIRIN EC 81 MG TABLET.DR PO SCH (08:28)
[2021-10-19] MEDS: LEVETIRACETAM (250 MG) 250 MG TABLET PO SCH (08:28)
[2021-10-19] MEDS: ASCORBIC ACID 500 MG TABLET PO SCH (08:29)
[2021-10-19] MEDS: FAMOTIDINE (20 MG) 20 MG TABLET PO SCH (08:29)
[2021-10-19] MEDS: QUETIAPINE FUMARATE 25 MG TABLET PO SCH ×4 (08:29→20:34)
--- NOTE | 2021-10-19 09:00 | NUR ---
ICU/RN UNABLE TO GIVE G-TUBE MEDS .PT IS NPO.DUE TO GI BLEED.IV MEDS GIVEN ORDERED.CONTINUE MONITORING.
[2021-10-19] MEDS ORDERED: CALCIUM CHLORIDE 1,000 MG/10 ML DISP.SYRIN ONE (09:19)
[2021-10-19] MEDS ORDERED: EPINEPHRINE (1:10,000) SYRINGE 1 MG/10 ML DISP.SYRIN ONE (09:19)
[2021-10-19] MEDS ORDERED: SODIUM BICARBONATE SYR 50 MEQ/50 ML DISP.SYRIN ONE (09:19)
--- NOTE | 2021-10-19 10:15 | NUR ---
ICU/RN HD STARTED ORDERED.
[2021-10-19 10:25] LABS: THYROID STIMULATING HORMONE 5.758 uIU/mL (0.358-3.74)
--- NOTE | 2021-10-19 10:45 | NUR ---
ICU/RN BP DECREASED..HR DECREASED TO 45-[address] ESCALANTE NOTIF[address] .PT IS DIAPHORETIC .BS CHECK -205.
[2021-10-19] MEDS: NOREPINEPHRINE 32 MG in IV NS 0.9% 218 ML IV PRN (10:46)
--- NOTE | 2021-10-19 10:55 | NUR ---
ICU/RN 10;52 AM NO PULS.PEA,NO BP.HD STOP CODE BLUE INITIATED..DR MORENO AT BED SIDE. SEE CODE BLUE RECORD.
--- NOTE | 2021-10-19 11:00 | NUR ---
ICU/RN 10:58. PT HAS HR -120-130 BPM.HAS BP. CONTINUE MONITORING.
[2021-10-19] MEDS ORDERED: CALCIUM CHLORIDE 1,000 MG/10 ML DISP.SYRIN IV ONE (11:04)
[2021-10-19] MEDS ORDERED: SODIUM BICARBONATE SYR 50 MEQ/50 ML DISP.SYRIN IV ONE (11:04)
[2021-10-19] MEDS ORDERED: EPINEPHRINE (1:10,000) SYRINGE 1 MG/10 ML DISP.SYRIN IVP ONE (11:04)
[2021-10-19] MEDS: LEVETIRACETAM (500MG) 250 MG in IV NS 0.9% 100 ML IV SCH ×2 (15:49→21:02)
[2021-10-19] MEDS: BLOOD SUGAR DIAGNOSTIC 1 EACH STRIP IN SCH ×2 (17:43→23:35)
[2021-10-19] MEDS: MIRTAZAPINE 15 MG TABLET PO SCH (17:44)
[2021-10-19] MEDS ORDERED: hydrALAZINE HCL IV 20 MG VIAL IV PRN (18:00)
--- NOTE | 2021-10-19 18:00 | NUR ---
ICU/RN PM CARE PROVIDED.DUE MEDS ARE GIVEN ORDERED.BS-266. 3 UNITS GIVEN SQ. V/S STABLE,AFEBRILE. CONTINUE MONITORING.
[2021-10-19] MEDS: INSULIN REGULAR, HUMAN 100 UNIT/ML 3 ML VIAL SQ PRN ×2 (18:18→23:39)
[2021-10-19] MEDS: NITROGLYCERIN PACKET 1 GM PACKET TOP SCH (18:37)
[2021-10-19] MEDS: ATORVASTATIN 10 MG TABLET PO SCH (21:02)
[2021-10-19] MEDS: DOCUSATE SODIUM 100 MG CAPSULE PO SCH (21:02)
--- NOTE | 2021-10-19 23:37 | NUR ---
FIO2 TITRATED TO 50% RN NOTIFIED.
[2021-10-19] MEDS: INSULIN GLARGINE, 100 UNIT/ML CARTRIDGE SQ SCH (23:38)
[2021-10-20] VITALS (67 sets, daily range): BP systolic 0–254; BP diastolic 22–84
[2021-10-20] MEDS: hydrALAZINE HCL 25 MG TABLET PO SCH ×3 (04:49→21:00)
[2021-10-20 05:03] LABS: BASOPHILS # (AUTO) 0.1 K/uL (0.0-0.2); BASOPHILS % (AUTO) 0.3 % (0.0-2.0); EOSINOPHILS % (AUTO) 0.4 % (0.0-6.0); HEMATOCRIT 23 % (39-51); HEMOGLOBIN 7.6 g/dL (13.5-17.5); LYMPHOCYTES # (AUTO) 1.1 K/uL (0.8-4.8); LYMPHOCYTES % (AUTO) 5.4 % (20.0-44.0); MEAN CORPUSCULAR HGB CONC 33 g/dl (31.0-36.0); MEAN CORPUSCULAR VOLUME 82 fL (80-96); MONOCYTES # (AUTO) 0.6 K/uL (0.1-1.30); NEUTROPHILS # (AUTO) 18.4 K/uL (1.8-8.9); NEUTROPHILS % (AUTO) 90.9 % (43.0-81.0); PLATELET COUNT (AUTO) 248 K/uL (150-450); RED BLOOD CELL COUNT(AUTO) 2.79 MIL/uL (4.5-6.0); WHITE BLOOD COUNT (AUTO) 20.3 K/uL (4.3-11.0)
--- NOTE | 2021-10-20 05:24 | NUR ---
FIO2 TITRATED TO 40% RN NOTIFIED. O2 SAT 100%.
[2021-10-20] MEDS: PIPERACILLIN /TAZOBACTAM 2.25 G in IV D5W 50 ML IV SCH ×3 (05:29→18:21)
[2021-10-20] MEDS: BLOOD SUGAR DIAGNOSTIC 1 EACH STRIP IN SCH ×3 (05:30→18:20)
[2021-10-20] MEDS: NITROGLYCERIN PACKET 1 GM PACKET TOP SCH ×3 (05:31→18:00)
[2021-10-20 05:44] LABS: ALBUMIN 1.5 g/dL (3.4-5.0); BILIRUBIN,TOTAL 0.4 mg/dL (0.2-1.0); CALCIUM, SERUM 9.8 mg/dL (8.5-10.1); MAGNESIUM 3.2 mg/dL (1.8-2.4); PHOSPHORUS 3.1 mg/dL (2.5-4.9); POTASSIUM 5.7 mmol/L (3.5-5.1); TOTAL PROTEIN, SERUM 5.6 g/dL (6.4-8.2)
[2021-10-20 06:29] LABS: CREATININE 8.7 mg/dL (0.6-1.3)
--- NOTE | 2021-10-20 07:35 | NUR ---
ICU/RN PT IS INTUBATED ON THE VENT AC MODE,FIO2-30%.SAT O2-100%.NOT SEDATED.V/S STABLE,AFEBRILE.NO PAIN REPORTED AT THIS TIME. S/P CODE BLUE 4 TIMES.OPEN EYES NOT RESPONDING ,HAS ENCEPHALOPATHY.RIGHT UPPER ARM PICC LINE.RIGHT CHEST HD CATH .LEFT UPPER ARM HD FISTULA.PT IS ANURIC.NOT TOLERATING HD.BILATERAL LOWER EXTREMITIES WOUNDS COVERED WITH DRESSING SACRAL WOUND COVERED WITH DRY CLEAN DRESSING.PT IS NPO.G TUBE CONNECTED TO LOW INTERMEDIATE SUCTION. LABS REVIEW.MD AWARE. SUCTION PROVIDED.REPOSITION FOR COMFORT.CONTINUE MONITORING.
[2021-10-20] MEDS: CALCIUM ACETATE 667 MG CAP/TAB PO SCH ×3 (08:00→18:00)
[2021-10-20] MEDS: SEVELAMER CARBONATE 800 MG POWD.PACK PO SCH ×3 (08:00→18:00)
[2021-10-20] MEDS: PANTOPRAZOLE 40 MG VIAL IV SCH ×2 (08:06→21:30)
[2021-10-20] MEDS: AMLODIPINE BESYLATE 10 MG TABLET PO SCH (08:07)
[2021-10-20] MEDS: NEPRO VAN 237 ML CAN PO SCH (08:07)
[2021-10-20] MEDS: ASPIRIN EC 81 MG TABLET.DR PO SCH (08:07)
[2021-10-20] MEDS: CARVEDILOL 6.25 MG TABLET PO SCH ×2 (08:07→16:07)
[2021-10-20] MEDS: QUETIAPINE FUMARATE 25 MG TABLET PO SCH ×4 (08:08→21:00)
[2021-10-20] MEDS: FAMOTIDINE (20 MG) 20 MG TABLET PO SCH (08:08)
[2021-10-20] MEDS: ASCORBIC ACID 500 MG TABLET PO SCH (08:08)
[2021-10-20 08:21] LABS: ABG BASE EXCESS 0.7 mmol/L; ABG OXYGEN SATURATION 95.1 % (92.0-98.5); ABG PCO2 32.2 mmHg (35.0-45.0); ABG PH 7.488 (7.350-7.450); AaDO2 98.1 mmHg; COHb 0.7 % (0.5-1.5); MetHb 0.1 % (0.0-1.5); O2Hb 94.3 % (94.0-97.0); PEEP,BG 5 cm H2O; SITE, ABG Right Radial; VT, ABG 500 mL
[2021-10-20] MEDS: LEVETIRACETAM (500MG) 250 MG in IV NS 0.9% 100 ML IV SCH ×2 (08:44→21:30)
--- NOTE | 2021-10-20 09:00 | NUR ---
ICU/RN IV MEDS ARE GIVEN ORDERED.G-TUBE MEDS HOLD.PT IS NPO.DUE TO GI BLEED.
[2021-10-20] MEDS: OCTREOTIDE 1,250 MCG in IV NS 0.9% 247.5 ML IV PRN (12:49)
--- NOTE | 2021-10-20 14:50 | NUR ---
ICU/RN DURING HD PT BECAME ALOC .DIAPHORETIC .BP DECREASED.HR DECREASED. BS-122. HD WAS FOR 44 MIN.HD STOP. CONTINUE MONITORING.PT IS NOT TOLERATING HEMODIALYSIS. NOTIFIED.
--- NOTE | 2021-10-20 15:05 | NUR ---
ICU/RN PT HAS PEA AT 14:57.CODE DAKSHA INITIATED.CODE DAKSHA #5 ,SINCE HIS ADMISSION.SEE CODE BLUE FORM. AT 15:01.PT IS BACK TO ST130 BPM. BP STABLE.
[2021-10-20] MEDS ORDERED: SODIUM BICARBONATE SYR 50 MEQ/50 ML DISP.SYRIN IV ONE (15:18)
[2021-10-20] MEDS ORDERED: EPINEPHRINE (1:10,000) SYRINGE 1 MG/10 ML DISP.SYRIN IVP ONE (15:18)
--- NOTE | 2021-10-20 15:20 | NUR ---
ICU/RN 15:17 PT IS WENT PEA.CODE BLUE #6 INITIATED.AFTER 1 DOSE OF EPINEPHRINE IV AND CHEST COMPRESSIONS PT IS BACK TO ST-140 BPM.AT 15:17.PT IS STILL FULL CODE. PT HAS NO FAMILY .CONTINUE MONITORING.ER DOCTOR AT BED SIDE.NEW ORDERS RECEIVED.
[2021-10-20 16:12] LABS: BASOPHILS % (AUTO) 0.2 % (0.0-2.0); EOSINOPHILS % (AUTO) 0.6 % (0.0-6.0); LYMPHOCYTES % (AUTO) 5.4 % (20.0-44.0); MEAN CORPUSCULAR HGB CONC 33 g/dl (31.0-36.0); MEAN CORPUSCULAR VOLUME 84 fL (80-96); MONOCYTES # (AUTO) 0.6 K/uL (0.1-1.30); MONOCYTES % (AUTO) 3.5 % (2.0-12.0); NEUTROPHILS # (AUTO) 15.8 K/uL (1.8-8.9); NEUTROPHILS % (AUTO) 90.3 % (43.0-81.0); PLATELET COUNT (AUTO) 239 K/uL (150-450); RED BLOOD CELL COUNT(AUTO) 2.34 MIL/uL (4.5-6.0); WHITE BLOOD COUNT (AUTO) 17.5 K/uL (4.3-11.0)
[2021-10-20] MEDS: NOREPINEPHRINE 32 MG in IV NS 0.9% 218 ML IV PRN (16:19)
[2021-10-20 16:25] LABS: HEMATOCRIT 20 % (39-51); HEMOGLOBIN 6.4 g/dL (13.5-17.5)
[2021-10-20 16:39] LABS: CALCIUM, SERUM 8.8 mg/dL (8.5-10.1); POTASSIUM 4.5 mmol/L (3.5-5.1)
[2021-10-20 16:42] LABS: CREATININE 7.8 mg/dL (0.6-1.3)
[2021-10-20] MEDS: MIRTAZAPINE 15 MG TABLET PO SCH (18:00)
[2021-10-20 18:27] LABS: BAND % (MANUAL) 3 % (0.0-5.0); EOSINOPHILS % (MANUAL) 2 % (0-4); LYMPHOCYTES % (MANUAL) 3 % (16-48); MONOCYTES % (MANUAL) 2 % (0-11.0); NEUTROPHILS % (MANUAL) 90 (42-76)
--- NOTE | 2021-10-20 18:30 | NUR ---
ICU/RN PT IS ON LEVOPHED DRIP.H/H 6.02/27.MD NOTIFIED.1 UNIT PRBC ORDERED AND STARTED.PT IS NON-RESPONSIVE. BS-131.OG TUBE RESIDUAL 250 ML.GREEN COLOR. CONTINUE MONITORING.
[2021-10-20] MEDS: DOCUSATE SODIUM 100 MG CAPSULE PO SCH (21:19)
[2021-10-20] MEDS: ATORVASTATIN 10 MG TABLET PO SCH (21:19)
[2021-10-20] MEDS: INSULIN GLARGINE, 100 UNIT/ML CARTRIDGE SQ SCH (22:00)
[2021-10-21] VITALS (40 sets, daily range): BP systolic 77–149; BP diastolic 24–56
[2021-10-21] MEDS: BLOOD SUGAR DIAGNOSTIC 1 EACH STRIP IN SCH ×2 (00:15→06:01)
[2021-10-21] MEDS: PIPERACILLIN /TAZOBACTAM 2.25 G in IV D5W 50 ML IV SCH ×2 (00:15→05:20)
[2021-10-21] MEDS: hydrALAZINE HCL 25 MG TABLET PO SCH (05:00)
[2021-10-21 05:07] LABS: BASOPHILS # (AUTO) 0.1 K/uL (0.0-0.2); BASOPHILS % (AUTO) 0.3 % (0.0-2.0); EOSINOPHILS % (AUTO) 3.2 % (0.0-6.0); HEMATOCRIT 21 % (39-51); HEMOGLOBIN 7.1 g/dL (13.5-17.5); LYMPHOCYTES # (AUTO) 0.7 K/uL (0.8-4.8); LYMPHOCYTES % (AUTO) 4.6 % (20.0-44.0); MEAN CORPUSCULAR HGB CONC 33 g/dl (31.0-36.0); MEAN CORPUSCULAR VOLUME 83 fL (80-96); MONOCYTES # (AUTO) 0.4 K/uL (0.1-1.30); MONOCYTES % (AUTO) 2.7 % (2.0-12.0); NEUTROPHILS # (AUTO) 13.3 K/uL (1.8-8.9); NEUTROPHILS % (AUTO) 89.2 % (43.0-81.0); PLATELET COUNT (AUTO) 204 K/uL (150-450); RED BLOOD CELL COUNT(AUTO) 2.54 MIL/uL (4.5-6.0)
[2021-10-21] MEDS: DEXTROSE 50%-WATER 50 ML DISP.SYRIN IV PRN ×2 (05:12→05:35)
[2021-10-21 05:21] LABS: BILIRUBIN,TOTAL 0.4 mg/dL (0.2-1.0); CALCIUM, SERUM 8.7 mg/dL (8.5-10.1); MAGNESIUM 2.8 mg/dL (1.8-2.4); PHOSPHORUS 3.1 mg/dL (2.5-4.9); POTASSIUM 4.6 mmol/L (3.5-5.1)
[2021-10-21 05:33] LABS: ALBUMIN 1.2 g/dL (3.4-5.0)
[2021-10-21] MEDS: NITROGLYCERIN PACKET 1 GM PACKET TOP SCH (06:00)
[2021-10-21] MEDS: CALCIUM ACETATE 667 MG CAP/TAB PO SCH (08:00)
[2021-10-21] MEDS: SEVELAMER CARBONATE 800 MG POWD.PACK PO SCH (08:00)
--- NOTE | 2021-10-21 08:00 | NUR ---
RN NOTES PT IS INTUBATED ON THE ETT/VENT AC MODE 16,FIO2-40%.SAT O2-100%. NOT SEDATED, T-92.2F APPLIED LESLEY GOMEZ, BP 130/34, P-63. RIGHT UPPER ARM PICC LINE.RIGHT CHEST HD CATH, AND LEFT UPPER ARM HD FISTULA.PT IS ANURIC. BILATERAL LOWER EXTREMITIES WOUNDS COVERED WITH DRESSING SACRAL WOUND COVERED WITH DRY CLEAN DRESSING.PT IS NPO. G-TUBE CONNECTED TO LOW INTERMEDIATE SUCTION. LABS REVIEW, SUCTION PROVIDED. REPOSITION FOR COMFORT. CONTINUE MONITORING.
[2021-10-21] MEDS: ASPIRIN EC 81 MG TABLET.DR PO SCH (09:00)
[2021-10-21] MEDS: QUETIAPINE FUMARATE 25 MG TABLET PO SCH (09:00)
[2021-10-21] MEDS: FAMOTIDINE (20 MG) 20 MG TABLET PO SCH (09:00)
[2021-10-21] MEDS: ASCORBIC ACID 500 MG TABLET PO SCH (09:00)
[2021-10-21] MEDS: AMLODIPINE BESYLATE 10 MG TABLET PO SCH (09:00)
[2021-10-21] MEDS: CARVEDILOL 6.25 MG TABLET PO SCH (09:00)
[2021-10-21] MEDS: NEPRO VAN 237 ML CAN PO SCH (09:00)
--- NOTE | 2021-10-21 09:20 | NUR ---
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
[2021-10-21] MEDS: PANTOPRAZOLE 40 MG VIAL IV SCH (09:51)
[2021-10-21] MEDS: LEVETIRACETAM (500MG) 250 MG in IV NS 0.9% 100 ML IV SCH (09:51)
--- NOTE | 2021-10-21 10:20 | NUR ---
RN NOTE PATIENT GETTING APNEA TEST AT THIS TIME VIA RT, AND PATIENT TOLERATED ONLY 10MINS, DROOPED O2 SATURATION TO THE 70%. PATIENT RECONNECTED TO THE VENT.
[2021-10-21] MEDS ORDERED: EPINEPHRINE (1:10,000) SYRINGE 1 MG/10 ML DISP.SYRIN IVP ONE ×3 (10:23→10:54)
--- NOTE | 2021-10-21 10:32 | NUR ---
RT PER DR ESTRADA, APNEA TEST PERFORMED, PATIENT DID NOT TAKE A BREATH FOR 5 MIN AND NOTED PALE SKIN COLOR CHANGE AND DESATURATION DOWN TO THE 70'S. PATIENT PLACED BACK ON VENT.
--- NOTE | 2021-10-21 10:40 | NUR ---
RT CODE BLUE PAGED, CPR INITIATED IMMEDIATELY. PER DR ESTRADA PATIENT .
--- NOTE | 2021-10-21 10:40 | NUR ---
RN NOTES `PATIENT PRONOUNCED VIA Dr ESTRADA AFTER CODE BLUE. PATIENT HAS NO HEART TONES, NO BP, NO RR. 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 PATIENT HAS NO FAMILY. POST MORTEM CARE DONE, LABELED BELONGING , AND ID TAGS APPLIED. CALLED ON LEGACY COORDINATOR NAME IS TRUPTI Lizarraga CASE : [id number] . TRANSFERED PATIENTS BODY TO THE [facility] [place] [facility] SECURITY PERSONNEL.
== END 2021-10-21 10:40 | DRG 640 ==
LOC: ER 10:52 → TELE1 14:06 → ICU 18:06
PROC: 5A1945Z Respiratory Ventilation, 24-96 Consecutive Hours (ICD-10-PCS; principal; 2021-10-18)
PROC: 0BH18EZ Insertion of Endotracheal Airway into Trachea, Via Natural or Artificial Opening Endoscopic (ICD-10-PCS; 2021-10-18)
PROC: 02HV33Z Insertion of Infusion Device into Superior Vena Cava, Percutaneous Approach (ICD-10-PCS; 2021-10-18)
PROC: B548ZZA Ultrasonography of Superior Vena Cava, Guidance (ICD-10-PCS; 2021-10-18)
PROC: 5A12012 Performance of Cardiac Output, Single, Manual (ICD-10-PCS; 2021-10-18)
PROC: 30233N1 Transfusion of Nonautologous Red Blood Cells into Peripheral Vein, Percutaneous Approach (ICD-10-PCS; 2021-10-18)
PROC: 5A1D70Z Performance of Urinary Filtration, Intermittent, Less than 6 Hours Per Day (ICD-10-PCS; 2021-10-18)
PROC: 30233K1 Transfusion of Nonautologous Frozen Plasma into Peripheral Vein, Percutaneous Approach (ICD-10-PCS; 2021-10-19)
PROC: 5A12012 Performance of Cardiac Output, Single, Manual (ICD-10-PCS; 2021-10-20)
DX: E87.5 Hyperkalemia (principal); J96.01 Acute respiratory failure with hypoxia; N18.6 End stage renal disease; I13.2 Hypertensive heart and chronic kidney disease with heart failure and with stage 5 chronic kidney disease, or end stage renal disease; E46 Unspecified protein-calorie malnutrition; G93.1 Anoxic brain damage, not elsewhere classified; K92.2 Gastrointestinal hemorrhage, unspecified; I42.9 Cardiomyopathy, unspecified; E87.1 Hypo-osmolality and hyponatremia; Z86.73 Personal history of transient ischemic attack (TIA), and cerebral infarction without residual deficits; F31.9 Bipolar disorder, unspecified; G40.909 Epilepsy, unspecified, not intractable, without status epilepticus; E11.22 Type 2 diabetes mellitus with diabetic chronic kidney disease; E78.5 Hyperlipidemia, unspecified; G47.00 Insomnia, unspecified; I48.91 Unspecified atrial fibrillation; K21.9 Gastro-esophageal reflux disease without esophagitis; Z93.1 Gastrostomy status; Z99.2 Dependence on renal dialysis; Z20.822 Contact with and (suspected) exposure to COVID-19; I46.9 Cardiac arrest, cause unspecified; L89.626 Pressure-induced deep tissue damage of left heel; L89.616 Pressure-induced deep tissue damage of right heel; L89.896 Pressure-induced deep tissue damage of other site; L89.156 Pressure-induced deep tissue damage of sacral region; F20.9 Schizophrenia, unspecified; I50.9 Heart failure, unspecified; I25.2 Old myocardial infarction; Z79.4 Long term (current) use of insulin; R13.10 Dysphagia, unspecified; I49.01 Ventricular fibrillation; R57.0 Cardiogenic shock; D64.9 Anemia, unspecified
CPT/HCPCS: 31720; 36415; 36600; 71045-TC; 80048-TC; 80053-TC; 82728-TC; 82803-TC; 82962-TC; 83540-TC; 83735-TC; 84100-TC; 84439-TC; 84443-TC; 84484-TC; 85025-TC; 86850-TC; 87081-TC; 90935-TC; 92950-TC; 93307-TC; 94002-TC; 94003-TC; 94760-TC; C9113; G0378; J0171; J0610; J1815; J1953; J2354; J2405; J2543; J2597; J3490; J7030; J7042; J7050; J7060; P9016; P9017; U0003